=== PATIENT | male | born 1980 | race Caucasian/White ===

== ENCOUNTER 2017-08-30 22:02 | Inpatient (IN) | payer SELFPAY ==
[~2017-08-30] VITALS: Ht 182.9 cm; Wt 70.0 kg
[2017-08-30 18:00] VITALS: PULSE 81
[2017-08-30 22:17] VITALS: BP 118/74; PULSE 91; RESP 16; TEMP 100.1; O2SAT 98
[2017-08-30] MEDS ORDERED: SODIUM CHLORIDE 0.9% FLUSH 10 ML FLUSH IVF PRN (22:30)
[2017-08-30] MEDS ORDERED: IBUPROFEN 800 MG TAB PO ONE (22:30)
--- NOTE | 2017-08-30 22:42 | PD ---
HPI Chief Complaint: Respiratory Symptoms Time Seen by Provider: 22:22 Travel History International Travel<30 days: No Contact w/Intl Traveler<30days: No Traveled to known affect area: No History of Present Illness HPI Patient is a 37-year-old male presenting to emergency for evaluation of flulike symptoms. Patient states he has felt short of breath, weak for the last 4-5 days. He reports decreased oral intake secondary to fatigue and just sleeping all the time. Patient denies any fevers but states he has not checked his temperature but has had felt hot. He also reports a productive cough but is uncertain what the color of his sputum is. Past medical history significant for HIV, he is not on any medications in 1 year. He recently moved back to the area from [place] and is currently staying with family. [facility] Past Medical History Diminished Hearing: No Medical other: Yes (HIV) Social History Alcohol Use: Yes (OCC) Tobacco Use: No Substance Use: No Allergies-Medications (Allergen,Severity, Reaction): Coded Allergies: sulfamethoxazole (Verified Allergy, Severe, Anaphylaxis, 08/31/17) trimethoprim (Verified Allergy, Severe, Anaphylaxis, 08/31/17) Reported Meds & Prescriptions Reported Meds & Active Scripts Active No Active Prescriptions or Reported Medications Review of Systems Except as stated in HPI: all other systems reviewed are Neg General / Constitutional: Positive: Chills HENT: No: Headaches, Neck Pain Cardiovascular: No: Chest Pain or Discomfort Respiratory: Positive: Cough, Shortness of Breath Gastrointestinal: No: Nausea, Vomiting, Abdominal Pain Musculoskeletal: No: Myalgias Skin: Positive Rash Neurologic: Positive: Weakness Physical Exam Narrative GENERAL: Well developed, well-nourished, alert male. Resting comfortably in no acute distress. SKIN: Warm and dry. Well demarcated rash to scalp and face. Central clearing and scaling noted. HEAD: Atraumatic. Normocephalic. EYES: Pupils equal and round. No scleral icterus. No injection or drainage. ENT: No nasal bleeding or discharge. Mucous membranes pink and moist. NECK: Trachea midline. No JVD. CARDIOVASCULAR: Regular rate and rhythm. RESPIRATORY: No accessory muscle use. Clear to auscultation. Coarse breath sounds in bases. GASTROINTESTINAL: Abdomen soft, non-tender, nondistended. Hepatic and splenic margins not palpable. MUSCULOSKELETAL: Extremities without clubbing, cyanosis, or edema. No obvious deformities. NEUROLOGICAL: Awake and alert. No obvious cranial nerve deficits. Motor grossly within normal limits. Five out of 5 muscle strength in the arms and legs. Normal speech. PSYCHIATRIC: Appropriate mood and affect; insight and judgment normal. Data Data Last Documented VS Vital Signs Date Time Temp Pulse Resp B/P (MAP) Pulse Ox O2 Delivery O2 Flow Rate FiO2 08/31/17 00:27 99.9 08/30/17:17 91 16 118/74 (89) 98 Orders Orders Complete Blood Count With Diff (08/30/17 22:23) Comprehensive Metabolic Panel (08/30/17 22:23) Influenzae A/B Antigen (08/30/17 22:23) Chest, Pa & Lat (08/30/17:23) Iv Access Insert/Monitor (08/30/17 22:23) Oximetry (08/30/17:23) Ibuprofen (Motrin) (08/30/17 22:30) Sodium Chloride 0.9% Flush (Ns Flush) (08/30/17 22:30) Urinalysis - C+S If Indicated (08/30/17 22:23) Sodium Chlor 0.9% 1000 Ml Inj (Ns 1000 M (08/31/17 00:15) Methylprednisolone So Succ Inj (Solumedr (08/31/17 00:15) Ldh Serum (08/31/17 00:22) Arterial Blood Gas (Abg) (08/31/17 ) Acetaminophen (Tylenol) (08/31/17 02:00) Ceftriaxone Inj (Rocephin Inj) (08/31/17 02:00) Azithromycin Inj (Zithromax Inj) (08/31/17 02:00) Sulfamet-Trimeth Ds 800-160 Mg (Bactrim (08/31/17 02:00) Admit To Inpatient (08/31/17 ) Vital Signs (Adult) Q4H (08/31/17 02:07) Activity Oob With Assistance (08/31/17 02:07) Growth Media Mixer Mushroom / Telemetry .CONTINUOUS (08/31/17 02:07) Diet Heart Healthy (08/31/17 Breakfast) Sodium Chloride 0.9% Flush (Ns Flush) (08/31/17 02:15) Sodium Chloride 0.9% Flush (Ns Flush) (08/31/17 09:00) Basic Metabolic Panel (Bmp) (09/01/17 06:00) Complete Blood Count With Diff (09/01/17 06:00) Case Management Consult (08/31/17 02:07) Naloxone Inj (Narcan Inj) (08/31/17 02:15) Inpatient Certification (08/31/17 ) Blood Culture (08/31/17 02:07) Admit Order (Ed Use Only) (08/31/17 02:07) Lymphocyte Profile Cd4 Cd8 (08/31/17 02:08) Labs Laboratory Tests Test 08/30/17 22:50 08/31/17 00:35 08/31/17 01:55 White Blood Count 6.4 TH/MM3 Red Blood Count 3.69 MIL/MM3 Hemoglobin 11.5 GM/DL Hematocrit 32.8 % Mean Corpuscular Volume 88.8 FL Mean Corpuscular Hemoglobin 31.1 PG Mean Corpuscular Hemoglobin Concent 35.0 % Red Cell Distribution Width 14.9 % Platelet Count 142 TH/MM3 Mean Platelet Volume 7.8 FL Neutrophils (%) (Auto) 72.0 % Lymphocytes (%) (Auto) 12.5 % Monocytes (%) (Auto) 15.0 % Eosinophils (%) (Auto) 0.3 % Basophils (%) (Auto) 0.2 % Neutrophils # (Auto) 4.6 TH/MM3 Lymphocytes # (Auto) 0.8 TH/MM3 Monocytes # (Auto) 1.0 TH/MM3 Eosinophils # (Auto) 0.0 TH/MM3 Basophils # (Auto) 0.0 TH/MM3 CBC Comment DIFF FINAL Differential Comment Blood Urea Nitrogen 9 MG/DL Creatinine 0.78 MG/DL Random Glucose 93 MG/DL Total Protein 7.2 GM/DL Albumin 2.9 GM/DL Calcium Level 8.3 MG/DL Alkaline Phosphatase 63 U/L Aspartate Amino Transf (AST/SGOT) 13 U/L Alanine Aminotransferase (ALT/SGPT) 13 U/L Total Bilirubin 0.5 MG/DL Sodium Level 137 MEQ/L Potassium Level 4.0 MEQ/L Chloride Level 105 MEQ/L Carbon Dioxide Level 26.4 MEQ/L Anion Gap 6 MEQ/L Estimat Glomerular Filtration Rate 113 ML/MIN Lactate Dehydrogenase 193 U/L Blood Gas Puncture Site LT RADIAL Blood Gas Patient Temperature 98.6 Blood Gas HCO3 24 mmol/L Blood Gas Base Excess 0.1 mmol/L Blood Gas Oxygen Saturation 89 % Arterial Blood pH 7.46 Arterial Blood Partial Pressure CO2 34 mmHg Arterial Blood Partial Pressure O2 54 mmHG Arterial Blood Oxygen Content 13.9 Vol % Arterial Blood Carboxyhemoglobin 1.5 % Arterial Blood Methemoglobin 0.5 % Blood Gas Hemoglobin 11.1 G/DL Oxygen Delivery Device LR Blood Gas Inspired Oxygen 21 % Urine Color YELLOW Urine Turbidity CLEAR Urine pH 6.5 Urine Specific [place] 1.015 Urine Protein TRACE mg/dL Urine Glucose (UA) NEG mg/dL Urine Ketones NEG mg/dL Urine Occult Blood NEG Urine Nitrite NEG Urine Bilirubin NEG Urine Urobilinogen LESS THAN 2.0 MG/DL Urine Leukocyte Esterase NEG Urine RBC 1 /hpf Urine WBC 4 /hpf Urine Mucus FEW /lpf Microscopic Urinalysis Comment CULT NOT INDICATED MDM Medical Decision Making Medical Screen Exam Complete: Yes Emergency Medical Condition: Yes Interpretation(s) Last Impressions Chest X-Ray 08/30/172222 Signed Impressions: Service Date/Time: August 22:37 - CONCLUSION: Patchy bilateral airspace disease consistent with pneumonitis Edilson Avendaño MD Laboratory Tests Test 08/30/17 22:50 08/31/17 00:35 08/31/17 01:55 White Blood Count 6.4 TH/MM3 Red Blood Count 3.69 MIL/MM3 Hemoglobin 11.5 GM/DL Hematocrit 32.8 % Mean Corpuscular Volume 88.8 FL Mean Corpuscular Hemoglobin 31.1 PG Mean Corpuscular Hemoglobin Concent 35.0 % Red Cell Distribution Width 14.9 % Platelet Count 142 TH/MM3 Mean Platelet Volume 7.8 FL Neutrophils (%) (Auto) 72.0 % Lymphocytes (%) (Auto) 12.5 % Monocytes (%) (Auto) 15.0 % Eosinophils (%) (Auto) 0.3 % Basophils (%) (Auto) 0.2 % Neutrophils # (Auto) 4.6 TH/MM3 Lymphocytes # (Auto) 0.8 TH/MM3 Monocytes # (Auto) 1.0 TH/MM3 Eosinophils # (Auto) 0.0 TH/MM3 Basophils # (Auto) 0.0 TH/MM3 CBC Comment DIFF FINAL Differential Comment Blood Urea Nitrogen 9 MG/DL Creatinine 0.78 MG/DL Random Glucose 93 MG/DL Total Protein 7.2 GM/DL Albumin 2.9 GM/DL Calcium Level 8.3 MG/DL Alkaline Phosphatase 63 U/L Aspartate Amino Transf (AST/SGOT) 13 U/L Alanine Aminotransferase (ALT/SGPT) 13 U/L Total Bilirubin 0.5 MG/DL Sodium Level 137 MEQ/L Potassium Level 4.0 MEQ/L Chloride Level 105 MEQ/L Carbon Dioxide Level 26.4 MEQ/L Anion Gap 6 MEQ/L Estimat Glomerular Filtration Rate 113 ML/MIN Lactate Dehydrogenase 193 U/L Blood Gas Puncture Site LT RADIAL Blood Gas Patient Temperature 98.6 Blood Gas HCO3 24 mmol/L Blood Gas Base Excess 0.1 mmol/L Blood Gas Oxygen Saturation 89 % Arterial Blood pH 7.46 Arterial Blood Partial Pressure CO2 34 mmHg Arterial Blood Partial Pressure O2 54 mmHG Arterial Blood Oxygen Content 13.9 Vol % Arterial Blood Carboxyhemoglobin 1.5 % Arterial Blood Methemoglobin 0.5 % Blood Gas Hemoglobin 11.1 G/DL Oxygen Delivery Device LR Blood Gas Inspired Oxygen 21 % Urine Color YELLOW Urine Turbidity CLEAR Urine pH 6.5 Urine Specific [place] 1.015 Urine Protein TRACE mg/dL Urine Glucose (UA) NEG mg/dL Urine Ketones NEG mg/dL Urine Occult Blood NEG Urine Nitrite NEG Urine Bilirubin NEG Urine Urobilinogen LESS THAN 2.0 MG/DL Urine Leukocyte Esterase NEG Urine RBC 1 /hpf Urine WBC 4 /hpf Urine Mucus FEW /lpf Microscopic Urinalysis Comment CULT NOT INDICATED Vital Signs Date Time Temp Pulse Resp B/P (MAP) Pulse Ox O2 Delivery O2 Flow Rate FiO2 08/31/17 00:27 99.9 08/30/17 22:17 100.1 91 16 118/74 (89) 98 Vital Signs Date Time Temp Pulse Resp B/P (MAP) Pulse Ox O2 Delivery O2 Flow Rate FiO2 08/30/17 22:17 100.1 91 16 118/74 (89) 98 Differential Diagnosis Pneumonia versus orchitis versus influenza versus sepsis versus other Narrative Course Patient is a 37-year-old HIV positive patient currently not on any HAART. Patient presented today complaining of 4 days of increasing shortness of breath with exertion, fatigue and weakness. Patient was mildly febrile on arrival, he was vital signs are otherwise stable. Imaging ordered and pending, ibuprofen, IV fluids ordered. Chest x-ray which is read by the radiologist shows patchy bilateral airspace disease consistent with pneumonitis. In this clinical setting is likely pneumonia CBC no leukocytosis, monocytes 15. Chemistry is unremarkable, LDH is 193, urinalysis is unremarkable ABG consistent with respiratory alkalosis. Discussed findings with my attending physician. Blood cultures ordered, antibiotics ordered. [facility] paged for admit. Discussed with Dr. Harrison who accepted admit. Sepsis Criteria SIRS Criteria (2 or more): Temp > 100.9 or < 96.8 Diagnosis Primary Impression: Bilateral pneumonia Qualified Codes: J18.9 - Pneumonia, unspecified organism Scripts No Active Prescriptions or Reported Meds Condition: Stable Altagracia Cannon BLIND HOOKER Aug 30, 2017 22:42
--- NOTE | 2017-08-30 22:45 | RADRPT ---
EXAM DATE/TIME: 08/30/2017 22:37 [facility] COMPARISON: No previous studies available for comparison. INDICATIONS : Shortness of breath and fever. MEDICAL HISTORY : None. SURGICAL HISTORY : None. ENCOUNTER: Initial ACUITY: 1 week PAIN SCORE: 0/10 LOCATION: Bilateral chest FINDINGS: There is patchy bilateral airspace disease in the right lung base lower lobe and left midlung field m ost likely representing pneumonitis CONCLUSION: Patchy bilateral airspace disease consistent with pneumonitis Edilson Avendaño MD on August 30, 2017 at 22:43 Board Certified Radiologist. This report was verified electronically.
[2017-08-30 23:10] LABS: AUTOMATED NEUTROPHIL # 4.6 TH/MM3 (1.8-7.7); BASOPHIL % 0.2 % (0.0-2.0); EOSINOPHIL % 0.3 % (0.0-4.0); HEMATOCRIT 32.8 % (39.0-51.0); HEMO FLAGS DIFF FINAL; LYMPH % 12.5 % (9.0-44.0); LYMPHOCYTE # 0.8 TH/MM3 (1.0-4.8); MEAN CELL VOLUME 88.8 FL (80.0-100.0); MEAN CORPUSCULAR HEMOGLOBIN 31.1 PG (27.0-34.0); PLATELET COUNT 142 TH/MM3 (150-450); RED BLOOD COUNT 3.69 MIL/MM3 (4.50-5.90); RED CELL DISTRIBUTION WIDTH 14.9 % (11.6-17.2); WHITE BLOOD COUNT 6.4 TH/MM3 (4.0-11.0)
[2017-08-30 23:30] LABS: ANION GAP 6 MEQ/L (5-15); AST (GOT) 13 U/L (15-37); BICARBONATE 26.4 MEQ/L (21.0-32.0); BLOOD UREA NITROGEN 9 MG/DL (7-18); CHLORIDE 105 MEQ/L (98-107); GLOMERULAR FILTRATION RATE 113 ML/MIN (>89); SODIUM (NA) 137 MEQ/L (136-145)
[2017-08-30 23:31] LABS: ALT (GPT) 13 U/L (12-78)
[2017-08-30 23:33] LABS: ALKALINE PHOSPHATASE 63 U/L (45-117); TOTAL BILIRUBIN ADULT 0.5 MG/DL (0.2-1.0)
[2017-08-31] VITALS (9 sets, daily range): BP systolic 94–115; BP diastolic 61–80; PULSE 62–78; RESP 16–20; TEMP 97.5–99.9; O2SAT 94–100
[2017-08-31] MEDS ORDERED: methylPREDNISolone SOD SUCC 125 MG/2 ML VIAL IV PUSH ONE (00:15)
[2017-08-31] MEDS ORDERED: SODIUM CHLOR 0.9% 1000 ML INJ 1,000 ML IV ONE (00:15)
[2017-08-31 00:48] LABS: BLOOD GAS BASE EXCESS 0.1 mmol/L (-2-2); BLOOD GAS CARBOXYHEMOGLOBIN 1.5 % (0-4); BLOOD GAS HCO3 24 mmol/L (22-26); BLOOD GAS METHEMOGLOBIN 0.5 % (0-2); BLOOD GAS O2 HGB SATURATION 89 % (90-100); BLOOD GAS OXYGEN CONTENT 13.9 Vol % (12.0-20.0); BLOOD GAS PCO2 34 mmHg (38-42); BLOOD GAS PO2 54 mmHG (61-120); BLOOD GAS TOTAL HGB 11.1 G/DL (12.0-16.0); TEMP CORR TO 98.6
[2017-08-31 00:49] LABS: CRITICAL VALUE YES; DRAW SITE LT RADIAL; FIO2 21 %; NUMBER OF ARTERIAL PUNCTURES 1; OXYGEN DEVICE LR; STAT YES; ULNAR PULSE PRESENT
[2017-08-31] MEDS ORDERED: SULFAMETHOXAZOLE-TRIMETHOPRIM DS 800-160 MG TAB PO ONE (02:00)
[2017-08-31] MEDS ORDERED: cefTRIAXone INJ 2,000 MG in SODIUM CHLORIDE 0.9% INJ 100 ML IV ONE (02:00)
[2017-08-31] MEDS ORDERED: AZITHROMYCIN INJ 500 MG in SODIUM CHLOR 0.9% 250 ML INJ 250 ML IV ONE (02:00)
[2017-08-31] MEDS ORDERED: ACETAMINOPHEN 325 MG TAB PO ONE (02:00)
[2017-08-31 02:11] LABS: BLOOD, URINE NEG (NEG); COMMENT (UR) CULT NOT INDICATED; CULTURE IF INDICATED CULT NOT INDICATED; GLUCOSE,URINE NEG (NEG); KETONE, URINE NEG (NEG); MUCUS URINE FEW /lpf (OCC); NITRITE,URINE NEG (NEG); PH, URINE 6.5 (5.0-8.5); URINE COLOR YELLOW (YELLW/STRAW)
[2017-08-31] MEDS ORDERED: SULFAMETHOX/TRIMETHOPRIM 160 MG/10 ML VIAL IV SCH (02:15)
[2017-08-31] MEDS ORDERED: SODIUM CHLORIDE 0.9% FLUSH 10 ML FLUSH IV FLUSH PRN (02:15)
[2017-08-31] MEDS ORDERED: NALOXONE HCL 0.4 MG/ML AMP IV PUSH PRN (02:15)
--- NOTE | 2017-08-31 02:33 | HHI.HP ---
HPI Service [facility] Primary Care Physician No Primary Care Physician Admission Diagnosis pneumonia Diagnoses: (1) Bilateral pneumonia Chief Complaint: shortness of breath Travel History International Travel<30 Days: No Contact w/Intl Traveler <30 Da: No Traveled to Known Affected Are: No History of Present Illness Written by Batsheva Villatoro, acting as scribe for Dr. Harrison on 08/31/17 at 02:33. Symptoms for 1 week The patient states that he came in because he couldn't breath. He reports productive cough - states he doesn't look at sputum. Severity: severe - felt like "I was gonna " Off HIV medications since last September (2015) Reports throat closed up from IV Bactrim and he was in ICU on BiPAP - said he had difficulty swallowing at [facility] in [place], [place] 6 years ago. Denies fevers (at home), chest pain, nausea, vomiting, diarrhea, or dizziness. Reports gum pain, teeth decayed - was supposed to have fully removed with dentures. Review of Systems Except as stated in HPI: all other systems reviewed are Neg Past Family Social History Past Medical History Anxiety HIV + - hasn't been taking medications since September (off medications since September 2016) - thinks he might have full blown AIDs - diagnosed 6 years ago Anemia requiring blood transfusion x 1 - doesn't know why PCP pneumonia 6 years ago - no other opportunistic infections Denies hypertension, diabetes mellitus, heart problems, COPD, liver problems, kidney problems, DVT, PE, CVA, seizures, thyroid problems, or cancers . Past Surgical History Lung biopsy via bronchoscopy . Reported Medications Reported Meds & Active Scripts Active No Active Prescriptions or Reported Medications . Allergies: Coded Allergies: sulfamethoxazole (Verified Allergy, Severe, Anaphylaxis, 08/31/17) trimethoprim (Verified Allergy, Severe, Anaphylaxis, 08/31/17) Active Ordered Medications Current Medications Ibuprofen (Motrin) 800 mg ONCE ONCE PO Last administered on 08/30/17t 23:08; Start 08/30/17 at 22:30; Stop 08/30/17 at 22:36; Status DC Sodium Chloride (NS Flush) 2 ml UNSCH PRN IVF FLUSH AFTER USING IV ACCESS; Start 08/30/17 at 22:30 Sodium Chloride 1,000 ml @ 999 mls/hr BOLUS ONCE IV Last administered on 00:34; Start 08/31/17 at 00:15; Stop 08/31/17 at 01:15; Status DC Methylprednisolone Sodium Succinate (SoluMEDROL INJ) 125 mg ONCE ONCE IV PUSH Last administered on 08/31/17 00:35; Start 08/31/17 at 00:15; Stop 08/31/17 at 00:16; Status DC Acetaminophen (Tylenol) 650 mg ONCE ONCE PO Last administered on 08/31/17 02 :19; Start 08/31/17 at 02:00; Stop 08/31/17 at 02:01; Status DC Ceftriaxone Sodium 2000 mg/ Sodium Chloride 100 ml @ 200 mls/hr ONCE ONCE IV Last administered on 08/31/17 02:18; Start 08/31/17 at 02:00; Stop 08/31/17 at 02:29 Azithromycin 500 mg/Sodium Chloride 250 ml @ 250 mls/hr ONCE ONCE IV ; Start 08/31/17 at 02:00; Stop 08/31/17 at 02:59 Trimethoprim/ Sulfamethoxazole (Bactrim Ds 800-160 Mg) 1 tab ONCE ONCE PO Last administered on 08/31/17 02:18; Start 08/31/17 at 02:00; Stop 08/31/17 at 02:15; Status DC Sodium Chloride (NS Flush) 2 ml UNSCH PRN IV FLUSH FLUSH AFTER USING IV ACCESS ; Start 08/31/17 at 02:15 Sodium Chloride (NS Flush) 2 ml BID IV FLUSH ; Start 08/31/17 at 09:00 Naloxone HCl (Narcan Inj) 0.4 mg UNSCH PRN IV PUSH SEE LABEL COMMENTS; Start 08/31/17 at 02:15 Trimethoprim/ Sulfamethoxazole (Bactrim Inj) 270 mg Q6H IV ; Start 08/31/17 at 02:15; Status UNV . Family History Father with heart disease - in his 33 from "a deteriorating heart" Grandfather and Aunt with colon CA . Social History Tobacco: denies Alcohol: denies Illicit Drugs: denies . Physical Exam Vital Signs Vital Signs Date Time Temp Pulse Resp B/P (MAP) Pulse Ox O2 Delivery O2 Flow Rate FiO2 08/31/17 02:15 78 16 115/80 (92) Nasal Cannula 2.00 95 08/31/17 00:27 99.9 08/30/17 22:17 100.1 91 16 118/74 (89) 98 Physical Exam GENERAL: This is a male patient, in no apparent distress. SKIN: Fungal appearing rashes on head. Cool and dry. HEAD: Atraumatic. Normocephalic. EYES: No scleral icterus. No injection or drainage. ENT: Nose without bleeding, purulent drainage or septal hematoma. Airway patent. NECK: Trachea midline. No JVD. CARDIOVASCULAR: Regular rate and rhythm without murmurs, gallops, or rubs. RESPIRATORY: Clear to auscultation. Breath sounds equal bilaterally. No wheezes , rales, or rhonchi. GASTROINTESTINAL: Abdomen soft, non-tender, nondistended. No guarding. MUSCULOSKELETAL: Extremities without clubbing, cyanosis, or edema. No calf tenderness. NEUROLOGICAL: Awake and alert. Motor and sensory grossly within normal limits. Normal speech. . Laboratory Laboratory Tests Test 08/30/17 22:50 08/31/17 00:35 08/31/17 01:55 White Blood Count 6.4 Red Blood Count 3.69 Hemoglobin 11.5 Hematocrit 32.8 Mean Corpuscular Volume 88.8 Mean Corpuscular Hemoglobin 31.1 Mean Corpuscular Hemoglobin Concent 35.0 Red Cell Distribution Width 14.9 Platelet Count 142 Mean Platelet Volume 7.8 Neutrophils (%) (Auto) 72.0 Lymphocytes (%) (Auto) 12.5 Monocytes (%) (Auto) 15.0 Eosinophils (%) (Auto) 0.3 Basophils (%) (Auto) 0.2 Neutrophils # (Auto) 4.6 Lymphocytes # (Auto) 0.8 Monocytes # (Auto) 1.0 Eosinophils # (Auto) 0.0 Basophils # (Auto) 0.0 CBC Comment DIFF FINAL Differential Comment Blood Urea Nitrogen 9 Creatinine 0.78 Random Glucose 93 Total Protein 7.2 Albumin 2.9 Calcium Level 8.3 Alkaline Phosphatase 63 Aspartate Amino Transf (AST/SGOT) 13 Alanine Aminotransferase (ALT/SGPT) 13 Total Bilirubin 0.5 Sodium Level 137 Potassium Level 4.0 Chloride Level 105 Carbon Dioxide Level 26.4 Anion Gap 6 Estimat Glomerular Filtration Rate 113 Lactate Dehydrogenase 193 Blood Gas Puncture Site LT RADIAL Blood Gas Patient Temperature 98.6 Blood Gas HCO3 24 Blood Gas Base Excess 0.1 Blood Gas Oxygen Saturation 89 Arterial Blood pH 7.46 Arterial Blood Partial Pressure CO2 34 Arterial Blood Partial Pressure O2 54 Arterial Blood Oxygen Content 13.9 Arterial Blood Carboxyhemoglobin 1.5 Arterial Blood Methemoglobin 0.5 Blood Gas Hemoglobin 11.1 Oxygen Delivery Device LR Blood Gas Inspired Oxygen 21 Urine Color YELLOW Urine Turbidity CLEAR Urine pH 6.5 Urine Specific [place] 1.015 Urine Protein TRACE Urine Glucose (UA) NEG Urine Ketones NEG Urine Occult Blood NEG Urine Nitrite NEG Urine Bilirubin NEG Urine Urobilinogen LESS THAN 2.0 Urine Leukocyte Esterase NEG Urine RBC 1 Urine WBC 4 Urine Mucus FEW Microscopic Urinalysis Comment CULT NOT INDICATED Date/Time Source Procedure Growth Status 08/30/17 22:50 Nasal Washing Influenza Types A,B Antigen (PUJA) - Final NEGATIVE FOR FLU A AND B ANTIGEN.... Complete Result Diagram: 08/30/17224908/30/[id number] Imaging Last Impressions Chest X-Ray 08/30/172222 Signed Impressions: Service Date/Time: August 22:37 - CONCLUSION: Patchy bilateral airspace disease consistent with pneumonitis Edilson Avendaño MD . Caprini VTE Risk Assessment Caprini VTE Risk Assessment: Mod/High Risk (score >= 2) Caprini Risk Assessment Model Point Value = 1 Point Value = 2 Point Value = 3 Point Value = 5 Age 41-60 Minor surgery BMI > 25 kg/m2 Swollen legs Varicose veins or History of unexplained or recurrent spontaneous Oral contraceptives or hormone replacement Sepsis (< 1 month) Serious lung disease, including pneumonia (< 1 month) Abnormal pulmonary function Acute myocardial infarction Congestive heart failure (< 1 month) History of inflammatory bowel disease Medical patient at bed rest Age 61-74 Arthroscopic surgery Major open surgery (> 45 min) Laparoscopic surgery (> 45 min) Malignancy Confined to bed (> 72 hours) Immobilizing plaster cast Central venous access Age >= 75 History of VTE Family history of VTE Factor V Leiden Prothrombin [id number] Lupus anticoagulant Anticardiolipin antibodies Elevated serum homocysteine Heparin-induced thrombocytopenia Other congenital or acquired thrombophilia Stroke (< 1 month) Elective arthroplasty Hip, pelvis, or leg fracture Acute spinal cord injury (< 1 month) Prophylaxis Regimen Total Risk Factor Score Risk Level Prophylaxis Regimen 0-1 Low Early ambulation 2 Moderate Order ONE of the following: *Sequential Compression Device (SCD) *Heparin 5000 units SQ BID 3-4 Higher Order ONE of the following medications: *Heparin 5000 units SQ TID *Enoxaparin/Lovenox 40 mg SQ daily (WT < 150 kg, CrCl > 30 mL/min) *Enoxaparin/Lovenox 30 mg SQ daily (WT < 150 kg, CrCl > 10-29 mL/min) *Enoxaparin/Lovenox 30 mg SQ BID (WT < 150 kg, CrCl > 30 mL/min) AND/OR *Sequential Compression Device (SCD) 5 or more Highest Order ONE of the following medications: *Heparin 5000 units SQ TID (Preferred with Epidurals) *Enoxaparin/Lovenox 40 mg SQ daily (WT < 150 kg, CrCl > 30 mL/min) *Enoxaparin/Lovenox 30 mg SQ daily (WT < 150 kg, CrCl > 10-29 mL/min) *Enoxaparin/Lovenox 30 mg SQ BID (WT < 150 kg, CrCl > 30 mL/min) AND *Sequential Compression Device (SCD) Assessment and Plan Problem List: (1) Bilateral pneumonia ICD Code: J18.9 - Pneumonia, unspecified organism (2) Rash ICD Code: R21 - Rash and other nonspecific skin eruption Assessment and Plan 37 y/o HIV + patient off HIV medications for almost one year presented with severe shortness of breath: Bilateral Pneumonia Suspect Pneumocystis Carinii Pneumonia HIV + - CXR shows Patchy bilateral airspace disease with pneumonitis - ABGs show ph 7.46, oxygen saturation 89%, pCO2 - 34, and pO2 - 54 on room air in ED. - patient has received one dose of p.o. Bactrim about 10 mins prior to visit - reports severe allergy to IV Bactrim 6 years ago - patient is somewhat of a poor historian - reported cipro allergy to ER staff and had difficulty recalling specifics of allergic reaction - IV Bactrim discontinued for now- verbally ordered - consult infectious disease to assist with management of HIV and suspected PCP - consider sulfa sensitization - verbally ordered Tinea infection vs dermatitis - multiple rashes on head/face - will await recommendation from ID regarding treatment DVT prophylaxis - Heparin 5000 units subq q12h - verbally ordered Call placed to [facility] in [place] to find out about patient's possible allergic reaction to IV Bactrim - they could not find the patient in their computer system. . Discussed Condition With ER physician, RN, and patient . Physician Certification 2 Midnight Certification Type: Admission for Inpatient Services Order for Inpatient Services The services are ordered in accordance with Medicare regulations or non- Medicare payer requirements, as applicable. In the case of services not specified as inpatient-only, they are appropriately provided as inpatient services in accordance with the 2-midnight benchmark. Estimated LOS (days): 3 days is the estimated time the patient will need to remain in the hospital, assuming treatment plan goals are met and no additional complications. Post-Hospital Plan: Home Problem Qualifiers (1) Bilateral pneumonia: Qualified Codes: J18.9 - Pneumonia, unspecified organism Batsheva Villatoro Aug 31, 2017 02:33
[2017-08-31] MEDS ORDERED: TRIMETHOPRIM IV SCH ×2 (03:00)
[2017-08-31] MEDS ORDERED: DEXTROSE 5% IV SCH ×2 (03:00)
[2017-08-31] MEDS ORDERED: WATE IV SCH ×2 (03:00)
[2017-08-31] MEDS ORDERED: SULFAMETHOX IV SCH ×2 (03:00)
[2017-08-31] MEDS ORDERED: SULFAMETHOXAZOLE-TRIMETHOPRIM DS 800-160 MG TAB PO SCH (08:20)
[2017-08-31] MEDS: HEPARIN SODIUM - SQ 10,000 UNITS/ML VIAL SQ SCH ×2 (09:00→20:29)
[2017-08-31] MEDS: SODIUM CHLORIDE 0.9% FLUSH 10 ML FLUSH IV FLUSH SCH ×2 (09:00→20:29)
--- NOTE | 2017-08-31 12:57 | MB ---
cc: BLAKE XIE MD DATE OF CONSULTATION 08/31/2017 REQUESTING PHYSICIAN Julianne Villatoro REASON FOR CONSULTATION HIV management and suspected PCP. ALLERGIES The patient reports BACTRIM allergy. HISTORY OF PRESENT ILLNESS This is a 37-year-old white male who has AIDS. The patient is a very poor historian. Information is obtained from the medical record. The patient presented to the emergency department with respiratory symptoms and reports flu-like symptoms with generalized fatigue and shortness of breath. He reports dyspnea on exertion with very little activity. He notes that he has a cough but not to productive of sputum. A chest x-ray was performed and it shows patchy bilateral airspace disease consistent with pneumonitis. Influenza antigen is negative. The patient had a temperature of 100 degrees on presentation. The patient has HIV disease which was diagnosed approximately six years ago when he presented with pneumonia. He reports he had followed up with the health department in [place] about a month ago and that laboratory work was done. He moved here to [place] and the patient tells me that he is staying with his grandmother and aunt and he plans to stay in this area. He reports that he has not been on any medicine for HIV you for over a year. He does not recall his last CD-4 count. The patient is reported to be allergic to Bactrim. He states that this was determined when he was being treated for pneumonia in [facility]. He states that he was told he broke out in the rash. PAST MEDICAL HISTORY HIV disease ALLERGIES BACTRIM MEDICATIONS Subcutaneous Heparin. The patient was taking no medications prior to admission. FAMILY HISTORY Significant for heart disease in his father. SOCIAL HISTORY The patient smokes about a third of a pack of cigarettes a day. Denies alcohol. Denies substance abuse. REVIEW OF SYSTEMS Pertinent as mentioned above in the history of present illness. Otherwise negative. PHYSICAL EXAMINATION This is a frail-appearing slender male who is in no acute distress. He is awake and alert, but he looks chronically ill. VITAL SIGNS: Include a temperature of 97.5, BP 112/67, respirations 20, heart rate 65. HEENT: Head is atraumatic. The patient has red streaks of erythema at the forehead and on the sides of the face. He also has a rim of erythema at the vertex of the head around the hair line anteriorly and a mild patch of macular erythema at the vertex of the head. Extraocular movements grossly intact, pupils reactive to light. No icterus. No conjunctival erythema. Oropharynx moist mucosa without lesions or thrush. The patient has very few remaining teeth. NECK: Supple without adenopathy. No JVD. LUNGS: Diminished breath sounds throughout. HEART: Regular S1-S2 without audible murmurs, rubs or gallops. ABDOMEN: Bowel sounds present, soft, no tenderness appreciated. RECTAL: Not performed. EXTREMITIES: No clubbing, cyanosis or edema. SKIN: No diffuse rash. NEUROLOGIC: No gross focal findings. PSYCHIATRIC: The patient is calm and cooperative. LABORATORY DATA WBC 6.4, platelets 142, 72% neutrophils, hemoglobin 11.5, creatinine 0.78, estimated GFR 113, AST 13, ALT 13, sodium 137, blood cultures pending. IMPRESSION 1. Pneumonia which very likely is due to PCP with (Jiroveci). The patient has shortness of breath, abnormal chest x-ray and Hypoxemia with pO2 of 54. 2. AIDS in a patient with a history of PCP pneumonia approximately six years ago. RECOMMENDATIONS 1. Begin pentamidine in a patient who is allergic to Bactrim. 2. I would give prednisone 40 mg p.o. b.i.d. for 5 days and 40 mg q.24 h for 5 days and then 20 mg q.24 h for 11 days. 3. Follow CD-4 count. 4. Monitor clinical response to treatment. 5. The patient will need to have followup following hospitalization with the [facility] for HIV management since he has no local doctor. Thank you this consultation. The patient's progress will be monitored and further recommendations will be made upon followup if necessary. Blake Xie MD FD/RAMIRO /11:59 AM /12:37 PM EMILY
[2017-08-31] MEDS: PENTAMIDINE INJ 300 MG in DEXTROSE 5% IN WATER INJ 250 ML IV SCH ×2 (14:38)
--- NOTE | 2017-08-31 14:46 | HHI.PR ---
Addendum to Inpatient Note Addendum Reason: Additional Documentation Additional Information I saw and examined the patient. Patient denies chest pain, complains of occasional shortness of breath, denies fevers or chills. He states that he was not coughing before, however he is not coughing. Patient is awake alert and oriented 3, does not look in distress, lungs have some diffuse bilateral crackles in the lower lobes especially. Abdomen is soft, nontender nondistended. Patient with bilateral infiltrates on chest x-ray. Likely with Jose Jaimes. Patient recently moved from [place] to the [facility]. Previously following at [facility] department, however the last time he was seen was 1 year ago. ID consulted. Recommended pentamidine for treatment of PCP pneumonia with Jirovechi. We'll continue to provide oxygen to keep oxygen saturations more than 92% and monitor vital signs. Ration with acute respiratory failure due to PCP pneumonia being treated with supplemental oxygen , IV pentamidine and oral prednisone 40 minute grams by mouth twice a day as per infectious disease accommodations. Minor Don MD Aug 31, 2017 14:46
[2017-08-31] MEDS: predniSONE 20 MG TAB PO SCH (20:28)
[2017-09-01] VITALS (8 sets, daily range): BP systolic 96–116; BP diastolic 50–56; PULSE 53–75; RESP 16–20; TEMP 97.6–98.2; O2SAT 92–96
[2017-09-01 07:07] LABS: AUTOMATED NEUTROPHIL # 7.4 TH/MM3 (1.8-7.7); BASOPHIL % 0.1 % (0.0-2.0); HEMATOCRIT 35.3 % (39.0-51.0); HEMO FLAGS DIFF FINAL; LYMPH % 8.6 % (9.0-44.0); LYMPHOCYTE # 0.8 TH/MM3 (1.0-4.8); MEAN CELL VOLUME 89.1 FL (80.0-100.0); MEAN CORPUSCULAR HEMOGLOBIN 30.4 PG (27.0-34.0); MEAN CORPUSCULAR HGB CONC 34.1 % (32.0-36.0); MONO % 7.2 % (0.0-8.0); NEUT % 84.1 % (16.0-70.0); PLATELET COUNT 158 TH/MM3 (150-450); RED BLOOD COUNT 3.96 MIL/MM3 (4.50-5.90); RED CELL DISTRIBUTION WIDTH 15.9 % (11.6-17.2); WHITE BLOOD COUNT 8.8 TH/MM3 (4.0-11.0)
[2017-09-01 07:38] LABS: BICARBONATE 25.3 MEQ/L (21.0-32.0); POTASSIUM 4.3 MEQ/L (3.5-5.1)
[2017-09-01] MEDS: SODIUM CHLORIDE 0.9% FLUSH 10 ML FLUSH IV FLUSH SCH ×2 (09:00→21:00)
[2017-09-01] MEDS: HEPARIN SODIUM - SQ 10,000 UNITS/ML VIAL SQ SCH ×2 (09:00→21:00)
[2017-09-01] MEDS: predniSONE 20 MG TAB PO SCH ×2 (09:22→21:03)
--- NOTE | 2017-09-01 09:38 | HHI.PR ---
Subjective Remarks patient admits to being anxious- states in the past was on Xanax coughing up clear sputum denies any fever or chills, no nausea or vomiting or diarrhea Objective Vitals Vital Signs Date Time Temp Pulse Resp B/P (MAP) Pulse Ox O2 Delivery O2 Flow Rate FiO2 09/01/17 08:00 97.6 63 18 99/52 (68) 95 09/01/17 04:09 96 09/01/17 04:01 97.9 54 18 96/54 (68) 93 09/01/17 00:39 97.8 53 16 108/54 (72) 92 08/31/17 20:50 98.1 66 18 99/65 (76) 96 08/31/17 20:43 62 08/31/17 16:21 97.7 66 20 115/65 (82) 94 08/31/17 12:18 97.5 74 20 107/62 (77) 95 I/O 08/31/17 08/31/17 08/31/17 09/01/17 09/01/17 09/01/17 07:00 15:00 23:00 07:00 15:00 23:00 Intake Total 1350 ml 660 ml Output Total 1750 ml Balance 1350 ml 660 ml -1750 ml Intake Oral 660 ml IV Total 1350 ml Output Urine Total 1750 ml # Voids 3 # Bowel Movements 0 Result Diagram: 09/01/17 0609/01/1726 Imaging Last Impressions Chest X-Ray 08/30/173 Signed Impressions: Service Date/Time: August 22:37 - CONCLUSION: Patchy bilateral airspace disease consistent with pneumonitis Edilson Avendaño MD Objective Remarks appears very anxious anicteric no oral thrush anicteric lungs- no rales. 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 - reports severe allergy to IV Bactrim 6 years ago - patient is somewhat of a poor historian - reported cipro allergy to ER staff and had difficulty recalling specifics of allergic reaction -started on IV Pentamidine and Prednisone - Appreciate Dr. Will recommendation Tinea infection vs dermatitis - multiple rashes on head/face - will await recommendation from ID regarding treatment - trail of steroids/antifungal combination- skin med DVT prophylaxis - Heparin 5000 units subq q12h - - patient refused - up and ambulate as tolerated - TEDs/SCDs when in bed Anxiety disorder - appears very anxious - trial of Buspar Problem Qualifiers (1) Bilateral pneumonia: Qualified Codes: J18.9 - Pneumonia, unspecified organism Jerome Del Toro MD Sep 01, 2017 09:38
[2017-09-01] MEDS: busPIRone HCL 5 MG TAB PO SCH ×2 (10:03→21:03)
[2017-09-01] MEDS: PENTAMIDINE INJ 300 MG in DEXTROSE 5% IN WATER INJ 250 ML IV SCH ×2 (13:13)
[2017-09-02] VITALS (8 sets, daily range): BP systolic 112–120; BP diastolic 57–63; PULSE 50–71; RESP 20; TEMP 97.4–98.4; O2SAT 94–98
[2017-09-02] MEDS: busPIRone HCL 5 MG TAB PO SCH ×2 (09:18→20:27)
[2017-09-02] MEDS: predniSONE 20 MG TAB PO SCH ×2 (09:18→20:27)
--- NOTE | 2017-09-02 10:12 | HHI.IDPN ---
Subjective Subjective Remarks ID COVERAGE This is a 37-year-old white male who has AIDS. The patient is a very poor historian. Information is obtained from the medical record. The patient presented to the emergency department with respiratory symptoms and reports flu-like symptoms with generalized fatigue and shortness of breath. He reports dyspnea on exertion with very little activity. He notes that he has a cough but not to productive of sputum. A chest x-ray was performed and it shows patchy bilateral airspace disease consistent with pneumonitis. Influenza antigen is negative. The patient had a temperature of 100 degrees on presentation. The patient has HIV disease which was diagnosed approximately six years ago when he presented with pneumonia. He reports he had followed up with the health department in [place] about a month ago and that laboratory work was done. He moved here to [place] and the patient tells me that he is staying with his grandmother and aunt and he plans to stay in this area. He reports that he has not been on any medicine for HIV you for over a year. He does not recall his last CD-4 count. The patient is reported to be allergic to Bactrim. He states that this was determined when he was being treated for pneumonia in [facility]. He states that he was told he broke out in the rash. Notes reviewed Temps ok On nasal O2 Not SOB Coughing up some phlegm No CP No N/V No diarrhea NO rash or itching No complaints Antibiotics I attest that I obtained, updated or reviewed the home and current medications. Pentamidine IV Current Medications Medications (Trade) Dose Ordered Sig/Frank Route Start Time Stop Time Status Last Admin (NS Flush) 2 ml UNSCH PRN IV FLUSH 08/31/17 02:15 08/31/17 03:37 (NS Flush) 2 ml BID IV FLUSH 08/31/17 09:00 09/01/17 21:00 (Narcan Inj) 0.4 mg UNSCH PRN IV PUSH 08/31/17 02:15 (Heparin Inj) 5,000 units Q12HR SQ 08/31/17 09:00 Pentamidine Isethionate 300 mg/Dextrose 250 ml @ 250 mls/hr Q24H IV 08/31/17 14:00 09/01/17 13:13 (Deltasone) 40 mg BID PO 08/31/17 21:00 09/02/17 09:18 (Buspar) 5 mg Q12HR PO 09/01/17 10:00 09/02/17 09:18 (Levaquin) 750 mg DAILY@1100 PO 09/02/17 11:00 09/02/17 11:43 (Mycostatin Liq) 5 ml QID SWISH-SWAL 09/02/17 18:00 (Pepcid) 20 mg BID PO 09/02/17 21:00 Lines PIV Past Medical History Anxiety HIV, PCP Bronch, lung biopsy Allergies: Coded Allergies: sulfamethoxazole (Verified Allergy, Severe, throat closing, 08/31/17) pt is poor historian. States his throat closed with use of IV bactrim for pcp treatment prior. However, po bactrim was given in ER and has had no reaction or allergic rxns to it at all. trimethoprim (Verified Allergy, Severe, throat closing, 08/31/17) pt is poor historian. States his throat closed with use of IV bactrim for pcp treatment prior. However, po bactrim was given in ER and has had no reaction or allergic rxns to it at all. Objective . Vital Signs Date Time Temp Pulse Resp B/P (MAP) Pulse Ox O2 Delivery O2 Flow Rate FiO2 09/02/17 08:12 97.4 63 20 120/63 (82) 95 09/02/17 04:00 97.7 62 20 116/60 (78) 98 09/02/17 00:00 98.4 53 20 112/63 (79) 98 09/01/17 20:00 97.8 65 20 108/55 (72) 96 09/01/17 19:00 61 09/01/17 16:00 98.2 75 18 116/56 (76) 96 09/01/17 12:00 97.7 59 18 100/50 (67) 95 . Laboratory Tests Test 09/01/17 06:26 White Blood Count 8.8 TH/MM3 Red Blood Count 3.96 MIL/MM3 Hemoglobin 12.0 GM/DL Hematocrit 35.3 % Mean Corpuscular Volume 89.1 FL Mean Corpuscular Hemoglobin 30.4 PG Mean Corpuscular Hemoglobin Concent 34.1 % Red Cell Distribution Width 15.9 % Platelet Count 158 TH/MM3 Mean Platelet Volume 7.9 FL Neutrophils (%) (Auto) 84.1 % Lymphocytes (%) (Auto) 8.6 % Monocytes (%) (Auto) 7.2 % Eosinophils (%) (Auto) 0.0 % Basophils (%) (Auto) 0.1 % Neutrophils # (Auto) 7.4 TH/MM3 Lymphocytes # (Auto) 0.8 TH/MM3 Monocytes # (Auto) 0.6 TH/MM3 Eosinophils # (Auto) 0.0 TH/MM3 Basophils # (Auto) 0.0 TH/MM3 CBC Comment DIFF FINAL Differential Comment Laboratory Tests Test 09/01/17 06:26 Blood Urea Nitrogen 18 MG/DL Creatinine 0.75 MG/DL Random Glucose 130 MG/DL Calcium Level 8.7 MG/DL Sodium Level 141 MEQ/L Potassium Level 4.3 MEQ/L Chloride Level 110 MEQ/L Carbon Dioxide Level 25.3 MEQ/L Anion Gap 6 MEQ/L Estimat Glomerular Filtration Rate 118 ML/MIN Microbiology Date/Time Source Procedure Growth Status 08/31/17 02:30 Blood Peripheral Aerobic Blood Culture - Preliminary NO GROWTH IN 1 DAY Resulted 08/31/17 02:30 Blood Peripheral Anaerobic Blood Culture - Preliminary NO GROWTH IN 1 DAY Resulted 08/31/17 02:25 Blood Peripheral Aerobic Blood Culture - Preliminary NO GROWTH IN 1 DAY Resulted 08/31/17 02:25 Blood Peripheral Anaerobic Blood Culture - Preliminary NO GROWTH IN 1 DAY Resulted 08/30/17 22:50 Nasal Washing Influenza Types A,B Antigen (PUJA) - Final NEGATIVE FOR FLU A AND B ANTIGEN.... Complete Imaging Chest X-Ray 08/30/173 Signed Impressions: Service Date/Time: August 22:37 - CONCLUSION: Patchy bilateral airspace disease consistent with pneumonitis Edilson Avendaño MD Physical Exam GENERAL: Awake and alert, NAD SKIN: Cool, dry, no rash HEENT: No icterus. No conjunctival erythema. Oropharynx moist mucosa without lesions or thrush. The patient has very few remaining teeth. NECK: Supple not tender, no meningeal signs LUNGS: Diminished breath sounds throughout. HEART: Regular S1-S2 without audible murmurs, rubs or gallops. ABDOMEN: Bowel sounds present, soft, no tenderness appreciated. EXTREMITIES: No clubbing, cyanosis or edema. NEUROLOGIC: No gross focal findings. PSYCHIATRIC: The patient is calm and cooperative. LINE: PIV no evidence of infection Assessment & Plan Remarks IMPRESSION Bilateral infiltrates, etiology? - Known HIV, prior Hx PCP, LDH though normal - ?CAP, atypical? HIV, CD4 count not known to patient RECOMMENDATION Add Levaquin Repeat LDH Check legio and Pneumo Ag On Pentamidine IV Monitor progress D/W Sarah Medrano MD Sep 02, 2017 10:12
[2017-09-02] MEDS: LEVOFLOXACIN 750 MG TAB PO SCH (11:43)
[2017-09-02] MEDS: PENTAMIDINE INJ 300 MG in DEXTROSE 5% IN WATER INJ 250 ML IV SCH ×2 (14:00)
--- NOTE | 2017-09-02 15:30 | HHI.PR ---
Subjective Remarks no fever, complains of night sweats, dry cough Objective Vitals Vital Signs Date Time Temp Pulse Resp B/P (MAP) Pulse Ox O2 Delivery O2 Flow Rate FiO2 09/02/17 11:20 97.6 71 20 113/59 (77) 94 09/02/17 08:12 97.4 63 20 120/63 (82) 95 09/02/17 07:00 50 09/02/17 04:00 97.7 62 20 116/60 (78) 98 09/02/17 00:00 98.4 53 20 112/63 (79) 98 09/01/17 20:00 97.8 65 20 108/55 (72) 96 09/01/17 19:00 61 09/01/17 16:00 98.2 75 18 116/56 (76) 96 I/O 09/01/17 09/01/17 09/01/17 09/02/17 09/02/17 09/02/17 07:00 15:00 23:00 07:00 15:00 23:00 Intake Total 240 ml Output Total 1750 ml 225 ml 300 ml Balance -1750 ml 15 ml -300 ml Intake Oral 240 ml Output Urine Total 1750 ml 225 ml 300 ml # Bowel Movements 0 Result Diagram: 09/01/1762509/01/17625 Imaging Last Impressions Chest X-Ray 08/30/172222 Signed Impressions: Service Date/Time: August 22:37 - CONCLUSION: Patchy bilateral airspace disease consistent with pneumonitis Edilson Avendaño MD Objective Remarks appears very anxious anicteric + oral thrush- back of the throat anicteric lungs- no rales. 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 - reports severe allergy to IV Bactrim 6 years ago - patient is somewhat of a poor historian - reported cipro allergy to ER staff and had difficulty recalling specifics of allergic reaction -started on IV Pentamidine and Prednisone - Appreciate Dr. Will recommendation Oral thrush - Nystatin swish swallow qid Tinea infection vs dermatitis - multiple rashes on head/face- improving - steroids/antifungal combination- skin med DVT prophylaxis - Heparin 5000 units subq q12h - - patient refused - up and ambulate as tolerated - TEDs/SCDs when in bed Anxiety disorder - trial of Buspar H2 mukul for GI prophylaxis Problem Qualifiers (1) Bilateral pneumonia: Qualified Codes: J18.9 - Pneumonia, unspecified organism Jerome Del Toro MD Sep 02, 2017 15:30
[2017-09-02] MEDS: NYSTATIN SUSP 500,000 U/5 ML CUP SWISH-SWAL SCH ×2 (17:26→20:27)
[2017-09-02] MEDS: FAMOTIDINE 20 MG TAB PO SCH (20:27)
[2017-09-02] MEDS: HEPARIN SODIUM - SQ 10,000 UNITS/ML VIAL SQ SCH (20:30)
[2017-09-02] MEDS: SODIUM CHLORIDE 0.9% FLUSH 10 ML FLUSH IV FLUSH SCH (20:31)
[2017-09-03] VITALS (7 sets, daily range): BP systolic 111–134; BP diastolic 57–85; PULSE 43–70; RESP 18–20; TEMP 97–98.3; O2SAT 94–98
[2017-09-03 03:50] LABS: CD 19 PERCENT 2 % (6-29); CD3 ABSOLUTE 686 (840-3060); CD4/CD8 RATIO 0.1 (0.86-5.00); CD8 ABSOLUTE 621 (180-1170); LYMPHOCYTES, ABSOLUTE 750 (850-3900)
[2017-09-03] MEDS: NYSTATIN SUSP 500,000 U/5 ML CUP SWISH-SWAL SCH ×4 (09:00→21:36)
[2017-09-03] MEDS: SODIUM CHLORIDE 0.9% FLUSH 10 ML FLUSH IV FLUSH SCH ×2 (09:00→22:11)
[2017-09-03] MEDS: HEPARIN SODIUM - SQ 10,000 UNITS/ML VIAL SQ SCH ×2 (09:00→21:36)
[2017-09-03] MEDS: FAMOTIDINE 20 MG TAB PO SCH ×2 (09:14→21:36)
[2017-09-03] MEDS: busPIRone HCL 5 MG TAB PO SCH ×2 (09:14→21:35)
[2017-09-03] MEDS: predniSONE 20 MG TAB PO SCH ×2 (09:14→21:35)
--- NOTE | 2017-09-03 10:01 | HHI.PR ---
Subjective Remarks no complains of chest pains or shortness of breath states he has been up and ambulating doing some work on his computer no diarrhea, fever or chils Objective Vitals Vital Signs Date Time Temp Pulse Resp B/P (MAP) Pulse Ox O2 Delivery O2 Flow Rate FiO2 09/03/17 08:14 97.0 49 18 118/85 (96) 94 09/03/17 04:00 97.8 43 20 126/64 (84) 96 09/03/17 00:24 98.3 49 20 134/79 (97) 98 09/02/17 20:00 97.5 57 20 114/62 (79) 97 09/02/17 19:00 55 09/02/17 16:11 97.6 66 20 112/57 (75) 96 09/02/17 11:20 97.6 71 20 113/59 (77) 94 I/O 09/02/17 09/02/17 09/02/17 09/03/17 09/03/17 09/03/17 07:00 15:00 23:00 07:00 15:00 23:00 Intake Total 720 ml Output Total 300 ml 275 ml 200 ml Balance -300 ml 720 ml -275 ml -200 ml Intake Oral 720 ml Output Urine Total 300 ml 275 ml 200 ml # Voids 5 # Bowel Movements 0 0 0 Result Diagram: 09/01/1762509/01/17625 Imaging Last Impressions Chest X-Ray 08/30/172222 Signed Impressions: Service Date/Time: August 22:37 - CONCLUSION: Patchy bilateral airspace disease consistent with pneumonitis Edilson Avendaño MD Objective Remarks appears- calm anicteric thrush- improved anicteric lungs- no rales. 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 - reports severe allergy to IV Bactrim 6 years ago - patient is somewhat of a poor historian - reported cipro allergy to ER staff and had difficulty recalling specifics of allergic reaction -started on IV Pentamidine and Prednisone - Levaquin po Oral thrush - Nystatin swish swallow qid Tinea infection vs dermatitis - multiple rashes on head/face- improved - steroids/antifungal combination- skin med DVT prophylaxis - Heparin 5000 units subq q12h - - patient refused - up and ambulate as tolerated - TEDs/SCDs when in bed Anxiety disorder- improved - on Buspar H2 mukul for GI prophylaxis patient encouraged to be more ambulatory as tolerated advise him to stop using the urinal and get up to go to bathroom instead discuss with staff- patient refusing some meds- d/w him and staff Problem Qualifiers (1) Bilateral pneumonia: Qualified Codes: J18.9 - Pneumonia, unspecified organism Jerome Del Toro MD Sep 03, 2017 10:01
[2017-09-03] MEDS: LEVOFLOXACIN 750 MG TAB PO SCH (11:31)
--- NOTE | 2017-09-03 12:55 | HHI.IDPN ---
Note Infectious Disease Note Patient feels better. Has cough without sputum production. Afebrile. CD4 count noted. PAST MEDICAL HISTORY HIV disease ALLERGIES BACTRIM SOCIAL HISTORY The patient smokes about a third of a pack of cigarettes a day. Denies alcohol. Denies substance abuse. REVIEW OF SYSTEMS Pertinent as mentioned above in the history of present illness. Otherwise negative. OBJECTIVE: Vital Signs Date Time Temp Pulse Resp B/P (MAP) Pulse Ox O2 Delivery O2 Flow Rate FiO2 09/03/17 11:52 97.5 51 18 111/72 (85) 96 09/03/17 08:14 97.0 49 18 118/85 (96) 94 09/03/17 04:00 97.8 43 20 126/64 (84) 96 09/03/17 00:24 98.3 49 20 134/79 (97) 98 09/02/17 20:00 97.5 57 20 114/62 (79) 97 09/02/17 19:00 55 09/02/17 16:11 97.6 66 20 112/57 (75) 96 Laboratory Tests Test 09/03/17 07:55 Lactate Dehydrogenase 222 U/L Chest X-Ray 08/30/17 2223 Signed Impressions: Service Date/Time: August 22:37 - CONCLUSION: Patchy bilateral airspace disease consistent with pneumonitis Edilson Avendaño MD PHYSICAL EXAMINATION GENERAL: No acute distress. HEENT: Extraocular movements grossly intact, pupils reactive to light. No icterus. No conjunctival erythema. NECK: Supple without adenopathy. LUNGS: Diminished breath sounds. HEART: Regular S1-S2 without audible murmurs, rubs or gallops. ABDOMEN: Bowel sounds present, soft, no tenderness. EXTREMITIES: No clubbing, cyanosis or edema. SKIN: No diffuse rash. NEUROLOGIC: No gross focal findings. PSYCHIATRIC: The patient is calm and cooperative. IMPRESSION 1. Pneumonia which very likely is due to PCP with (Jiroveci). The patient has shortness of breath, abnormal chest x-ray and Hypoxemia with pO2 of 54. 2. AIDS. Low CD4. RECOMMENDATIONS 1. Continue pentamidine. Patient is allergic to Bactrim. 2. Continue prednisone 40 mg p.o. b.i.d. for 5 days and 40 mg q.24 h for 5 days and then 20 mg q.24 h for 11 days. 3. Repeat CXR. 4. Monitor clinical response to treatment. 5. Follow up with the [facility] for HIV management after discharge. Syed Will MD Sep 03, 2017 12:55
[2017-09-03] MEDS: PENTAMIDINE INJ 300 MG in DEXTROSE 5% IN WATER INJ 250 ML IV SCH ×2 (14:00)
--- NOTE | 2017-09-03 14:47 | RADRPT ---
EXAM DATE/TIME: 09/03/2017 15:13 [place] COMPARISON: CHEST PA & LAT, August 30, 2017, 22:37. INDICATIONS : Pneumonia. MEDICAL HISTORY : None. SURGICAL HISTORY : None. ENCOUNTER: Subsequent ACUITY: 4 - 6 days PAIN SCORE: 0/10 LOCATION: Bilateral chest FINDINGS: A single view of the chest demonstrates persistent bilateral airspace disease, predominantly perihila r distribution on the left and in the lower lobe on the right. Accounting for technique, no significa nt interval change. No associated effusions. Heart size is normal. Levoscoliosis of the thoracolumbar spine. Osseous structures are otherwise intact. CONCLUSION: Bilateral airspace disease characteristic of pneumonia. No significant interval change. Alon Nava MD on September 03, 2017 at 14:44 Board Certified Radiologist. This report was verified electronically.
[2017-09-04] VITALS (7 sets, daily range): BP systolic 112–128; BP diastolic 65–81; PULSE 46–61; RESP 18–20; TEMP 94.6–98; O2SAT 94–99
--- NOTE | 2017-09-04 08:55 | HHI.PR ---
Subjective Remarks patient appears comfortable, playing games in his computer no cough complains no pain or difficulty swallowing no diarrhea Objective Vitals Vital Signs Date Time Temp Pulse Resp B/P (MAP) Pulse Ox O2 Delivery O2 Flow Rate FiO2 09/04/17 08:20 97.7 46 20 115/71 (86) 99 09/04/17 06:00 97.8 58 20 128/77 (94) 97 09/04/17 01:34 98.0 47 18 127/81 (96) 97 09/03/17 22:21 98.2 70 20 119/57 (77) 97 09/03/17 18:00 61 09/03/17 16:30 97.5 55 18 115/72 (86) 95 09/03/17 11:52 97.5 51 18 111/72 (85) 96 I/O 09/03/17 09/03/17 09/03/17 09/04/17 09/04/17 09/04/17 07:00 15:00 23:00 07:00 15:00 23:00 Intake Total 240 ml Output Total 200 ml Balance -200 ml 240 ml Intake Oral 240 ml Output Urine Total 200 ml # Voids 1 4 # Bowel Movements 0 1 Result Diagram: 09/01/17 0626 09/01/17 0626 Imaging Last Impressions Chest X-Ray 09/03/17 0000 Signed Impressions: Service Date/Time: Sunday, September 03, 2017 15:13 - CONCLUSION: Bilateral airspace disease characteristic of pneumonia. No significant interval change. Alon Nava MD Objective Remarks awake and alert, NAD anicteric thrush- minimal noted on the left side of the throat anicteric lungs- no rales. 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 Check 02 sats at room air and ambulatory daily - CD4 count noted - CXR shows Patchy bilateral airspace disease with pneumonitis - ABGs show ph 7.46, oxygen saturation 89%, pCO2 - 34, and pO2 - 54 on room air in ED. - reports severe allergy to IV Bactrim 6 years ago - - on IV Pentamidine and Prednisone- 40 mg po bid x 5 days then 40 mg po daily x 5 days then 20 mg po x 11 days - Levaquin po Dr Will ff along with us Oral thrush- improving - Nystatin swish swallow qid Tinea infection vs dermatitis - multiple rashes on head/face- improved - steroids/antifungal combination- skin preparation DVT prophylaxis - Heparin 5000 units subq q12h - - patient refused - up and ambulate as tolerated - TEDs/SCDs when in bed Anxiety disorder- improved - on Buspar H2 mukul for GI prophylaxis patient encouraged to be more ambulatory as tolerated advise him to stop using the urinal and get up to go to bathroom instead discuss with staff- patient refusing some meds- d/w him and staff Problem Qualifiers (1) Bilateral pneumonia: Qualified Codes: J18.9 - Pneumonia, unspecified organism Jerome Del Toro MD Sep 04, 2017 08:55
[2017-09-04] MEDS: HEPARIN SODIUM - SQ 10,000 UNITS/ML VIAL SQ SCH ×2 (09:00→20:46)
[2017-09-04] MEDS: NYSTATIN SUSP 500,000 U/5 ML CUP SWISH-SWAL SCH ×4 (09:11→20:45)
[2017-09-04] MEDS: predniSONE 20 MG TAB PO SCH ×2 (09:11→20:45)
[2017-09-04] MEDS: busPIRone HCL 5 MG TAB PO SCH ×2 (09:12→20:52)
[2017-09-04] MEDS: FAMOTIDINE 20 MG TAB PO SCH ×2 (09:12→20:45)
[2017-09-04] MEDS: SODIUM CHLORIDE 0.9% FLUSH 10 ML FLUSH IV FLUSH SCH ×2 (09:13→20:45)
[2017-09-04] MEDS: LEVOFLOXACIN 750 MG TAB PO SCH (11:56)
[2017-09-04] MEDS: PENTAMIDINE INJ 300 MG in DEXTROSE 5% IN WATER INJ 250 ML IV SCH ×2 (14:00)
[2017-09-05] VITALS: BP 105/71; PULSE 65; RESP 20; TEMP 97.2; O2SAT 97
[2017-09-05 04:00] VITALS: BP 109/69; PULSE 54; RESP 20; TEMP 97.3; O2SAT 98
[2017-09-05 08:00] VITALS: BP 126/76; PULSE 56; RESP 20; TEMP 97.5; O2SAT 97
[2017-09-05 08:02] VITALS: PULSE 44
[2017-09-05] MEDS: HEPARIN SODIUM - SQ 10,000 UNITS/ML VIAL SQ SCH (08:49)
[2017-09-05] MEDS: busPIRone HCL 5 MG TAB PO SCH (08:50)
[2017-09-05] MEDS: predniSONE 20 MG TAB PO SCH (08:50)
[2017-09-05] MEDS: FAMOTIDINE 20 MG TAB PO SCH (08:50)
[2017-09-05] MEDS: NYSTATIN SUSP 500,000 U/5 ML CUP SWISH-SWAL SCH ×3 (08:50→16:57)
[2017-09-05] MEDS: SODIUM CHLORIDE 0.9% FLUSH 10 ML FLUSH IV FLUSH SCH (08:51)
--- NOTE | 2017-09-05 09:16 | HHI.PR ---
Subjective Remarks no complains no diarrhea states he has been up and ambulating especially at night good po'no cough , no difficulty swallowing Objective Vitals Vital Signs Date Time Temp Pulse Resp B/P (MAP) Pulse Ox O2 Delivery O2 Flow Rate FiO2 09/05/17 08:02 44 09/05/17 08:00 97.5 56 20 126/76 (93) 97 09/05/17 04:00 97.3 54 20 109/69 (82) 98 09/05/17 00:00 97.2 65 20 105/71 (82) 97 09/04/17 20:00 97.3 53 20 112/72 (85) 94 09/04/17 16:11 94.6 56 20 123/77 (92) 97 09/04/17 12:37 97.3 61 20 114/65 (81) 96 I/O 09/04/17 09/04/17 09/04/17 09/05/17 09/05/17 09/05/17 07:00 15:00 23:00 07:00 15:00 23:00 Intake Total 1200 ml 490 ml Balance 1200 ml 490 ml Intake Oral 1200 ml 240 ml IV Total 250 ml # Voids 4 7 2 Result Diagram: 09/01/17 0626 09/01/17 0626 Imaging Last Impressions Chest X-Ray 09/03/17 0000 Signed Impressions: Service Date/Time: Sunday, September 03, 2017 15:13 - CONCLUSION: Bilateral airspace disease characteristic of pneumonia. No significant interval change. Alon Nava MD Objective Remarks awake and alert, NAD anicteric oral mucosa- oral thrush resolved anicteric lungs- no rales. 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 Check 02 sats at room air and ambulatory daily - CD4 count noted - CXR shows Patchy bilateral airspace disease with pneumonitis - ABGs show ph 7.46, oxygen saturation 89%, pCO2 - 34, and pO2 - 54 on room air in ED. - reports severe allergy to IV Bactrim 6 years ago - - on IV Pentamidine and Prednisone- 40 mg po bid x 5 days then 40 mg po daily x 5 days then 20 mg po x 11 days - Levaquin po Dr Will ff along with us Oral thrush- improving- resolved - Nystatin swish swallow qid Tinea infection vs dermatitis - multiple rashes on head/face- improved - steroids/antifungal combination- skin preparation DVT prophylaxis - Heparin 5000 units subq q12h - - patient refused - up and ambulating a Anxiety disorder- improved - on Buspar H2 mukul for GI prophylaxis patient encouraged to be more ambulatory as tolerated advise him to stop using the urinal and get up to go to bathroom instead- reinforced today Problem Qualifiers (1) Bilateral pneumonia: Qualified Codes: J18.9 - Pneumonia, unspecified organism Jerome Del Toro MD Sep 05, 2017 09:16
[2017-09-05 10:00] VITALS: O2SAT 95
[2017-09-05] MEDS: LEVOFLOXACIN 750 MG TAB PO SCH (11:36)
[2017-09-05 12:00] VITALS: BP 116/63; PULSE 62; RESP 18; TEMP 97.2; O2SAT 94
--- NOTE | 2017-09-05 13:25 | HHI.IDPN ---
Note Infectious Disease Note Patient feels okay. Less cough. On RA. No SOB or chest discomfort. Afebrile. PAST MEDICAL HISTORY HIV disease ALLERGIES BACTRIM SOCIAL HISTORY The patient smokes about a third of a pack of cigarettes a day. Denies alcohol. Denies substance abuse. REVIEW OF SYSTEMS Pertinent as mentioned above in the history of present illness. Otherwise negative. OBJECTIVE: Vital Signs Date Time Temp Pulse Resp B/P (MAP) Pulse Ox O2 Delivery O2 Flow Rate FiO2 09/05/17 12:00 97.2 62 18 116/63 (80) 94 09/05/17 10:00 95 09/05/17 08:02 44 09/05/17 08:00 97.5 56 20 126/76 (93) 97 09/05/17 04:00 97.3 54 20 109/69 (82) 98 09/05/17 00:00 97.2 65 20 105/71 (82) 97 09/04/17 20:00 97.3 53 20 112/72 (85) 94 09/04/17 16:11 94.6 56 20 123/77 (92) 97 Last Impressions Chest X-Ray 09/03/17 0000 Signed Impressions: Service Date/Time: Sunday, September 03, 2017 15:13 - CONCLUSION: Bilateral airspace disease characteristic of pneumonia. No significant interval change. Alon Nava MD Chest X-Ray 08/30/17 2223 Signed Impressions: Service Date/Time: August 22:37 - CONCLUSION: Patchy bilateral airspace disease consistent with pneumonitis Edilson Avendaño MD PHYSICAL EXAMINATION GENERAL: No acute distress. HEENT: Extraocular movements grossly intact, pupils reactive to light. No icterus. No conjunctival erythema. NECK: Supple without adenopathy. LUNGS: Clear breath sounds. HEART: Regular S1-S2 without audible murmurs, rubs or gallops. ABDOMEN: Bowel sounds present, soft, no tenderness. EXTREMITIES: No clubbing, cyanosis or edema. SKIN: No diffuse rash. NEUROLOGIC: No gross focal findings. PSYCHIATRIC: The patient is calm and cooperative. IMPRESSION 1. Pneumonia which very likely is due to PCP. Improving. The patient has shortness of breath, abnormal chest x-ray and Hypoxemia with pO2 of 54. 2. AIDS. Low CD4. RECOMMENDATIONS 1. Stop pentamidine. Change to PO Atovaquone 750mg PO bid with food x 15 days. Patient is allergic to Bactrim. 2. Continue prednisone to complete the taper. 40 mg p.o. b.i.d. for 5 days and 40 mg q.24 h for 5 days and then 20 mg q.24 h for 11 days. 3 Follow up with the [facility] for HIV management after discharge. Okay to discharge from my standpoint. I will sign off now. Syed Will MD Sep 05, 2017 13:25
[2017-09-05] MEDS: PENTAMIDINE INJ 300 MG in DEXTROSE 5% IN WATER INJ 250 ML IV SCH ×2 (13:27)
[2017-09-05] MEDS ORDERED: ATOV750UDC PO (14:07)
[2017-09-05] MEDS ORDERED: PRED20 PO ×2 (14:07→14:10)
[2017-09-05] MEDS ORDERED: NYST1000 SWISH-SWAL ×2 (14:07→14:09)
[2017-09-05] MEDS ORDERED: BUSP5TAB PO (14:14)
--- NOTE | 2017-09-05 14:48 | HHI.DS ---
Discharge Summary Admission Date Aug 31, 2017 at 02:09 Discharge Date: Sep 05, 2017 Admitting Diagnosis pneumonia (1) Bilateral pneumonia ICD Code: J18.9 - Pneumonia, unspecified organism Diagnosis: Principal (2) Rash ICD Code: R21 - Rash and other nonspecific skin eruption Diagnosis: Secondary Status: Resolved Procedures none Brief History - From Admission Written by Batsheva Villatoro, acting as scribe for Dr. Harrison on 08/31/17 at 02:33. Symptoms for 1 week The patient states that he came in because he couldn't breath. He reports productive cough - states he doesn't look at sputum. Severity: severe - felt like "I was gonna " Off HIV medications since last September (2015) Reports throat closed up from IV Bactrim and he was in ICU on BiPAP - said he had difficulty swallowing at [facility] in [place], [place] 6 years ago. Denies fevers (at home), chest pain, nausea, vomiting, diarrhea, or dizziness. Reports gum pain, teeth decayed - was supposed to have fully removed with dentures. CBC/BMP: 09/01/17 0626 09/01/17 0626 Significant Findings Laboratory Tests Test 09/03/17 07:55 PE at Discharge awake and alert, NAD anicteric oral mucosa- oral thrush resolved anicteric lungs- no rales. 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 good 02 sats at room air and ambulating - CD4 count noted - CXR shows Patchy bilateral airspace disease with pneumonitis - ABGs show ph 7.46, oxygen saturation 89%, pCO2 - 34, and pO2 - 54 on room air in ED. - reports severe allergy to IV Bactrim 6 years ago - - Prednisone- 40 mg po bid x 5 days then 40 mg po daily x 5 days then 20 mg po x 11 days - Atovaquone 750 mg po bid with food x [address] Will ff along with us- cleared for discharge on Atovaquone Oral thrush- improving- resolved - Nystatin swish swallow qid Tinea infection vs dermatitis - multiple rashes on head/face- improved - steroids/antifungal combination- skin preparation DVT prophylaxis - Heparin 5000 units subq q12h - - patient refused - up and ambulating a Anxiety disorder- improved - on Buspar DC today Diet as tolerated Activity as tolerated OP ff up with Health department Pt Condition on Discharge: Stable Discharge Disposition: Discharge Home Discharge Time: <= 30 minutes Discharge Instructions DIET: Follow Instructions for: As Tolerated, No Restrictions Activities you can perform: Regular-No Restrictions Follow up Referrals: Appointment for Follow Up - 1 Week with [facility] Department - HIV management PCP Follow-up - 1 Week New Medications: Atovaquone Liq (Mepron Liq) 750 Mg/5 Ml Susp 750 MG PO Q12HR for Infection for 15 Days, #1 BOTTLE Buspirone (Buspirone) 5 Mg Tab 5 MG PO Q12HR for Depression Control for 30 Days, #60 TAB Nystatin Liq (Nystatin Liq) 100,000 unit/ml Susp 5 ML SWISH-SWAL QID for Infection for 7 Days, #1 BOTTLE Prednisone (Prednisone) 20 Mg Tab 20 MG PO DAILY for Inflammation for 16 Days, #21 TAB Jerome Del Toro MD Sep 05, 2017 14:48
[2017-09-05] MEDS ORDERED: ATOVAQUONE SUSP 750 MG/5 ML UDC PO SCH (16:00)
== END 2017-09-05 18:45 | disposition home or self-care (01) | DRG 974 ==
LOC: NEPD 22:02 → NEDA 08-31 02:09 → N05A 08-31 03:05
PROVIDERS: ADMIT Internal Medicine; ATTEND Internal Medicine
DX: B20 Human immunodeficiency virus [HIV] disease (principal); B59 Pneumocystosis; J96.01 Acute respiratory failure with hypoxia; B37.0 Candidal stomatitis; E87.3 Alkalosis; K02.9 Dental caries, unspecified; R21 Rash and other nonspecific skin eruption; F41.9 Anxiety disorder, unspecified; F17.210 Nicotine dependence, cigarettes, uncomplicated; Z88.1 Allergy status to other antibiotic agents; Z88.2 Allergy status to sulfonamides
CPT/HCPCS: 36600; 71010; 71020; 80048; 80053; 81001; 82805; 83615; 84443; 85025; 86355; 86357; 86359; 86360; 87040; 87804; 96361; 96374; J0456; J0696; J1644; J2930; J7030; J7050; J7060; J7512

== ENCOUNTER 2018-02-18 01:07 | Inpatient (IN) | payer OTHER ==
[2018-02-18] VITALS (9 sets, daily range): BP systolic 98–119; BP diastolic 63–70; PULSE 57–104; RESP 14–19; TEMP 98.6–100.5; O2SAT 95–100
[~2018-02-18] VITALS: Ht 182.9 cm; Wt 65.0 kg
[~2018-02-18 01:07] MED LIST: ATOV750UDC PO; BUSP5TAB PO; NYST1000 SWISH-SWAL; PRED20 PO
[2018-02-18] MEDS ORDERED: SODIUM CHLOR 0.9% 1000 ML INJ 1,000 ML IV ONE (01:10)
[2018-02-18] MEDS ORDERED: SODIUM CHLOR 0.9% 1000 ML INJ 800 ML IV ONE (01:10)
[2018-02-18] MEDS ORDERED: AZITHROMYCIN INJ 500 MG in SODIUM CHLOR 0.9% 250 ML INJ 250 ML IV ONE (01:15)
[2018-02-18] MEDS ORDERED: MORPHINE SULFATE 4 MG/ML INJ IV PUSH ONE (01:15)
[2018-02-18] MEDS ORDERED: ONDANSETRON HCL 4 MG/2 ML VIAL IV PUSH ONE (01:15)
[2018-02-18] MEDS ORDERED: ACETAMINOPHEN 325 MG TAB PO ONE (01:15)
[2018-02-18] MEDS ORDERED: cefTRIAXone INJ 1,000 MG in SODIUM CHLORIDE 0.9% INJ 100 ML IV ONE (01:15)
[2018-02-18 01:39] LABS: BASOPHIL % 0.4 % (0.0-2.0); EOSINOPHIL # 0.1 TH/MM3 (0-0.4); EOSINOPHIL % 1.4 % (0.0-4.0); HEMATOCRIT 29.8 % (39.0-51.0); HEMOGLOBIN 10.2 GM/DL (13.0-17.0); LYMPH % 17.2 % (9.0-44.0); MEAN CELL VOLUME 84.4 FL (80.0-100.0); MEAN CORPUSCULAR HGB CONC 34.4 % (32.0-36.0); MONO % 12.9 % (0.0-8.0); MONOCYTE # 0.8 TH/MM3 (0-0.9); NEUT % 68.1 % (16.0-70.0); PLATELET COUNT 182 TH/MM3 (150-450); RED BLOOD COUNT 3.53 MIL/MM3 (4.50-5.90); RED CELL DISTRIBUTION WIDTH 14.9 % (11.6-17.2); WHITE BLOOD COUNT 5.9 TH/MM3 (4.0-11.0)
[2018-02-18 01:48] LABS: ALBUMIN 2.8 GM/DL (3.4-5.0); ALKALINE PHOSPHATASE 59 U/L (45-117); ALT (GPT) 14 U/L (12-78); AST (GOT) 25 U/L (15-37); BICARBONATE 26.4 MEQ/L (21.0-32.0); BLOOD UREA NITROGEN 23 MG/DL (7-18); CALCIUM 8.3 MG/DL (8.5-10.1); CHLORIDE 104 MEQ/L (98-107); CREATININE 1.05 MG/DL (0.60-1.30); GLOMERULAR FILTRATION RATE 79 ML/MIN (>89); GLUCOSE,RANDOM 112 MG/DL (74-106); SODIUM (NA) 138 MEQ/L (136-145); TOTAL BILIRUBIN ADULT 0.3 MG/DL (0.2-1.0); TOTAL PROTEIN 7.2 GM/DL (6.4-8.2)
[2018-02-18 01:50] LABS: PROTHROMBIN TIME - PATIENT 10.1 SEC (9.8-11.6)
--- NOTE | 2018-02-18 02:11 | RADRPT ---
EXAM DATE/TIME: 02/18/2018 01:20 [facility] COMPARISON: CHEST SINGLE AP, September 03, 2017, 15:13. INDICATIONS : Shortness of breath. MEDICAL HISTORY : HIV SURGICAL HISTORY : None. ENCOUNTER: Initial ACUITY: 1 day PAIN SCORE: 0/10 LOCATION: Bilateral chest FINDINGS: A single view of the chest demonstrates the lungs to be symmetrically aerated without evidence of mas s, infiltrate or effusion. The cardiomediastinal contours are unremarkable. Osseous structures are intact. CONCLUSION: No acute disease. Christoph Fuller MD on February 18, 2018 at 2:09 Board Certified Radiologist. This report was verified electronically.
--- NOTE | 2018-02-18 04:13 | RADRPT ---
EXAM DATE/TIME: 02/18/2018 03:18 [facility] COMPARISON: CHEST SINGLE AP, February 18, 2018, 1:20. INDICATIONS : Shortness of breath. RADIATION DOSE: 8.75 CTDIvol (mGy) MEDICAL HISTORY : HIV. Kaposis sarcoma SURGICAL HISTORY : None. ENCOUNTER: Initial ACUITY: 1 day PAIN SCALE: 0/10 LOCATION: chest TECHNIQUE: Volumetric scanning of the chest was performed. Using automated exposure control and adjustment of t he mA and/or kV according to patient size, radiation dose was kept as low as reasonably achievable to obtain optimal diagnostic quality images. DICOM format image data is available electronically for r eview and comparison. Follow-up recommendations for detected pulmonary nodules are based at a minimum on nodule size and pa tient risk factors according to Fleischner Society Guidelines. FINDINGS: LUNGS: There are bilateral interstitial and alveolar opacities greater in the upper lobes. PLEURAE: There is no pleural thickening or pleural effusion. MEDIASTINUM: The heart and great vessels demonstrate no acute abnormality. There is no mediastinal or hilar lymph adenopathy. AXILLAE: Within normal limits. No lymphadenopathy. MUSCULOSKELETAL: Within normal limits for patient age. MISCELLANEOUS: The visualized upper abdominal organs demonstrate no acute abnormality. CONCLUSION: 1. Scattered interstitial and alveolar opacities predominantly within the upper lobes. 2. No pleural effusions. Christoph Fuller MD on February 18, 2018 at 4:09 Board Certified Radiologist. This report was verified electronically.
[2018-02-18] MEDS ORDERED: SENNOSIDES 8.6 MG TAB PO PRN (04:45)
[2018-02-18] MEDS ORDERED: RESP: ALBUTEROL 2.5 MG/IPRATROPIUM 0.5 MG NEB (PRN) NEB (04:45)
[2018-02-18] MEDS ORDERED: BISACODYL 10 MG SUPP RECTAL PRN (04:45)
[2018-02-18] MEDS ORDERED: ACETAMINOPHEN/HYDROcodone 325 MG/5 MG TAB PO PRN (04:45)
[2018-02-18] MEDS ORDERED: ATOVAQUONE SUSP 750 MG/5 ML UDC PO ONE (04:45)
[2018-02-18] MEDS ORDERED: MAGNESIUM HYDROXIDE SUSP 30 ML CUP PO PRN (04:45)
[2018-02-18] MEDS ORDERED: Vancomycin Consult Pharmacy 1 EA OTHER SCH (04:45)
[2018-02-18] MEDS ORDERED: LACTULOSE SYRUP 20 GM/30 ML CUP PO PRN (04:45)
--- NOTE | 2018-02-18 04:47 | PD ---
HPI Chief Complaint: Respiratory Symptoms Time Seen by Provider: 01:10 Travel History International Travel<30 days: No Contact w/Intl Traveler<30days: No Traveled to known affect area: No History of Present Illness HPI Patient is a 38-year-old male with history of AIDS and Kaposi's sarcoma, who comes in complaining of shortness of breath and pain from his skin lesions. Patient does not take antiretrovirals and he says his CD4 count is less than 200. He says this is been going on for the past few weeks and getting progressively worse. He says he went to an outside hospital a week ago and was discharged home. He says he took an ibuprofen, and it caused him to have night sweats. Severity is moderate. PFSH Past Medical History Asthma: No Autoimmune Disease: Yes (AIDS) Anxiety: Yes Cancer: Yes (KAPOSIS SARCOMA) Cardiovascular Problems: No COPD: No Diminished Hearing: No Endocrine: No Genitourinary: No Immune Disorder: Yes (AIDS) Musculoskeletal: No Neurologic: No Psychiatric: No Reproductive: No Respiratory: Yes (PNEUMONIA MULTIPLE TIMES) Sleep Apnea: No Tetanus Vaccination: Unknown Influenza Vaccination: No Past Surgical History Other Surgery: Yes (INGUINAL L HERNIA) Social History Alcohol Use: Yes (OCC) Tobacco Use: Yes Substance Use: No Allergies-Medications (Allergen,Severity, Reaction): Coded Allergies: sulfamethoxazole (Verified Allergy, Severe, throat closing, 08/31/17) pt is poor historian. States his throat closed with use of IV bactrim for pcp treatment prior. However, po bactrim was given in ER and has had no reaction or allergic rxns to it at all. trimethoprim (Verified Allergy, Severe, throat closing, 08/31/17) pt is poor historian. States his throat closed with use of IV bactrim for pcp treatment prior. However, po bactrim was given in ER and has had no reaction or allergic rxns to it at all. Reported Meds & Prescriptions Reported Meds & Active Scripts Active Buspirone (Buspirone HCl) 5 Mg Tab 5 Mg PO Q12HR 30 Days Prednisone 20 Mg Tab 20 Mg PO DAILY 16 Days Nystatin Liq 100,000 unit/ml Susp 5 Ml SWISH-SWAL QID 7 Days Mepron Liq (Atovaquone) 750 Mg/5 Ml Susp 750 Mg PO Q12HR 15 Days Review of Systems Except as stated in HPI: all other systems reviewed are Neg General / Constitutional: Positive: Fever HENT: No: Headaches, Lightheadedness Respiratory: Positive: Cough, Shortness of Breath Gastrointestinal: No: Nausea, Vomiting Musculoskeletal: Positive: Pain Skin: Positive Lesions Physical Exam Narrative GENERAL: Awake and alert, in no acute distress. SKIN: Several red, scaly lesions covering most of his body. HEAD: Atraumatic. Normocephalic. EYES: Pupils equal and round. No scleral icterus. ENT: Mucous membranes pink and moist. NECK: Trachea midline. No JVD. CARDIOVASCULAR: Regular rate and rhythm. No murmur appreciated. RESPIRATORY: No accessory muscle use. Clear to auscultation. Breath sounds equal bilaterally. GASTROINTESTINAL: Abdomen soft, non-tender, nondistended. MUSCULOSKELETAL: No obvious deformities. No clubbing. No cyanosis. No edema. NEUROLOGICAL: Awake and alert. No obvious cranial nerve deficits. Motor grossly within normal limits. Normal speech. PSYCHIATRIC: Appropriate mood and affect; insight and judgment normal. Data Data Last Documented VS Vital Signs Date Time Temp Pulse Resp B/P (MAP) Pulse Ox O2 Delivery O2 Flow Rate FiO2 02/18/18 01:22 96 Nasal Cannula 2.00 02/18/18 01:10 100.4 104 17 113/70 (84) Orders Orders Sepsis Workup Initiated (02/18/18 ) Complete Blood Count With Diff (02/18/18 01:10) Comprehensive Metabolic Panel (02/18/18 01:10) Prothrombin Time / Inr (Pt) (02/18/18 01:10) Act Partial Throm Time (Ptt) (02/18/18 01:10) Lactic Acid Sepsis Protocol (02/18/18 01:10) Lipase (02/18/18 01:10) Urinalysis - C+S If Indicated (02/18/18 01:10) Blood Culture (02/18/18 01:10) Chest, Single Ap (02/18/18 01:10) Blood Glucose (02/18/18 01:10) Ecg Monitoring (02/18/18 01:10) Iv Access Insert/Monitor (02/18/18 01:10) Oximetry (02/18/18 01:10) Oxygen Administration (02/18/18 01:10) Acetaminophen (Tylenol) (02/18/18 01:15) Ondansetron Inj (Zofran Inj) (02/18/18 01:15) Sodium Chlor 0.9% 1000 Ml Inj (Ns 1000 M (02/18/18 01:10) Sodium Chlor 0.9% 1000 Ml Inj (Ns 1000 M (02/18/18 01:10) Morphine Inj (Morphine Inj) (02/18/18 01:15) Ldh Serum (02/18/18 01:10) Ceftriaxone Inj (Rocephin Inj) (02/18/18 01:15) Azithromycin Inj (Zithromax Inj) (02/18/18 01:15) Ct Thorax/ Chest Wo Iv Contras (02/18/18 ) Influenzae A/B Antigen (02/18/18 02:42) Atovaquone Liq (Mepron Liq) (02/18/18 04:45) Admit Order (Ed Use Only) (02/18/18 ) Labs Laboratory Tests Test 02/18/18 01:10 02/18/18 01:15 Lactic Acid Level 1.8 mmol/L White Blood Count 5.9 TH/MM3 Red Blood Count 3.53 MIL/MM3 Hemoglobin 10.2 GM/DL Hematocrit 29.8 % Mean Corpuscular Volume 84.4 FL Mean Corpuscular Hemoglobin 29.0 PG Mean Corpuscular Hemoglobin Concent 34.4 % Red Cell Distribution Width 14.9 % Platelet Count 182 TH/MM3 Mean Platelet Volume 8.0 FL Neutrophils (%) (Auto) 68.1 % Lymphocytes (%) (Auto) 17.2 % Monocytes (%) (Auto) 12.9 % Eosinophils (%) (Auto) 1.4 % Basophils (%) (Auto) 0.4 % Neutrophils # (Auto) 4.0 TH/MM3 Lymphocytes # (Auto) 1.0 TH/MM3 Monocytes # (Auto) 0.8 TH/MM3 Eosinophils # (Auto) 0.1 TH/MM3 Basophils # (Auto) 0.0 TH/MM3 CBC Comment DIFF FINAL Differential Comment Prothrombin Time 10.1 SEC Prothromb Time International Ratio 1.0 RATIO Activated Partial Thromboplast Time 26.9 SEC Blood Urea Nitrogen 23 MG/DL Creatinine 1.05 MG/DL Random Glucose 112 MG/DL Total Protein 7.2 GM/DL Albumin 2.8 GM/DL Calcium Level 8.3 MG/DL Alkaline Phosphatase 59 U/L Aspartate Amino Transf (AST/SGOT) 25 U/L Alanine Aminotransferase (ALT/SGPT) 14 U/L Lactate Dehydrogenase 287 U/L Total Bilirubin 0.3 MG/DL Sodium Level 138 MEQ/L Potassium Level 3.8 MEQ/L Chloride Level 104 MEQ/L Carbon Dioxide Level 26.4 MEQ/L Anion Gap 8 MEQ/L Estimat Glomerular Filtration Rate 79 ML/MIN Lipase 220 U/L MDM Medical Decision Making Medical Screen Exam Complete: Yes Emergency Medical Condition: Yes Medical Record Reviewed: Yes Differential Diagnosis PCP versus pneumonia versus sepsis versus viral illness Narrative Course Patient is a 38-year-old male with history of AIDS, who comes in complaining of shortness of breath. He has evidence of Kaposi's sarcoma all over his body. IV established, labs sent. He refused the blood gas. LDH is elevated. Chest x-ray shows no acute abnormalities. CT of the chest shows several small opacities. Last 24 hours Impressions Chest X-Ray 02/18/18 0110 Signed Impressions: Service Date/Time: Sunday, February 18, 2018 01:20 - CONCLUSION: No acute disease. Christoph Fuller MD Chest CT 02/18/18 0000 Signed Impressions: Service Date/Time: Sunday, February 18, 2018 03:18 - CONCLUSION: 1. Scattered interstitial and alveolar opacities predominantly within the upper lobes. 2. No pleural effusions. Christoph Fuller MD Patient was febrile on arrival. Given IV fluids, Tylenol, antibiotics. He will be admitted for further management. Diagnosis Primary Impression: AIDS (acquired immunodeficiency syndrome), CD4 <=200 Additional Impression: PNA (pneumonia) Qualified Codes: J18.1 - Lobar pneumonia, unspecified organism Admitting Information Admitting Physician Requests: Admit Tamara Matta MD Feb 18, 2018 04:47
--- NOTE | 2018-02-18 05:15 | HHI.HP ---
[facility] No Primary Care Physician Admission Diagnosis pneumonia, AIDS Diagnoses: (1) Sepsis Diagnosis: Principal (2) PNA (pneumonia) Diagnosis: Principal (3) AIDS (acquired immunodeficiency syndrome), CD4 <=200 Diagnosis: Principal Travel History International Travel<30 Days: No Contact w/Intl Traveler <30 Da: No Traveled to Known Affected Are: No History of Present Illness This is a 38-year-old male with a PMH of Anxiety, HIV/AIDS (Last CD4 08/30/17 49 ), Non-compliant w/ HAART, Kaposi's Sarcoma and h/o PNA who presented to the ER w/ complaints of generalized weakness and SOB x1 day. Denies fever, chills, cough, chest pain or sick contacts. Admits to non-compliance w/ medications. On arrival, BP 113/70, HR 104, O2 sat 100% on 2L NC, Temp 100.4. WBC 5.9. Chemistry essentially unremarkable except for BUN 23, GFR 79. INR 1.0. CXR with no acute findings. CT Chest with scattered interstitial and alveolar opacities predominantly in the upper lobes. S/p Cefepime/Zithro in ER. Review of Systems Except as stated in HPI: all other systems reviewed are Neg ROS: 14 point review of systems otherwise negative. Past Family Social History Past Medical History PMH: Past Surgical History PAST SURGICAL HISTORY: Inguinal Hernia Allergies: Coded Allergies: sulfamethoxazole (Verified Allergy, Severe, throat closing, 08/31/17) pt is poor historian. States his throat closed with use of IV bactrim for pcp treatment prior. However, po bactrim was given in ER and has had no reaction or allergic rxns to it at all. trimethoprim (Verified Allergy, Severe, throat closing, 08/31/17) pt is poor historian. States his throat closed with use of IV bactrim for pcp treatment prior. However, po bactrim was given in ER and has had no reaction or allergic rxns to it at all. Family History PAST FAMILY HISTORY: Reviewed. No h/o DM or CAD Social History PAST SOCIAL HISTORY: Occasional alcohol. Positive for tobacco. Negative for drugs. Physical Exam Vital Signs Vital Signs Date Time Temp Pulse Resp B/P (MAP) Pulse Ox O2 Delivery O2 Flow Rate FiO2 02/18/18 05:00 97 Nasal Cannula 2.00 02/18/18 01:22 96 Nasal Cannula 2.00 02/18/18 01:17 100 Nasal Cannula 2.00 02/18/18 01:10 100.4 104 17 113/70 (84) 100 Physical Exam PE: GENERAL: Middle-age male in no acute distress. HEENT: PERRLA, EOMI. No scleral icterus or conjunctival pallor. No lid lag or facial droop. CARDIOVASCULAR: Regular rate and rhythm. No obvious murmurs to auscultation. No chest tenderness to palpation. RESPIRATORY: No obvious rhonchi or wheezing. Clear to auscultation. Breath sounds equal bilaterally. GASTROINTESTINAL: Abdomen soft, non-tender, nondistended. BS normal. MUSCULOSKELETAL: Extremities without clubbing, cyanosis, or edema. No obvious deformities. +kaposi's lesions. NEUROLOGICAL: Awake, alert and oriented x4. No focal neurologic deficits. Moving both upper and lower extremities spontaneously. Laboratory Laboratory Tests Test 02/18/18 01:10 02/18/18 01:15 Lactic Acid Level 1.8 White Blood Count 5.9 Red Blood Count 3.53 Hemoglobin 10.2 Hematocrit 29.8 Mean Corpuscular Volume 84.4 Mean Corpuscular Hemoglobin 29.0 Mean Corpuscular Hemoglobin Concent 34.4 Red Cell Distribution Width 14.9 Platelet Count 182 Mean Platelet Volume 8.0 Neutrophils (%) (Auto) 68.1 Lymphocytes (%) (Auto) 17.2 Monocytes (%) (Auto) 12.9 Eosinophils (%) (Auto) 1.4 Basophils (%) (Auto) 0.4 Neutrophils # (Auto) 4.0 Lymphocytes # (Auto) 1.0 Monocytes # (Auto) 0.8 Eosinophils # (Auto) 0.1 Basophils # (Auto) 0.0 CBC Comment DIFF FINAL Differential Comment Prothrombin Time 10.1 Prothromb Time International Ratio 1.0 Activated Partial Thromboplast Time 26.9 Blood Urea Nitrogen 23 Creatinine 1.05 Random Glucose 112 Total Protein 7.2 Albumin 2.8 Calcium Level 8.3 Alkaline Phosphatase 59 Aspartate Amino Transf (AST/SGOT) 25 Alanine Aminotransferase (ALT/SGPT) 14 Lactate Dehydrogenase 287 Total Bilirubin 0.3 Sodium Level 138 Potassium Level 3.8 Chloride Level 104 Carbon Dioxide Level 26.4 Anion Gap 8 Estimat Glomerular Filtration Rate 79 Lipase 220 Date/Time Source Procedure Growth Status 02/18/18 01:15 Blood Peripheral Aerobic Blood Culture Pending Received 02/18/18 01:15 Blood Peripheral Anaerobic Blood Culture Pending Received Result Diagram: 02/18/1811402/18/18114 Caprini VTE Risk Assessment Caprini VTE Risk Assessment: No/Low Risk (score <= 1) Caprini Risk Assessment Model Point Value = 1 Point Value = 2 Point Value = 3 Point Value = 5 Age 41-60 Minor surgery BMI > 25 kg/m2 Swollen legs Varicose veins or History of unexplained or recurrent spontaneous Oral contraceptives or hormone replacement Sepsis (< 1 month) Serious lung disease, including pneumonia (< 1 month) Abnormal pulmonary function Acute myocardial infarction Congestive heart failure (< 1 month) History of inflammatory bowel disease Medical patient at bed rest Age 61-74 Arthroscopic surgery Major open surgery (> 45 min) Laparoscopic surgery (> 45 min) Malignancy Confined to bed (> 72 hours) Immobilizing plaster cast Central venous access Age >= 75 History of VTE Family history of VTE Factor V Leiden Prothrombin [id number] Lupus anticoagulant Anticardiolipin antibodies Elevated serum homocysteine Heparin-induced thrombocytopenia Other congenital or acquired thrombophilia Stroke (< 1 month) Elective arthroplasty Hip, pelvis, or leg fracture Acute spinal cord injury (< 1 month) Prophylaxis Regimen Total Risk Factor Score Risk Level Prophylaxis Regimen 0-1 Low Early ambulation 2 Moderate Order ONE of the following: *Sequential Compression Device (SCD) *Heparin 5000 units SQ BID 3-4 Higher Order ONE of the following medications: *Heparin 5000 units SQ TID *Enoxaparin/Lovenox 40 mg SQ daily (WT < 150 kg, CrCl > 30 mL/min) *Enoxaparin/Lovenox 30 mg SQ daily (WT < 150 kg, CrCl > 10-29 mL/min) *Enoxaparin/Lovenox 30 mg SQ BID (WT < 150 kg, CrCl > 30 mL/min) AND/OR *Sequential Compression Device (SCD) 5 or more Highest Order ONE of the following medications: *Heparin 5000 units SQ TID (Preferred with Epidurals) *Enoxaparin/Lovenox 40 mg SQ daily (WT < 150 kg, CrCl > 30 mL/min) *Enoxaparin/Lovenox 30 mg SQ daily (WT < 150 kg, CrCl > 10-29 mL/min) *Enoxaparin/Lovenox 30 mg SQ BID (WT < 150 kg, CrCl > 30 mL/min) AND *Sequential Compression Device (SCD) Assessment and Plan Problem List: (1) Sepsis ICD Code: A41.9 - Sepsis, unspecified organism (2) PNA (pneumonia) ICD Code: J18.9 - Pneumonia, unspecified organism (3) AIDS (acquired immunodeficiency syndrome), CD4 <=200 ICD Code: B20 - Human immunodeficiency virus [HIV] disease Assessment and Plan A/P: 1. Sepsis: Temp 100.4, HR 104, +Immunocompromised, Source-PNA. S/p Blood Cultures, Cefepime/Zithro in ER, will continue w/ IV Abx, follow up cultures. 2. PNA: CXR w/ no significant findings, CT Chest w/ scattered interstitial and alveolar opacities predominantly upper lobes, images reviewed by me. Will continue w/ IV Abx as above. DuoNeb prn, Symbicort 3. AIDS: Last CD4 08/30/17 50, non-compliant w/ medications. Will start Atovaquone due to Bactrim ALLERGY and Zithro 1200mg qwk. Consult ID for further evaluation/recommendations. 4. DVT Prophylaxis: SCD/Teds 5. Social work for d/c planning as needed. 6. Case discussed w/ ER physician at length, labs/records/imaging reviewed by me Physician Certification 2 Midnight Certification Type: Admission for Inpatient Services Order for Inpatient Services The services are ordered in accordance with Medicare regulations or non- Medicare payer requirements, as applicable. In the case of services not specified as inpatient-only, they are appropriately provided as inpatient services in accordance with the 2-midnight benchmark. Estimated LOS (days): 2 days is the estimated time the patient will need to remain in the hospital, assuming treatment plan goals are met and no additional complications. Post-Hospital Plan: Not yet determined Ariella Saez MD Feb 18, 2018 05:15
[2018-02-18] MEDS: SODIUM CHLOR 0.9% 1000 ML INJ 1,000 ML IV SCH ×2 (05:50→14:38)
[2018-02-18] MEDS ORDERED: VANCOMYCIN 1,500 MG/NS 500 ML IV ONE ×2 (06:00)
[2018-02-18] MEDS: AZITHROMYCIN 600 MG TAB PO SCH (08:33)
[2018-02-18] MEDS: NYSTATIN SUSP 500,000 U/5 ML CUP SWISH-SWAL SCH ×4 (08:34→21:00)
[2018-02-18] MEDS: busPIRone HCL 5 MG TAB PO SCH (08:34)
[2018-02-18] MEDS: CEFEPIME INJ 1,000 MG in SODIUM CHLORIDE 0.9% INJ 100 ML IV SCH ×2 (08:35→22:30)
[2018-02-18] MEDS: DOCUSATE SODIUM 50 MG/SENNA 8.6 MG TAB PO SCH ×2 (08:35→21:00)
[2018-02-18] MEDS: SODIUM CHLORIDE 0.9% FLUSH 10 ML FLUSH IV FLUSH SCH ×2 (08:36→22:28)
[2018-02-18 09:41] LABS: BILIRUBIN, URINE NEG (NEG); BLOOD, URINE NEG (NEG); GLUCOSE,URINE NEG (NEG); KETONE, URINE NEG (NEG); MUCUS URINE FEW /lpf (OCC); NITRITE,URINE NEG (NEG); PH, URINE 6.5 (5.0-8.5); URINE COLOR YELLOW (YELLW/STRAW); URINE LEUKOCYTE ESTERASE NEG (NEG)
[2018-02-18] MEDS: ATOVAQUONE SUSP 750 MG/5 ML UDC PO SCH ×2 (09:50→22:27)
--- NOTE | 2018-02-18 13:07 | MB ---
cc: Syed Will MD DATE: 02/18/2018 REQUESTING PHYSICIAN: Dr. Saez REASON: HIV and pneumonia. HISTORY OF PRESENT ILLNESS: This is a 38-year-old white male who has HIV disease. The patient was brought to the emergency department because of shortness of breath. He also noted having pain from skin lesions. He states that approximately 1-2 months ago, he broke out in a skin rash and multiple skin lesions all over his body. He has not seen a physician for that problem. The patient is a very poor historian. He also has memory problems. He was evaluated and treated for pneumonia in September 2017 and was discharged on oral antibiotics and requested to make an appointment to followup with the Health Department for HIV management. He never did so. He states that he was having difficulty getting through on the telephone. He also states that he lives with his grandmother and does not have transportation because his grandmother does not drive. His CD4 count in September was 249. During this visit, his temperature was 100 degrees, heart rate was 104. The patient has an occasional cough, but no sputum production. He has a diffuse rash at the face and the skin is very dry and flaking and there are superficial fissures of the skin. He states that the skin itches sometimes. He denies fever, chills or difficulty swallowing. CT scan of the chest reveals scattered interstitial and alveolar opacities predominantly within the upper lobes. PAST MEDICAL HISTORY: Inguinal hernia, pneumonia, HIV disease. ALLERGIES: SULFAMETHOXAZOLE, TRIMETHOPRIM. MEDICATIONS: 1. Vancomycin. 2. Cefepime. 3. Atovaquone. 4. Azithromycin. 5. Nystatin swish and swallow. 6. BuSpar. 7. Edilia-Colace. SOCIAL HISTORY: The patient lives with his grandmother. Occasional alcohol, no tobacco. No illicit drugs. FAMILY HISTORY: Noncontributory. REVIEW OF SYSTEMS: Significant for shortness of breath and occasional itching, skin lesions, diffuse. Otherwise, negative. PHYSICAL EXAMINATION: GENERAL: This is a well-developed male who appears older than stated age. VITAL SIGNS: Includes Temperature 100 degrees, BP 98/69, respirations 14, heart rate 57. HEENT: The head reveals diffuse rash of the face covering the entire face and flaking of the skin along with some fissures with mild ooze along the fissure lines. Extraocular movements grossly intact. Pupils reactive to light. Pale sclerae. Oropharynx: Moist mucosa. No visible thrush. NECK: Supple without adenopathy. LUNGS: Decreased breath sounds throughout. HEART: Regular S1 and S2. No murmurs. ABDOMEN: Bowel sounds present. Soft, no tenderness appreciated. RECTAL: Not performed. EXTREMITIES: Diffuse, flat superficial ulcerations and erythema of varying sizes scattered all over the extremities. Some of these have a grainy surface appearance. No clubbing, cyanosis or edema. SKIN: Diffuse round superficial ulcerative erythematous lesions scattered throughout including the trunk, abdomen, extremities and back and the face has diffuse erythematous rash with pale stanley discoloration and very dry skin with flaking and also this involves the scalp where the skin is also exfoliating. NEUROLOGIC: No gross focal findings. PSYCHIATRIC: The patient is calm and cooperative. LABORATORY DATA: WBC 5.9, platelets 182, 68% neutrophils, 17% lymphocytes, 12% monocytes. Creatinine 1.05, BUN 23, sodium 138. LFTs normal. IMPRESSION: 1. Pneumonia. The patient has bilateral lung infiltrates, likely opportunistic infection in this patient with low CD4 count and severe immunosuppression from acquired immune deficiency syndrome. 2. Acquired immune deficiency syndrome. 3. 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 4. 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 5. Patient with poor insight regarding his condition and appears unable to care for himself. RECOMMENDATIONS: 1. Continue cefepime. 2. Continue atovaquone. 3. Continue Zithromax. 4. Discontinue vancomycin. 5. Monitor blood cultures. 6. Consider oncology consult for suggestions for Kaposi. 7. Case management to help the patient to have appointment made for health department to address HIV medications and also to try to get him on the [facility] program so he can be followed for the HIV disease. This is important because without adequate addressing of the HIV, viral treatment is likely to continue to decline. 8. Monitor the patient's clinical response to treatment for the pneumonia. Thank you for this consultation. The patient's progress will be monitored and further recommendations will be given and followup as necessary. MD MALCOLM Lara/SB , 12:31 PM , 01:07 PM
--- NOTE | 2018-02-18 13:36 | HHI.PR ---
Subjective Remarks Follow up pneumonia. Patient states that his dyspnea is improving. No other complaints at this time. Objective Vitals Vital Signs Date Time Temp Pulse Resp B/P (MAP) Pulse Ox O2 Delivery O2 Flow Rate FiO2 02/18/18 12:23 (79) Nasal Cannula 3.00 02/18/18 11:59 57 14 98/69 (79) 100 Nasal Cannula 3.00 02/18/18 08:09 72 18 103/63 (76) 95 Room Air 02/18/18 06:52 100.0 71 15 108/65 (79) 100 02/18/18 05:00 97 Nasal Cannula 2.00 02/18/18 01:22 96 Nasal Cannula 2.00 02/18/18 01:17 100 Nasal Cannula 2.00 02/18/18 01:10 100.4 104 17 113/70 (84) 100 I/O 02/17/18 02/17/18 02/17/18 02/18/18 02/18/18 02/18/18 07:00 15:00 23:00 07:00 15:00 23:00 Intake Total 2350 ml 615 ml Output Total 850 ml Balance 2350 ml -235 ml Intake IV Total 2350 ml 615 ml Output Urine Total 850 ml # Voids 1 Result Diagram: 02/18/18 0115 02/18/18 0115 Imaging Last Impressions Chest X-Ray 02/18/18 0110 Signed Impressions: Service Date/Time: Sunday, February 18, 2018 01:20 - CONCLUSION: No acute disease. Christoph Fuller MD Chest CT 02/18/18 0000 Signed Impressions: Service Date/Time: Sunday, February 18, 2018 03:18 - CONCLUSION: 1. Scattered interstitial and alveolar opacities predominantly within the upper lobes. 2. No pleural effusions. Christoph Fuller MD Objective Remarks General: No acute distress. Heart: Regular rate and rhythm. No murmur. Lungs: Clear to auscultation bilaterally. No wheezes, rales, or rhonchi. Breathing is nonlabored. Abdomen: Soft, nontender, nondistended. Extremities: No lower extremity edema. Psych: Alert and oriented. Skin: Diffuse ulcerative lesions. Very dry skin with flaking. Patient has multiple lesions on his scalp with flaking skin there as well. Procedures None Urinary Catheter: No Vascular Central Line Catheter: No A/P Problem List: (1) Sepsis ICD Code: A41.9 - Sepsis, unspecified organism (2) PNA (pneumonia) ICD Code: J18.9 - Pneumonia, unspecified organism (3) AIDS (acquired immunodeficiency syndrome), CD4 <=200 ICD Code: B20 - Human immunodeficiency virus [HIV] disease Assessment and Plan 1. Sepsis: Presented with fever, tachycardia. Source is pneumonia. Patient is immunocompromised. Continue antibiotics. Cultures are pending. Appreciate infectious disease recommendations. 2. Pneumonia: Chest CT shows scattered interstitial and alveolar opacities. Continue IV antibiotics. DuoNeb as needed. Symbicort. Supplemental oxygen. 3. AIDS: Last CD4 was 49 on 08/30/17. Patient has been noncompliant with medications. Continue atovaquone due to Bactrim allergy and azithromycin weekly. Appreciate infectious disease recommendations. 4. DVT prophylaxis: SCDs, MARK perales. Problem Qualifiers (1) PNA (pneumonia): Qualified Codes: J18.1 - Lobar pneumonia, unspecified organism Pablito Caro MD Feb 18, 2018 13:36
[2018-02-18] MEDS: ACETAMINOPHEN/HYDROcodone 325 MG/10 MG TAB PO PRN (15:37)
[2018-02-18] MEDS: ACETAMINOPHEN 325 MG TAB PO PRN (15:37)
[2018-02-19] VITALS (7 sets, daily range): BP systolic 100–115; BP diastolic 55–61; PULSE 68–83; RESP 18; TEMP 98.3–99.8; O2SAT 96–100
[2018-02-19] MEDS ORDERED: VANCOMYCIN 1,000 MG/NS 250 ML IV SCH ×2
[2018-02-19] MEDS: busPIRone HCL 5 MG TAB PO SCH ×3 (00:52→21:00)
[2018-02-19] MEDS: ACETAMINOPHEN/HYDROcodone 325 MG/10 MG TAB PO PRN ×3 (04:08→16:53)
[2018-02-19 04:36] LABS: BASOPHIL % 0.4 % (0.0-2.0); EOSINOPHIL # 0.2 TH/MM3 (0-0.4); EOSINOPHIL % 3.9 % (0.0-4.0); HEMATOCRIT 27.4 % (39.0-51.0); HEMOGLOBIN 9.3 GM/DL (13.0-17.0); LYMPH % 14.5 % (9.0-44.0); LYMPHOCYTE # 0.6 TH/MM3 (1.0-4.8); MEAN CELL VOLUME 85.2 FL (80.0-100.0); MEAN CORPUSCULAR HGB CONC 34.1 % (32.0-36.0); MEAN PLATELET VOLUME 7.7 FL (7.0-11.0); MONO % 13.2 % (0.0-8.0); MONOCYTE # 0.6 TH/MM3 (0-0.9); PLATELET COUNT 140 TH/MM3 (150-450); RED BLOOD COUNT 3.21 MIL/MM3 (4.50-5.90); RED CELL DISTRIBUTION WIDTH 15.4 % (11.6-17.2); WHITE BLOOD COUNT 4.4 TH/MM3 (4.0-11.0)
[2018-02-19 04:59] LABS: ALBUMIN 2.5 GM/DL (3.4-5.0); AST (GOT) 13 U/L (15-37); BICARBONATE 25.4 MEQ/L (21.0-32.0); BLOOD UREA NITROGEN 18 MG/DL (7-18); CALCIUM 8.2 MG/DL (8.5-10.1); CHLORIDE 111 MEQ/L (98-107); CREATININE 0.94 MG/DL (0.60-1.30); GLOMERULAR FILTRATION RATE 90 ML/MIN (>89); GLUCOSE,RANDOM 88 MG/DL (74-106); SODIUM (NA) 141 MEQ/L (136-145)
[2018-02-19 05:00] LABS: ALT (GPT) 12 U/L (12-78)
[2018-02-19 05:02] LABS: ALKALINE PHOSPHATASE 56 U/L (45-117); TOTAL BILIRUBIN ADULT 0.3 MG/DL (0.2-1.0); TOTAL PROTEIN 6.4 GM/DL (6.4-8.2)
[2018-02-19] MEDS: ONDANSETRON HCL 4 MG/2 ML VIAL IVP PRN ×2 (06:22→19:00)
[2018-02-19] MEDS: NYSTATIN SUSP 500,000 U/5 ML CUP SWISH-SWAL SCH ×4 (08:44→21:00)
[2018-02-19] MEDS: DOCUSATE SODIUM 50 MG/SENNA 8.6 MG TAB PO SCH ×2 (08:44→21:00)
[2018-02-19] MEDS: SODIUM CHLORIDE 0.9% FLUSH 10 ML FLUSH IV FLUSH SCH ×2 (08:44→21:48)
[2018-02-19] MEDS: ATOVAQUONE SUSP 750 MG/5 ML UDC PO SCH (08:45)
[2018-02-19] MEDS: CEFEPIME INJ 1,000 MG in SODIUM CHLORIDE 0.9% INJ 100 ML IV SCH ×2 (08:47→21:44)
--- NOTE | 2018-02-19 10:00 | HHI.PR ---
Subjective Remarks The patient said he has anxiety. He says he has not been taking any medications. He says that he went to another hospital and they sent him home. He said that he would like his Kaposi's sarcoma looked at and treated. He said he will need assistance with follow-up care. Discussed with nursing. Objective Vitals Vital Signs Date Time Temp Pulse Resp B/P (MAP) Pulse Ox O2 Delivery O2 Flow Rate FiO2 02/19/18 08:00 98.9 74 18 101/59 (73) 96 02/19/18 04:00 68 02/19/18 00:00 80 02/18/18 20:00 98.9 83 18 108/64 (79) 97 02/18/18 16:37 18 02/18/18 16:37 18 02/18/18 16:00 89 02/18/18 16:00 100.5 95 19 117/64 (81) 95 02/18/18 13:40 98.6 85 19 119/70 (86) 98 02/18/18 13:00 74 02/18/18 12:23 (79) Nasal Cannula 3.00 02/18/18 11:59 57 14 98/69 (79) 100 Nasal Cannula 3.00 I/O 02/18/18 02/18/18 02/18/18 02/19/18 02/19/18 02/19/18 07:00 15:00 23:00 07:00 15:00 23:00 Intake Total 2350 ml 615 ml 800 ml 680 ml Output Total 850 ml 300 ml 800 ml Balance 2350 ml -235 ml 500 ml -120 ml Intake Oral 800 ml 680 ml IV Total 2350 ml 615 ml Output Urine Total 850 ml 300 ml 800 ml # Voids 1 Result Diagram: 02/19/18 0352 02/19/18 0352 Imaging Last Impressions Chest X-Ray 02/18/18 0110 Signed Impressions: Service Date/Time: Sunday, February 18, 2018 01:20 - CONCLUSION: No acute disease. Christoph Fuller MD Chest CT 02/18/18 0000 Signed Impressions: Service Date/Time: Sunday, February 18, 2018 03:18 - CONCLUSION: 1. Scattered interstitial and alveolar opacities predominantly within the upper lobes. 2. No pleural effusions. Christoph Fuller MD Objective Remarks General: No acute distress. Heart: Regular rate and rhythm. No murmur. Lungs: Clear to auscultation bilaterally. No wheezes, rales, or rhonchi. Breathing is nonlabored. Abdomen: Soft, nontender, nondistended. Extremities: No lower extremity edema. Neuro: No gross deficits. Psych: Anxious. Skin: Diffuse ulcerative lesions. Very dry skin with flaking. Patient has multiple lesions on his scalp with flaking skin there as well. Procedures None Medications and IVs Current Medications Medications (Trade) Dose Ordered Sig/Frank Route Start Time Stop Time Status Last Admin (Mepron Liq) 750 mg Q12HR PO 02/18/18 09:00 02/19/18 08:45 Cefepime HCl 1000 mg/Sodium Chloride 100 ml @ 200 mls/hr Q12H IV 02/18/18 09:00 02/19/18 08:47 (Duoneb Neb) 1 ampule Q4HR NEB PRN NEB 02/18/18 04:45 (NS Flush) 2 ml UNSCH PRN IV FLUSH 02/18/18 04:45 (NS Flush) 2 ml BID IV FLUSH 02/18/18 09:00 02/19/18 08:44 (Zofran Inj) 4 mg Q6H PRN IVP 02/18/18 04:45 02/19/18 06:22 (Tylenol) 650 mg Q6H PRN PO 02/18/18 04:45 02/18/18 15:37 ([place] 5-325 Mg) 1 tab Q4H PRN PO 02/18/18 04:45 ([place] 10-325 Mg) 1 tab Q4H PRN PO 02/18/18 04:45 02/19/18 04:08 (Edilia-Colace) 1 tab BID PO 02/18/18 09:00 (Milk Of Magnesia Liq) 30 ml Q12H PRN PO 02/18/18 04:45 (Senokot) 17.2 mg Q12H PRN PO 02/18/18 04:45 (Dulcolax Supp) 10 mg DAILY PRN RECTAL 02/18/18 04:45 (Lactulose Liq) 30 ml DAILY PRN PO 02/18/18 04:45 (Zithromax) 1,200 mg Q7D PO 02/18/18 06:00 02/18/18 08:33 (Buspar) 5 mg Q12HR PO 02/18/18 09:00 02/19/18 00:52 (Mycostatin Liq) 5 ml QID SWISH-SWAL 02/18/18 09:00 02/18/18 08:34 (Ativan) 0.5 mg Q6H PRN PO 02/19/18 10:00 A/P Problem List: (1) Sepsis ICD Code: A41.9 - Sepsis, unspecified organism (2) PNA (pneumonia) ICD Code: J18.9 - Pneumonia, unspecified organism (3) AIDS (acquired immunodeficiency syndrome), CD4 <=200 ICD Code: B20 - Human immunodeficiency virus [HIV] disease Assessment and Plan Sepsis Presented with fever, tachycardia. Source is pneumonia. Patient is immunocompromised. - Continue antibiotics. - Cultures are pending. - Appreciate infectious disease recommendations. Pneumonia Chest CT shows scattered interstitial and alveolar opacities. - Continue IV antibiotics per ID. - DuoNebs and oxygen as needed. - Symbicort. AIDS Last CD4 was 49 on 08/30/17. Patient has been noncompliant with medications. - Continue atovaquone due to Bactrim allergy and azithromycin weekly. Appreciate infectious disease recommendations. Kaposi Sarcoma Noted on exam. - oncology consult pending. Anemia Likely s/t chronic illness. - follow CBC. PPx: SCDs Problem Qualifiers (1) PNA (pneumonia): Qualified Codes: J18.1 - Lobar pneumonia, unspecified organism Jamie Dye DO Feb 19, 2018 10:00
[2018-02-19] MEDS: LORazepam 0.5 MG TAB PO PRN ×2 (11:13→18:57)
[2018-02-19] MEDS ORDERED: DIATRIZOATE MEGLUM/DIATRIZOATE SOD 9 ML CUP PO ONE (18:30)
--- NOTE | 2018-02-19 18:48 | MB ---
cc: Tee Ash MD DATE: 02/19/2018 ATTENDING PHYSICIAN: Jamie Dye DO REASON FOR CONSULTATION: Oncology consult to render opinion on patient with HIV/AIDS and Kaposi sarcoma. HISTORY OF PRESENT ILLNESS: The patient is a 38-year-old male with history of HIV and AIDS and noncompliant with antiretroviral therapy, admitted to the hospital with increased weakness and shortness of breath. He was admitted in 08/2017 for pneumonia. He, however, did not follow up with [facility] to continue the HAART treatment. He stated that he was diagnosed 7-8 years ago. He has stopped antiretroviral therapy many years. He is a very poor historian and not able to provide specific details. When he was admitted to the hospital in August, CD4 count was 49. He presented again with increased shortness of breath. He said he has cough, but unclear if it is productive or not. He has occasional chest pain. Denies any fever or chills. He broke out with skin lesions about 6-8 month ago. He states it was all over his body. The 2 big patches behind his knee are painful. He denies headache, denies any visual change. Denies any vomiting. He has occasional nausea and has abdominal pain. Denies any melena, hematochezia, dysuria, hematuria. PAST MEDICAL HISTORY: 1. HIV/AIDS. 2. Pneumonia. 3. Inguinal hernia. PAST SURGICAL HISTORY: Left inguinal hernia repair. FAMILY HISTORY: He has 2 half sisters. Has no children. Grandfather cancer. Aunt also had some sort of cancer. SOCIAL HISTORY: Lives with his grandmother. Drinks occasionally. He smoked about a pack every 3 days for the last 20 years. ALLERGIES: BACTRIM. CURRENT MEDICATIONS: Atovaquone, cefepime, Edilia-Colace, BuSpar, nystatin, Zithromax. REVIEW OF SYSTEMS: CONSTITUTIONAL: As above. EYES: Negative. ENT: Negative. CARDIOVASCULAR: No chest pressure, palpitation. RESPIRATORY: As above. GASTROINTESTINAL: As above. GENITOURINARY: No dysuria or hematuria. MUSCULOSKELETAL: As above. HEMATOLOGIC: Negative. ENDOCRINE: Negative. DERMATOLOGY: As above. NEUROLOGIC: Negative. PSYCHIATRIC: Negative. PHYSICAL EXAMINATION: VITAL SIGNS: Temperature 99.8, blood pressure 109/59, O2 saturation 100%. GENERAL: He is alert, oriented x 3, in no acute distress. HEENT: Atraumatic, normocephalic. Pupils equal, round, reactive to light. Extraocular muscles intact. No scleral icterus. Oropharynx, dry mucosa. No lesion. NECK: No thyromegaly. No palpable mass. LYMPHATIC: No palpable cervical, clavicular, axillary lymph nodes. CARDIOVASCULAR: Regular S1, S2. No murmur. LUNGS: Clear to auscultation bilaterally, no significant wheezing. ABDOMEN: Soft, nontender. Difficult to palpate liver or spleen. EXTREMITIES: No cyanosis, clubbing, or edema. BACK: No paravertebral tenderness. SKIN: He has diffuse red-brownish patches and plaque all over his body. The 2 big patches behind the knee are tender. LABORATORY DATA: WBC 4.4, hemoglobin 9.3, platelet count 140, neutrophil count 3.0. Creatinine 0.94. ASSESSMENT: 1. Kaposi sarcoma. He has poorly controlled human immunodeficiency virus/acquired immunodeficiency syndrome because he is noncompliant with antiretroviral therapy. He stopped antiretroviral therapy many years ago, but he could not provide specific details. When he was in the hospital in 08/2017, CD4 count was only 49. He did not followup with [facility] to restart the antiviral therapy. He started having skin lesions at least 6-8 month ago. It is all over his body and too numerous to count. The 2 biggest patches behind the knee are painful. The appearance of the skin lesions is consistent with Kaposi sarcoma. CT of the lung showed interstitial alveolar opacity, but no obvious metastatic disease. I am going to get a CT abdomen and pelvis to make sure he has no visceral metastasis. We will also check stool occult blood and if it is positive, he is going to need a GI workup to see if any Kaposi sarcoma in the GI tract. I am also going to repeat a CD4 and viral load. The primary treatment is going to be antiretroviral therapy. The patient, however, is very noncompliant with treatment and it will be difficult to treat him with systemic chemotherapy. If he has no systemic visceral metastasis, recommend that he start antiretroviral therapy first to see if there is any response. If he is compliant with treatment, then could consider treating with systemic chemotherapy. Could also consider consulting radiation oncology to radiate the 2 patches behind his knee, which are the most bothersome for him. 2. HIV/AIDS, poorly controlled with CD4 count of 49. 3. Sepsis with bacteremia. He is on antibiotic per infectious disease. 4. Pneumonia, likely opportunistic infection. He is on antibiotic per infectious disease. RECOMMENDATIONS: 1. Get CT of abdomen and pelvis. 2. Check stool occult blood test. 3. Get CD4 count and viral load. 3. Recommend antiretroviral therapy, and if he is compliant with treatment, can consider giving him systemic chemotherapy if he has no good response to antiretroviral therapy. Could also consider consulting radiation oncology to radiate the 2 patches behind his knee. Thank you, Dr. Dye, for asking me to see this patient. MD MIRIAM Yu/MARY , 05:41 PM , 06:48 PM EMILY
[2018-02-19 21:12] LABS: RETIC # 43.2 MIL/L (20.0-150.0); RETIC % 1.3 % (0.4-3.0)
[2018-02-19 22:08] LABS: % SATURATION IRON PROFILE 8.5 % (20-50); FERRITIN 799 NG/ML (26-388); IRON (FE) 19 MCG/DL (65-175); TOTAL IRON BINDING CAPACITY 223 MCG/DL (250-450)
[2018-02-19] MEDS ORDERED: PHARMACY ORDERED LAB ONE (23:45)
[2018-02-20] MEDS: ATOVAQUONE SUSP 750 MG/5 ML UDC PO SCH ×3 (00:28→20:30)
--- NOTE | 2018-02-20 00:33 | RADRPT ---
EXAM DATE/TIME: 02/20/2018 00:12 [facility] COMPARISON: No previous studies available for comparison. INDICATIONS : Abdomen pain, evaluate for possible metastatic disease. ORAL CONTRAST: Partial prescribed oral contrast ingested. RADIATION DOSE: 6.54 CTDIvol (mGy) MEDICAL HISTORY : Hernia, inguinal. HIV. Kaposis sarcoma. SURGICAL HISTORY : None. ENCOUNTER: Initial ACUITY: 2 days PAIN SCALE: 6/10 LOCATION: Abdomen. TECHNIQUE: Volumetric scanning of the abdomen and pelvis was performed. Using automated exposure control and ad justment of the mA and/or kV according to patient size, radiation dose was kept as low as reasonably achievable to obtain optimal diagnostic quality images. DICOM format image data is available electro nically for review and comparison. FINDINGS: LOWER LUNGS: Bibasilar densities likely atelectasis. LIVER: Homogeneous density without lesion. There is no dilation of the biliary tree. No calcified gallston es. SPLEEN: Normal size without lesion. PANCREAS: Within normal limits. KIDNEYS: Normal in size and shape. There is no mass, stone, or hydronephrosis. ADRENAL GLANDS: Within normal limits. VASCULAR: There is no aortic aneurysm. BOWEL/MESENTERY: The stomach, small bowel, and colon demonstrate no acute abnormality. There is no free intraperitone al air or fluid. Soft tissue density in the left mesentery measures 2 cm. ABDOMINAL WALL: Within normal limits. RETROPERITONEUM: Scattered small lymphadenopathy. BLADDER: No wall thickening or mass. REPRODUCTIVE: Trace free fluid. INGUINAL: There is no lymphadenopathy or hernia. MUSCULOSKELETAL: Within normal limits for patient age. CONCLUSION: 1. Prominent soft tissue density/lymphadenopathy in the left mesentery measuring 2 cm. 2. Multiple small scattered retroperitoneal lymph nodes. Christoph Fuller MD on February 20, 2018 at 0:25 Board Certified Radiologist. This report was verified electronically.
[2018-02-20 07:12] LABS: HEMATOCRIT 26.6 % (39.0-51.0); HEMOGLOBIN 9.3 GM/DL (13.0-17.0); MEAN CELL VOLUME 84.4 FL (80.0-100.0); MEAN CORPUSCULAR HEMOGLOBIN 29.4 PG (27.0-34.0); MEAN CORPUSCULAR HGB CONC 34.8 % (32.0-36.0); MEAN PLATELET VOLUME 7.7 FL (7.0-11.0); PLATELET COUNT 150 TH/MM3 (150-450); RED BLOOD COUNT 3.15 MIL/MM3 (4.50-5.90); RED CELL DISTRIBUTION WIDTH 15.6 % (11.6-17.2); WHITE BLOOD COUNT 4.2 TH/MM3 (4.0-11.0)
[2018-02-20 07:38] LABS: BICARBONATE 26.4 MEQ/L (21.0-32.0); CALCIUM 8.2 MG/DL (8.5-10.1); CREATININE 0.84 MG/DL (0.60-1.30)
[2018-02-20 07:46] VITALS: O2SAT 97
[2018-02-20] MEDS: CEFEPIME INJ 1,000 MG in SODIUM CHLORIDE 0.9% INJ 100 ML IV SCH (07:58)
[2018-02-20] MEDS: SODIUM CHLORIDE 0.9% FLUSH 10 ML FLUSH IV FLUSH SCH ×2 (07:59→20:31)
[2018-02-20] MEDS: busPIRone HCL 5 MG TAB PO SCH ×2 (07:59→21:00)
[2018-02-20 08:00] VITALS: BP 114/59; PULSE 84; RESP 17; TEMP 99.6; O2SAT 95
[2018-02-20] MEDS: NYSTATIN SUSP 500,000 U/5 ML CUP SWISH-SWAL SCH ×3 (08:00→20:32)
[2018-02-20] MEDS: DOCUSATE SODIUM 50 MG/SENNA 8.6 MG TAB PO SCH ×2 (08:00→20:32)
[2018-02-20] MEDS: LORazepam 0.5 MG TAB PO PRN ×2 (08:53→22:03)
--- NOTE | 2018-02-20 10:37 | PD.ONC.PN ---
Subjective Subjective Remarks Tmax 99.8 overnight. Patient complaining of pain and burning in lesions on legs. He states he would like his skin rash to just go away. Objective Data Date Time Temp Pulse Resp B/P (MAP) Pulse Ox O2 Delivery O2 Flow Rate FiO2 02/20/18 08:00 99.6 84 17 114/59 (77) 95 02/20/18 07:46 97 21 02/19/18 21:28 96 Nasal Cannula 3.00 02/19/18 20:00 99.8 83 18 115/61 (79) 98 02/19/18 20:00 76 02/19/18 16:00 99.8 79 18 109/59 (76) 100 02/19/18 12:00 98.3 72 18 100/55 (70) 100 02/20/18 02/20/18 02/20/18 07:00 15:00 23:00 Intake Total 760 ml Output Total 1000 ml Balance -240 ml Result Diagram: 02/20/18 0602/20/18 0606 Laboratory Results Laboratory Tests Test 02/19/18 20:49 02/20/18 06:06 Reticulocyte Count 1.3 % Absolute Reticulocyte Count 43.2 MIL/L Iron Level 19 MCG/DL Total Iron Binding Capacity 223 MCG/DL Percent Iron Saturation 8.5 % Ferritin 799 NG/ML Lactate Dehydrogenase 163 U/L Vitamin B12 Level 239 PG/ML Folate 19.0 NG/ML White Blood Count 4.2 TH/MM3 Red Blood Count 3.15 MIL/MM3 Hemoglobin 9.3 GM/DL Hematocrit 26.6 % Mean Corpuscular Volume 84.4 FL Mean Corpuscular Hemoglobin 29.4 PG Mean Corpuscular Hemoglobin Concent 34.8 % Red Cell Distribution Width 15.6 % Platelet Count 150 TH/MM3 Mean Platelet Volume 7.7 FL Blood Urea Nitrogen 17 MG/DL Creatinine 0.84 MG/DL Random Glucose 78 MG/DL Calcium Level 8.2 MG/DL Magnesium Level 2.0 MG/DL Sodium Level 137 MEQ/L Potassium Level 3.9 MEQ/L Chloride Level 105 MEQ/L Carbon Dioxide Level 26.4 MEQ/L Anion Gap 6 MEQ/L Estimat Glomerular Filtration Rate 103 ML/MIN Culture Results Microbiology Date/Time Source Procedure Growth Status 02/18/18 01:15 Blood Peripheral Aerobic Blood Culture - Preliminary Staphylococcus Epidermidis Resulted 02/18/18 01:15 Anaerobic Blood Culture - Preliminary Gram Positive Cocci Resulted 02/18/18 01:10 Blood Peripheral Aerobic Blood Culture - Preliminary Gram Positive Cocci Resulted 02/18/18 01:10 Anaerobic Blood Culture - Preliminary Gram Positive Cocci Resulted Administered Medications Medications (Trade) Dose Ordered Sig/Frank Route PRN Reason Start Time Stop Time Status Last Admin Dose Admin Atovaquone (Mepron Liq) 750 mg Q12HR PO 02/18/18 09:00 02/20/18 07:59 Cefepime HCl 1000 mg/Sodium Chloride 100 ml @ 200 mls/hr Q12H IV 02/18/18 09:00 02/20/18 07:58 Sodium Chloride (NS Flush) 2 ml BID IV FLUSH 02/18/18 09:00 02/20/18 07:59 Ondansetron HCl (Zofran Inj) 4 mg Q6H PRN IVP NAUSEA OR VOMITING 02/18/18 04:45 02/19/18 19:00 Acetaminophen (Tylenol) 650 mg Q6H PRN PO FEVER/PAIN SCALE 1 TO 2 02/18/18 04:45 02/18/18 15:37 Acetaminophen/ Hydrocodone Bitart ([place] 10-325 Mg) 1 tab Q4H PRN PO PAIN SCALE 6 TO 10 02/18/18 04:45 02/19/18 16:53 Azithromycin (Zithromax) 1,200 mg Q7D PO 02/18/18 06:00 02/18/18 08:33 Buspirone HCl (Buspar) 5 mg Q12HR PO 02/18/18 09:00 02/19/18 00:52 Nystatin (Mycostatin Liq) 5 ml QID SWISH-SWAL 02/18/18 09:00 02/18/18 08:34 Lorazepam (Ativan) 0.5 mg Q6H PRN PO anxiety 02/19/18 10:00 02/20/18 08:53 Objective Remarks GENERAL: Young man, sitting up in bed in [facility]. SKIN: Warm and dry. scaling erythematous rash on face, trunk and extremities in patches. HEAD: Normocephalic. EYES: No injection or drainage. NECK: Supple, trachea midline. CARDIOVASCULAR: +S1/S2 RESPIRATORY: Breath sounds equal bilaterally. No accessory muscle use. GASTROINTESTINAL: Abdomen soft, non-tender, nondistended. EXTREMITIES: No cyanosis NEUROLOGICAL: No obvious focal deficit. Assessment/Plan Problem List: (1) Kaposi sarcoma ICD Codes: C46.9 - Kaposi's sarcoma, unspecified Plan: --will also consult radiation therapy to see if they can radiate the two painful patches behind the knee. --primary treatment would be antiretroviral therapy, if compliant with antiretroviral therapy, could consider treatment with systemic chemotherapy --started having skin lesions at least 6-8 month ago. --The 2 biggest patches behind the knee are painful. --appearance of the skin lesions is consistent with Kaposi sarcoma. --CT lung showed interstitial alveolar opacity, but no obvious metastatic disease. --CT ab/pelvis shows prominent soft tissue density/lymphadenopathy 2cm (2) AIDS (acquired immunodeficiency syndrome), CD4 <=200 ICD Codes: B20 - Human immunodeficiency virus [HIV] disease Plan: --has poorly controlled human immunodeficiency virus/acquired immunodeficiency syndrome --noncompliant with antiretroviral therapy. --stopped antiretroviral therapy many years ago --08/2017, CD4 count was only 49. (3) Sepsis ICD Codes: A41.9 - Sepsis, unspecified organism Plan: --on antibiotics. Assessment 38y/o male with HIV/AIDS and Kaposi sarcoma. Plan 1. continue antibiotics. 2. consult radiation oncology for possible palliative radiation to the leg lesions. 3. supportive care. Attending Statement The exam, history, and the medical decision-making described in the above note were completed with the assistance of the mid-level provider. I reviewed and agree with the findings presented. I attest that I had a [id number] encounter with the patient on the same day, and personally performed and documented my assessment and findings in the medical record. SOB improved. Still has pain in his legs due to Kaposi sarcoma. Reviewed CT stih pt. Small abdominal LN likey due to HIV/AIDS but need to be monitored. Consult radiation oncology to consider radiating the painful LE KS. Exaplined to pt that treatment of KS is HAART and if he is compliant with treatment, can consider giving him systemic chemotx if the KS does not improve with HAART. Neelima Madison Feb 20, 2018 10:37 Tee Ash MD Feb 20, 2018 13:35
[2018-02-20] MEDS: ACETAMINOPHEN 325 MG TAB PO PRN ×2 (11:01→20:30)
[2018-02-20] MEDS ORDERED: Vancomycin Consult Pharmacy 1 EA OTHER SCH (11:30)
--- NOTE | 2018-02-20 11:49 | HHI.IDPN ---
Note Infectious Disease Note Patient says he feels okay. He had a temperature elevation of 102 this morning. He denies chills, sweats, aches or pains except for some mild pain at the back of his knees where he has lesions. He has diffuse flaking of the skin and erythema of the skin is unchanged. No sputum production. States his breathing is okay. He is on room air. Blood cultures have staph coagulase-negative. Both sets positive. 38-year-old white male who has HIV disease. The patient was brought to the emergency department because of shortness of breath. He also noted having pain from skin lesions. He states that approximately 1-2 months ago, he broke out in a skin rash and multiple skin lesions all over his body. He has not seen a physician for that problem. The patient is a very poor historian. He also has memory problems. He was evaluated and treated for pneumonia in September 2017 and was discharged on oral antibiotics and requested to make an appointment to followup with the [facility] for HIV management. He never did so. He states that he was having difficulty getting through on the telephone. He also states that he lives with his grandmother and does not have transportation because his grandmother does not drive. His CD4 count in September was 249. PAST MEDICAL HISTORY: Inguinal hernia, pneumonia, HIV disease. ALLERGIES: SULFAMETHOXAZOLE, TRIMETHOPRIM. MEDICATIONS: Current Medications Medications (Trade) Dose Ordered Sig/Frank Route PRN Reason Start Time Stop Time Status Last Admin Dose Admin Atovaquone (Mepron Liq) 750 mg Q12HR PO 02/18/18 09:00 02/20/18 07:59 Cefepime HCl 1000 mg/Sodium Chloride 100 ml @ 200 mls/hr Q12H IV 02/18/18 09:00 02/20/18 07:58 Albuterol/ Ipratropium (Duoneb Neb) 1 ampule Q4HR NEB PRN NEB SOB/WHEEZING 02/18/18 04:45 Sodium Chloride (NS Flush) 2 ml UNSCH PRN IV FLUSH FLUSH AFTER USING IV ACCESS 02/18/18 04:45 Sodium Chloride (NS Flush) 2 ml BID IV FLUSH 02/18/18 09:00 02/20/18 07:59 Ondansetron HCl (Zofran Inj) 4 mg Q6H PRN IVP NAUSEA OR VOMITING 02/18/18 04:45 02/19/18 19:00 Acetaminophen (Tylenol) 650 mg Q6H PRN PO FEVER/PAIN SCALE 1 TO 2 02/18/18 04:45 02/20/18 11:01 Acetaminophen/ Hydrocodone Bitart ([place] 5-325 Mg) 1 tab Q4H PRN PO PAIN SCALE 3 TO 5 02/18/18 04:45 Acetaminophen/ Hydrocodone Bitart ([place] 10-325 Mg) 1 tab Q4H PRN PO PAIN SCALE 6 TO 10 02/18/18 04:45 02/19/18 16:53 Senna/Docusate Sodium (Edilia-Colace) 1 tab BID PO 02/18/18 09:00 Magnesium Hydroxide (Milk Of Magnesia Liq) 30 ml Q12H PRN PO Mild constipation 02/18/18 04:45 Sennosides (Senokot) 17.2 mg Q12H PRN PO Moderate constipation 02/18/18 04:45 Bisacodyl (Dulcolax Supp) 10 mg DAILY PRN RECTAL SEVERE CONSITIPATION 02/18/18 04:45 Lactulose (Lactulose Liq) 30 ml DAILY PRN PO SEVERE CONSITIPATION 02/18/18 04:45 Azithromycin (Zithromax) 1,200 mg Q7D PO 02/18/18 06:00 02/18/18 08:33 Buspirone HCl (Buspar) 5 mg Q12HR PO 02/18/18 09:00 02/19/18 00:52 Nystatin (Mycostatin Liq) 5 ml QID SWISH-SWAL 02/18/18 09:00 02/18/18 08:34 Lorazepam (Ativan) 0.5 mg Q6H PRN PO anxiety 02/19/18 10:00 02/20/18 08:53 Pharmacy Profile Note 0 ml @ 0 mls/hr UNSCH OTHER 02/20/18 11:30 UNV SOCIAL HISTORY: The patient lives with his grandmother. Occasional alcohol, no tobacco. No illicit drugs. FAMILY HISTORY: Noncontributory. REVIEW OF SYSTEMS: Significant for shortness of breath and occasional itching, skin lesions, diffuse. Otherwise, negative. OBJECTIVE: Vital Signs Date Time Temp Pulse Resp B/P (MAP) Pulse Ox O2 Delivery O2 Flow Rate FiO2 02/20/18 08:00 99.6 84 17 114/59 (77) 95 02/20/18 07:46 97 21 02/19/18 21:28 96 Nasal Cannula 3.00 02/19/18 20:00 99.8 83 18 115/61 (79) 98 02/19/18 20:00 76 02/19/18 16:00 99.8 79 18 109/59 (76) 100 02/19/18 12:00 98.3 72 18 100/55 (70) 100 Laboratory Tests Test 02/19/18 03:52 02/19/18 20:49 02/20/18 06:06 White Blood Count 4.4 TH/MM3 4.2 TH/MM3 Red Blood Count 3.21 MIL/MM3 3.15 MIL/MM3 Hemoglobin 9.3 GM/DL 9.3 GM/DL Hematocrit 27.4 % 26.6 % Mean Corpuscular Volume 85.2 FL 84.4 FL Mean Corpuscular Hemoglobin 29.0 PG 29.4 PG Mean Corpuscular Hemoglobin Concent 34.1 % 34.8 % Red Cell Distribution Width 15.4 % 15.6 % Platelet Count 140 TH/MM3 150 TH/MM3 Mean Platelet Volume 7.7 FL 7.7 FL Neutrophils (%) (Auto) 68.0 % Lymphocytes (%) (Auto) 14.5 % Monocytes (%) (Auto) 13.2 % Eosinophils (%) (Auto) 3.9 % Basophils (%) (Auto) 0.4 % Neutrophils # (Auto) 3.0 TH/MM3 Lymphocytes # (Auto) 0.6 TH/MM3 Monocytes # (Auto) 0.6 TH/MM3 Eosinophils # (Auto) 0.2 TH/MM3 Basophils # (Auto) 0.0 TH/MM3 CBC Comment DIFF FINAL Differential Comment Reticulocyte Count 1.3 % Absolute Reticulocyte Count 43.2 MIL/L Laboratory Tests Test 02/19/18 03:52 02/19/18 20:49 02/20/18 06:06 Blood Urea Nitrogen 18 MG/DL 17 MG/DL Creatinine 0.94 MG/DL 0.84 MG/DL Random Glucose 88 MG/DL 78 MG/DL Total Protein 6.4 GM/DL Albumin 2.5 GM/DL Calcium Level 8.2 MG/DL 8.2 MG/DL Alkaline Phosphatase 56 U/L Aspartate Amino Transf (AST/SGOT) 13 U/L Alanine Aminotransferase (ALT/SGPT) 12 U/L Total Bilirubin 0.3 MG/DL Sodium Level 141 MEQ/L 137 MEQ/L Potassium Level 4.2 MEQ/L 3.9 MEQ/L Chloride Level 111 MEQ/L 105 MEQ/L Carbon Dioxide Level 25.4 MEQ/L 26.4 MEQ/L Anion Gap 5 MEQ/L 6 MEQ/L Estimat Glomerular Filtration Rate 90 ML/MIN 103 ML/MIN Iron Level 19 MCG/DL Total Iron Binding Capacity 223 MCG/DL Percent Iron Saturation 8.5 % Ferritin 799 NG/ML Lactate Dehydrogenase 163 U/L Vitamin B12 Level 239 PG/ML Folate 19.0 NG/ML Magnesium Level 2.0 MG/DL Microbiology Date/Time Source Procedure Growth Status 02/18/18 01:15 Blood Peripheral Aerobic Blood Culture - Final Staphylococcus Epidermidis Staph Sp Coagulase Negative Complete 02/18/18 01:15 Anaerobic Blood Culture - Final Staph Sp Coagulase Negative Complete 02/18/18 01:10 Blood Peripheral Aerobic Blood Culture - Final Staph Sp Coagulase Negative Complete 02/18/18 01:10 Anaerobic Blood Culture - Final Staph Sp Coagulase Negative Complete Last Impressions Abdomen/Pelvis CT 02/19/18 0000 Signed Impressions: Service Date/Time: Tuesday, February 20, 2018 00:12 - CONCLUSION: 1. Prominent soft tissue density/lymphadenopathy in the left mesentery measuring 2 cm. 2. Multiple small scattered retroperitoneal lymph nodes. Christoph Fuller MD Chest X-Ray 02/18/18 0110 Signed Impressions: Service Date/Time: Sunday, February 18, 2018 01:20 - CONCLUSION: No acute disease. Christoph Fuller MD Chest CT 02/18/18 0000 Signed Impressions: Service Date/Time: Sunday, February 18, 2018 03:18 - CONCLUSION: 1. Scattered interstitial and alveolar opacities predominantly within the upper lobes. 2. No pleural effusions. Christoph Fuller MD PHYSICAL EXAMINATION: GENERAL: No acute distress. HEENT: The head reveals diffuse rash of the face covering the entire face and flaking of the skin along with some fissures with mild ooze along the fissure lines. Extraocular movements grossly intact. Pupils reactive to light. Pale sclerae. Oropharynx: Moist mucosa. No visible thrush. No visible lesions. NECK: Supple without adenopathy. LUNGS: Decreased breath sounds. HEART: Regular S1 and S2. No murmurs. ABDOMEN: Bowel sounds present. Soft, no tenderness appreciated. EXTREMITIES: Diffuse, flat superficial ulcerations and erythema of varying sizes scattered all over the extremities. Some of these have a grainy surface appearance. No clubbing, cyanosis or edema. SKIN: Diffuse round superficial ulcerative erythematous lesions scattered throughout including the trunk, abdomen, extremities and back and the face has diffuse erythematous rash with pale stanley discoloration and very dry skin with flaking and also this involves the scalp where the skin is also exfoliating. NEUROLOGIC: No gross focal findings. PSYCHIATRIC: The patient is calm and cooperative. IV lines without evidence of infection. IMPRESSION: 1. Bacteremia with staph coagulase-negative. Questionable source. 2. Fever. Pneumonia. The patient has bilateral lung infiltrates, likely opportunistic infection in this patient with low CD4 count and severe immunosuppression from acquired immune deficiency syndrome. 3. Acquired immune deficiency syndrome. 4. 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 5. 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 6. Patient with poor insight regarding his condition and appears unable to care for himself. RECOMMENDATIONS: 1. Stop cefepime. 2. Continue atovaquone. 3. Continue Zithromax. 4. Resume vancomycin for coag negative staph in the blood. 5. Repeat blood cultures. 6. Case management to help the patient to have appointment made for health department to address HIV medications and also to try to get him on the [facility] program so he can be followed for the HIV disease. This is important because without adequate addressing of the HIV, viral treatment is likely to continue to decline. 8. Monitor the patient's clinical response. Syed Will MD Feb 20, 2018 11:49
[2018-02-20 12:00] VITALS: BP 103/57; PULSE 92; RESP 17; TEMP 102.2; O2SAT 95
[2018-02-20 12:38] VITALS: TEMP 101.4
[2018-02-20] MEDS ORDERED: CYANOCOBALAMIN 1000 MCG/ML VIAL IM ONE (14:00)
--- NOTE | 2018-02-20 14:06 | HHI.PR ---
Subjective Remarks The patient said he was too weak to do much. He says nobody has been coming to take his food order. He has been having regular bowel movements. Discussed with nursing. Objective Vitals Vital Signs Date Time Temp Pulse Resp B/P (MAP) Pulse Ox O2 Delivery O2 Flow Rate FiO2 02/20/18 12:38 101.4 02/20/18 12:00 102.2 92 17 103/57 (72) 95 02/20/18 08:00 99.6 84 17 114/59 (77) 95 02/20/18 07:46 97 21 02/19/18 21:28 96 Nasal Cannula 3.00 02/19/18 20:00 99.8 83 18 115/61 (79) 98 02/19/18 20:00 76 02/19/18 16:00 99.8 79 18 109/59 (76) 100 I/O 02/19/18 02/19/18 02/19/18 02/20/18 02/20/18 02/20/18 07:00 15:00 23:00 07:00 15:00 23:00 Intake Total 680 ml 100 ml 1250 ml 760 ml 100 ml Output Total 800 ml 1000 ml 1000 ml Balance -120 ml 100 ml 250 ml -240 ml 100 ml Intake Oral 680 ml 1250 ml 760 ml IV Total 100 ml 100 ml Output Urine Total 800 ml 1000 ml 1000 ml Result Diagram: 02/20/18 0606 02/20/18 0606 Imaging Last Impressions Abdomen/Pelvis CT 02/19/18 0000 Signed Impressions: Service Date/Time: Tuesday, February 20, 2018 00:12 - CONCLUSION: 1. Prominent soft tissue density/lymphadenopathy in the left mesentery measuring 2 cm. 2. Multiple small scattered retroperitoneal lymph nodes. Christoph Fuller MD Chest X-Ray 02/18/18 0110 Signed Impressions: Service Date/Time: Sunday, February 18, 2018 01:20 - CONCLUSION: No acute disease. Christoph Fuller MD Chest CT 02/18/18 0000 Signed Impressions: Service Date/Time: Sunday, February 18, 2018 03:18 - CONCLUSION: 1. Scattered interstitial and alveolar opacities predominantly within the upper lobes. 2. No pleural effusions. Christoph Fuller MD Objective Remarks General: No acute distress. Heart: Regular rate and rhythm. No murmur. Lungs: Clear to auscultation bilaterally. No wheezes, rales, or rhonchi. Breathing is nonlabored. Abdomen: Soft, nontender, nondistended. Extremities: No lower extremity edema. Neuro: No gross deficits. Psych: Anxious. Skin: Diffuse ulcerative lesions. Very dry skin with flaking. Patient has multiple lesions on his scalp with flaking skin there as well. Procedures None Medications and IVs Current Medications Medications (Trade) Dose Ordered Sig/Frank Route Start Time Stop Time Status Last Admin (Mepron Liq) 750 mg Q12HR PO 02/18/18 09:00 02/20/18 07:59 Cefepime HCl 1000 mg/Sodium Chloride 100 ml @ 200 mls/hr Q12H IV 02/18/18 09:00 02/20/18 07:58 (Duoneb Neb) 1 ampule Q4HR NEB PRN NEB 02/18/18 04:45 (NS Flush) 2 ml UNSCH PRN IV FLUSH 02/18/18 04:45 (NS Flush) 2 ml BID IV FLUSH 02/18/18 09:00 02/20/18 07:59 (Zofran Inj) 4 mg Q6H PRN IVP 02/18/18 04:45 02/19/18 19:00 (Tylenol) 650 mg Q6H PRN PO 02/18/18 04:45 02/20/18 11:01 ([place] 5-325 Mg) 1 tab Q4H PRN PO 02/18/18 04:45 ([place] 10-325 Mg) 1 tab Q4H PRN PO 02/18/18 04:45 02/19/18 16:53 (Edilia-Colace) 1 tab BID PO 02/18/18 09:00 (Milk Of Magnesia Liq) 30 ml Q12H PRN PO 02/18/18 04:45 (Senokot) 17.2 mg Q12H PRN PO 02/18/18 04:45 (Dulcolax Supp) 10 mg DAILY PRN RECTAL 02/18/18 04:45 (Lactulose Liq) 30 ml DAILY PRN PO 02/18/18 04:45 (Zithromax) 1,200 mg Q7D PO 02/18/18 06:00 02/18/18 08:33 (Buspar) 5 mg Q12HR PO 02/18/18 09:00 02/19/18 00:52 (Mycostatin Liq) 5 ml QID SWISH-SWAL 02/18/18 09:00 02/18/18 08:34 (Ativan) 0.5 mg Q6H PRN PO 02/19/18 10:00 02/20/18 08:53 Pharmacy Profile Note 0 ml @ 0 mls/hr UNSCH OTHER 02/20/18 11:30 Vancomycin HCl 1250 mg/Sodium Chloride 262.5 ml @ 250 mls/hr Q12H IV 02/20/18 15:00 Miscellaneous Information SPECIFIC LAB TO BE DRAWN:VANCOMY... ONCE ONCE .XX 02/21/18 02:45 02/21/18 02:46 A/P Problem List: (1) Sepsis ICD Code: A41.9 - Sepsis, unspecified organism (2) PNA (pneumonia) ICD Code: J18.9 - Pneumonia, unspecified organism (3) AIDS (acquired immunodeficiency syndrome), CD4 <=200 ICD Code: B20 - Human immunodeficiency virus [HIV] disease Assessment and Plan Sepsis Presented with fever, tachycardia. Source is pneumonia/ bacteremia. Patient is immunocompromised. Appreciate infectious disease recommendations. - Continue antibiotics. - Cultures are pending. - continue IV antibiotics. Pneumonia/ Bacteremia Chest CT shows scattered interstitial and alveolar opacities. Has coag neg bacteremia. - Continue IV vancomycin per ID. - DuoNebs and oxygen as needed. - Symbicort. - follow culture data. AIDS Last CD4 was 49 on 08/30/17. Patient has been noncompliant with medications. - Continue atovaquone due to Bactrim allergy and azithromycin weekly. Appreciate infectious disease recommendations. Kaposi Sarcoma Noted on exam. Oncology consult appreciated. - radiation oncology consult pending. - follow up with oncology. Anemia Likely s/t chronic illness. - follow CBC. - B12 IM x 1. - follow up with hematology. PPx: SCDs Problem Qualifiers (1) PNA (pneumonia): Qualified Codes: J18.1 - Lobar pneumonia, unspecified organism Jamie Dye DO Feb 20, 2018 14:05
[2018-02-20] MEDS: VANCOMYCIN INJ 1,250 MG in SODIUM CHLOR 0.9% 250 ML INJ 250 ML IV SCH (15:14)
[2018-02-20 16:00] VITALS: BP 112/63; PULSE 87; RESP 17; TEMP 99.1; O2SAT 97
[2018-02-20 20:00] VITALS: BP 116/59; PULSE 88; PULSE 93; RESP 18; TEMP 101.8; O2SAT 100
[2018-02-21] VITALS: PULSE 81
[2018-02-21] MEDS: VANCOMYCIN INJ 1,250 MG in SODIUM CHLOR 0.9% 250 ML INJ 250 ML IV SCH ×2 (03:35→15:24)
[2018-02-21 04:00] VITALS: BP 112/62; PULSE 69; RESP 18; TEMP 98.4; O2SAT 100
[2018-02-21 06:02] LABS: HEMATOCRIT 25.5 % (39.0-51.0); HEMOGLOBIN 8.8 GM/DL (13.0-17.0); MEAN CELL VOLUME 83.8 FL (80.0-100.0); MEAN CORPUSCULAR HEMOGLOBIN 28.8 PG (27.0-34.0); MEAN CORPUSCULAR HGB CONC 34.4 % (32.0-36.0); MEAN PLATELET VOLUME 7.8 FL (7.0-11.0); PLATELET COUNT 139 TH/MM3 (150-450); RED BLOOD COUNT 3.04 MIL/MM3 (4.50-5.90); RED CELL DISTRIBUTION WIDTH 15.1 % (11.6-17.2)
[2018-02-21 06:33] LABS: BICARBONATE 25.5 MEQ/L (21.0-32.0); CREATININE 0.83 MG/DL (0.60-1.30)
--- NOTE | 2018-02-21 07:23 | PD.ONC.PN ---
Subjective Subjective Remarks SOB improving. Skin tenderness stable. Feeling tired. Objective Data Date Time Temp Pulse Resp B/P (MAP) Pulse Ox O2 Delivery O2 Flow Rate FiO2 02/21/18 04:00 98.4 69 18 112/62 (79) 100 02/21/18 00:00 81 02/20/18 20:00 93 02/20/18 20:00 101.8 88 18 116/59 (78) 100 02/20/18 16:00 99.1 87 17 112/63 (79) 97 02/20/18 12:38 101.4 02/20/18 12:00 102.2 92 17 103/57 (72) 95 02/20/18 08:00 99.6 84 17 114/59 (77) 95 02/20/18 07:46 97 21 02/21/18 02/21/18 02/21/18 07:00 15:00 23:00 Intake Total 0 ml Balance 0 ml Result Diagram: 02/21/18 0536 02/21/18 0536 Laboratory Results Laboratory Tests Test 02/21/18 05:36 White Blood Count 4.0 TH/MM3 Red Blood Count 3.04 MIL/MM3 Hemoglobin 8.8 GM/DL Hematocrit 25.5 % Mean Corpuscular Volume 83.8 FL Mean Corpuscular Hemoglobin 28.8 PG Mean Corpuscular Hemoglobin Concent 34.4 % Red Cell Distribution Width 15.1 % Platelet Count 139 TH/MM3 Mean Platelet Volume 7.8 FL Blood Urea Nitrogen 16 MG/DL Creatinine 0.83 MG/DL Random Glucose 87 MG/DL Calcium Level 8.0 MG/DL Magnesium Level 2.0 MG/DL Sodium Level 138 MEQ/L Potassium Level 4.1 MEQ/L Chloride Level 105 MEQ/L Carbon Dioxide Level 25.5 MEQ/L Anion Gap 8 MEQ/L Estimat Glomerular Filtration Rate 104 ML/MIN Culture Results Microbiology Date/Time Source Procedure Growth Status 02/20/18 12:21 Blood Peripheral Aerobic Blood Culture Pending Received 02/20/18 12:21 Blood Peripheral Anaerobic Blood Culture Pending Received 02/20/18 11:16 Blood Peripheral Aerobic Blood Culture Pending Received 02/20/18 11:16 Blood Peripheral Anaerobic Blood Culture Pending Received Administered Medications Medications (Trade) Dose Ordered Sig/Frank Route PRN Reason Start Time Stop Time Status Last Admin Dose Admin Atovaquone (Mepron Liq) 750 mg Q12HR PO 02/18/18 09:00 02/20/18 20:30 Sodium Chloride (NS Flush) 2 ml BID IV FLUSH 02/18/18 09:00 02/20/18 20:31 Ondansetron HCl (Zofran Inj) 4 mg Q6H PRN IVP NAUSEA OR VOMITING 02/18/18 04:45 02/19/18 19:00 Acetaminophen (Tylenol) 650 mg Q6H PRN PO FEVER/PAIN SCALE 1 TO 2 02/18/18 04:45 02/20/18 20:30 Acetaminophen/ Hydrocodone Bitart ([place] 10-325 Mg) 1 tab Q4H PRN PO PAIN SCALE 6 TO 10 02/18/18 04:45 02/19/18 16:53 Azithromycin (Zithromax) 1,200 mg Q7D PO 02/18/18 06:00 02/18/18 08:33 Buspirone HCl (Buspar) 5 mg Q12HR PO 02/18/18 09:00 02/19/18 00:52 Nystatin (Mycostatin Liq) 5 ml QID SWISH-SWAL 02/18/18 09:00 02/18/18 08:34 Lorazepam (Ativan) 0.5 mg Q6H PRN PO anxiety 02/19/18 10:00 02/20/18 22:03 Vancomycin HCl 1250 mg/Sodium Chloride 262.5 ml @ 250 mls/hr Q12H IV 02/20/18 15:00 02/21/18 03:35 Objective Remarks GENERAL: Well-nourished, well-developed patient. SKIN: Warm and dry. Multiple KS throughout the body. Skin are very dry and flaky. HEAD: Normocephalic. EYES: No scleral icterus. No injection or drainage. NECK: Supple, trachea midline. No JVD or lymphadenopathy. LYMPHATIC: No adenopathy. CARDIOVASCULAR: Regular rate and rhythm without murmurs. RESPIRATORY: Breath sounds equal bilaterally. No accessory muscle use. GASTROINTESTINAL: Abdomen soft, non-tender, nondistended. EXTREMITIES: No cyanosis, or edema. MUSCULOSKELETAL: Adequate muscle tone. NEUROLOGICAL: No obvious focal deficit. Awake, alert, and oriented x3. PSYCHIATRIC: Appropriate mood and affect; insight and judgment normal. Assessment/Plan Problem List: (1) Kaposi sarcoma ICD Codes: C46.9 - Kaposi's sarcoma, unspecified Plan: --will also consult radiation therapy to see if they can radiate the two painful patches behind the knee. --primary treatment would be antiretroviral therapy, if compliant with antiretroviral therapy, could consider treatment with systemic chemotherapy --started having skin lesions at least 6-8 month ago. --The 2 biggest patches behind the knee are painful. --appearance of the skin lesions is consistent with Kaposi sarcoma. --CT lung showed interstitial alveolar opacity, but no obvious metastatic disease. --CT ab/pelvis shows prominent soft tissue density/lymphadenopathy 2cm (2) AIDS (acquired immunodeficiency syndrome), CD4 <=200 ICD Codes: B20 - Human immunodeficiency virus [HIV] disease Plan: --has poorly controlled human immunodeficiency virus/acquired immunodeficiency syndrome --noncompliant with antiretroviral therapy. --stopped antiretroviral therapy many years ago --08/2017, CD4 count was only 49. Repeat test pending. (3) Sepsis ICD Codes: A41.9 - Sepsis, unspecified organism Plan: --on antibiotics per ID. Cx + coag neg staph. Assessment 38y/o male with HIV/AIDS and Kaposi sarcoma. Plan 1. continue antibiotics per ID. 2. consult radiation oncology for possible palliative radiation to the leg lesions. 3. supportive care. 4. Consider systemic chemotherapy if pt is compliant with HAART. Tee Ash MD Feb 21, 2018 07:22
[2018-02-21] MEDS: ATOVAQUONE SUSP 750 MG/5 ML UDC PO SCH ×2 (07:59→20:21)
[2018-02-21 08:00] VITALS: BP 103/56; PULSE 86; RESP 17; TEMP 101.3; O2SAT 96
[2018-02-21] MEDS: NYSTATIN SUSP 500,000 U/5 ML CUP SWISH-SWAL SCH ×4 (08:00→20:22)
[2018-02-21] MEDS: busPIRone HCL 5 MG TAB PO SCH ×2 (08:00→20:21)
[2018-02-21] MEDS: DOCUSATE SODIUM 50 MG/SENNA 8.6 MG TAB PO SCH ×2 (08:00→20:22)
[2018-02-21] MEDS: SODIUM CHLORIDE 0.9% FLUSH 10 ML FLUSH IV FLUSH SCH ×2 (08:00→20:22)
[2018-02-21] MEDS: ACETAMINOPHEN 325 MG TAB PO PRN ×2 (08:22→21:28)
[2018-02-21] MEDS ORDERED: LIDOCAINE 1%/EPINEPHrine 1:100,000 SOLN 20 ML VIAL INFIL ONE (10:00)
--- NOTE | 2018-02-21 10:15 | PD.CONS ---
cc: Prabhjot Shipman MD [facility] Service CONSULTATION NOTE FOR SURGICAL ATTENDING, DR. PRABHJOT SHIPMAN General Surgery Consult Requested By Neelima MORROW Reason for Consult Punch biopsy Primary Care Physician No Primary Care Physician History of Present Illness This is a 38 year old male with a past medical history of anxiety and HIV/AIDS. The patient reports to the ED with complaints of weakness and shortness of breath. The patient has several lesions and Hematology has requested punch biopsy for suspected Kaposi Sarcoma. Review of Systems Constitutional: COMPLAINS OF: Fatigue, DENIES: Change in appetite Endocrine: DENIES: Polydipsia, Polyuria, Polyphagia Eyes: DENIES: Diplopia, Eye inflammation Ears, nose, mouth, throat: DENIES: Hearing loss Respiratory: DENIES: Cough Cardiovascular: DENIES: Chest pain Gastrointestinal: DENIES: Abdominal pain, Nausea, Vomiting Genitourinary: DENIES: Urgency Musculoskeletal: DENIES: Joint pain Integumentary: COMPLAINS OF: Abnormal pigmentation Hematologic/lymphatic: DENIES: Bruising Immunologic/allergic: DENIES: Eczema Neurologic: DENIES: Headache, Localized weakness Psychiatric: DENIES: Mood changes, Depression, Hallucinations Past Family Social History Past Medical History Anxiety HIV/AIDS Past Surgical History Inguinal hernia Reported Medications Nystatin Mepron Buspirone Prednisone Allergies: Coded Allergies: sulfamethoxazole (Verified Allergy, Severe, throat closing, 08/31/17) pt is poor historian. States his throat closed with use of IV bactrim for pcp treatment prior. However, po bactrim was given in ER and has had no reaction or allergic rxns to it at all. trimethoprim (Verified Allergy, Severe, throat closing, 08/31/17) pt is poor historian. States his throat closed with use of IV bactrim for pcp treatment prior. However, po bactrim was given in ER and has had no reaction or allergic rxns to it at all. sucralose (Verified Allergy, Unknown, 02/19/18) Active Ordered Medications Current Medications Medications (Trade) Dose Ordered Sig/Frank Route Start Time Stop Time Status Last Admin (Mepron Liq) 750 mg Q12HR PO 02/18/18 09:00 02/21/18 07:59 (Duoneb Neb) 1 ampule Q4HR NEB PRN NEB 02/18/18 04:45 (NS Flush) 2 ml UNSCH PRN IV FLUSH 02/18/18 04:45 (NS Flush) 2 ml BID IV FLUSH 02/18/18 09:00 02/21/18 08:00 (Zofran Inj) 4 mg Q6H PRN IVP 02/18/18 04:45 02/19/18 19:00 (Tylenol) 650 mg Q6H PRN PO 02/18/18 04:45 02/21/18 08:22 ([place] 5-325 Mg) 1 tab Q4H PRN PO 02/18/18 04:45 ([place] 10-325 Mg) 1 tab Q4H PRN PO 02/18/18 04:45 02/19/18 16:53 (Edilia-Colace) 1 tab BID PO 02/18/18 09:00 (Milk Of Magnesia Liq) 30 ml Q12H PRN PO 02/18/18 04:45 (Senokot) 17.2 mg Q12H PRN PO 02/18/18 04:45 (Dulcolax Supp) 10 mg DAILY PRN RECTAL 02/18/18 04:45 (Lactulose Liq) 30 ml DAILY PRN PO 02/18/18 04:45 (Zithromax) 1,200 mg Q7D PO 02/18/18 06:00 02/18/18 08:33 (Buspar) 5 mg Q12HR PO 02/18/18 09:00 02/19/18 00:52 (Mycostatin Liq) 5 ml QID SWISH-SWAL 02/18/18 09:00 02/18/18 08:34 (Ativan) 0.5 mg Q6H PRN PO 02/19/18 10:00 02/20/18 22:03 Pharmacy Profile Note 0 ml @ 0 mls/hr UNSCH OTHER 02/20/18 11:30 Vancomycin HCl 1250 mg/Sodium Chloride 262.5 ml @ 250 mls/hr Q12H IV 02/20/18 15:00 02/21/18 03:35 Miscellaneous Information SPECIFIC LAB TO BE DRAWN:VANCOMY... ONCE ONCE .XX 02/22/18 02:45 02/22/18 02:46 (Xylocaine-Epi 1%-1:100,000 Inj) 30 ml ONCE ONCE INFIL 02/21/18 10:00 02/21/18 10:01 UNV Family History Noncontributory Social History + tobacco use Occasional ETOH use Denies illicit drug use Physical Exam Vital Signs Vital Signs Date Time Temp Pulse Resp B/P (MAP) Pulse Ox O2 Delivery O2 Flow Rate FiO2 02/21/18 08:00 101.3 86 17 103/56 (72) 96 02/21/18 04:00 98.4 69 18 112/62 (79) 100 02/21/18 00:00 81 02/20/18 20:00 93 02/20/18 20:00 101.8 88 18 116/59 (78) 100 02/20/18 16:00 99.1 87 17 112/63 (79) 97 02/20/18 12:38 101.4 02/20/18 12:00 102.2 92 17 103/57 (72) 95 Physical Exam GENERAL: 38 year old male very anxious resting in bed in no acute distress SKIN: Multiple areas of dry, flaky skin with areas of lesions on all areas. HEAD: Atraumatic. Normocephalic. EYES: Pupils equal and round. No scleral icterus. No injection or drainage. ENT: No nasal bleeding or discharge. Mucous membranes pink and moist. NECK: Trachea midline. CARDIOVASCULAR: Regular rate and rhythm. RESPIRATORY: No accessory muscle use. Clear to auscultation. Breath sounds equal bilaterally. GASTROINTESTINAL: Abdomen soft, non-tender, nondistended. MUSCULOSKELETAL: Extremities without clubbing, cyanosis, or edema. No obvious deformities. NEUROLOGICAL: Awake and alert. No obvious cranial nerve deficits. Motor grossly within normal limits. Five out of 5 muscle strength in the arms and legs. Normal speech. PSYCHIATRIC: Anxious. Laboratory Laboratory Tests Test 02/21/18 05:36 White Blood Count 4.0 Red Blood Count 3.04 Hemoglobin 8.8 Hematocrit 25.5 Mean Corpuscular Volume 83.8 Mean Corpuscular Hemoglobin 28.8 Mean Corpuscular Hemoglobin Concent 34.4 Red Cell Distribution Width 15.1 Platelet Count 139 Mean Platelet Volume 7.8 Blood Urea Nitrogen 16 Creatinine 0.83 Random Glucose 87 Calcium Level 8.0 Magnesium Level 2.0 Sodium Level 138 Potassium Level 4.1 Chloride Level 105 Carbon Dioxide Level 25.5 Anion Gap 8 Estimat Glomerular Filtration Rate 104 Date/Time Source Procedure Growth Status 02/20/18 12:21 Blood Peripheral Aerobic Blood Culture Pending Received 02/20/18 12:21 Blood Peripheral Anaerobic Blood Culture Pending Received Result Diagram: 02/21/18 0536 02/21/18 0536 Assessment and Plan Assessment and Plan 38 year old male in need of punch biopsy of lesions -Plan for bedside punch biopsy today -Obtain supplies -Obtain consents -Discussed procedure and all questions asked -Discussed with ODALYS Ortez and MARILYN Saab -Thank you for this consult; We will continue to follow Discussed Condition With Dr. Umberto Saab Attending Statement CONSULTATION NOTE FOR SURGICAL ATTENDING, DR. PRABHJOT SHIPMAN I agree with above assessment and plan. The exam, history, and the medical decision-making described in the above note were completed with the assistance of the mid-level provider. I reviewed and agree with the findings presented. I attest that I had a [id number] encounter with the patient on the same day, and personally performed and documented my assessment and findings in the medical record. The following services were provided during this hospital visit: Chart data review, vital sign assessments/reviewing monitor data Review of consultations notes if present. Medication orders/review and/or management Ordering and/or reviewing lab tests Ordering and/or interpreting/reviewing x-rays and/or diagnostic studies Care of the patient and discussion of the patient with the care team Documentation time To help prompt me to consider important information that might be impacting today's encounter and assessment, information from prior notes written by myself or my colleagues may have been "brought forward/copy and pasted" into today's note. Pallavi Huddleston/[employer]ical [employer]ator [employer] PE[employer] OPERATOR Feb 21, 2018 10:15 Prabhjot Shipman MD Feb 21, 2018 14:03
[2018-02-21] MEDS ORDERED: LIDOCAINE 1%/EPINEPHrine 1:100,000 SOLN 50 ML VIAL INFIL ONE (10:30)
[2018-02-21 12:00] VITALS: BP 114/61; PULSE 80; RESP 17; TEMP 99.2; O2SAT 96
--- NOTE | 2018-02-21 12:12 | PD.OP ---
cc: Prabhjot Shipman MD Operative Report Date of Surgery: Feb 21, 2018 Preoperative Diagnosis: (1) AIDS (acquired immunodeficiency syndrome), CD4 <=200 (2) Kaposi sarcoma Postoperative Diagnosis: (1) AIDS (acquired immunodeficiency syndrome), CD4 <=200 AIDS Procedure: Punch biopsy of LEFT thigh Anesthesia: Local Surgeon: Pallavi BROWN supervised by Dr. Shipman Concrete Worker(s): Katiana SANDERS Operation and Findings: This is a 38 year old male with multiple lesions in need of skin punch biopsy. After the procedure was explained in detail and all questions were answered, informed consent was obtained. A proper timeout was completed. The area was cleaned with Betadine prep sticks and lidocaine was injected as wheals into the area. Once the area was properly anesthetized a 4mm punch biopsy was used to obtain two separate specimens that were placed sterilely in formalin. The two sites were closed with a 3-0 nylon suture. A bandage was applied. There as an EBL of <5cc. The patient tolerated the procedure well. All supplies and sharp instruments were collected and disposed of properly. The patient's bed was placed in the lowest position and his bedside table was then placed on his LEFT side. Pallavi Huddleston/[employer] BROWN Feb 21, 2018 12:12 Prabhjot Shipman MD Feb 21, 2018 15:00
--- NOTE | 2018-02-21 12:51 | HHI.PR ---
Subjective Remarks The patient was trying to get some sleep. He just had a biopsy done. He was about to try to eat some lunch. No acute complaints. Objective Vitals Vital Signs Date Time Temp Pulse Resp B/P (MAP) Pulse Ox O2 Delivery O2 Flow Rate FiO2 02/21/18 08:00 101.3 86 17 103/56 (72) 96 02/21/18 04:00 98.4 69 18 112/62 (79) 100 02/21/18 00:00 81 02/20/18 20:00 93 02/20/18 20:00 101.8 88 18 116/59 (78) 100 02/20/18 16:00 99.1 87 17 112/63 (79) 97 I/O 02/20/18 02/20/18 02/20/18 02/21/18 02/21/18 02/21/18 07:00 15:00 23:00 07:00 15:00 23:00 Intake Total 760 ml 100 ml 970 ml 0 ml Output Total 1000 ml 800 ml Balance -240 ml 100 ml 170 ml 0 ml Intake Oral 760 ml 720 ml 0 ml IV Total 100 ml 250 ml Output Urine Total 1000 ml 800 ml # Voids 0 # Bowel Movements 0 Result Diagram: 02/21/18 0536 02/21/18 0536 Imaging Last Impressions Abdomen/Pelvis CT 02/19/18 0000 Signed Impressions: Service Date/Time: Tuesday, February 20, 2018 00:12 - CONCLUSION: 1. Prominent soft tissue density/lymphadenopathy in the left mesentery measuring 2 cm. 2. Multiple small scattered retroperitoneal lymph nodes. Christoph Fuller MD Chest X-Ray 02/18/18 0110 Signed Impressions: Service Date/Time: Sunday, February 18, 2018 01:20 - CONCLUSION: No acute disease. Christoph Fuller MD Chest CT 02/18/18 0000 Signed Impressions: Service Date/Time: Sunday, February 18, 2018 03:18 - CONCLUSION: 1. Scattered interstitial and alveolar opacities predominantly within the upper lobes. 2. No pleural effusions. Christoph Fuller MD Objective Remarks General: No acute distress. Heart: Regular rate and rhythm. No murmur. Lungs: Clear to auscultation bilaterally. No wheezes, rales, or rhonchi. Breathing is nonlabored. Abdomen: Soft, nontender, nondistended. Extremities: No lower extremity edema. Neuro: No gross deficits. Psych: Calm. Skin: Diffuse ulcerative lesions. Very dry skin with flaking. Patient has multiple lesions on his scalp with flaking skin there as well. Procedures Punch biopsy 02/21. Medications and IVs Current Medications Medications (Trade) Dose Ordered Sig/Frank Route Start Time Stop Time Status Last Admin (Mepron Liq) 750 mg Q12HR PO 02/18/18 09:00 02/21/18 07:59 (Duoneb Neb) 1 ampule Q4HR NEB PRN NEB 02/18/18 04:45 (NS Flush) 2 ml UNSCH PRN IV FLUSH 02/18/18 04:45 (NS Flush) 2 ml BID IV FLUSH 02/18/18 09:00 02/21/18 08:00 (Zofran Inj) 4 mg Q6H PRN IVP 02/18/18 04:45 02/19/18 19:00 (Tylenol) 650 mg Q6H PRN PO 02/18/18 04:45 02/21/18 08:22 ([place] 5-325 Mg) 1 tab Q4H PRN PO 02/18/18 04:45 ([place] 10-325 Mg) 1 tab Q4H PRN PO 02/18/18 04:45 02/19/18 16:53 (Edilia-Colace) 1 tab BID PO 02/18/18 09:00 (Milk Of Magnesia Liq) 30 ml Q12H PRN PO 02/18/18 04:45 (Senokot) 17.2 mg Q12H PRN PO 02/18/18 04:45 (Dulcolax Supp) 10 mg DAILY PRN RECTAL 02/18/18 04:45 (Lactulose Liq) 30 ml DAILY PRN PO 02/18/18 04:45 (Zithromax) 1,200 mg Q7D PO 02/18/18 06:00 02/18/18 08:33 (Buspar) 5 mg Q12HR PO 02/18/18 09:00 02/19/18 00:52 (Mycostatin Liq) 5 ml QID SWISH-SWAL 02/18/18 09:00 02/18/18 08:34 (Ativan) 0.5 mg Q6H PRN PO 02/19/18 10:00 02/20/18 22:03 Pharmacy Profile Note 0 ml @ 0 mls/hr UNSCH OTHER 02/20/18 11:30 Vancomycin HCl 1250 mg/Sodium Chloride 262.5 ml @ 250 mls/hr Q12H IV 02/20/18 15:00 02/21/18 03:35 Miscellaneous Information SPECIFIC LAB TO BE DRAWN:VANCOMY... ONCE ONCE .XX 02/22/18 02:45 02/22/18 02:46 A/P Problem List: (1) Sepsis ICD Code: A41.9 - Sepsis, unspecified organism (2) PNA (pneumonia) ICD Code: J18.9 - Pneumonia, unspecified organism (3) AIDS (acquired immunodeficiency syndrome), CD4 <=200 ICD Code: B20 - Human immunodeficiency virus [HIV] disease Assessment and Plan Sepsis/ Pneumonia/ Bacteremia Presented with fever, tachycardia. Patient is immunocompromised. Appreciate infectious disease recommendations. Chest CT shows scattered interstitial and alveolar opacities. Has coag neg bacteremia. - Continue IV vancomycin per ID. - DuoNebs and oxygen as needed. - Symbicort. - follow culture data. AIDS Last CD4 was 49 on 08/30/17. Patient has been noncompliant with medications. - Continue atovaquone due to Bactrim allergy and azithromycin weekly. Appreciate infectious disease recommendations. Kaposi Sarcoma Noted on exam. Oncology and surgical consults appreciated. - radiation oncology consult pending. - follow up with oncology. - pathology from punch biopsy pending. Anemia Likely s/t chronic illness. - follow CBC. - B12 IM x 1. - follow up with hematology. PPx: SCDs Problem Qualifiers (1) PNA (pneumonia): Qualified Codes: J18.1 - Lobar pneumonia, unspecified organism Jamie Dye DO Feb 21, 2018 12:51
[2018-02-21 16:00] VITALS: BP 113/58; PULSE 83; RESP 17; TEMP 100.1; O2SAT 98
[2018-02-21 20:00] VITALS: BP 117/68; PULSE 78; PULSE 89; RESP 18; TEMP 101.3; O2SAT 96
[2018-02-21] MEDS: LORazepam 0.5 MG TAB PO PRN (20:20)
[2018-02-22] VITALS: BP 113/55; PULSE 70; RESP 18; TEMP 99; O2SAT 94
[2018-02-22] MEDS ORDERED: PHARMACY ORDERED LAB ONE (02:45)
[2018-02-22 03:50] LABS: CD3-/CD16+CD56+ PERCENT 7 % (4-25); CD3-CD16+CD56+ (ABSOLUTE) 33 (70-760); LYMPHOCYTES, ABSOLUTE 499 (850-3900)
[2018-02-22 04:00] VITALS: PULSE 63
[2018-02-22] MEDS: VANCOMYCIN INJ 1,250 MG in SODIUM CHLOR 0.9% 250 ML INJ 250 ML IV SCH ×3 (04:38→19:18)
[2018-02-22 04:51] VITALS: BP 118/59; PULSE 65; RESP 16; TEMP 98.3; O2SAT 94
[2018-02-22 08:00] VITALS: BP_SYST 110; BP_SYST 163; BP_DIAS 69; BP_DIAS 71; PULSE 82; RESP 17; RESP 20; TEMP 98.4; TEMP 98.5; O2SAT 100; O2SAT 99
--- NOTE | 2018-02-22 08:17 | PD.ONC.PN ---
Subjective Subjective Remarks Still has SOB. Leg pain is the same. Had biopsy of skin lesion yesterday. Objective Data Date Time Temp Pulse Resp B/P (MAP) Pulse Ox O2 Delivery O2 Flow Rate FiO2 02/22/18 04:51 98.3 65 16 118/59 (78) 94 02/22/18 04:00 63 02/22/18 00:00 70 02/22/18 00:00 99.0 70 18 113/55 (74) 94 02/21/18 20:00 78 02/21/18 20:00 101.3 89 18 117/68 (84) 96 02/21/18 16:00 100.1 83 17 113/58 (76) 98 02/21/18 12:00 99.2 80 17 114/61 (78) 96 02/22/18 02/22/18 02/22/18 07:00 15:00 23:00 Intake Total 262.5 ml Output Total 1100 ml Balance -837.5 ml Result Diagram: 02/21/18 0536 02/21/1836 Laboratory Results Laboratory Tests Test 02/22/18 03:29 Vancomycin Level Trough 10.2 MCG/ML Culture Results Microbiology Date/Time Source Procedure Growth Status 02/20/18 12:21 Blood Peripheral Aerobic Blood Culture - Preliminary NO GROWTH IN 1 DAY Resulted 02/20/18 12:21 Blood Peripheral Anaerobic Blood Culture - Preliminary NO GROWTH IN 1 DAY Resulted 02/20/18 11:16 Blood Peripheral Aerobic Blood Culture - Preliminary NO GROWTH IN 1 DAY Resulted 02/20/18 11:16 Blood Peripheral Anaerobic Blood Culture - Preliminary NO GROWTH IN 1 DAY Resulted Administered Medications Medications (Trade) Dose Ordered Sig/Frank Route PRN Reason Start Time Stop Time Status Last Admin Dose Admin Atovaquone (Mepron Liq) 750 mg Q12HR PO 02/18/18 09:00 02/21/18 20:21 Sodium Chloride (NS Flush) 2 ml BID IV FLUSH 02/18/18 09:00 02/21/18 20:22 Ondansetron HCl (Zofran Inj) 4 mg Q6H PRN IVP NAUSEA OR VOMITING 02/18/18 04:45 02/19/18 19:00 Acetaminophen (Tylenol) 650 mg Q6H PRN PO FEVER/PAIN SCALE 1 TO 2 02/18/18 04:45 02/21/18 21:28 Acetaminophen/ Hydrocodone Bitart ([place] 10-325 Mg) 1 tab Q4H PRN PO PAIN SCALE 6 TO 10 02/18/18 04:45 02/19/18 16:53 Azithromycin (Zithromax) 1,200 mg Q7D PO 02/18/18 06:00 02/18/18 08:33 Buspirone HCl (Buspar) 5 mg Q12HR PO 02/18/18 09:00 02/21/18 20:21 Nystatin (Mycostatin Liq) 5 ml QID SWISH-SWAL 02/18/18 09:00 02/18/18 08:34 Lorazepam (Ativan) 0.5 mg Q6H PRN PO anxiety 02/19/18 10:00 02/21/18 20:20 Vancomycin HCl 1250 mg/Sodium Chloride 262.5 ml @ 250 mls/hr Q12H IV 02/20/18 15:00 02/22/18 04:38 Objective Remarks GENERAL: Well-nourished, well-developed patient. SKIN: Diffused skin lesion/plagues all over the body HEAD: Normocephalic. EYES: No scleral icterus. No injection or drainage. NECK: Supple, trachea midline. No JVD or lymphadenopathy. LYMPHATIC: No adenopathy. CARDIOVASCULAR: Regular rate and rhythm without murmurs. RESPIRATORY: Breath sounds equal bilaterally. No accessory muscle use. GASTROINTESTINAL: Abdomen soft, non-tender, nondistended. EXTREMITIES: No cyanosis, or edema. MUSCULOSKELETAL: Adequate muscle tone. NEUROLOGICAL: No obvious focal deficit. Awake, alert, and oriented x3. PSYCHIATRIC: Appropriate mood and affect; insight and judgment normal. 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 --primary treatment would be antiretroviral therapy, if compliant with antiretroviral therapy, could consider treatment with systemic chemotherapy. He is not a candidate for chemo right now with CD4 <20. --started having skin lesions at least 6-8 month ago. --The 2 biggest patches behind the knee are painful. --appearance of the skin lesions is consistent with Kaposi sarcoma. --CT lung showed interstitial alveolar opacity, but no obvious metastatic disease. --CT ab/pelvis shows prominent soft tissue density/lymphadenopathy 2cm (2) AIDS (acquired immunodeficiency syndrome), CD4 <=200 ICD Codes: B20 - Human immunodeficiency virus [HIV] disease Plan: --has poorly controlled human immunodeficiency virus/acquired immunodeficiency syndrome --noncompliant with antiretroviral therapy. --stopped antiretroviral therapy many years ago --08/2017, CD4 count was only 49. Repeat test CD4 <20. (3) Sepsis ICD Codes: A41.9 - Sepsis, unspecified organism Plan: --on antibiotics per ID. Cx + coag neg staph. Assessment 38y/o male with HIV/AIDS and Kaposi sarcoma. Plan 1. continue antibiotics per ID. 2. Await path. 3. supportive care. 4. Only consider systemic chemotherapy if pt is compliant with HAART. 5. Discussed with Tee Helm MD Feb 22, 2018 08:17
[2018-02-22] MEDS: ATOVAQUONE SUSP 750 MG/5 ML UDC PO SCH ×2 (08:38→19:18)
[2018-02-22] MEDS: ACETAMINOPHEN/HYDROcodone 325 MG/10 MG TAB PO PRN ×2 (08:40→11:26)
[2018-02-22] MEDS: busPIRone HCL 5 MG TAB PO SCH ×2 (08:56→19:18)
[2018-02-22] MEDS: SODIUM CHLORIDE 0.9% FLUSH 10 ML FLUSH IV FLUSH SCH ×2 (08:56→19:20)
[2018-02-22] MEDS: NYSTATIN SUSP 500,000 U/5 ML CUP SWISH-SWAL SCH ×4 (08:56→19:20)
[2018-02-22] MEDS: DOCUSATE SODIUM 50 MG/SENNA 8.6 MG TAB PO SCH ×2 (08:56→19:20)
--- NOTE | 2018-02-22 12:28 | HHI.PR ---
cc: Karime Grider MD Subjective Subjective Notes DAILY PROGRESS NOTE FOR SURGICAL ATTENDING, DR. KARIME GRIDER Resting in bed "I couldn't help it.. my lunch fell on the floor!" "Please no more sticks!" Objective Vitals/I&O Vital Signs Date Time Temp Pulse Resp B/P (MAP) Pulse Ox O2 Delivery O2 Flow Rate FiO2 02/22/18 08:00 98.4 82 17 163/69 (100) 99 02/20/18 07:46 21 02/19/18 21:28 Nasal Cannula 3.00 Labs Laboratory Tests Test 02/22/18 03:29 Vancomycin Level Trough 10.2 Date/Time Source Procedure Growth Status 02/20/18 12:21 Blood Peripheral Aerobic Blood Culture - Preliminary NO GROWTH IN 2 DAYS Resulted 02/20/18 12:21 Blood Peripheral Anaerobic Blood Culture - Preliminary NO GROWTH IN 2 DAYS Resulted Cardiovascular: Regular Lungs: Clear Abdomen: Non-distended, Non-tender Narrative Exam Copious skin lesions LEFT thigh: s/p skin biopsy; sutures in place A/P Assessment and Plan 38 year old male in need of punch biopsy of lesions -POD1 punch biopsy of LEFT thigh -Await pathology---Hematology to follow up -Sutures x2 need to be removed in 7-10 days -Okay to shower -General Surgery will sign off Attending Statement NOTE FOR SURGICAL ATTENDING, DR. KARIME GRIDER I agree with above assessment and plan. The exam, history, and the medical decision-making described in the above note were completed with the assistance of the mid-level provider. I reviewed and agree with the findings presented. I attest that I had a [id number] encounter with the patient on the same day, and personally performed and documented my assessment and findings in the medical record. The following services were provided during this hospital visit: Chart data review, vital sign assessments/reviewing monitor data Review of consultations notes if present. Medication orders/review and/or management Ordering and/or reviewing lab tests Ordering and/or interpreting/reviewing x-rays and/or diagnostic studies Care of the patient and discussion of the patient with the care team Documentation time To help prompt me to consider important information that might be impacting today's encounter and assessment, Information from prior notes written by myself or my colleagues may have been "brought forward/copy and pasted" into today's note. Pallavi HuddlestonP/First Guill[employer] BENEFITS ASSISTANT Feb 22, 2018 12:28 Karime Grider MD Feb 22, 2018 15:29
--- NOTE | 2018-02-22 15:48 | HHI.PR ---
Subjective Remarks The patient stated that he had a lot of knee pain. He requested a wheelchair to help him get around. He said his pain medications were not helping. Discussed with nursing. Objective Vitals Vital Signs Date Time Temp Pulse Resp B/P (MAP) Pulse Ox O2 Delivery O2 Flow Rate FiO2 02/22/18 08:00 98.4 82 17 163/69 (100) 99 02/22/18 08:00 98.5 82 20 110/71 (84) 100 02/22/18 04:51 98.3 65 16 118/59 (78) 94 02/22/18 04:00 63 02/22/18 00:00 70 02/22/18 00:00 99.0 70 18 113/55 (74) 94 02/21/18 20:00 78 02/21/18 20:00 101.3 89 18 117/68 (84) 96 02/21/18 16:00 100.1 83 17 113/58 (76) 98 I/O 02/21/18 02/21/18 02/21/18 02/22/18 02/22/18 02/22/18 07:00 15:00 23:00 07:00 15:00 23:00 Intake Total 0 ml 860 ml 262.5 ml Output Total 1050 ml 1100 ml Balance 0 ml -190 ml -837.5 ml Intake Oral 0 ml 600 ml IV Total 260 ml 262.5 ml Output Urine Total 1050 ml 1100 ml # Voids 0 # Bowel Movements 0 0 Result Diagram: 02/21/18 0536 02/21/18 0536 Imaging Last Impressions Abdomen/Pelvis CT 02/19/18 0000 Signed Impressions: Service Date/Time: Tuesday, February 20, 2018 00:12 - CONCLUSION: 1. Prominent soft tissue density/lymphadenopathy in the left mesentery measuring 2 cm. 2. Multiple small scattered retroperitoneal lymph nodes. Christoph Fuller MD Chest X-Ray 02/18/18 0110 Signed Impressions: Service Date/Time: Sunday, February 18, 2018 01:20 - CONCLUSION: No acute disease. Christoph Fuller MD Chest CT 02/18/18 0000 Signed Impressions: Service Date/Time: Sunday, February 18, 2018 03:18 - CONCLUSION: 1. Scattered interstitial and alveolar opacities predominantly within the upper lobes. 2. No pleural effusions. Christoph Fuller MD Objective Remarks General: No acute distress. Heart: Regular rate and rhythm. No murmur. Lungs: Clear to auscultation bilaterally. No wheezes, rales, or rhonchi. Breathing is nonlabored. Abdomen: Soft, nontender, nondistended. Extremities: No lower extremity edema. Tenderness to palpation of knees. Neuro: No gross deficits. Psych: Calm. Skin: Diffuse ulcerative lesions. Very dry skin with flaking. Patient has multiple lesions on his scalp with flaking skin there as well. Procedures Punch biopsy 02/21. Medications and IVs Current Medications Medications (Trade) Dose Ordered Sig/Frank Route Start Time Stop Time Status Last Admin (Mepron Liq) 750 mg Q12HR PO 02/18/18 09:00 02/22/18 08:38 (Duoneb Neb) 1 ampule Q4HR NEB PRN NEB 02/18/18 04:45 (NS Flush) 2 ml UNSCH PRN IV FLUSH 02/18/18 04:45 (NS Flush) 2 ml BID IV FLUSH 02/18/18 09:00 02/22/18 08:56 (Zofran Inj) 4 mg Q6H PRN IVP 02/18/18 04:45 02/19/18 19:00 (Tylenol) 650 mg Q6H PRN PO 02/18/18 04:45 02/21/18 21:28 ([place] 5-325 Mg) 1 tab Q4H PRN PO 02/18/18 04:45 (Edilia-Colace) 1 tab BID PO 02/18/18 09:00 (Milk Of Magnesia Liq) 30 ml Q12H PRN PO 02/18/18 04:45 (Senokot) 17.2 mg Q12H PRN PO 02/18/18 04:45 (Dulcolax Supp) 10 mg DAILY PRN RECTAL 02/18/18 04:45 (Lactulose Liq) 30 ml DAILY PRN PO 02/18/18 04:45 (Zithromax) 1,200 mg Q7D PO 02/18/18 06:00 02/18/18 08:33 (Buspar) 5 mg Q12HR PO 02/18/18 09:00 02/21/18 20:21 (Mycostatin Liq) 5 ml QID SWISH-SWAL 02/18/18 09:00 02/18/18 08:34 (Ativan) 0.5 mg Q6H PRN PO 02/19/18 10:00 02/21/18 20:20 Pharmacy Profile Note 0 ml @ 0 mls/hr UNSCH OTHER 02/20/18 11:30 Vancomycin HCl 1250 mg/Sodium Chloride 262.5 ml @ 250 mls/hr Q8H IV 02/22/18 13:00 Miscellaneous Information SPECIFIC LAB TO BE DRAWN:VANCOMYCIN TROUGH DATE TO... ONCE ONCE .XX 02/23/18 12:45 02/23/18 12:46 (Roxicodone) 15 mg Q4H PRN PO 02/22/18 15:45 UNV A/P Problem List: (1) Sepsis ICD Code: A41.9 - Sepsis, unspecified organism (2) PNA (pneumonia) ICD Code: J18.9 - Pneumonia, unspecified organism (3) AIDS (acquired immunodeficiency syndrome), CD4 <=200 ICD Code: B20 - Human immunodeficiency virus [HIV] disease Assessment and Plan Sepsis/ Pneumonia/ Bacteremia Presented with fever, tachycardia. Patient is immunocompromised. Appreciate infectious disease recommendations. Chest CT shows scattered interstitial and alveolar opacities. Has coag neg bacteremia. - Continue IV vancomycin per ID. - DuoNebs and oxygen as needed. - Symbicort. - follow culture data. AIDS Last CD4 was 49 on 08/30/17. Patient has been noncompliant with medications. - Continue atovaquone due to Bactrim allergy and azithromycin weekly. Appreciate infectious disease recommendations. Kaposi Sarcoma Noted on exam. Has a lot of pain in his lower extremities. Oncology and surgical consults appreciated. - follow up with oncology. - pathology from punch biopsy pending. - will need treatment with HAART. - pain control with a bowel regimen. - PT. Anemia Likely s/t chronic illness. - follow CBC. - B12 IM x 1. - follow up with hematology. PPx: SCDs Discharge Planning Needs infectious disease clearance Problem Qualifiers (1) PNA (pneumonia): Qualified Codes: J18.1 - Lobar pneumonia, unspecified organism Jamie Dye DO Feb 22, 2018 15:48
[2018-02-22 16:00] VITALS: BP 107/60; PULSE 80; RESP 16; TEMP 99.7; O2SAT 98
--- NOTE | 2018-02-22 16:41 | HHI.IDPN ---
Note Infectious Disease Note Patient says he feels okay. A temp of 101 yesterday evening. Temperature is lower today. Patient is rubbing the face and head. Copious dry skin flaking off. Denies chills. Denies shortness of breath. Repeat blood cultures have no growth in 2 days. Blood cultures have staph staph coag negative on 02/18. The CD4 count is less than 20. 38-year-old white male who has HIV disease. The patient was brought to the emergency department because of shortness of breath. He also noted having pain from skin lesions. He states that approximately 1-2 months ago, he broke out in a skin rash and multiple skin lesions all over his body. He has not seen a physician for that problem. The patient is a very poor historian. He also has memory problems. He was evaluated and treated for pneumonia in September 2017 and was discharged on oral antibiotics and requested to make an appointment to followup with the [facility] Department for HIV management. He never did so. He states that he was having difficulty getting through on the telephone. He also states that he lives with his grandmother and does not have transportation because his grandmother does not drive. His CD4 count in September was 249. PAST MEDICAL HISTORY: Inguinal hernia, pneumonia, HIV disease. ALLERGIES: SULFAMETHOXAZOLE, TRIMETHOPRIM. MEDICATIONS: Current Medications Medications (Trade) Dose Ordered Sig/Frank Route PRN Reason Start Time Stop Time Status Last Admin Dose Admin Atovaquone (Mepron Liq) 750 mg Q12HR PO 02/18/18 09:00 02/22/18 08:38 Albuterol/ Ipratropium (Duoneb Neb) 1 ampule Q4HR NEB PRN NEB SOB/WHEEZING 02/18/18 04:45 Sodium Chloride (NS Flush) 2 ml UNSCH PRN IV FLUSH FLUSH AFTER USING IV ACCESS 02/18/18 04:45 Sodium Chloride (NS Flush) 2 ml BID IV FLUSH 02/18/18 09:00 02/22/18 08:56 Ondansetron HCl (Zofran Inj) 4 mg Q6H PRN IVP NAUSEA OR VOMITING 02/18/18 04:45 02/19/18 19:00 Acetaminophen (Tylenol) 650 mg Q6H PRN PO FEVER/PAIN SCALE 1 TO 2 02/18/18 04:45 02/21/18 21:28 Acetaminophen/ Hydrocodone Bitart ([place] 5-325 Mg) 1 tab Q4H PRN PO PAIN SCALE 3 TO 5 02/18/18 04:45 Senna/Docusate Sodium (Edilia-Colace) 1 tab BID PO 02/18/18 09:00 Magnesium Hydroxide (Milk Of Magnesia Liq) 30 ml Q12H PRN PO Mild constipation 02/18/18 04:45 Sennosides (Senokot) 17.2 mg Q12H PRN PO Moderate constipation 02/18/18 04:45 Bisacodyl (Dulcolax Supp) 10 mg DAILY PRN RECTAL SEVERE CONSITIPATION 02/18/18 04:45 Lactulose (Lactulose Liq) 30 ml DAILY PRN PO SEVERE CONSITIPATION 02/18/18 04:45 Azithromycin (Zithromax) 1,200 mg Q7D PO 02/18/18 06:00 02/18/18 08:33 Buspirone HCl (Buspar) 5 mg Q12HR PO 02/18/18 09:00 02/21/18 20:21 Nystatin (Mycostatin Liq) 5 ml QID SWISH-SWAL 02/18/18 09:00 02/18/18 08:34 Lorazepam (Ativan) 0.5 mg Q6H PRN PO anxiety 02/19/18 10:00 02/21/18 20:20 Pharmacy Profile Note 0 ml @ 0 mls/hr UNSCH OTHER 02/20/18 11:30 Vancomycin HCl 1250 mg/Sodium Chloride 262.5 ml @ 250 mls/hr Q8H IV 02/22/18 13:00 Miscellaneous Information SPECIFIC LAB TO BE DRAWN:VANCOMYCIN TROUGH DATE TO... ONCE ONCE .XX 02/23/18 12:45 02/23/18 12:46 Oxycodone HCl (Roxicodone) 15 mg Q4H PRN PO pain 6-10 02/22/18 15:45 OBJECTIVE: Vital Signs Date Time Temp Pulse Resp B/P (MAP) Pulse Ox O2 Delivery O2 Flow Rate FiO2 02/22/18 08:00 98.4 82 17 163/69 (100) 99 02/22/18 08:00 98.5 82 20 110/71 (84) 100 02/22/18 04:51 98.3 65 16 118/59 (78) 94 02/22/18 04:00 63 02/22/18 00:00 70 02/22/18 00:00 99.0 70 18 113/55 (74) 94 02/21/18 20:00 78 02/21/18 20:00 101.3 89 18 117/68 (84) 96 Laboratory Tests Test 02/21/18 05:36 White Blood Count 4.0 TH/MM3 Red Blood Count 3.04 MIL/MM3 Hemoglobin 8.8 GM/DL Hematocrit 25.5 % Mean Corpuscular Volume 83.8 FL Mean Corpuscular Hemoglobin 28.8 PG Mean Corpuscular Hemoglobin Concent 34.4 % Red Cell Distribution Width 15.1 % Platelet Count 139 TH/MM3 Mean Platelet Volume 7.8 FL Laboratory Tests Test 02/21/18 05:36 Blood Urea Nitrogen 16 MG/DL Creatinine 0.83 MG/DL Random Glucose 87 MG/DL Calcium Level 8.0 MG/DL Magnesium Level 2.0 MG/DL Sodium Level 138 MEQ/L Potassium Level 4.1 MEQ/L Chloride Level 105 MEQ/L Carbon Dioxide Level 25.5 MEQ/L Anion Gap 8 MEQ/L Estimat Glomerular Filtration Rate 104 ML/MIN Microbiology Date/Time Source Procedure Growth Status 02/20/18 12:21 Blood Peripheral Aerobic Blood Culture - Preliminary NO GROWTH IN 2 DAYS Resulted 02/20/18 12:21 Blood Peripheral Anaerobic Blood Culture - Preliminary NO GROWTH IN 2 DAYS Resulted 02/20/18 11:16 Blood Peripheral Aerobic Blood Culture - Preliminary NO GROWTH IN 2 DAYS Resulted 02/20/18 11:16 Blood Peripheral Anaerobic Blood Culture - Preliminary NO GROWTH IN 2 DAYS Resulted Microbiology Date/Time Source Procedure Growth Status 02/18/18 01:15 Blood Peripheral Aerobic Blood Culture - Final Staphylococcus Epidermidis Staph Sp Coagulase Negative Complete 02/18/18 01:15 Anaerobic Blood Culture - Final Staph Sp Coagulase Negative Complete 02/18/18 01:10 Blood Peripheral Aerobic Blood Culture - Final Staph Sp Coagulase Negative Complete 02/18/18 01:10 Anaerobic Blood Culture - Final Staph Sp Coagulase Negative Complete Imaging: Abdomen/Pelvis CT 02/19/18 0000 Signed Impressions: Service Date/Time: Tuesday, February 20, 2018 00:12 - CONCLUSION: 1. Prominent soft tissue density/lymphadenopathy in the left mesentery measuring 2 cm. 2. Multiple small scattered retroperitoneal lymph nodes. Christoph Fuller MD Chest X-Ray 02/18/18 0110 Signed Impressions: Service Date/Time: Sunday, February 18, 2018 01:20 - CONCLUSION: No acute disease. Christoph Fuller MD Chest CT 02/18/18 0000 Signed Impressions: Service Date/Time: Sunday, February 18, 2018 03:18 - CONCLUSION: 1. Scattered interstitial and alveolar opacities predominantly within the upper lobes. 2. No pleural effusions. Christoph Fuller MD PHYSICAL EXAMINATION: GENERAL: No acute distress. HEENT: The head reveals diffuse rash of the face covering the entire face and flaking of the skin along with some fissures which are no dry. No longer losing. Extraocular movements grossly intact. Pupils reactive to light. Pale sclerae. Oropharynx: Moist mucosa. No visible thrush. No visible lesions. NECK: Supple without adenopathy. LUNGS: Decreased breath sounds. HEART: Regular S1 and S2. No murmurs. ABDOMEN: Bowel sounds present. Soft, no tenderness appreciated. EXTREMITIES: Diffuse, flat superficial ulcerations and erythema of varying sizes scattered all over the extremities. Some of these have a grainy surface appearance. No clubbing, cyanosis or edema. SKIN: Diffuse round superficial ulcerative erythematous lesions scattered throughout including the trunk, abdomen, extremities and back and the face has diffuse erythematous rash with pale stanley discoloration and very dry skin with flaking and also this involves the scalp where the skin is also exfoliating. NEUROLOGIC: No gross focal findings. PSYCHIATRIC: The patient is calm and cooperative. IV lines without evidence of infection. IMPRESSION: 1. Bacteremia with staph coagulase-negative. Questionable source. Given the severity of his skin condition it could be that he scratched the skin so much that it led to a portal for infection since he had open skin lesions that may be the source of the gram-negative bacteremia. 2. Fever. Pneumonia. The patient has bilateral lung infiltrates, likely opportunistic infection in this patient with low CD4 count and severe immunosuppression from acquired immune deficiency syndrome. 3. Acquired immune deficiency syndrome. CD4 count less than 20. 4. 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 Oncology following. Biopsy performed and pathology results pending. 5. 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 6. Patient with poor insight regarding his condition and appears unable to care for himself. RECOMMENDATIONS: 1. Continue atovaquone. 2. Continue Zithromax. 3. Continue vancomycin for coag negative staph in the blood. 4. Monitor the repeat blood cultures. 5. Case management to help the patient to have appointment made for health department to address HIV medications and also to try to get him on the [facility] program so he can be followed for the HIV disease. This is important because without adequate addressing of the HIV, viral treatment is likely to continue to decline. 6. Monitor the patient's clinical response. 7. Obtain G6PD test since he may require treatment with dapsone for PJP prophylaxis. Dr. Ingram [employer] division manager if ID input is needed on the weekend. Syed Will MD Feb 22, 2018 16:41
[2018-02-22] MEDS: LORazepam 0.5 MG TAB PO PRN (19:18)
[2018-02-22] MEDS: ACETAMINOPHEN 325 MG TAB PO PRN (19:18)
[2018-02-22 20:00] VITALS: BP 105/60; PULSE 93; PULSE 99; RESP 18; TEMP 101.4; O2SAT 97
[2018-02-23] VITALS (8 sets, daily range): BP systolic 99–111; BP diastolic 55–60; PULSE 71–111; RESP 17–18; TEMP 98.5–102.8; O2SAT 97–99
[2018-02-23] MEDS: VANCOMYCIN INJ 1,250 MG in SODIUM CHLOR 0.9% 250 ML INJ 250 ML IV SCH ×4 (04:40→19:22)
[2018-02-23 05:54] LABS: CREATININE 0.83 MG/DL (0.60-1.30)
[2018-02-23] MEDS: NYSTATIN SUSP 500,000 U/5 ML CUP SWISH-SWAL SCH ×4 (09:00→19:22)
[2018-02-23] MEDS: DOCUSATE SODIUM 50 MG/SENNA 8.6 MG TAB PO SCH ×2 (09:00→19:22)
[2018-02-23] MEDS: ATOVAQUONE SUSP 750 MG/5 ML UDC PO SCH ×2 (09:01→19:21)
[2018-02-23] MEDS: busPIRone HCL 5 MG TAB PO SCH ×2 (09:01→19:21)
[2018-02-23] MEDS: SODIUM CHLORIDE 0.9% FLUSH 10 ML FLUSH IV FLUSH SCH ×2 (09:02→19:21)
[2018-02-23] MEDS: LORazepam 0.5 MG TAB PO PRN ×2 (12:07→19:21)
[2018-02-23] MEDS: NYSTATIN 100,000 UNIT/GM CREAM 15 GM TOPICAL SCH ×2 (12:30→19:22)
[2018-02-23] MEDS ORDERED: PHARMACY ORDERED LAB ONE (12:45)
--- NOTE | 2018-02-23 13:45 | HHI.PR ---
Subjective Remarks The patient was resting in bed. He states he could not work with physical therapy because he does not follow orders when he wakes up in the morning. He said he would be willing to try again when he was ready. He said he has a lot of pain in his legs. He complained of his dry skin. Discussed with nursing. Objective Vitals Vital Signs Date Time Temp Pulse Resp B/P (MAP) Pulse Ox O2 Delivery O2 Flow Rate FiO2 02/23/18 12:00 99.2 76 17 111/57 (75) 99 02/23/18 08:00 98.5 81 17 107/58 (74) 98 02/23/18 04:00 71 02/23/18 04:00 99.2 73 18 99/59 (72) 98 02/23/18 00:00 81 02/23/18 00:00 99.1 86 18 101/55 (70) 97 02/22/18 20:00 101.4 93 18 105/60 (75) 97 02/22/18 20:00 99 02/22/18 16:00 99.7 80 16 107/60 (76) 98 I/O 02/22/18 02/22/18 02/22/18 02/23/18 02/23/18 02/23/18 07:00 15:00 23:00 07:00 15:00 23:00 Intake Total 262.5 ml 262.5 ml 262.5 ml Output Total 1100 ml 600 ml Balance -837.5 ml 262.5 ml -337.5 ml IV Total 262.5 ml 262.5 ml 262.5 ml Output Urine Total 1100 ml 600 ml Result Diagram: 02/21/18 0536 02/23/18 0314 Imaging Last Impressions Abdomen/Pelvis CT 02/19/18 0000 Signed Impressions: Service Date/Time: Tuesday, February 20, 2018 00:12 - CONCLUSION: 1. Prominent soft tissue density/lymphadenopathy in the left mesentery measuring 2 cm. 2. Multiple small scattered retroperitoneal lymph nodes. Christoph Fuller MD Chest X-Ray 02/18/18 0110 Signed Impressions: Service Date/Time: Sunday, February 18, 2018 01:20 - CONCLUSION: No acute disease. Christoph Fuller MD Chest CT 02/18/18 0000 Signed Impressions: Service Date/Time: Sunday, February 18, 2018 03:18 - CONCLUSION: 1. Scattered interstitial and alveolar opacities predominantly within the upper lobes. 2. No pleural effusions. Christoph Fuller MD Objective Remarks General: No acute distress. Heart: Regular rate and rhythm. No murmur. Lungs: Clear to auscultation bilaterally. No wheezes, rales, or rhonchi. Breathing is nonlabored. Abdomen: Soft, nontender, nondistended. Extremities: No lower extremity edema. Tenderness to palpation of knees. Neuro: No gross deficits. Psych: Calm. Skin: Diffuse ulcerative lesions. Very dry skin with flaking. Patient has multiple lesions on his scalp with flaking skin there as well. Procedures Punch biopsy 02/21. Medications and IVs Current Medications Medications (Trade) Dose Ordered Sig/Frank Route Start Time Stop Time Status Last Admin (Mepron Liq) 750 mg Q12HR PO 02/18/18 09:00 02/23/18 09:01 (Duoneb Neb) 1 ampule Q4HR NEB PRN NEB 02/18/18 04:45 (NS Flush) 2 ml UNSCH PRN IV FLUSH 02/18/18 04:45 (NS Flush) 2 ml BID IV FLUSH 02/18/18 09:00 02/23/18 09:02 (Zofran Inj) 4 mg Q6H PRN IVP 02/18/18 04:45 02/19/18 19:00 (Tylenol) 650 mg Q6H PRN PO 02/18/18 04:45 02/22/18 19:18 ([place] 5-325 Mg) 1 tab Q4H PRN PO 02/18/18 04:45 (Edilia-Colace) 1 tab BID PO 02/18/18 09:00 (Milk Of Magnesia Liq) 30 ml Q12H PRN PO 02/18/18 04:45 (Senokot) 17.2 mg Q12H PRN PO 02/18/18 04:45 (Dulcolax Supp) 10 mg DAILY PRN RECTAL 02/18/18 04:45 (Lactulose Liq) 30 ml DAILY PRN PO 02/18/18 04:45 (Zithromax) 1,200 mg Q7D PO 02/18/18 06:00 02/18/18 08:33 (Buspar) 5 mg Q12HR PO 02/18/18 09:00 02/23/18 09:01 (Mycostatin Liq) 5 ml QID SWISH-SWAL 02/18/18 09:00 02/18/18 08:34 (Ativan) 0.5 mg Q6H PRN PO 02/19/18 10:00 02/23/18 12:07 Pharmacy Profile Note 0 ml @ 0 mls/hr UNSCH OTHER 02/20/18 11:30 Vancomycin HCl 1250 mg/Sodium Chloride 262.5 ml @ 250 mls/hr Q8H IV 02/22/18 13:00 02/23/18 12:17 (Roxicodone) 15 mg Q4H PRN PO 02/22/18 15:45 02/23/18 09:28 (Mycostatin Cream) 1 applic Q12HR TOPICAL 02/23/18 12:30 A/P Problem List: (1) Sepsis ICD Code: A41.9 - Sepsis, unspecified organism (2) PNA (pneumonia) ICD Code: J18.9 - Pneumonia, unspecified organism (3) AIDS (acquired immunodeficiency syndrome), CD4 <=200 ICD Code: B20 - Human immunodeficiency virus [HIV] disease Assessment and Plan Sepsis/ Pneumonia/ Bacteremia Presented with fever, tachycardia. Patient is immunocompromised. Appreciate infectious disease recommendations. Chest CT shows scattered interstitial and alveolar opacities. Has coag neg bacteremia. - Continue IV vancomycin per ID. - DuoNebs and oxygen as needed. - Symbicort. - follow culture data. AIDS Last CD4 was 49 on 08/30/17. Patient has been noncompliant with medications. - Continue atovaquone due to Bactrim allergy and azithromycin weekly. Appreciate infectious disease recommendations. Kaposi Sarcoma Noted on exam. Has a lot of pain in his lower extremities. Oncology and surgical consults appreciated. - follow up with oncology. - pathology from punch biopsy pending. - will need treatment with HAART. - pain control with a bowel regimen. - PT. Anemia Likely s/t chronic illness. - follow CBC. - B12 IM x 1. - follow up with hematology. Dry skin Possibly a fungal component. - trial of nystatin cream. PPx: SCDs Discharge Planning Needs infectious disease clearance Problem Qualifiers (1) PNA (pneumonia): Qualified Codes: J18.1 - Lobar pneumonia, unspecified organism Sayess,Misha. DO Feb 23, 2018 13:45
[2018-02-23] MEDS: ACETAMINOPHEN 325 MG TAB PO PRN (19:46)
[2018-02-24] VITALS (8 sets, daily range): BP systolic 97–116; BP diastolic 52–69; PULSE 75–110; RESP 17–20; TEMP 99–100.8; O2SAT 96–98
[2018-02-24] MEDS: VANCOMYCIN INJ 1,250 MG in SODIUM CHLOR 0.9% 250 ML INJ 250 ML IV SCH ×3 (04:48→19:35)
[2018-02-24] MEDS: ATOVAQUONE SUSP 750 MG/5 ML UDC PO SCH ×2 (07:43→19:31)
[2018-02-24] MEDS: DOCUSATE SODIUM 50 MG/SENNA 8.6 MG TAB PO SCH ×2 (07:44→19:34)
[2018-02-24] MEDS: busPIRone HCL 5 MG TAB PO SCH ×2 (07:44→19:31)
[2018-02-24] MEDS: NYSTATIN SUSP 500,000 U/5 ML CUP SWISH-SWAL SCH ×4 (07:44→19:35)
[2018-02-24] MEDS: NYSTATIN 100,000 UNIT/GM CREAM 15 GM TOPICAL SCH ×2 (07:44→19:35)
[2018-02-24] MEDS: SODIUM CHLORIDE 0.9% FLUSH 10 ML FLUSH IV FLUSH SCH ×2 (07:45→19:31)
--- NOTE | 2018-02-24 13:41 | HHI.PR ---
Subjective Remarks The patient said that he did not want further blood sticks but was willing to do them to continue antibiotics. He did not want a bowel regimen but states that he had a bowel movement yesterday. He says that his home is an unsafe environment. Discussed with nursing. Objective Vitals Vital Signs Date Time Temp Pulse Resp B/P (MAP) Pulse Ox O2 Delivery O2 Flow Rate FiO2 02/24/18 12:00 99.0 87 17 109/62 (78) 97 02/24/18 08:00 100.0 110 17 112/61 (78) 96 02/24/18 00:01 100 02/24/18 00:00 100.6 91 20 97/52 (67) 96 02/23/18 20:56 18 02/23/18 20:08 110 02/23/18 20:00 102.8 93 18 105/60 (75) 98 02/23/18 16:00 99.9 101 17 99/57 (71) 98 I/O 02/23/18 02/23/18 02/23/18 02/24/18 02/24/18 02/24/18 07:00 15:00 23:00 07:00 15:00 23:00 Intake Total 262.5 ml 750 ml 680 ml Output Total 600 ml 300 ml 700 ml Balance -337.5 ml 450 ml -20 ml Intake Oral 750 ml 680 ml IV Total 262.5 ml Output Urine Total 600 ml 300 ml 700 ml # Bowel Movements 0 Result Diagram: 02/21/18 0536 02/23/18 0314 Imaging Last Impressions Abdomen/Pelvis CT 02/19/18 0000 Signed Impressions: Service Date/Time: Tuesday, February 20, 2018 00:12 - CONCLUSION: 1. Prominent soft tissue density/lymphadenopathy in the left mesentery measuring 2 cm. 2. Multiple small scattered retroperitoneal lymph nodes. Christoph Fuller MD Chest X-Ray 02/18/18 0110 Signed Impressions: Service Date/Time: Sunday, February 18, 2018 01:20 - CONCLUSION: No acute disease. Christoph Fuller MD Chest CT 02/18/18 0000 Signed Impressions: Service Date/Time: Sunday, February 18, 2018 03:18 - CONCLUSION: 1. Scattered interstitial and alveolar opacities predominantly within the upper lobes. 2. No pleural effusions. Christoph Fuller MD Objective Remarks General: No acute distress. HEENT: NC, AT. Heart: Regular rate and rhythm. No murmur. Lungs: Clear to auscultation bilaterally. No wheezes, rales, or rhonchi. Breathing is nonlabored. Abdomen: Soft, nontender, nondistended. Extremities: No lower extremity edema. Tenderness to palpation of knees. Neuro: No gross deficits. Psych: Calm. Skin: Diffuse ulcerative lesions. Very dry skin with flaking. Patient has multiple lesions on his scalp with flaking skin there as well. Procedures Punch biopsy 02/21. Medications and IVs Current Medications Medications (Trade) Dose Ordered Sig/Frank Route Start Time Stop Time Status Last Admin (Mepron Liq) 750 mg Q12HR PO 02/18/18 09:00 02/24/18 07:43 (Duoneb Neb) 1 ampule Q4HR NEB PRN NEB 02/18/18 04:45 (NS Flush) 2 ml UNSCH PRN IV FLUSH 02/18/18 04:45 (NS Flush) 2 ml BID IV FLUSH 02/18/18 09:00 02/24/18 07:45 (Zofran Inj) 4 mg Q6H PRN IVP 02/18/18 04:45 02/19/18 19:00 (Tylenol) 650 mg Q6H PRN PO 02/18/18 04:45 02/23/18 19:46 ([place] 5-325 Mg) 1 tab Q4H PRN PO 02/18/18 04:45 (Edilia-Colace) 1 tab BID PO 02/18/18 09:00 (Milk Of Magnesia Liq) 30 ml Q12H PRN PO 02/18/18 04:45 (Senokot) 17.2 mg Q12H PRN PO 02/18/18 04:45 (Dulcolax Supp) 10 mg DAILY PRN RECTAL 02/18/18 04:45 (Lactulose Liq) 30 ml DAILY PRN PO 02/18/18 04:45 (Zithromax) 1,200 mg Q7D PO 02/18/18 06:00 02/18/18 08:33 (Buspar) 5 mg Q12HR PO 02/18/18 09:00 02/23/18 19:21 (Mycostatin Liq) 5 ml QID SWISH-SWAL 02/18/18 09:00 02/18/18 08:34 (Ativan) 0.5 mg Q6H PRN PO 02/19/18 10:00 02/23/18 19:21 Pharmacy Profile Note 0 ml @ 0 mls/hr UNSCH OTHER 02/20/18 11:30 Vancomycin HCl 1250 mg/Sodium Chloride 262.5 ml @ 250 mls/hr Q8H IV 02/22/18 13:00 02/24/18 13:06 (Roxicodone) 15 mg Q4H PRN PO 02/22/18 15:45 02/23/18 09:28 (Mycostatin Cream) 1 applic Q12HR TOPICAL 02/23/18 12:30 A/P Problem List: (1) Sepsis ICD Code: A41.9 - Sepsis, unspecified organism (2) PNA (pneumonia) ICD Code: J18.9 - Pneumonia, unspecified organism (3) AIDS (acquired immunodeficiency syndrome), CD4 <=200 ICD Code: B20 - Human immunodeficiency virus [HIV] disease Assessment and Plan Sepsis/ Pneumonia/ Bacteremia Presented with fever, tachycardia. Patient is immunocompromised. Appreciate infectious disease recommendations. Chest CT shows scattered interstitial and alveolar opacities. Has coag neg staph bacteremia. - Continue IV vancomycin per ID. Pt refusing vanc levels at times. - DuoNebs and oxygen as needed. - Symbicort. - follow culture data. - encourage ambulation. AIDS Last CD4 was 49 on 08/30/17. Patient has been noncompliant with medications. - Continue atovaquone due to Bactrim allergy and azithromycin weekly. Appreciate infectious disease recommendations. Kaposi Sarcoma Noted on exam. Has a lot of pain in his lower extremities. Oncology and surgical consults appreciated. - follow up with oncology. - pathology from punch biopsy pending. - will need treatment with HAART. - pain control with a bowel regimen. - PT/ OT. Anemia Likely s/t chronic illness. - follow CBC. - B12 IM x 1. - follow up with hematology. Dry skin Possibly a fungal component. - trial of nystatin cream. PPx: SCDs Discharge Planning Needs infectious disease clearance Problem Qualifiers (1) PNA (pneumonia): Qualified Codes: J18.1 - Lobar pneumonia, unspecified organism Jamie Dye DO Feb 24, 2018 13:41
[2018-02-24] MEDS: LORazepam 0.5 MG TAB PO PRN (19:30)
[2018-02-25] VITALS (7 sets, daily range): BP systolic 101–122; BP diastolic 56–71; PULSE 76–97; RESP 16–20; TEMP 97.7–101.5; O2SAT 97–99
[2018-02-25] MEDS: LORazepam 0.5 MG TAB PO PRN ×4 (01:24→22:10)
[2018-02-25] MEDS: VANCOMYCIN INJ 1,250 MG in SODIUM CHLOR 0.9% 250 ML INJ 250 ML IV SCH ×3 (04:30→22:31)
[2018-02-25] MEDS: AZITHROMYCIN 600 MG TAB PO SCH (05:35)
[2018-02-25 06:34] LABS: CREATININE 0.87 MG/DL (0.60-1.30)
[2018-02-25 06:35] LABS: RANDOM VANCOMYCIN 41.4 COMMENT
--- NOTE | 2018-02-25 07:55 | PD.ONC.PN ---
Subjective Subjective Remarks SOB/cough has improved. Leg pain is stable. Objective Data Date Time Temp Pulse Resp B/P (MAP) Pulse Ox O2 Delivery O2 Flow Rate FiO2 02/25/18 04:33 99.5 84 17 101/56 (71) 98 02/25/18 04:00 76 02/25/18 00:00 100.4 84 20 118/65 (82) 98 02/24/18 23:46 75 02/24/18 20:00 100.8 90 18 108/55 (72) 98 02/24/18 19:50 86 02/24/18 16:00 99.7 94 17 116/69 (85) 98 02/24/18 12:00 99.0 87 17 109/62 (78) 97 02/24/18 08:00 100.0 110 17 112/61 (78) 96 02/25/18 02/25/18 02/25/18 07:00 15:00 23:00 Intake Total 712.5 ml Output Total 450 ml Balance 262.5 ml Result Diagram: 02/21/18 0536 02/25/18 0505 Laboratory Results Laboratory Tests Test 02/25/18 05:05 Creatinine 0.87 MG/DL Estimat Glomerular Filtration Rate 99 ML/MIN Random Vancomycin Level 41.4 COMMENT Administered Medications Medications (Trade) Dose Ordered Sig/Frank Route PRN Reason Start Time Stop Time Status Last Admin Dose Admin Atovaquone (Mepron Liq) 750 mg Q12HR PO 02/18/18 09:00 02/24/18 19:31 Sodium Chloride (NS Flush) 2 ml BID IV FLUSH 02/18/18 09:00 02/24/18 19:31 Ondansetron HCl (Zofran Inj) 4 mg Q6H PRN IVP NAUSEA OR VOMITING 02/18/18 04:45 02/19/18 19:00 Acetaminophen (Tylenol) 650 mg Q6H PRN PO FEVER/PAIN SCALE 1 TO 2 02/18/18 04:45 02/23/18 19:46 Azithromycin (Zithromax) 1,200 mg Q7D PO 02/18/18 06:00 02/25/18 05:35 Buspirone HCl (Buspar) 5 mg Q12HR PO 02/18/18 09:00 02/24/18 19:31 Nystatin (Mycostatin Liq) 5 ml QID SWISH-SWAL 02/18/18 09:00 02/18/18 08:34 Lorazepam (Ativan) 0.5 mg Q6H PRN PO anxiety 02/19/18 10:00 02/25/18 01:24 Vancomycin HCl 1250 mg/Sodium Chloride 262.5 ml @ 250 mls/hr Q8H IV 02/22/18 13:00 02/25/18 04:30 Oxycodone HCl (Roxicodone) 15 mg Q4H PRN PO pain 6-10 02/22/18 15:45 02/23/18 09:28 Objective Remarks GENERAL: Well-nourished, well-developed patient. SKIN: Warm and dry. Diffuse skin lesion/plague throughout the body. HEAD: Normocephalic. EYES: No scleral icterus. No injection or drainage. NECK: Supple, trachea midline. No JVD or lymphadenopathy. LYMPHATIC: No adenopathy. CARDIOVASCULAR: Regular rate and rhythm without murmurs. RESPIRATORY: Breath sounds equal bilaterally. No accessory muscle use. GASTROINTESTINAL: Abdomen soft, non-tender, nondistended. EXTREMITIES: No cyanosis, or edema. MUSCULOSKELETAL: Adequate muscle tone. NEUROLOGICAL: No obvious focal deficit. Awake, alert, and oriented x3. PSYCHIATRIC: Appropriate mood and affect; insight and judgment normal. Assessment/Plan Problem List: (1) Kaposi sarcoma ICD Codes: C46.9 - Kaposi's sarcoma, unspecified Plan: --s/p biopsy of skin lesion 02/21, path pending --discussed with , once path confirms KS, he can start XRT as outpt. --primary treatment would be antiretroviral therapy, if compliant with antiretroviral therapy, could consider treatment with systemic chemotherapy. He is not a candidate for chemo right now with CD4 <20. --started having skin lesions at least 6-8 month ago. --The 2 biggest patches behind the knee are painful. --appearance of the skin lesions is consistent with Kaposi sarcoma. --CT lung showed interstitial alveolar opacity, but no obvious metastatic disease. --CT ab/pelvis shows prominent soft tissue density/lymphadenopathy 2cm (2) AIDS (acquired immunodeficiency syndrome), CD4 <=200 ICD Codes: B20 - Human immunodeficiency virus [HIV] disease Plan: --has poorly controlled human immunodeficiency virus/acquired immunodeficiency syndrome --noncompliant with antiretroviral therapy. --stopped antiretroviral therapy many years ago --08/2017, CD4 count was only 49. Repeat test CD4 <20. (3) Sepsis ICD Codes: A41.9 - Sepsis, unspecified organism Plan: --on antibiotics per ID. Cx + coag neg staph. Still has low grade fever. Assessment 38y/o male with HIV/AIDS and Kaposi sarcoma. Plan 1. continue antibiotics per ID. 2. Await path. 3. supportive care. 4. Only consider systemic chemotherapy if pt is compliant with HAART. 5. F/u with for XRT. Tee Ash MD Feb 25, 2018 07:55
[2018-02-25] MEDS: NYSTATIN SUSP 500,000 U/5 ML CUP SWISH-SWAL SCH ×4 (08:33→21:00)
[2018-02-25] MEDS: DOCUSATE SODIUM 50 MG/SENNA 8.6 MG TAB PO SCH ×2 (08:34→22:10)
[2018-02-25] MEDS: SODIUM CHLORIDE 0.9% FLUSH 10 ML FLUSH IV FLUSH SCH ×2 (08:34→22:11)
[2018-02-25] MEDS: ATOVAQUONE SUSP 750 MG/5 ML UDC PO SCH ×2 (08:34→22:10)
[2018-02-25] MEDS: busPIRone HCL 5 MG TAB PO SCH ×2 (08:34→22:10)
[2018-02-25] MEDS: NYSTATIN 100,000 UNIT/GM CREAM 15 GM TOPICAL SCH ×2 (08:35→21:00)
--- NOTE | 2018-02-25 13:15 | HHI.IDPN ---
Note Infectious Disease Note Patient has no new complaints. Awake and alert. Still has low-grade fever. Denies chills. Says he feels okay. Repeat blood cultures as no growth. Blood cultures have staph staph coag negative on 02/18. The CD4 count is less than 20. 38-year-old white male who has HIV disease. The patient was brought to the emergency department because of shortness of breath. He also noted having pain from skin lesions. He states that approximately 1-2 months ago, he broke out in a skin rash and multiple skin lesions all over his body. He has not seen a physician for that problem. The patient is a very poor historian. He also has memory problems. He was evaluated and treated for pneumonia in September 2017 and was discharged on oral antibiotics and requested to make an appointment to followup with the [facility] Department for HIV management. He never did so. He states that he was having difficulty getting through on the telephone. He also states that he lives with his grandmother and does not have transportation because his grandmother does not drive. His CD4 count in September was 249. PAST MEDICAL HISTORY: Inguinal hernia, pneumonia, HIV disease. ALLERGIES: SULFAMETHOXAZOLE, TRIMETHOPRIM. MEDICATIONS: Current Medications Medications (Trade) Dose Ordered Sig/Frank Route PRN Reason Start Time Stop Time Status Last Admin Dose Admin Atovaquone (Mepron Liq) 750 mg Q12HR PO 02/18/18 09:00 02/25/18 08:34 Albuterol/ Ipratropium (Duoneb Neb) 1 ampule Q4HR NEB PRN NEB SOB/WHEEZING 02/18/18 04:45 Sodium Chloride (NS Flush) 2 ml UNSCH PRN IV FLUSH FLUSH AFTER USING IV ACCESS 02/18/18 04:45 Sodium Chloride (NS Flush) 2 ml BID IV FLUSH 02/18/18 09:00 02/25/18 08:34 Ondansetron HCl (Zofran Inj) 4 mg Q6H PRN IVP NAUSEA OR VOMITING 02/18/18 04:45 02/19/18 19:00 Acetaminophen (Tylenol) 650 mg Q6H PRN PO FEVER/PAIN SCALE 1 TO 2 02/18/18 04:45 02/23/18 19:46 Acetaminophen/ Hydrocodone Bitart ([place] 5-325 Mg) 1 tab Q4H PRN PO PAIN SCALE 3 TO 5 02/18/18 04:45 Senna/Docusate Sodium (Edilia-Colace) 1 tab BID PO 02/18/18 09:00 Magnesium Hydroxide (Milk Of Magnesia Liq) 30 ml Q12H PRN PO Mild constipation 02/18/18 04:45 Sennosides (Senokot) 17.2 mg Q12H PRN PO Moderate constipation 02/18/18 04:45 Bisacodyl (Dulcolax Supp) 10 mg DAILY PRN RECTAL SEVERE CONSITIPATION 02/18/18 04:45 Lactulose (Lactulose Liq) 30 ml DAILY PRN PO SEVERE CONSITIPATION 02/18/18 04:45 Azithromycin (Zithromax) 1,200 mg Q7D PO 02/18/18 06:00 02/25/18 05:35 Buspirone HCl (Buspar) 5 mg Q12HR PO 02/18/18 09:00 02/25/18 08:34 Nystatin (Mycostatin Liq) 5 ml QID SWISH-SWAL 02/18/18 09:00 02/18/18 08:34 Lorazepam (Ativan) 0.5 mg Q6H PRN PO anxiety 02/19/18 10:00 02/25/18 08:34 Pharmacy Profile Note 0 ml @ 0 mls/hr UNSCH OTHER 02/20/18 11:30 Vancomycin HCl 1250 mg/Sodium Chloride 262.5 ml @ 250 mls/hr Q8H IV 02/22/18 13:00 02/25/18 12:15 Oxycodone HCl (Roxicodone) 15 mg Q4H PRN PO pain 6-10 02/22/18 15:45 02/23/18 09:28 Nystatin (Mycostatin Cream) 1 applic Q12HR TOPICAL 02/23/18 12:30 02/25/18 08:35 OBJECTIVE: Vital Signs Date Time Temp Pulse Resp B/P (MAP) Pulse Ox O2 Delivery O2 Flow Rate FiO2 02/25/18 12:00 99.6 83 18 110/58 (75) 99 02/25/18 08:00 98.4 97 16 113/68 (83) 98 02/25/18 04:33 99.5 84 17 101/56 (71) 98 02/25/18 04:00 76 02/25/18 00:00 100.4 84 20 118/65 (82) 98 02/24/18 23:46 75 02/24/18 20:00 100.8 90 18 108/55 (72) 98 02/24/18 19:50 86 02/24/18 16:00 99.7 94 17 116/69 (85) 98 Laboratory Tests Test 02/25/18 05:05 Creatinine 0.87 MG/DL Estimat Glomerular Filtration Rate 99 ML/MIN Microbiology Date/Time Source Procedure Growth Status 02/18/18 01:15 Blood Peripheral Aerobic Blood Culture - Final Staphylococcus Epidermidis Staph Sp Coagulase Negative Complete 02/18/18 01:15 Anaerobic Blood Culture - Final Staph Sp Coagulase Negative Complete 02/18/18 01:10 Blood Peripheral Aerobic Blood Culture - Final Staph Sp Coagulase Negative Complete 02/18/18 01:10 Anaerobic Blood Culture - Final Staph Sp Coagulase Negative Complete Imaging: Abdomen/Pelvis CT 02/19/18 0000 Signed Impressions: Service Date/Time: Tuesday, February 20, 2018 00:12 - CONCLUSION: 1. Prominent soft tissue density/lymphadenopathy in the left mesentery measuring 2 cm. 2. Multiple small scattered retroperitoneal lymph nodes. Christoph Fuller MD Chest X-Ray 02/18/18 0110 Signed Impressions: Service Date/Time: Sunday, February 18, 2018 01:20 - CONCLUSION: No acute disease. Christpoh Fuller MD Chest CT 02/18/18 0000 Signed Impressions: Service Date/Time: Sunday, February 18, 2018 03:18 - CONCLUSION: 1. Scattered interstitial and alveolar opacities predominantly within the upper lobes. 2. No pleural effusions. Christoph Fuller MD PHYSICAL EXAMINATION: GENERAL: No acute distress. HEENT: The head reveals diffuse rash of the face covering the entire face and flaking of the skin along with some fissures which are no dry. Extraocular movements grossly intact. Pupils reactive to light. Pale sclerae. Oropharynx: Moist mucosa. No visible thrush. No visible lesions. NECK: Supple without adenopathy. LUNGS: Decreased breath sounds. HEART: Regular S1 and S2. No murmurs. ABDOMEN: Bowel sounds present. Soft, no tenderness appreciated. EXTREMITIES: Diffuse, maculopapular erythematous lesions with some Being flat and ulcerated. scattered all over the extremities. Some of these have a grainy surface appearance. No clubbing, cyanosis or edema. SKIN: Diffuse round superficial ulcerative erythematous lesions scattered throughout including the trunk, abdomen, extremities and back and the face has diffuse erythematous rash and very dry skin with flaking and also this involves the scalp where the skin is also exfoliating. NEUROLOGIC: No gross focal findings. PSYCHIATRIC: The patient is calm and cooperative. IV lines without evidence of infection. IMPRESSION: 1. Bacteremia with staph coagulase-negative. Questionable source. Given the severity of his skin condition it could be that he scratched the skin so much that it led to a portal for infection since he had open skin lesions that may be the source of the gram-positive bacteremia. 2. Fever. Pneumonia. The patient has bilateral lung infiltrates, likely opportunistic infection in this patient with low CD4 count and severe immunosuppression from acquired immune deficiency syndrome. 3. Acquired immune deficiency syndrome. CD4 count less than 20. 4. 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 Oncology following. Biopsy performed and pathology results pending. 5. 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 6. Patient with poor insight regarding his condition and appears unable to care for himself. RECOMMENDATIONS: 1. Continue atovaquone. 2. Continue Zithromax. 3. Continue vancomycin for coag negative staph in the blood until February 28. 4. Case management to help the patient to have appointment made for health department to address HIV medications and also to try to get him on the [facility] program so he can be followed for the HIV disease. This is important because without adequate addressing of the HIV, viral treatment he is likely to continue to decline. 5. Monitor the patient's clinical response. 6. Follow G6PD test since he may require treatment with dapsone for PJP prophylaxis. Syed Will MD Feb 25, 2018 13:15
--- NOTE | 2018-02-25 15:38 | HHI.PR ---
Subjective Remarks The patient was complaining of shortness of breath. He said he was very anxious and requested something for anxiety. He said that he needed to have a bowel movement. His mother was at the bedside and her questions were answered. Discussed with nursing. Objective Vitals Vital Signs Date Time Temp Pulse Resp B/P (MAP) Pulse Ox O2 Delivery O2 Flow Rate FiO2 02/25/18 12:00 99.6 83 18 110/58 (75) 99 02/25/18 08:00 98.4 97 16 113/68 (83) 98 02/25/18 04:33 99.5 84 17 101/56 (71) 98 02/25/18 04:00 76 02/25/18 00:00 100.4 84 20 118/65 (82) 98 02/24/18 23:46 75 02/24/18 20:00 100.8 90 18 108/55 (72) 98 02/24/18 19:50 86 02/24/18 16:00 99.7 94 17 116/69 (85) 98 I/O 02/24/18 02/24/18 02/24/18 02/25/18 02/25/18 02/25/18 07:00 15:00 23:00 07:00 15:00 23:00 Intake Total 680 ml 1262.5 ml 712.5 ml 262 ml Output Total 700 ml 550 ml 450 ml Balance -20 ml 712.5 ml 262.5 ml 262 ml Intake Oral 680 ml 1000 ml 450 ml IV Total 262.5 ml 262.5 ml 262 ml Output Urine Total 700 ml 550 ml 450 ml # Bowel Movements 0 Result Diagram: 02/21/18 0536 02/25/18 0505 Imaging Last Impressions Abdomen/Pelvis CT 02/19/18 0000 Signed Impressions: Service Date/Time: Tuesday, February 20, 2018 00:12 - CONCLUSION: 1. Prominent soft tissue density/lymphadenopathy in the left mesentery measuring 2 cm. 2. Multiple small scattered retroperitoneal lymph nodes. Christoph Fuller MD Chest X-Ray 02/18/18 0110 Signed Impressions: Service Date/Time: Sunday, February 18, 2018 01:20 - CONCLUSION: No acute disease. Christoph Fuller MD Chest CT 02/18/18 0000 Signed Impressions: Service Date/Time: Sunday, February 18, 2018 03:18 - CONCLUSION: 1. Scattered interstitial and alveolar opacities predominantly within the upper lobes. 2. No pleural effusions. Christoph Fuller MD Objective Remarks General: No acute distress. HEENT: NC, AT. Heart: Regular rate and rhythm. No murmur. Lungs: Clear to auscultation bilaterally. No wheezes, rales, or rhonchi. Breathing is nonlabored. Abdomen: Soft, nontender, nondistended. Extremities: No lower extremity edema. Tenderness to palpation of knees. Neuro: No gross deficits. Psych: Calm. Skin: Diffuse ulcerative lesions. Very dry skin with flaking. Patient has multiple lesions on his scalp with flaking skin there as well. Procedures Punch biopsy 02/21. Medications and IVs Current Medications Medications (Trade) Dose Ordered Sig/Frank Route Start Time Stop Time Status Last Admin (Mepron Liq) 750 mg Q12HR PO 02/18/18 09:00 02/25/18 08:34 (Duoneb Neb) 1 ampule Q4HR NEB PRN NEB 02/18/18 04:45 (NS Flush) 2 ml UNSCH PRN IV FLUSH 02/18/18 04:45 (NS Flush) 2 ml BID IV FLUSH 02/18/18 09:00 02/25/18 08:34 (Zofran Inj) 4 mg Q6H PRN IVP 02/18/18 04:45 02/19/18 19:00 (Tylenol) 650 mg Q6H PRN PO 02/18/18 04:45 02/23/18 19:46 ([place] 5-325 Mg) 1 tab Q4H PRN PO 02/18/18 04:45 (Edilia-Colace) 1 tab BID PO 02/18/18 09:00 (Milk Of Magnesia Liq) 30 ml Q12H PRN PO 02/18/18 04:45 (Senokot) 17.2 mg Q12H PRN PO 02/18/18 04:45 (Dulcolax Supp) 10 mg DAILY PRN RECTAL 02/18/18 04:45 (Lactulose Liq) 30 ml DAILY PRN PO 02/18/18 04:45 (Zithromax) 1,200 mg Q7D PO 02/18/18 06:00 02/25/18 05:35 (Buspar) 5 mg Q12HR PO 02/18/18 09:00 02/25/18 08:34 (Mycostatin Liq) 5 ml QID SWISH-SWAL 02/18/18 09:00 02/18/18 08:34 (Ativan) 0.5 mg Q6H PRN PO 02/19/18 10:00 02/25/18 14:17 Pharmacy Profile Note 0 ml @ 0 mls/hr UNSCH OTHER 02/20/18 11:30 Vancomycin HCl 1250 mg/Sodium Chloride 262.5 ml @ 250 mls/hr Q8H IV 02/22/18 13:00 02/25/18 12:15 (Roxicodone) 15 mg Q4H PRN PO 02/22/18 15:45 02/23/18 09:28 (Mycostatin Cream) 1 applic Q12HR TOPICAL 02/23/18 12:30 02/25/18 08:35 Miscellaneous Information SPECIFIC LAB TO BE ... ONCE ONCE .XX 02/26/18 04:45 02/26/18 04:46 A/P Problem List: (1) Sepsis ICD Code: A41.9 - Sepsis, unspecified organism (2) PNA (pneumonia) ICD Code: J18.9 - Pneumonia, unspecified organism (3) AIDS (acquired immunodeficiency syndrome), CD4 <=200 ICD Code: B20 - Human immunodeficiency virus [HIV] disease Assessment and Plan Sepsis/ Pneumonia/ Bacteremia Presented with fever, tachycardia. Patient is immunocompromised. Appreciate infectious disease recommendations. Chest CT shows scattered interstitial and alveolar opacities. Has coag neg staph bacteremia. - Continue IV vancomycin per ID. Pt refusing vanc levels at times. D/c vanc per ID. - DuoNebs and oxygen as needed. - Symbicort. - follow culture data. - encourage ambulation. AIDS Last CD4 was 49 on 08/30/17. Patient has been noncompliant with medications. - Continue atovaquone due to Bactrim allergy and azithromycin weekly. Appreciate infectious disease recommendations. Kaposi Sarcoma Noted on exam. Has a lot of pain in his lower extremities. Oncology and surgical consults appreciated. - follow up with oncology. - pathology from punch biopsy pending. - will need treatment with HAART. - pain control with a bowel regimen. - PT/ OT. Anemia Likely s/t chronic illness. - follow CBC. - B12 IM x 1. - follow up with hematology. Dry skin Possibly a fungal component. - trial of nystatin cream. Anxiety The pt complained of anxiety and said his shortness of breath was s/t anxiety. - CXR pending. - Ativan IV x 1. Continue PO Ativan as needed. - consider psych consult. PPx: SCDs Discharge Planning Needs infectious disease clearance. Pt unable to go home per mother. ? SNF. Problem Qualifiers (1) PNA (pneumonia): Qualified Codes: J18.1 - Lobar pneumonia, unspecified organism Jamie Dye DO Feb 25, 2018 15:38
[2018-02-25] MEDS ORDERED: LORazepam 2 MG/ML VIAL IV PUSH ONE (15:45)
--- NOTE | 2018-02-25 16:18 | RADRPT ---
EXAM DATE/TIME: 02/25/2018 15:55 [facility] COMPARISON: CHEST SINGLE AP, February 18, 2018, 1:20. INDICATIONS : Short of breath. MEDICAL HISTORY : inguinal hernia, HIV, Kaposis Sarcoma SURGICAL HISTORY : None. ENCOUNTER: Initial ACUITY: 1 week PAIN SCORE: 0/10 LOCATION: Bilateral chest FINDINGS: A single view of the chest demonstrates the lungs to be symmetrically aerated without evidence of mas s, infiltrate or effusion. The cardiomediastinal contours are unremarkable. Osseous structures are intact. CONCLUSION: No acute disease. Christoph Fuller MD on February 25, 2018 at 16:16 Board Certified Radiologist. This report was verified electronically.
[2018-02-25] MEDS: ACETAMINOPHEN 325 MG TAB PO PRN (22:29)
[2018-02-26] VITALS: BP 96/53; PULSE 88; RESP 18; TEMP 99.2; O2SAT 96
[2018-02-26 04:00] VITALS: TEMP 98.7
[2018-02-26] MEDS ORDERED: PHARMACY ORDERED LAB ONE (04:45)
[2018-02-26] MEDS: VANCOMYCIN INJ 1,250 MG in SODIUM CHLOR 0.9% 250 ML INJ 250 ML IV SCH (05:54)
[2018-02-26 08:00] VITALS: BP 102/55; PULSE 78; RESP 16; TEMP 98.1; O2SAT 96
[2018-02-26] MEDS: busPIRone HCL 5 MG TAB PO SCH ×2 (08:04→23:02)
[2018-02-26] MEDS: NYSTATIN SUSP 500,000 U/5 ML CUP SWISH-SWAL SCH ×4 (08:05→21:00)
[2018-02-26] MEDS: DOCUSATE SODIUM 50 MG/SENNA 8.6 MG TAB PO SCH ×2 (08:05→21:00)
[2018-02-26] MEDS: ATOVAQUONE SUSP 750 MG/5 ML UDC PO SCH (08:05)
[2018-02-26] MEDS: SODIUM CHLORIDE 0.9% FLUSH 10 ML FLUSH IV FLUSH SCH ×2 (08:05→23:03)
[2018-02-26] MEDS: NYSTATIN 100,000 UNIT/GM CREAM 15 GM TOPICAL SCH ×2 (08:07→21:00)
--- NOTE | 2018-02-26 09:32 | HHI.PR ---
Subjective Remarks Follow up sepsis, pneumonia, Kaposi sarcoma, AIDS. Patient has no new complaints today. States that he feels good except for pain in his legs "which isn't going to get better". No chest pain, dyspnea, nausea, vomiting. Objective Vitals Vital Signs Date Time Temp Pulse Resp B/P (MAP) Pulse Ox O2 Delivery O2 Flow Rate FiO2 02/26/18 04:00 98.7 02/26/18 00:00 99.2 88 18 96/53 (67) 96 02/25/18 20:00 101.5 93 17 117/66 (83) 98 02/25/18 16:00 97.7 79 16 122/71 (88) 97 02/25/18 12:00 99.6 83 18 110/58 (75) 99 I/O 02/25/18 02/25/18 02/25/18 02/26/18 02/26/18 02/26/18 07:00 15:00 23:00 07:00 15:00 23:00 Intake Total 712.5 ml 262 ml 620 ml 502.5 ml Output Total 450 ml 450 ml 1100 ml Balance 262.5 ml 262 ml 170 ml -597.5 ml Intake Oral 450 ml 620 ml 240 ml IV Total 262.5 ml 262 ml 262.5 ml Output Urine Total 450 ml 450 ml 1100 ml # Bowel Movements 1 Result Diagram: 02/25/18 0505 Imaging Last Impressions Chest X-Ray 02/25/18 0000 Signed Impressions: Service Date/Time: Sunday, February 25, 2018 15:55 - CONCLUSION: No acute disease. Christoph Fuller MD Abdomen/Pelvis CT 02/19/18 0000 Signed Impressions: Service Date/Time: Tuesday, February 20, 2018 00:12 - CONCLUSION: 1. Prominent soft tissue density/lymphadenopathy in the left mesentery measuring 2 cm. 2. Multiple small scattered retroperitoneal lymph nodes. Christoph Fuller MD Chest CT 02/18/18 0000 Signed Impressions: Service Date/Time: Sunday, February 18, 2018 03:18 - CONCLUSION: 1. Scattered interstitial and alveolar opacities predominantly within the upper lobes. 2. No pleural effusions. Christoph Fuller MD Objective Remarks General: No acute distress. Heart: Regular rate and rhythm. No murmur. Lungs: Clear to auscultation bilaterally. No wheezes, rales, or rhonchi. Breathing is nonlabored. Abdomen: Soft, nontender, nondistended. Extremities: No lower extremity edema. Psych: Alert and oriented. Skin: Diffuse ulcerative lesions. Very dry skin with flaking. Patient has multiple lesions on his scalp with flaking skin. Procedures Punch biopsy 02/21. Urinary Catheter: No Vascular Central Line Catheter: No A/P Problem List: (1) Sepsis ICD Code: A41.9 - Sepsis, unspecified organism (2) PNA (pneumonia) ICD Code: J18.9 - Pneumonia, unspecified organism (3) AIDS (acquired immunodeficiency syndrome), CD4 <=200 ICD Code: B20 - Human immunodeficiency virus [HIV] disease Assessment and Plan 1. Sepsis: Presented with fever, tachycardia. Source is pneumonia, bacteremia. Patient is immunocompromised. Initial blood cultures growing coag negative staph. Repeat blood cultures are negative. Appreciate infectious disease recommendations. Continue IV vancomycin until 02/28/18. 2. Pneumonia: Chest CT shows scattered interstitial and alveolar opacities. Continue IV antibiotics. DuoNeb as needed. Symbicort. Supplemental oxygen. 3. AIDS: CD4 count less than 20. Patient has been noncompliant with medications. Continue atovaquone due to Bactrim allergy and azithromycin weekly. Appreciate infectious disease recommendations. 4. Kaposi's sarcoma: Pathology pending. Appreciate oncology recommendations. 5. DVT prophylaxis: MARK Sigala. Discharge Planning Pending pathology, clearance by infectious disease and oncology. Problem Qualifiers (1) PNA (pneumonia): Qualified Codes: J18.1 - Lobar pneumonia, unspecified organism Pablito Caro MD Feb 26, 2018 09:32
[2018-02-26] MEDS: LORazepam 0.5 MG TAB PO PRN (09:52)
[2018-02-26 12:00] VITALS: BP 112/68; PULSE 81; RESP 16; TEMP 100.4; O2SAT 100
[2018-02-26] MEDS ORDERED: VANCOMYCIN 1,000 MG/NS 250 ML IV SCH ×2 (14:00)
--- NOTE | 2018-02-26 14:33 | HHI.IDPN ---
Note Infectious Disease Note Patient has no new complaints. Awake and alert. fever spikes. Repeat blood cultures is showing no growth. Denies nausea, vomiting, abdominal pain or diarrhea. Says he feels okay. Patient says he feels fine "I always have fevers anyway" Blood cultures had samina haas coag negative on 02/18. The CD4 count is less than 20. 38-year-old white male who has HIV disease. The patient was brought to the emergency department because of shortness of breath. He also noted having pain from skin lesions. He states that approximately 1-2 months ago, he broke out in a skin rash and multiple skin lesions all over his body. He has not seen a physician for that problem. The patient is a very poor historian. He also has memory problems. He was evaluated and treated for pneumonia in September 2017 and was discharged on oral antibiotics and requested to make an appointment to followup with the Health Department for HIV management. He never did so. He states that he was having difficulty getting through on the telephone. He also states that he lives with his grandmother and does not have transportation because his grandmother does not drive. His CD4 count in September was 249. PAST MEDICAL HISTORY: Inguinal hernia, pneumonia, HIV disease. ALLERGIES: SULFAMETHOXAZOLE, TRIMETHOPRIM. MEDICATIONS: Current Medications Medications (Trade) Dose Ordered Sig/Frank Route PRN Reason Start Time Stop Time Status Last Admin Dose Admin Atovaquone (Mepron Liq) 750 mg Q12HR PO 02/18/18 09:00 02/26/18 08:05 Albuterol/ Ipratropium (Duoneb Neb) 1 ampule Q4HR NEB PRN NEB SOB/WHEEZING 02/18/18 04:45 Sodium Chloride (NS Flush) 2 ml UNSCH PRN IV FLUSH FLUSH AFTER USING IV ACCESS 02/18/18 04:45 Sodium Chloride (NS Flush) 2 ml BID IV FLUSH 02/18/18 09:00 02/26/18 08:05 Ondansetron HCl (Zofran Inj) 4 mg Q6H PRN IVP NAUSEA OR VOMITING 02/18/18 04:45 02/19/18 19:00 Acetaminophen (Tylenol) 650 mg Q6H PRN PO FEVER/PAIN SCALE 1 TO 2 02/18/18 04:45 02/25/18 22:29 Acetaminophen/ Hydrocodone Bitart ([place] 5-325 Mg) 1 tab Q4H PRN PO PAIN SCALE 3 TO 5 02/18/18 04:45 Senna/Docusate Sodium (Edilia-Colace) 1 tab BID PO 02/18/18 09:00 02/26/18 08:05 Magnesium Hydroxide (Milk Of Magnesia Liq) 30 ml Q12H PRN PO Mild constipation 02/18/18 04:45 Sennosides (Senokot) 17.2 mg Q12H PRN PO Moderate constipation 02/18/18 04:45 Bisacodyl (Dulcolax Supp) 10 mg DAILY PRN RECTAL SEVERE CONSITIPATION 02/18/18 04:45 Lactulose (Lactulose Liq) 30 ml DAILY PRN PO SEVERE CONSITIPATION 02/18/18 04:45 Azithromycin (Zithromax) 1,200 mg Q7D PO 02/18/18 06:00 02/25/18 05:35 Buspirone HCl (Buspar) 5 mg Q12HR PO 02/18/18 09:00 02/26/18 08:04 Nystatin (Mycostatin Liq) 5 ml QID SWISH-SWAL 02/18/18 09:00 02/18/18 08:34 Lorazepam (Ativan) 0.5 mg Q6H PRN PO anxiety 02/19/18 10:00 02/26/18 09:52 Pharmacy Profile Note 0 ml @ 0 mls/hr UNSCH OTHER 02/20/18 11:30 Oxycodone HCl (Roxicodone) 15 mg Q4H PRN PO pain 6-10 02/22/18 15:45 02/26/18 09:52 Nystatin (Mycostatin Cream) 1 applic Q12HR TOPICAL 02/23/18 12:30 02/26/18 08:07 Vancomycin HCl 1000 mg/Sodium Chloride 250 ml @ 250 mls/hr Q8H IV 02/26/18 14:00 02/26/18 13:31 Miscellaneous Information SPECIFIC LAB TO BE ALISA... ONCE ONCE .XX 02/27/18 13:45 02/27/18 13:46 OBJECTIVE: Vital Signs Date Time Temp Pulse Resp B/P (MAP) Pulse Ox O2 Delivery O2 Flow Rate FiO2 02/26/18 12:00 100.4 81 16 112/68 (83) 100 02/26/18 08:00 98.1 78 16 102/55 (71) 96 02/26/18 04:00 98.7 02/26/18 00:00 99.2 88 18 96/53 (67) 96 02/25/18 20:00 101.5 93 17 117/66 (83) 98 02/25/18 16:00 97.7 79 16 122/71 (88) 97 Laboratory Tests Test 02/25/18 05:05 Creatinine 0.87 MG/DL Estimat Glomerular Filtration Rate 99 ML/MIN Imaging: Chest X-Ray 02/25/18 0000 Signed Impressions: Service Date/Time: Sunday, February 25, 2018 15:55 - CONCLUSION: No acute disease. Christoph Fuller MD Abdomen/Pelvis CT 02/19/18 0000 Signed Impressions: Service Date/Time: Tuesday, February 20, 2018 00:12 - CONCLUSION: 1. Prominent soft tissue density/lymphadenopathy in the left mesentery measuring 2 cm. 2. Multiple small scattered retroperitoneal lymph nodes. Christoph Fuller MD Chest X-Ray 02/18/18 0110 Signed Impressions: Service Date/Time: Sunday, February 18, 2018 01:20 - CONCLUSION: No acute disease. Christoph Fuller MD Chest CT 02/18/18 0000 Signed Impressions: Service Date/Time: Sunday, February 18, 2018 03:18 - CONCLUSION: 1. Scattered interstitial and alveolar opacities predominantly within the upper lobes. 2. No pleural effusions. Christoph Fuller MD PHYSICAL EXAMINATION: GENERAL: No acute distress. HEENT: The diffuse rash of the face covering the entire face is unchanged and flaking of the skin along with some fissures which are now dry. Extraocular movements grossly intact. Pupils reactive to light. Pale sclerae. Oropharynx: Moist mucosa. No visible thrush. No visible lesions. NECK: Supple without adenopathy. LUNGS: Breath sounds are decreased clear. HEART: Regular S1 and S2. No murmurs. ABDOMEN: Bowel sounds present. Soft, no tenderness appreciated. EXTREMITIES: Diffuse, maculopapular erythematous lesions with some Being flat and ulcerated. scattered all over the extremities. Some of these have a grainy surface appearance. No clubbing, cyanosis or edema. SKIN: Diffuse round superficial ulcerative erythematous lesions scattered throughout including the trunk, abdomen, extremities and back and the face has diffuse erythematous rash and very dry skin with flaking and also this involves the scalp where the skin is also exfoliating. NEUROLOGIC: No gross focal findings. PSYCHIATRIC: The patient is calm and cooperative. IV lines without evidence of infection. IMPRESSION: 1. Bacteremia with staph coagulase-negative. Questionable source. Given the severity of his skin condition it could be that he scratched the skin so much that it led to a portal for infection since he had open skin lesions that may be the source of the gram-positive bacteremia. 2. Fever. Pneumonia. The patient had bilateral lung infiltrates, likely opportunistic infection in this patient with low CD4 count and severe immunosuppression from acquired immune deficiency syndrome. Chest x-ray is now clear and continues to have fever. Questionable drug fever. 3. Acquired immune deficiency syndrome. CD4 count less than 20. 4. 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 Oncology following. Biopsy performed and pathology results pending. ? eczema component of the rash on the face. 5. 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 6. Patient with poor insight regarding his condition and appears unable to care for himself. RECOMMENDATIONS: 1. Stop atovaquone since it could be related to the elevated temperature. 2. Continue Zithromax. 3. Stop vancomycin because the repeat blood cultures negative. 4. Monitor temperature. 5. Monitor the patient's clinical response. 6. Follow G6PD test since he may require treatment with dapsone for PJP prophylaxis. 7. Obtain HIV genotype study. He may need to be started on HIV regimen soon. Case management to help the patient to have appointment made for health department to address HIV medications and also to try to get him on the [facility] program so he can be followed for the HIV disease. This is important because without adequate addressing of the HIV, viral treatment he is likely to continue to decline. Syed Will MD Feb 26, 2018 14:33
[2018-02-26 16:00] VITALS: BP 109/59; PULSE 90; RESP 18; TEMP 99.5; O2SAT 98
[2018-02-26 20:00] VITALS: BP 107/60; PULSE 96; RESP 17; TEMP 101.4; O2SAT 98
[2018-02-26 22:00] LABS: AUTOMATED NEUTROPHIL # 1.8 TH/MM3 (1.8-7.7); BASOPHIL % 0.7 % (0.0-2.0); EOSINOPHIL % 0.9 % (0.0-4.0); HEMATOCRIT 24.5 % (39.0-51.0); HEMOGLOBIN 8.4 GM/DL (13.0-17.0); LYMPH % 16.4 % (9.0-44.0); LYMPHOCYTE # 0.4 TH/MM3 (1.0-4.8); MEAN CELL VOLUME 84.8 FL (80.0-100.0); MEAN CORPUSCULAR HEMOGLOBIN 29.2 PG (27.0-34.0); MEAN CORPUSCULAR HGB CONC 34.4 % (32.0-36.0); MEAN PLATELET VOLUME 7.8 FL (7.0-11.0); MONOCYTE # 0.3 TH/MM3 (0-0.9); PLATELET COUNT 129 TH/MM3 (150-450); RED BLOOD COUNT 2.89 MIL/MM3 (4.50-5.90); RED CELL DISTRIBUTION WIDTH 15.4 % (11.6-17.2); WHITE BLOOD COUNT 2.6 TH/MM3 (4.0-11.0)
[2018-02-26 23:21] LABS: BANDS 9 % (0-6); LYMPHOCYTES 16 % (9-44); METAMYELOCYTES 1 % (0-1); MONOCYTES 13 % (0-8); NEUTROPHIL # MANUAL DIFF 1.8 TH/MM3 (1.8-7.7); POLYS (SEG NEUTROPHILS) 60 % (16-70)
[2018-02-26 23:22] LABS: OVALOCYTES 1+ (NORMAL)
[2018-02-26 23:23] LABS: TOXIC GRANULATION 1+ (NORMAL)
[2018-02-27] VITALS (7 sets, daily range): BP systolic 97–117; BP diastolic 54–65; PULSE 70–102; RESP 15–18; TEMP 98.5–101.3; O2SAT 95–99
[2018-02-27] MEDS: ACETAMINOPHEN 325 MG TAB PO PRN ×2 (01:08→19:37)
[2018-02-27] MEDS: LORazepam 0.5 MG TAB PO PRN (05:55)
[2018-02-27 07:14] LABS: BASOPHIL % 0.7 % (0.0-2.0); EOSINOPHIL % 0.5 % (0.0-4.0); HEMATOCRIT 27.8 % (39.0-51.0); HEMOGLOBIN 9.3 GM/DL (13.0-17.0); LYMPH % 15.7 % (9.0-44.0); LYMPHOCYTE # 0.4 TH/MM3 (1.0-4.8); MEAN CELL VOLUME 85.6 FL (80.0-100.0); MEAN CORPUSCULAR HEMOGLOBIN 28.6 PG (27.0-34.0); MEAN CORPUSCULAR HGB CONC 33.5 % (32.0-36.0); MEAN PLATELET VOLUME 7.7 FL (7.0-11.0); MONO % 9.8 % (0.0-8.0); MONOCYTE # 0.3 TH/MM3 (0-0.9); NEUT % 73.3 % (16.0-70.0); PLATELET COUNT 130 TH/MM3 (150-450); RED BLOOD COUNT 3.25 MIL/MM3 (4.50-5.90); RED CELL DISTRIBUTION WIDTH 15.3 % (11.6-17.2); WHITE BLOOD COUNT 2.8 TH/MM3 (4.0-11.0)
--- NOTE | 2018-02-27 07:29 | PD.ONC.PN ---
Subjective Subjective Remarks +fever and sweating. No CP/ SOB improved. No significant cough. Objective Data Date Time Temp Pulse Resp B/P (MAP) Pulse Ox O2 Delivery O2 Flow Rate FiO2 02/27/18 04:00 100.3 02/27/18 00:00 101.2 102 17 111/54 (73) 95 02/26/18 20:00 101.4 96 17 107/60 (76) 98 02/26/18 16:00 99.5 90 18 109/59 (76) 98 02/26/18 12:00 100.4 81 16 112/68 (83) 100 02/26/18 08:00 98.1 78 16 102/55 (71) 96 02/27/18 02/27/18 02/27/18 07:00 15:00 23:00 Intake Total 240 ml Output Total 600 ml Balance -360 ml Result Diagram: 02/27/18 0555 02/25/18 0505 Laboratory Results Laboratory Tests Test 02/26/18 19:52 02/27/18 05:51 02/27/18 05:55 White Blood Count 2.6 TH/MM3 2.8 TH/MM3 Red Blood Count 2.89 MIL/MM3 3.25 MIL/MM3 Hemoglobin 8.4 GM/DL 9.3 GM/DL Hematocrit 24.5 % 27.8 % Mean Corpuscular Volume 84.8 FL 85.6 FL Mean Corpuscular Hemoglobin 29.2 PG 28.6 PG Mean Corpuscular Hemoglobin Concent 34.4 % 33.5 % Red Cell Distribution Width 15.4 % 15.3 % Platelet Count 129 TH/MM3 130 TH/MM3 Mean Platelet Volume 7.8 FL 7.7 FL Neutrophils (%) (Auto) 72.0 % 73.3 % Lymphocytes (%) (Auto) 16.4 % 15.7 % Monocytes (%) (Auto) 10.0 % 9.8 % Eosinophils (%) (Auto) 0.9 % 0.5 % Basophils (%) (Auto) 0.7 % 0.7 % Neutrophils # (Auto) 1.8 TH/MM3 2.0 TH/MM3 Lymphocytes # (Auto) 0.4 TH/MM3 0.4 TH/MM3 Monocytes # (Auto) 0.3 TH/MM3 0.3 TH/MM3 Eosinophils # (Auto) 0.0 TH/MM3 0.0 TH/MM3 Basophils # (Auto) 0.0 TH/MM3 0.0 TH/MM3 CBC Comment AUTO DIFF AUTO DIFF Differential Total Cells Counted 100 Neutrophils % (Manual) 60 % Band Neutrophils % 9 % Lymphocytes % 16 % Monocytes % 13 % Eosinophils % 1 % Neutrophils # (Manual) 1.8 TH/MM3 Metamyelocytes 1 % Differential Comment FINAL DIFF MANUAL Toxic Granulation 1+ Platelet Estimate LOW Platelet Morphology Comment NORMAL Ovalocytes 1+ Administered Medications Medications (Trade) Dose Ordered Sig/Frank Route PRN Reason Start Time Stop Time Status Last Admin Dose Admin Sodium Chloride (NS Flush) 2 ml BID IV FLUSH 02/18/18 09:00 02/26/18 23:03 Ondansetron HCl (Zofran Inj) 4 mg Q6H PRN IVP NAUSEA OR VOMITING 02/18/18 04:45 02/19/18 19:00 Acetaminophen (Tylenol) 650 mg Q6H PRN PO FEVER/PAIN SCALE 1 TO 2 02/18/18 04:45 02/27/18 01:08 Senna/Docusate Sodium (Edilia-Colace) 1 tab BID PO 02/18/18 09:00 02/26/18 08:05 Azithromycin (Zithromax) 1,200 mg Q7D PO 02/18/18 06:00 02/25/18 05:35 Buspirone HCl (Buspar) 5 mg Q12HR PO 02/18/18 09:00 02/26/18 23:02 Nystatin (Mycostatin Liq) 5 ml QID SWISH-SWAL 02/18/18 09:00 02/18/18 08:34 Lorazepam (Ativan) 0.5 mg Q6H PRN PO anxiety 02/19/18 10:00 02/27/18 05:55 Oxycodone HCl (Roxicodone) 15 mg Q4H PRN PO pain 6-10 02/22/18 15:45 02/26/18 09:52 Nystatin (Mycostatin Cream) 1 applic Q12HR TOPICAL 02/23/18 12:30 02/26/18 08:07 Objective Remarks GENERAL: Well-nourished, well-developed patient. SKIN: Warm and dry. Diffused brownish lesion/plagues throughout the body HEAD: Normocephalic. EYES: No scleral icterus. No injection or drainage. NECK: Supple, trachea midline. No JVD or lymphadenopathy. LYMPHATIC: No adenopathy. CARDIOVASCULAR: Regular rate and rhythm without murmurs. RESPIRATORY: Breath sounds equal bilaterally. No accessory muscle use. GASTROINTESTINAL: Abdomen soft, non-tender, nondistended. EXTREMITIES: No cyanosis, or edema. MUSCULOSKELETAL: Adequate muscle tone. NEUROLOGICAL: No obvious focal deficit. Awake, alert, and oriented x3. PSYCHIATRIC: Appropriate mood and affect; insight and judgment normal. 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 Discussed with pathology, preliminary path atypical for KS. Further staining is pending. --discussed with , once path confirms KS, he can start XRT as outpt. --primary treatment would be antiretroviral therapy, if compliant with antiretroviral therapy, could consider treatment with systemic chemotherapy. He is not a candidate for chemo right now with CD4 <20. --started having skin lesions at least 6-8 month ago. --The 2 biggest patches behind the knee are painful. --appearance of the skin lesions is consistent with Kaposi sarcoma. --CT lung showed interstitial alveolar opacity, but no obvious metastatic disease. --CT ab/pelvis shows prominent soft tissue density/lymphadenopathy 2cm (2) AIDS (acquired immunodeficiency syndrome), CD4 <=200 ICD Codes: B20 - Human immunodeficiency virus [HIV] disease Plan: --has poorly controlled human immunodeficiency virus/acquired immunodeficiency syndrome --noncompliant with antiretroviral therapy. --stopped antiretroviral therapy many years ago --08/2017, CD4 count was only 49. Repeat test CD4 <20. (3) Sepsis ICD Codes: A41.9 - Sepsis, unspecified organism Plan: --on antibiotics per ID. Cx + coag neg staph. Still has fever. Assessment 38y/o male with HIV/AIDS and Kaposi sarcoma. Plan 1. continue antibiotics per ID. 2. Await path. IF path is inconclusive for KS, will reconsult surgery for repeat biopsy. 3. supportive care. 4. Only consider systemic chemotherapy if pt is compliant with HAART. 5. F/u with for XRT. Tee Ash MD Feb 27, 2018 07:29
[2018-02-27 07:53] LABS: BICARBONATE 21.7 MEQ/L (21.0-32.0); CALCIUM 8.3 MG/DL (8.5-10.1); CREATININE 0.99 MG/DL (0.60-1.30)
[2018-02-27 08:01] LABS: OVALOCYTES 1+ (NORMAL)
[2018-02-27] MEDS: NYSTATIN SUSP 500,000 U/5 ML CUP SWISH-SWAL SCH ×4 (08:27→19:38)
[2018-02-27] MEDS: NYSTATIN 100,000 UNIT/GM CREAM 15 GM TOPICAL SCH ×2 (08:27→19:38)
[2018-02-27] MEDS: DOCUSATE SODIUM 50 MG/SENNA 8.6 MG TAB PO SCH ×2 (08:27→19:37)
[2018-02-27] MEDS: SODIUM CHLORIDE 0.9% FLUSH 10 ML FLUSH IV FLUSH SCH ×2 (08:27→19:37)
[2018-02-27] MEDS: busPIRone HCL 5 MG TAB PO SCH ×2 (08:27→21:44)
[2018-02-27] MEDS ORDERED: POTASSIUM CHLORIDE 10 MEQ CAP PO ONE (12:45)
--- NOTE | 2018-02-27 13:18 | HHI.IDPN ---
Note Infectious Disease Note Patient is without complaints. Notes pains at the skin behind the knees. Awake and alert. Continues to have fever. Denies headache. Blood cultures repeated today. Denies nausea, vomiting, abdominal pain or diarrhea. Denies sweats. Says he feels okay. Blood cultures had staph staph coag negative on 02/18. The CD4 count is less than 20. 38-year-old white male who has HIV disease. The patient was brought to the emergency department because of shortness of breath. He also noted having pain from skin lesions. He states that approximately 1-2 months ago, he broke out in a skin rash and multiple skin lesions all over his body. He has not seen a physician for that problem. The patient is a very poor historian. He also has memory problems. He was evaluated and treated for pneumonia in September 2017 and was discharged on oral antibiotics and requested to make an appointment to followup with the [facility] Department for HIV management. He never did so. He states that he was having difficulty getting through on the telephone. He also states that he lives with his grandmother and does not have transportation because his grandmother does not drive. His CD4 count in September was 249. PAST MEDICAL HISTORY: Inguinal hernia, pneumonia, HIV disease. ALLERGIES: SULFAMETHOXAZOLE, TRIMETHOPRIM. MEDICATIONS: Current Medications Medications (Trade) Dose Ordered Sig/Frank Route PRN Reason Start Time Stop Time Status Last Admin Dose Admin Albuterol/ Ipratropium (Duoneb Neb) 1 ampule Q4HR NEB PRN NEB SOB/WHEEZING 02/18/18 04:45 Sodium Chloride (NS Flush) 2 ml UNSCH PRN IV FLUSH FLUSH AFTER USING IV ACCESS 02/18/18 04:45 Sodium Chloride (NS Flush) 2 ml BID IV FLUSH 02/18/18 09:00 02/26/18 23:03 Ondansetron HCl (Zofran Inj) 4 mg Q6H PRN IVP NAUSEA OR VOMITING 02/18/18 04:45 02/19/18 19:00 Acetaminophen (Tylenol) 650 mg Q6H PRN PO FEVER/PAIN SCALE 1 TO 2 02/18/18 04:45 02/27/18 01:08 Acetaminophen/ Hydrocodone Bitart ([place] 5-325 Mg) 1 tab Q4H PRN PO PAIN SCALE 3 TO 5 02/18/18 04:45 Senna/Docusate Sodium (Edilia-Colace) 1 tab BID PO 02/18/18 09:00 02/26/18 08:05 Magnesium Hydroxide (Milk Of Magnesia Liq) 30 ml Q12H PRN PO Mild constipation 02/18/18 04:45 Sennosides (Senokot) 17.2 mg Q12H PRN PO Moderate constipation 02/18/18 04:45 Bisacodyl (Dulcolax Supp) 10 mg DAILY PRN RECTAL SEVERE CONSITIPATION 02/18/18 04:45 Lactulose (Lactulose Liq) 30 ml DAILY PRN PO SEVERE CONSITIPATION 02/18/18 04:45 Azithromycin (Zithromax) 1,200 mg Q7D PO 02/18/18 06:00 02/25/18 05:35 Buspirone HCl (Buspar) 5 mg Q12HR PO 02/18/18 09:00 02/26/18 23:02 Nystatin (Mycostatin Liq) 5 ml QID SWISH-SWAL 02/18/18 09:00 02/18/18 08:34 Lorazepam (Ativan) 0.5 mg Q6H PRN PO anxiety 02/19/18 10:00 02/27/18 05:55 Oxycodone HCl (Roxicodone) 15 mg Q4H PRN PO pain 6-10 02/22/18 15:45 02/26/18 09:52 Nystatin (Mycostatin Cream) 1 applic Q12HR TOPICAL 02/23/18 12:30 02/26/18 08:07 Potassium Chloride (KCl) 40 meq ONCE ONCE PO 02/27/18 12:45 02/27/18 12:46 UNV OBJECTIVE: Vital Signs Date Time Temp Pulse Resp B/P (MAP) Pulse Ox O2 Delivery O2 Flow Rate FiO2 02/27/18 08:00 98.5 70 16 97/59 (72) 97 02/27/18 04:00 100.3 02/27/18 00:00 101.2 102 17 111/54 (73) 95 02/26/18 20:00 101.4 96 17 107/60 (76) 98 02/26/18 16:00 99.5 90 18 109/59 (76) 98 Laboratory Tests Test 02/26/18 19:52 02/27/18 05:55 White Blood Count 2.6 TH/MM3 2.8 TH/MM3 Red Blood Count 2.89 MIL/MM3 3.25 MIL/MM3 Hemoglobin 8.4 GM/DL 9.3 GM/DL Hematocrit 24.5 % 27.8 % Mean Corpuscular Volume 84.8 FL 85.6 FL Mean Corpuscular Hemoglobin 29.2 PG 28.6 PG Mean Corpuscular Hemoglobin Concent 34.4 % 33.5 % Red Cell Distribution Width 15.4 % 15.3 % Platelet Count 129 TH/MM3 130 TH/MM3 Mean Platelet Volume 7.8 FL 7.7 FL Neutrophils (%) (Auto) 72.0 % 73.3 % Lymphocytes (%) (Auto) 16.4 % 15.7 % Monocytes (%) (Auto) 10.0 % 9.8 % Eosinophils (%) (Auto) 0.9 % 0.5 % Basophils (%) (Auto) 0.7 % 0.7 % Neutrophils # (Auto) 1.8 TH/MM3 2.0 TH/MM3 Lymphocytes # (Auto) 0.4 TH/MM3 0.4 TH/MM3 Monocytes # (Auto) 0.3 TH/MM3 0.3 TH/MM3 Eosinophils # (Auto) 0.0 TH/MM3 0.0 TH/MM3 Basophils # (Auto) 0.0 TH/MM3 0.0 TH/MM3 CBC Comment AUTO DIFF AUTO DIFF Differential Total Cells Counted 100 Neutrophils % (Manual) 60 % Band Neutrophils % 9 % Lymphocytes % 16 % Monocytes % 13 % Eosinophils % 1 % Neutrophils # (Manual) 1.8 TH/MM3 Metamyelocytes 1 % Differential Comment FINAL DIFF MANUAL AUTO DIFF CONFIRMED Toxic Granulation 1+ Platelet Estimate LOW LOW Platelet Morphology Comment NORMAL NORMAL Ovalocytes 1+ 1+ Laboratory Tests Test 02/27/18 05:55 Blood Urea Nitrogen 17 MG/DL Creatinine 0.99 MG/DL Random Glucose 83 MG/DL Calcium Level 8.3 MG/DL Sodium Level 137 MEQ/L Potassium Level 3.1 MEQ/L Chloride Level 107 MEQ/L Carbon Dioxide Level 21.7 MEQ/L Anion Gap 8 MEQ/L Estimat Glomerular Filtration Rate 85 ML/MIN Microbiology Date/Time Source Procedure Growth Status 02/27/18 12:00 Blood Peripheral Aerobic Blood Culture Pending Received 02/27/18 12:00 Blood Peripheral Anaerobic Blood Culture Pending Received 02/27/18 11:54 Blood Peripheral Aerobic Blood Culture Pending Received 02/27/18 11:54 Blood Peripheral Anaerobic Blood Culture Pending Received Imaging: Chest X-Ray 02/25/18 0000 Signed Impressions: Service Date/Time: Sunday, February 25, 2018 15:55 - CONCLUSION: No acute disease. Christoph Fuller MD Abdomen/Pelvis CT 02/19/18 0000 Signed Impressions: Service Date/Time: Tuesday, February 20, 2018 00:12 - CONCLUSION: 1. Prominent soft tissue density/lymphadenopathy in the left mesentery measuring 2 cm. 2. Multiple small scattered retroperitoneal lymph nodes. Christoph Fuller MD Chest X-Ray 02/18/18 0110 Signed Impressions: Service Date/Time: Sunday, February 18, 2018 01:20 - CONCLUSION: No acute disease. Christoph Fuller MD Chest CT 02/18/18 0000 Signed Impressions: Service Date/Time: Sunday, February 18, 2018 03:18 - CONCLUSION: 1. Scattered interstitial and alveolar opacities predominantly within the upper lobes. 2. No pleural effusions. Christoph Fuller MD PHYSICAL EXAMINATION: GENERAL: No acute distress. HEENT: The diffuse rash of the face covering the entire face is unchanged and flaking of the skin along with some fissures which are now dry. Extraocular movements grossly intact. Pupils reactive to light. Pale sclerae. Oropharynx: Moist mucosa. No visible thrush. No visible lesions. NECK: Supple without adenopathy. LUNGS: Breath sounds are clear. HEART: Regular S1 and S2. No murmurs. ABDOMEN: Bowel sounds present. Soft, no tenderness appreciated. EXTREMITIES: Diffuse, maculopapular erythematous lesions with some Being flat and ulcerated. scattered all over the extremities. Some of these have a grainy surface appearance. No clubbing, cyanosis or edema. SKIN: Diffuse round superficial ulcerative erythematous lesions scattered throughout including the trunk, abdomen, extremities and back and the face has diffuse erythematous rash and very dry skin with flaking and also this involves the scalp where the skin is also exfoliating. NEUROLOGIC: No gross focal findings. PSYCHIATRIC: The patient is calm and cooperative. IV lines without evidence of infection. IMPRESSION: 1. Bacteremia with staph coagulase-negative. Questionable source. Given the severity of his skin condition it could be that he scratched the skin so much that it led to a portal for infection since he had open skin lesions that may be the source of the gram-positive bacteremia. 2. Fever. Pneumonia. The patient had bilateral lung infiltrates, likely opportunistic infection in this patient with low CD4 count and severe immunosuppression from acquired immune deficiency syndrome. Chest x-ray is now clear and continues to have fever. Questionable drug fever. He does not appear toxic. Fever could also be related to the underlying HIV disease. Since he remained stable and the chest x-ray does not of acute infiltrate, vancomycin and atovaquone has been stopped. 3. Acquired immune deficiency syndrome. CD4 count less than 20. 4. 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 Oncology following. Biopsy performed and pathology results pending. ? eczema component of the rash on the face. 5. 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 6. Patient with poor insight regarding his condition and appears unable to care for himself. RECOMMENDATIONS: 1. Continue Zithromax. 2. Continue to monitor temperature. 3. Monitor the repeated blood cultures. 4. Follow the biopsy. 5. Monitor HIV genotype study. He may need to be started on HIV regimen soon. 6. Check Hepatitis B and C status. 7. Blood culture for AFB. Case management to help the patient to have appointment made for health department to address HIV medications and also to try to get him on the [facility] program so he can be followed for the HIV disease. This is important because without adequate addressing of the HIV, viral treatment he is likely to continue to decline. Syed Will MD Feb 27, 2018 13:18
--- NOTE | 2018-02-27 13:19 | HHI.PR ---
Subjective Remarks Follow up sepsis, pneumonia, Kaposi sarcoma, AIDS. Patient has no complaints at this time. He denies chest pain or dyspnea. Denies nausea or vomiting. He does continue to report pain in his legs. Objective Vitals Vital Signs Date Time Temp Pulse Resp B/P (MAP) Pulse Ox O2 Delivery O2 Flow Rate FiO2 02/27/18 08:00 98.5 70 16 97/59 (72) 97 02/27/18 04:00 100.3 02/27/18 00:00 101.2 102 17 111/54 (73) 95 02/26/18 20:00 101.4 96 17 107/60 (76) 98 02/26/18 16:00 99.5 90 18 109/59 (76) 98 I/O 02/26/18 02/26/18 02/26/18 02/27/18 02/27/18 02/27/18 07:00 15:00 23:00 07:00 15:00 23:00 Intake Total 502.5 ml 0 ml 840 ml 240 ml Output Total 1100 ml 600 ml 600 ml Balance -597.5 ml 0 ml 240 ml -360 ml Intake Oral 240 ml 840 ml 240 ml IV Total 262.5 ml 0 ml Output Urine Total 1100 ml 600 ml 600 ml # Bowel Movements 0 Result Diagram: 02/27/18 0555 02/27/18 0555 Imaging Last Impressions Chest X-Ray 02/25/18 0000 Signed Impressions: Service Date/Time: Sunday, February 25, 2018 15:55 - CONCLUSION: No acute disease. Christoph Fuller MD Abdomen/Pelvis CT 02/19/18 0000 Signed Impressions: Service Date/Time: Tuesday, February 20, 2018 00:12 - CONCLUSION: 1. Prominent soft tissue density/lymphadenopathy in the left mesentery measuring 2 cm. 2. Multiple small scattered retroperitoneal lymph nodes. Christoph Fuller MD Chest CT 02/18/18 0000 Signed Impressions: Service Date/Time: Sunday, February 18, 2018 03:18 - CONCLUSION: 1. Scattered interstitial and alveolar opacities predominantly within the upper lobes. 2. No pleural effusions. Christoph Fuller MD Objective Remarks General: No acute distress. Heart: Regular rate and rhythm. No murmur. Lungs: Clear to auscultation bilaterally. No wheezes, rales, or rhonchi. Breathing is nonlabored. Abdomen: Soft, nontender, nondistended. Extremities: No lower extremity edema. Psych: Alert and oriented. Skin: Diffuse ulcerative lesions. Very dry skin with flaking. Procedures Punch biopsy 02/21. Urinary Catheter: No Vascular Central Line Catheter: No A/P Problem List: (1) Sepsis ICD Code: A41.9 - Sepsis, unspecified organism (2) PNA (pneumonia) ICD Code: J18.9 - Pneumonia, unspecified organism (3) AIDS (acquired immunodeficiency syndrome), CD4 <=200 ICD Code: B20 - Human immunodeficiency virus [HIV] disease Assessment and Plan 1. Sepsis: Presented with fever, tachycardia. Source is pneumonia, bacteremia. Patient is immunocompromised. Initial blood cultures growing coag negative staph. Repeat blood cultures are negative. Appreciate infectious disease recommendations. Continue IV vancomycin until 02/28/18. Continues to have fever. Repeat blood cultures. 2. Pneumonia: Chest CT shows scattered interstitial and alveolar opacities. Continue IV antibiotics. DuoNeb as needed. Symbicort. Supplemental oxygen as needed. 3. AIDS: CD4 count less than 20. Patient has been noncompliant with medications. Continue azithromycin weekly. Appreciate infectious disease recommendations. 4. Kaposi's sarcoma: Pathology pending. Appreciate oncology recommendations. 5. DVT prophylaxis: MARK Sigala. Discussed with Dr. Will. Discharge Planning Pending pathology, clearance by infectious disease and oncology. Problem Qualifiers (1) PNA (pneumonia): Qualified Codes: J18.1 - Lobar pneumonia, unspecified organism Pablito Caro MD Feb 27, 2018 13:19
[2018-02-27] MEDS ORDERED: PHARMACY ORDERED LAB ONE (13:45)
[2018-02-28] VITALS: BP 113/68; PULSE 64; RESP 18; TEMP 97.7; O2SAT 100
[2018-02-28] MEDS: busPIRone HCL 5 MG TAB PO SCH ×3 (07:27→21:00)
[2018-02-28] MEDS: DOCUSATE SODIUM 50 MG/SENNA 8.6 MG TAB PO SCH ×2 (07:28→20:59)
[2018-02-28] MEDS: NYSTATIN 100,000 UNIT/GM CREAM 15 GM TOPICAL SCH ×2 (07:28→20:59)
[2018-02-28] MEDS: NYSTATIN SUSP 500,000 U/5 ML CUP SWISH-SWAL SCH ×4 (07:28→20:59)
[2018-02-28] MEDS: SODIUM CHLORIDE 0.9% FLUSH 10 ML FLUSH IV FLUSH SCH ×2 (07:28→20:59)
[2018-02-28 07:48] LABS: HEMATOCRIT 25.8 % (39.0-51.0); HEMOGLOBIN 8.8 GM/DL (13.0-17.0); MEAN CELL VOLUME 83.8 FL (80.0-100.0); MEAN CORPUSCULAR HEMOGLOBIN 28.6 PG (27.0-34.0); MEAN CORPUSCULAR HGB CONC 34.2 % (32.0-36.0); PLATELET COUNT 124 TH/MM3 (150-450); RED BLOOD COUNT 3.08 MIL/MM3 (4.50-5.90); RED CELL DISTRIBUTION WIDTH 15.3 % (11.6-17.2); WHITE BLOOD COUNT 3.1 TH/MM3 (4.0-11.0)
[2018-02-28 08:00] VITALS: BP 112/60; PULSE 68; RESP 18; TEMP 98.3; O2SAT 100
[2018-02-28 08:25] LABS: BICARBONATE 24.5 MEQ/L (21.0-32.0); CALCIUM 8.3 MG/DL (8.5-10.1); CREATININE 0.78 MG/DL (0.60-1.30); MAGNESIUM 2.4 MG/DL (1.5-2.5)
[2018-02-28 08:34] LABS: BANDS 12 % (0-6); LYMPHOCYTES 11 % (9-44); METAMYELOCYTES 1 % (0-1); MONOCYTES 14 % (0-8); MYELOCYTES 3 % (0-0); NEUTROPHIL # MANUAL DIFF 2.2 TH/MM3 (1.8-7.7); OVALOCYTES 1+ (NORMAL); POLYS (SEG NEUTROPHILS) 54 % (16-70)
--- NOTE | 2018-02-28 10:59 | HHI.PR ---
Subjective Remarks Follow up sepsis, pneumonia, Kaposi sarcoma, AIDS. Patient still having pain in both legs. States that it is not changing at all. No other complaints at this time. Objective Vitals Vital Signs Date Time Temp Pulse Resp B/P (MAP) Pulse Ox O2 Delivery O2 Flow Rate FiO2 02/28/18 08:00 98.3 68 18 112/60 (77) 100 02/28/18 00:00 97.7 64 18 113/68 (83) 100 02/27/18 21:25 99.2 02/27/18 20:00 101.3 84 18 114/61 (78) 97 02/27/18 16:00 99.6 81 16 117/65 (82) 99 02/27/18 12:00 98.7 81 15 111/63 (79) 99 I/O 02/27/18 02/27/18 02/27/18 02/28/18 02/28/18 02/28/18 07:00 15:00 23:00 07:00 15:00 23:00 Intake Total 240 ml 500 ml 240 ml Output Total 600 ml 600 ml 950 ml Balance -360 ml -100 ml -710 ml Intake Oral 240 ml 500 ml 240 ml Output Urine Total 600 ml 600 ml 950 ml # Bowel Movements 0 0 Result Diagram: 02/28/18 0637 02/28/18 0637 Imaging Last Impressions Chest X-Ray 02/25/18 0000 Signed Impressions: Service Date/Time: Sunday, February 25, 2018 15:55 - CONCLUSION: No acute disease. Christoph Fuller MD Abdomen/Pelvis CT 02/19/18 0000 Signed Impressions: Service Date/Time: Tuesday, February 20, 2018 00:12 - CONCLUSION: 1. Prominent soft tissue density/lymphadenopathy in the left mesentery measuring 2 cm. 2. Multiple small scattered retroperitoneal lymph nodes. Christoph Fuller MD Chest CT 02/18/18 0000 Signed Impressions: Service Date/Time: Sunday, February 18, 2018 03:18 - CONCLUSION: 1. Scattered interstitial and alveolar opacities predominantly within the upper lobes. 2. No pleural effusions. Christoph Fuller MD Objective Remarks General: No acute distress. Heart: Regular rate and rhythm. No murmur. Lungs: Clear to auscultation bilaterally. No wheezes, rales, or rhonchi. Breathing is nonlabored. Abdomen: Soft, nontender, nondistended. Extremities: No lower extremity edema. Psych: Alert and oriented. Skin: Diffuse ulcerative lesions. Very dry skin with flaking. Procedures Punch biopsy 02/21. Urinary Catheter: No Vascular Central Line Catheter: No A/P Problem List: (1) Sepsis ICD Code: A41.9 - Sepsis, unspecified organism (2) PNA (pneumonia) ICD Code: J18.9 - Pneumonia, unspecified organism (3) AIDS (acquired immunodeficiency syndrome), CD4 <=200 ICD Code: B20 - Human immunodeficiency virus [HIV] disease Assessment and Plan 1. Sepsis: Presented with fever, tachycardia. Source is pneumonia, bacteremia. Patient is immunocompromised. Initial blood cultures growing coag negative staph. Repeat blood cultures are negative. Appreciate infectious disease recommendations. Vancomycin discontinued. Continues to have fever. Repeat blood cultures are pending. 2. Pneumonia: Chest CT shows scattered interstitial and alveolar opacities. Continue IV antibiotics. DuoNeb as needed. Symbicort. Supplemental oxygen as needed. 3. AIDS: CD4 count less than 20. Patient has been noncompliant with medications. Continue azithromycin weekly. Appreciate infectious disease recommendations. 4. Kaposi's sarcoma: Pathology pending. Appreciate oncology recommendations. 5. DVT prophylaxis: MARK Sigala. Discharge Planning Pending pathology, clearance by infectious disease and oncology. Problem Qualifiers (1) PNA (pneumonia): Qualified Codes: J18.1 - Lobar pneumonia, unspecified organism Pablito Caro MD Feb 28, 2018 10:59
[2018-02-28] MEDS: LORazepam 0.5 MG TAB PO PRN (11:17)
--- NOTE | 2018-02-28 11:30 | PD.ONC.PN ---
Subjective Subjective Remarks Tmax 101.3 overnight. Patient resting in room. complaining of continued pain and itching with rash. Objective Data Date Time Temp Pulse Resp B/P (MAP) Pulse Ox O2 Delivery O2 Flow Rate FiO2 02/28/18 08:00 98.3 68 18 112/60 (77) 100 02/28/18 00:00 97.7 64 18 113/68 (83) 100 02/27/18 21:25 99.2 02/27/18 20:00 101.3 84 18 114/61 (78) 97 02/27/18 16:00 99.6 81 16 117/65 (82) 99 02/27/18 12:00 98.7 81 15 111/63 (79) 99 02/28/18 02/28/18 02/28/18 07:00 15:00 23:00 Intake Total 240 ml Output Total 950 ml Balance -710 ml Result Diagram: 02/28/18 0637 02/28/18 0637 Laboratory Results Laboratory Tests Test 02/27/18 13:50 02/28/18 06:37 Hepatitis A IgM Antibody NONREACTIVE Hepatitis B Surface Antigen NONREACTIVE Hepatitis B Core IgM Antibody NONREACTIVE Hepatitis C IgG Antibody NONREACTIVE White Blood Count 3.1 TH/MM3 Red Blood Count 3.08 MIL/MM3 Hemoglobin 8.8 GM/DL Hematocrit 25.8 % Mean Corpuscular Volume 83.8 FL Mean Corpuscular Hemoglobin 28.6 PG Mean Corpuscular Hemoglobin Concent 34.2 % Red Cell Distribution Width 15.3 % Platelet Count 124 TH/MM3 Mean Platelet Volume 8.0 FL CBC Comment AUTO DIFF Differential Total Cells Counted 100 Neutrophils % (Manual) 54 % Band Neutrophils % 12 % Lymphocytes % 11 % Monocytes % 14 % Eosinophils % 5 % Neutrophils # (Manual) 2.2 TH/MM3 Metamyelocytes 1 % Myelocytes 3 % Differential Comment FINAL DIFF MANUAL Platelet Estimate LOW Platelet Morphology Comment NORMAL Ovalocytes 1+ Blood Urea Nitrogen 15 MG/DL Creatinine 0.78 MG/DL Random Glucose 86 MG/DL Calcium Level 8.3 MG/DL Magnesium Level 2.4 MG/DL Sodium Level 141 MEQ/L Potassium Level 4.0 MEQ/L Chloride Level 109 MEQ/L Carbon Dioxide Level 24.5 MEQ/L Anion Gap 8 MEQ/L Estimat Glomerular Filtration Rate 112 ML/MIN Culture Results Microbiology Date/Time Source Procedure Growth Status 02/27/18 14:00 Blood Peripheral Mycobacterial Culture Pending Received 02/27/18 12:00 Blood Peripheral Aerobic Blood Culture - Preliminary NO GROWTH IN 1 DAY Resulted 02/27/18 12:00 Blood Peripheral Anaerobic Blood Culture - Preliminary NO GROWTH IN 1 DAY Resulted 02/27/18 11:54 Blood Peripheral Aerobic Blood Culture - Preliminary NO GROWTH IN 1 DAY Resulted 02/27/18 11:54 Blood Peripheral Anaerobic Blood Culture - Preliminary NO GROWTH IN 1 DAY Resulted Administered Medications Medications (Trade) Dose Ordered Sig/Frank Route PRN Reason Start Time Stop Time Status Last Admin Dose Admin Sodium Chloride (NS Flush) 2 ml BID IV FLUSH 02/18/18 09:00 02/28/18 07:28 Ondansetron HCl (Zofran Inj) 4 mg Q6H PRN IVP NAUSEA OR VOMITING 02/18/18 04:45 02/19/18 19:00 Acetaminophen (Tylenol) 650 mg Q6H PRN PO FEVER/PAIN SCALE 1 TO 2 02/18/18 04:45 02/27/18 19:37 Senna/Docusate Sodium (Edilia-Colace) 1 tab BID PO 02/18/18 09:00 02/26/18 08:05 Azithromycin (Zithromax) 1,200 mg Q7D PO 02/18/18 06:00 02/25/18 05:35 Buspirone HCl (Buspar) 5 mg Q12HR PO 02/18/18 09:00 02/28/18 07:27 Nystatin (Mycostatin Liq) 5 ml QID SWISH-SWAL 02/18/18 09:00 02/18/18 08:34 Lorazepam (Ativan) 0.5 mg Q6H PRN PO anxiety 02/19/18 10:00 02/28/18 11:17 Oxycodone HCl (Roxicodone) 15 mg Q4H PRN PO pain 6-10 02/22/18 15:45 02/26/18 09:52 Nystatin (Mycostatin Cream) 1 applic Q12HR TOPICAL 02/23/18 12:30 02/26/18 08:07 Objective Remarks GENERAL: thin, malnourished, somewhat disheveled male, sitting up in bed, working on computer. SKIN: Warm and dry. dry, flaking skin, plaque like rash on trunk, face and extremities. HEAD: Normocephalic. EYES: No injection or drainage. NECK: Supple, trachea midline. EXTREMITIES: No cyanosis NEUROLOGICAL: awake and alert. normal speech. 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 Discussed with pathology, preliminary path atypical for KS. Further staining is pending. --discussed with , once path confirms KS, he can start XRT as outpt. --primary treatment would be antiretroviral therapy, if compliant with antiretroviral therapy, could consider treatment with systemic chemotherapy. He is not a candidate for chemo right now with CD4 <20. --started having skin lesions at least 6-8 month ago. --The 2 biggest patches behind the knee are painful. --appearance of the skin lesions is consistent with Kaposi sarcoma. --CT lung showed interstitial alveolar opacity, but no obvious metastatic disease. --CT ab/pelvis shows prominent soft tissue density/lymphadenopathy 2cm (2) AIDS (acquired immunodeficiency syndrome), CD4 <=200 ICD Codes: B20 - Human immunodeficiency virus [HIV] disease Plan: --has poorly controlled human immunodeficiency virus/acquired immunodeficiency syndrome --noncompliant with antiretroviral therapy. --stopped antiretroviral therapy many years ago --08/2017, CD4 count was only 49. Repeat test CD4 <20. (3) Sepsis ICD Codes: A41.9 - Sepsis, unspecified organism Plan: --on antibiotics per ID. Cx + coag neg staph. Still has fever. Assessment 38y/o male with HIV/AIDS and Kaposi sarcoma. Plan 1. continue antibiotics per ID. 2. will ask surgery for repeat biopsy, initial biopsy returned showing ? psoriasis. 3. continue supportive care. Attending Statement The exam, history, and the medical decision-making described in the above note were completed with the assistance of the mid-level provider. I reviewed and agree with the findings presented. I attest that I had a [id number] encounter with the patient on the same day, and personally performed and documented my assessment and findings in the medical record. Still febrile. SOB/cough improved. Skin lesion stable. Discussed with dermatopathologist. The skin biopsy appear to be psoriasis and atypical for KS. Pt is a poor historian and think he may have psoriasis in the past but not very sure. Will consult surgery to repeat another biopsy. Neelima Madison Feb 28, 2018 11:30 Tee Ash MD Feb 28, 2018 17:21
[2018-02-28] MEDS ORDERED: LIDOCAINE 1%/EPINEPHrine 1:100,000 SOLN 20 ML VIAL INFIL ONE (11:45)
[2018-02-28 12:00] VITALS: BP 106/67; PULSE 67; RESP 18; TEMP 98.1; O2SAT 94
[2018-02-28] MEDS ORDERED: LIDOCAINE 1%/EPINEPHrine 1:100,000 SOLN 30 ML VIAL ONE (12:16)
--- NOTE | 2018-02-28 15:48 | PD.OP ---
cc: Prabhjot Shipman MD Operative Report Date of Surgery: Feb 28, 2018 Preoperative Diagnosis: (1) Rash (2) AIDS (acquired immunodeficiency syndrome), CD4 <=200 Skin lesions of unknown origin Postoperative Diagnosis: (1) Rash (2) AIDS (acquired immunodeficiency syndrome), CD4 <=200 Procedure: Skin punch biopsy of LEFT midback. Anesthesia: Local Surgeon: Pallavi BROWN supervised by Dr. Shipman Pad Making Machine Operator(s): Cherie SANDERS Operation and Findings: This is a 38 year old male with multiple lesions in need of a repeat skin punch biopsy. After the procedure was explained in detail and all questions were answered, informed consent was obtained. A proper timeout was completed. The area was cleaned with Betadine prep sticks and lidocaine was injected as wheals into the area. Once the area was properly anesthetized a 4mm punch biopsy was used to obtain two separate specimens that were placed sterilely in formalin. The two sites were closed with a 3-0 nylon suture. A bandage was applied. There as an EBL of <5cc. The patient tolerated the procedure well. All supplies and sharp instruments were collected and disposed of properly. The patient's bed was placed in the lowest position and his bedside table was then placed on his LEFT side. Pallavi Huddleston/Core Driller Helper STEPHANIE Feb 28, 2018 15:48 Prabhjot Shipman MD Feb 28, 2018 18:31
[2018-02-28 16:00] VITALS: BP 120/70; PULSE 90; RESP 18; TEMP 99; O2SAT 98
[2018-02-28 20:00] VITALS: BP 106/63; PULSE 86; RESP 20; TEMP 98.4; O2SAT 99
[2018-03-01] VITALS: BP 104/59; PULSE 80; RESP 20; TEMP 99.9; O2SAT 99
--- NOTE | 2018-03-01 07:22 | PD.ONC.PN ---
Subjective Subjective Remarks SOB/cough resolving. c/o needle stick and blood draw. Objective Data Date Time Temp Pulse Resp B/P (MAP) Pulse Ox O2 Delivery O2 Flow Rate FiO2 03/01/18 00:00 99.9 80 20 104/59 (74) 99 02/28/18 20:00 98.4 86 20 106/63 (77) 99 02/28/18 16:00 99.0 90 18 120/70 (87) 98 02/28/18 12:00 98.1 67 18 106/67 (80) 94 02/28/18 08:00 98.3 68 18 112/60 (77) 100 03/01/18 03/01/18 03/01/18 07:00 15:00 23:00 Intake Total 320 ml Output Total 500 ml Balance -180 ml Result Diagram: 02/28/1837 02/28/18 06 Laboratory Results Laboratory Tests Test 02/28/18 11:25 Lactic Acid Level 1.7 mmol/L Culture Results Microbiology Date/Time Source Procedure Growth Status 02/27/18 14:00 Blood Peripheral Mycobacterial Culture Pending Received 02/27/18 12:00 Blood Peripheral Aerobic Blood Culture - Preliminary Gram Positive Cocci Resulted 02/27/18 12:00 Blood Peripheral Anaerobic Blood Culture - Preliminary NO GROWTH IN 1 DAY Resulted 02/27/18 11:54 Blood Peripheral Aerobic Blood Culture - Preliminary NO GROWTH IN 1 DAY Resulted 02/27/18 11:54 Blood Peripheral Anaerobic Blood Culture - Preliminary NO GROWTH IN 1 DAY Resulted Administered Medications Medications (Trade) Dose Ordered Sig/Frank Route PRN Reason Start Time Stop Time Status Last Admin Dose Admin Sodium Chloride (NS Flush) 2 ml BID IV FLUSH 02/18/18 09:00 02/28/18 20:59 Ondansetron HCl (Zofran Inj) 4 mg Q6H PRN IVP NAUSEA OR VOMITING 02/18/18 04:45 02/19/18 19:00 Acetaminophen (Tylenol) 650 mg Q6H PRN PO FEVER/PAIN SCALE 1 TO 2 02/18/18 04:45 02/27/18 19:37 Senna/Docusate Sodium (Edilia-Colace) 1 tab BID PO 02/18/18 09:00 02/26/18 08:05 Azithromycin (Zithromax) 1,200 mg Q7D PO 02/18/18 06:00 02/25/18 05:35 Buspirone HCl (Buspar) 5 mg Q12HR PO 02/18/18 09:00 02/28/18 07:27 Nystatin (Mycostatin Liq) 5 ml QID SWISH-SWAL 02/18/18 09:00 02/18/18 08:34 Lorazepam (Ativan) 0.5 mg Q6H PRN PO anxiety 02/19/18 10:00 02/28/18 11:17 Oxycodone HCl (Roxicodone) 15 mg Q4H PRN PO pain 6-10 02/22/18 15:45 02/26/18 09:52 Nystatin (Mycostatin Cream) 1 applic Q12HR TOPICAL 02/23/18 12:30 02/26/18 08:07 Objective Remarks GENERAL: Well-nourished, well-developed patient. SKIN: Warm and dry. Diffused skin lesion/plague throughout the body. Biopsy site left mid back no bleeding. HEAD: Normocephalic. EYES: No scleral icterus. No injection or drainage. NECK: Supple, trachea midline. No JVD or lymphadenopathy. LYMPHATIC: No adenopathy. CARDIOVASCULAR: Regular rate and rhythm without murmurs. RESPIRATORY: Breath sounds equal bilaterally. No accessory muscle use. GASTROINTESTINAL: Abdomen soft, non-tender, nondistended. EXTREMITIES: No cyanosis, or edema. MUSCULOSKELETAL: Adequate muscle tone. NEUROLOGICAL: No obvious focal deficit. Awake, alert, and oriented x3. PSYCHIATRIC: Appropriate mood and affect; insight and judgment normal. 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 Discussed with dermatopathology, preliminary path atypical for KS. It is more suggestive of psoriasis. Further staining is pending. Repeat biopsy left mid back 02/28, path pending. --discussed with , once path confirms KS, he can start XRT as outpt. --primary treatment would be antiretroviral therapy, if compliant with antiretroviral therapy, could consider treatment with systemic chemotherapy. He is not a candidate for chemo right now with CD4 <20. --started having skin lesions at least 6-8 month ago. --The 2 biggest patches behind the knee are painful. --appearance of the skin lesions is consistent with Kaposi sarcoma. --CT lung showed interstitial alveolar opacity, but no obvious metastatic disease. --CT ab/pelvis shows prominent soft tissue density/lymphadenopathy 2cm (2) AIDS (acquired immunodeficiency syndrome), CD4 <=200 ICD Codes: B20 - Human immunodeficiency virus [HIV] disease Plan: --has poorly controlled human immunodeficiency virus/acquired immunodeficiency syndrome --noncompliant with antiretroviral therapy. --stopped antiretroviral therapy many years ago --08/2017, CD4 count was only 49. Repeat test CD4 <20. (3) Sepsis ICD Codes: A41.9 - Sepsis, unspecified organism Plan: --on antibiotics per ID. Cx + coag neg staph. Still has fever. Assessment 38y/o male with HIV/AIDS and Kaposi sarcoma. Plan 1. continue antibiotics per ID. 2. Await path. Will discussed with dermatopathologist further. 3. continue supportive care. Tee Ash MD Mar 01, 2018 07:22
[2018-03-01 08:00] VITALS: BP 114/67; PULSE 84; RESP 18; TEMP 99.1; O2SAT 98
[2018-03-01] MEDS: SODIUM CHLORIDE 0.9% FLUSH 10 ML FLUSH IV FLUSH SCH ×2 (08:38→20:39)
[2018-03-01] MEDS: DOCUSATE SODIUM 50 MG/SENNA 8.6 MG TAB PO SCH ×2 (08:38→20:39)
[2018-03-01] MEDS: busPIRone HCL 5 MG TAB PO SCH ×2 (08:38→20:38)
[2018-03-01] MEDS: NYSTATIN SUSP 500,000 U/5 ML CUP SWISH-SWAL SCH ×4 (08:38→20:39)
[2018-03-01] MEDS: NYSTATIN 100,000 UNIT/GM CREAM 15 GM TOPICAL SCH (08:43)
[2018-03-01 11:45] LABS: AUTOMATED NEUTROPHIL # 2.8 TH/MM3 (1.8-7.7); BASOPHIL % 0.3 % (0.0-2.0); EOSINOPHIL % 0.7 % (0.0-4.0); HEMATOCRIT 25.4 % (39.0-51.0); HEMOGLOBIN 8.8 GM/DL (13.0-17.0); LYMPHOCYTE # 0.6 TH/MM3 (1.0-4.8); MEAN CELL VOLUME 83.5 FL (80.0-100.0); MEAN CORPUSCULAR HEMOGLOBIN 29.1 PG (27.0-34.0); MEAN CORPUSCULAR HGB CONC 34.8 % (32.0-36.0); MEAN PLATELET VOLUME 7.9 FL (7.0-11.0); MONO % 12.4 % (0.0-8.0); MONOCYTE # 0.5 TH/MM3 (0-0.9); NEUT % 70.6 % (16.0-70.0); PLATELET COUNT 136 TH/MM3 (150-450); RED BLOOD COUNT 3.04 MIL/MM3 (4.50-5.90); RED CELL DISTRIBUTION WIDTH 14.9 % (11.6-17.2)
[2018-03-01 12:00] VITALS: BP 130/70; PULSE 81; RESP 18; TEMP 99; O2SAT 99
[2018-03-01 12:00] LABS: CREATININE 0.89 MG/DL (0.60-1.30)
--- NOTE | 2018-03-01 13:05 | HHI.PR ---
Subjective Remarks Follow up bacteremia, fever, skin lesions. Patient still having the same pain in his legs. No other complaints at this time. Objective Vitals Vital Signs Date Time Temp Pulse Resp B/P (MAP) Pulse Ox O2 Delivery O2 Flow Rate FiO2 03/01/18 08:00 99.1 84 18 114/67 (83) 98 03/01/18 00:00 99.9 80 20 104/59 (74) 99 02/28/18 20:00 98.4 86 20 106/63 (77) 99 02/28/18 16:00 99.0 90 18 120/70 (87) 98 I/O 02/28/18 02/28/18 02/28/18 03/01/18 03/01/18 03/01/18 07:00 15:00 23:00 07:00 15:00 23:00 Intake Total 240 ml 840 ml 320 ml Output Total 950 ml 800 ml 500 ml Balance -710 ml 40 ml -180 ml Intake Oral 240 ml 840 ml 320 ml Output Urine Total 950 ml 800 ml 500 ml # Bowel Movements 0 0 0 Result Diagram: 03/01/18 1107 03/01/18 1107 Imaging Last Impressions Chest X-Ray 02/25/18 0000 Signed Impressions: Service Date/Time: Sunday, February 25, 2018 15:55 - CONCLUSION: No acute disease. Christoph Fuller MD Abdomen/Pelvis CT 02/19/18 0000 Signed Impressions: Service Date/Time: Tuesday, February 20, 2018 00:12 - CONCLUSION: 1. Prominent soft tissue density/lymphadenopathy in the left mesentery measuring 2 cm. 2. Multiple small scattered retroperitoneal lymph nodes. Christoph Fuller MD Chest CT 02/18/18 0000 Signed Impressions: Service Date/Time: Sunday, February 18, 2018 03:18 - CONCLUSION: 1. Scattered interstitial and alveolar opacities predominantly within the upper lobes. 2. No pleural effusions. Christoph Fuller MD Objective Remarks General: No acute distress. Heart: Regular rate and rhythm. No murmur. Lungs: Clear to auscultation bilaterally. No wheezes, rales, or rhonchi. Breathing is nonlabored. Abdomen: Soft, nontender, nondistended. Extremities: No lower extremity edema. Psych: Alert and oriented. Skin: Diffuse ulcerative lesions. Very dry skin with flaking. Procedures Punch biopsy 02/21. Punch biopsy 02/28 Urinary Catheter: No Vascular Central Line Catheter: No A/P Problem List: (1) Sepsis ICD Code: A41.9 - Sepsis, unspecified organism (2) PNA (pneumonia) ICD Code: J18.9 - Pneumonia, unspecified organism (3) AIDS (acquired immunodeficiency syndrome), CD4 <=200 ICD Code: B20 - Human immunodeficiency virus [HIV] disease Assessment and Plan 1. Sepsis: Presented with fever, tachycardia. Source is pneumonia, bacteremia. Patient is immunocompromised. Initial blood cultures growing coag negative staph. Repeat blood cultures from 02/20/18 are negative. Appreciate infectious disease recommendations. Vancomycin discontinued. Continues to have fever. Repeat blood cultures from 02/27/18 are growing Staph aureus. 2. Pneumonia: Chest CT shows scattered interstitial and alveolar opacities. DuoNeb as needed. Symbicort. Supplemental oxygen as needed. Vancomycin and atovaquone discontinued by infectious disease. 3. AIDS: CD4 count less than 20. Patient has been noncompliant with medications. Continue azithromycin weekly. Appreciate infectious disease recommendations. 4. Kaposi's sarcoma: Pathology inconclusive. Repeat biopsy obtained 02/28/18. Appreciate oncology recommendations. 5. DVT prophylaxis: MARK Sigala. Discharge Planning Pending pathology, clearance by infectious disease and oncology. Problem Qualifiers (1) PNA (pneumonia): Qualified Codes: J18.1 - Lobar pneumonia, unspecified organism Pablito Caro MD Mar 01, 2018 13:05
[2018-03-01 13:15] LABS: BANDS 8 % (0-6); LYMPHOCYTES 13 % (9-44); MONOCYTES 7 % (0-8); MYELOCYTES 2 % (0-0); NEUTROPHIL # MANUAL DIFF 3.2 TH/MM3 (1.8-7.7); OVALOCYTES 1+ (NORMAL); POLYS (SEG NEUTROPHILS) 70 % (16-70); TOXIC GRANULATION 1+ (NORMAL)
[2018-03-01] MEDS: LORazepam 0.5 MG TAB PO PRN (13:56)
[2018-03-01 16:00] VITALS: BP 130/67; PULSE 88; RESP 18; TEMP 98.7; O2SAT 99
[2018-03-01] MEDS ORDERED: CEFAZOLIN INJ 2,000 MG in SODIUM CHLORIDE 0.9% INJ 100 ML IV SCH (17:00)
--- NOTE | 2018-03-01 17:03 | HHI.IDPN ---
Note Infectious Disease Note Patient notes that he has pain in his joints. He also notes some pain in his fingernails. Low-grade fever. One blood culture bottle from 02/27 has staph aureus. Denies nausea, vomiting, abdominal pain or diarrhea. Continues to have flaking of the skin. Pathology specimen on the skin biopsy shows psoriasis. Repeat skin biopsy pending. Blood cultures had staph staph coag negative on 02/18. The CD4 count is less than 20. 38-year-old white male who has HIV disease. The patient was brought to the emergency department because of shortness of breath. He also noted having pain from skin lesions. He states that approximately 1-2 months ago, he broke out in a skin rash and multiple skin lesions all over his body. He has not seen a physician for that problem. The patient is a very poor historian. He also has memory problems. He was evaluated and treated for pneumonia in September 2017 and was discharged on oral antibiotics and requested to make an appointment to followup with the [facility] for HIV management. He never did so. He states that he was having difficulty getting through on the telephone. He also states that he lives with his grandmother and does not have transportation because his grandmother does not drive. His CD4 count in September was 249. PAST MEDICAL HISTORY: Inguinal hernia, pneumonia, HIV disease. ALLERGIES: SULFAMETHOXAZOLE, TRIMETHOPRIM. MEDICATIONS: Current Medications Medications (Trade) Dose Ordered Sig/Frank Route PRN Reason Start Time Stop Time Status Last Admin Dose Admin Albuterol/ Ipratropium (Duoneb Neb) 1 ampule Q4HR NEB PRN NEB SOB/WHEEZING 02/18/18 04:45 Sodium Chloride (NS Flush) 2 ml UNSCH PRN IV FLUSH FLUSH AFTER USING IV ACCESS 02/18/18 04:45 Sodium Chloride (NS Flush) 2 ml BID IV FLUSH 02/18/18 09:00 03/01/18 08:38 Ondansetron HCl (Zofran Inj) 4 mg Q6H PRN IVP NAUSEA OR VOMITING 02/18/18 04:45 02/19/18 19:00 Acetaminophen (Tylenol) 650 mg Q6H PRN PO FEVER/PAIN SCALE 1 TO 2 02/18/18 04:45 02/27/18 19:37 Acetaminophen/ Hydrocodone Bitart (Morse 5-325 Mg) 1 tab Q4H PRN PO PAIN SCALE 3 TO 5 02/18/18 04:45 Senna/Docusate Sodium (Edilia-Colace) 1 tab BID PO 02/18/18 09:00 03/01/18 08:38 Magnesium Hydroxide (Milk Of Magnesia Liq) 30 ml Q12H PRN PO Mild constipation 02/18/18 04:45 Sennosides (Senokot) 17.2 mg Q12H PRN PO Moderate constipation 02/18/18 04:45 Bisacodyl (Dulcolax Supp) 10 mg DAILY PRN RECTAL SEVERE CONSITIPATION 02/18/18 04:45 Lactulose (Lactulose Liq) 30 ml DAILY PRN PO SEVERE CONSITIPATION 02/18/18 04:45 Azithromycin (Zithromax) 1,200 mg Q7D PO 02/18/18 06:00 02/25/18 05:35 Buspirone HCl (Buspar) 5 mg Q12HR PO 02/18/18 09:00 03/01/18 08:38 Nystatin (Mycostatin Liq) 5 ml QID SWISH-SWAL 02/18/18 09:00 03/01/18 08:38 Lorazepam (Ativan) 0.5 mg Q6H PRN PO anxiety 02/19/18 10:00 03/01/18 13:56 Oxycodone HCl (Roxicodone) 15 mg Q4H PRN PO pain 6-10 02/22/18 15:45 02/26/18 09:52 Nystatin (Mycostatin Cream) 1 applic Q12HR TOPICAL 02/23/18 12:30 02/26/18 08:07 Hydrocortisone (Hydrocortisone 1% Cream) 1 applic Q8H TOPICAL 03/01/18 17:00 UNV Cefazolin Sodium/ Dextrose 50 ml @ 100 mls/hr Q8H IV 03/01/18 17:00 UNV OBJECTIVE: Vital Signs Date Time Temp Pulse Resp B/P (MAP) Pulse Ox O2 Delivery O2 Flow Rate FiO2 03/01/18 12:00 99.0 81 18 130/70 (90) 99 03/01/18 08:00 99.1 84 18 114/67 (83) 98 03/01/18 00:00 99.9 80 20 104/59 (74) 99 02/28/18 20:00 98.4 86 20 106/63 (77) 99 Laboratory Tests Test 02/28/18 06:37 03/01/18 11:07 White Blood Count 3.1 TH/MM3 4.0 TH/MM3 Red Blood Count 3.08 MIL/MM3 3.04 MIL/MM3 Hemoglobin 8.8 GM/DL 8.8 GM/DL Hematocrit 25.8 % 25.4 % Mean Corpuscular Volume 83.8 FL 83.5 FL Mean Corpuscular Hemoglobin 28.6 PG 29.1 PG Mean Corpuscular Hemoglobin Concent 34.2 % 34.8 % Red Cell Distribution Width 15.3 % 14.9 % Platelet Count 124 TH/MM3 136 TH/MM3 Mean Platelet Volume 8.0 FL 7.9 FL CBC Comment AUTO DIFF AUTO DIFF Differential Total Cells Counted 100 100 Neutrophils % (Manual) 54 % 70 % Band Neutrophils % 12 % 8 % Lymphocytes % 11 % 13 % Monocytes % 14 % 7 % Eosinophils % 5 % Neutrophils # (Manual) 2.2 TH/MM3 3.2 TH/MM3 Metamyelocytes 1 % Myelocytes 3 % 2 % Differential Comment FINAL DIFF MANUAL FINAL DIFF MANUAL Platelet Estimate LOW LOW Platelet Morphology Comment NORMAL NORMAL Ovalocytes 1+ 1+ Neutrophils (%) (Auto) 70.6 % Lymphocytes (%) (Auto) 16.0 % Monocytes (%) (Auto) 12.4 % Eosinophils (%) (Auto) 0.7 % Basophils (%) (Auto) 0.3 % Neutrophils # (Auto) 2.8 TH/MM3 Lymphocytes # (Auto) 0.6 TH/MM3 Monocytes # (Auto) 0.5 TH/MM3 Eosinophils # (Auto) 0.0 TH/MM3 Basophils # (Auto) 0.0 TH/MM3 Toxic Granulation 1+ Laboratory Tests Test 02/28/18 06:37 02/28/18 11:25 03/01/18 11:07 Blood Urea Nitrogen 15 MG/DL Creatinine 0.78 MG/DL 0.89 MG/DL Random Glucose 86 MG/DL Calcium Level 8.3 MG/DL Magnesium Level 2.4 MG/DL Sodium Level 141 MEQ/L Potassium Level 4.0 MEQ/L Chloride Level 109 MEQ/L Carbon Dioxide Level 24.5 MEQ/L Anion Gap 8 MEQ/L Estimat Glomerular Filtration Rate 112 ML/MIN 96 ML/MIN Lactic Acid Level 1.7 mmol/L Microbiology Date/Time Source Procedure Growth Status 02/27/18 14:00 Blood Peripheral Mycobacterial Culture Pending Received 02/27/18 12:00 Blood Peripheral Aerobic Blood Culture - Preliminary Staphylococcus Aureus Resulted 02/27/18 12:00 Blood Peripheral Anaerobic Blood Culture - Preliminary NO GROWTH IN 2 DAYS Resulted 02/27/18 11:54 Blood Peripheral Aerobic Blood Culture - Preliminary NO GROWTH IN 2 DAYS Resulted 02/27/18 11:54 Blood Peripheral Anaerobic Blood Culture - Preliminary NO GROWTH IN 2 DAYS Resulted Imaging: Chest X-Ray 02/25/18 0000 Signed Impressions: Service Date/Time: Sunday, February 25, 2018 15:55 - CONCLUSION: No acute disease. Christoph Fuller MD Abdomen/Pelvis CT 02/19/18 0000 Signed Impressions: Service Date/Time: Tuesday, February 20, 2018 00:12 - CONCLUSION: 1. Prominent soft tissue density/lymphadenopathy in the left mesentery measuring 2 cm. 2. Multiple small scattered retroperitoneal lymph nodes. Christoph Fuller MD Chest X-Ray 02/18/18 0110 Signed Impressions: Service Date/Time: Sunday, February 18, 2018 01:20 - CONCLUSION: No acute disease. Christoph Fuller MD Chest CT 02/18/18 0000 Signed Impressions: Service Date/Time: Sunday, February 18, 2018 03:18 - CONCLUSION: 1. Scattered interstitial and alveolar opacities predominantly within the upper lobes. 2. No pleural effusions. Christoph Fuller MD PHYSICAL EXAMINATION: GENERAL: No acute distress. HEENT: The diffuse rash of the face covering the entire face is unchanged and flaking of the skin along with some fissures which are now dry. Extraocular movements grossly intact. Pupils reactive to light. Pale sclerae. Oropharynx: Moist mucosa. No visible thrush. No visible lesions. NECK: Supple without adenopathy. LUNGS: Clear breath sounds. HEART: Regular S1 and S2. No murmurs. ABDOMEN: Bowel sounds present. Soft, no tenderness appreciated. EXTREMITIES: Diffuse, maculopapular erythematous lesions with some Being flat and ulcerated. scattered all over the extremities. Some of these have a grainy surface appearance. No clubbing, cyanosis or edema. SKIN: Diffuse round superficial ulcerative erythematous lesions scattered throughout including the trunk, abdomen, extremities and back and the face has diffuse erythematous rash and very dry skin with flaking and also this involves the scalp where the skin is also exfoliating. A few of the fingernails has discoloration under the nail. NEUROLOGIC: No gross focal findings. PSYCHIATRIC: The patient is calm and cooperative. IV lines without evidence of infection. IMPRESSION: 1. Bacteremia with staph coagulase-negative. Questionable source. Patient now has staph aureus growing in 1 of 4 bottles. Unclear significance. Patient is not toxic appearing. 2. Fever. Pneumonia. The patient had bilateral lung infiltrates, likely opportunistic infection in this patient with low CD4 count and severe immunosuppression from acquired immune deficiency syndrome. Fever could also be related to the underlying HIV disease. Since he remained stable and the chest x-ray does not of acute infiltrate, vancomycin and atovaquone has been stopped. 3. Acquired immune deficiency syndrome. CD4 count less than 20. 4. 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 Oncology following. Biopsy performed and pathology results pending. ? eczema component of the rash on the face. 5. 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 6. Patient with poor insight regarding his condition and appears unable to care for himself. 7. Psoriasis on skin biopsy. Repeat skin biopsy pending. I have spoken to microbiology about the blood cultures. I was notified that it grew on the plate and therefore probably is not contaminant. However the patient is nontoxic appearing. RECOMMENDATIONS: 1. Continue Zithromax. 2. Given Ancef IV and repeat the blood cultures. Continue to monitor temperature. 3. Apply hydrocortisone cream to the face. 4. Follow the repeat skin biopsy. 5. Monitor HIV genotype study. He may need to be started on HIV regimen soon. This is probably best addressed at the health department. 6. Monitor blood culture for AFB. Case management to help the patient to have appointment made for health department to address HIV medications and also to try to get him on the [facility] program so he can be followed for the HIV disease. This is important because without adequate addressing of the HIV treatment he is likely to continue to decline. Syed Will MD Mar 01, 2018 17:03
[2018-03-01] MEDS: ceFAZolin 2 GM PREMIX 50 ML IV SCH (18:09)
[2018-03-01 20:00] VITALS: BP 113/55; PULSE 85; RESP 17; TEMP 99.7; O2SAT 98
[2018-03-01] MEDS: HYDROCORTISONE 1% CREAM 30 GM TOPICAL SCH (22:00)
[2018-03-02] VITALS: BP 119/59; PULSE 82; RESP 17; TEMP 98.9; O2SAT 95
[2018-03-02] MEDS: NYSTATIN 100,000 UNIT/GM CREAM 15 GM TOPICAL SCH ×3 (00:30→20:28)
[2018-03-02] MEDS: HYDROCORTISONE 1% CREAM 30 GM TOPICAL SCH ×4 (00:30→20:28)
[2018-03-02] MEDS: ceFAZolin 2 GM PREMIX 50 ML IV SCH ×3 (00:30→16:27)
[2018-03-02 08:00] VITALS: BP 102/65; PULSE 86; RESP 17; TEMP 100.1; O2SAT 98
[2018-03-02 08:08] LABS: HEMATOCRIT 23.5 % (39.0-51.0); MEAN CELL VOLUME 84.9 FL (80.0-100.0); MEAN CORPUSCULAR HEMOGLOBIN 29.1 PG (27.0-34.0); MEAN CORPUSCULAR HGB CONC 34.2 % (32.0-36.0); MEAN PLATELET VOLUME 8.3 FL (7.0-11.0); PLATELET COUNT 136 TH/MM3 (150-450); RED BLOOD COUNT 2.77 MIL/MM3 (4.50-5.90); RED CELL DISTRIBUTION WIDTH 15.1 % (11.6-17.2); WHITE BLOOD COUNT 4.4 TH/MM3 (4.0-11.0)
[2018-03-02 08:11] LABS: BICARBONATE 21.7 MEQ/L (21.0-32.0); CALCIUM 8.3 MG/DL (8.5-10.1); CREATININE 0.98 MG/DL (0.60-1.30)
[2018-03-02] MEDS: NYSTATIN SUSP 500,000 U/5 ML CUP SWISH-SWAL SCH ×4 (09:00→20:27)
[2018-03-02] MEDS: busPIRone HCL 5 MG TAB PO SCH ×2 (09:00→20:27)
[2018-03-02] MEDS: DOCUSATE SODIUM 50 MG/SENNA 8.6 MG TAB PO SCH ×2 (09:00→20:27)
[2018-03-02 10:12] LABS: BANDS 7 % (0-6); LYMPHOCYTES 12 % (9-44); MONOCYTES 12 % (0-8); MYELOCYTES 1 % (0-0); NEUTROPHIL # MANUAL DIFF 3.3 TH/MM3 (1.8-7.7); POLYS (SEG NEUTROPHILS) 68 % (16-70)
[2018-03-02 10:13] LABS: KERATOCYTES 1+ (NORMAL); OVALOCYTES 1+ (NORMAL)
[2018-03-02] MEDS: SODIUM CHLORIDE 0.9% FLUSH 10 ML FLUSH IV FLUSH SCH ×2 (11:33→20:28)
[2018-03-02 12:00] VITALS: BP 109/65; PULSE 75; RESP 18; TEMP 98.9; O2SAT 100
--- NOTE | 2018-03-02 13:06 | HHI.PR ---
Subjective Remarks Follow-up skin lesions, fever, leukocytosis. Patient still having pain in his legs. No other complaints at this time. Objective Vitals Vital Signs Date Time Temp Pulse Resp B/P (MAP) Pulse Ox O2 Delivery O2 Flow Rate FiO2 03/02/18 12:00 98.9 75 18 109/65 (80) 100 03/02/18 08:00 100.1 86 17 102/65 (77) 98 03/02/18 00:00 98.9 82 17 119/59 (79) 95 03/01/18 20:00 99.7 85 17 113/55 (74) 98 03/01/18 16:00 98.7 88 18 130/67 (88) 99 I/O 03/01/18 03/01/18 03/01/18 03/02/18 03/02/18 03/02/18 07:00 15:00 23:00 07:00 15:00 23:00 Intake Total 320 ml 720 ml 240 ml Output Total 500 ml 800 ml 375 ml Balance -180 ml -80 ml -135 ml Intake Oral 320 ml 720 ml 240 ml Output Urine Total 500 ml 800 ml 375 ml # Voids 2 # Bowel Movements 0 0 0 Result Diagram: 03/02/18 0605 03/02/18 0605 Imaging Last Impressions Chest X-Ray 02/25/18 0000 Signed Impressions: Service Date/Time: Sunday, February 25, 2018 15:55 - CONCLUSION: No acute disease. Christoph Fuller MD Abdomen/Pelvis CT 02/19/18 0000 Signed Impressions: Service Date/Time: Tuesday, February 20, 2018 00:12 - CONCLUSION: 1. Prominent soft tissue density/lymphadenopathy in the left mesentery measuring 2 cm. 2. Multiple small scattered retroperitoneal lymph nodes. Christoph Fuller MD Chest CT 02/18/18 0000 Signed Impressions: Service Date/Time: Sunday, February 18, 2018 03:18 - CONCLUSION: 1. Scattered interstitial and alveolar opacities predominantly within the upper lobes. 2. No pleural effusions. Christoph Fuller MD Objective Remarks General: No acute distress. Heart: Regular rate and rhythm. No murmur. Lungs: Clear to auscultation bilaterally. No wheezes, rales, or rhonchi. Breathing is nonlabored. Abdomen: Soft, nontender, nondistended. Extremities: No lower extremity edema. Psych: Alert and oriented. Skin: Diffuse ulcerative lesions. Very dry skin with flaking. Procedures Punch biopsy 02/21. Punch biopsy 02/28 Urinary Catheter: No Vascular Central Line Catheter: No A/P Problem List: (1) Sepsis ICD Code: A41.9 - Sepsis, unspecified organism (2) PNA (pneumonia) ICD Code: J18.9 - Pneumonia, unspecified organism (3) AIDS (acquired immunodeficiency syndrome), CD4 <=200 ICD Code: B20 - Human immunodeficiency virus [HIV] disease Assessment and Plan 1. Sepsis: Presented with fever, tachycardia. Source is pneumonia, bacteremia. Patient is immunocompromised. Initial blood cultures growing coag negative staph. Repeat blood cultures from 02/20/18 are negative. Appreciate infectious disease recommendations. Vancomycin discontinued. Continues to have low-grade fever. Repeat blood cultures from 02/27/18 are growing Staph aureus. Continue Ancef. 2. Pneumonia: Chest CT shows scattered interstitial and alveolar opacities. DuoNeb as needed. Symbicort. Supplemental oxygen as needed. Vancomycin and atovaquone discontinued by infectious disease. 3. AIDS: CD4 count less than 20. Patient has been noncompliant with medications. Continue azithromycin weekly. Appreciate infectious disease recommendations. Awaiting lab results. 4. Skin lesions: Biopsies are consistent with psoriatic lesions. No evidence of Kaposi's sarcoma on pathology. 5. DVT prophylaxis: MARK Sigala. Discharge Planning Pending clearance by infectious disease and oncology. Problem Qualifiers (1) PNA (pneumonia): Qualified Codes: J18.1 - Lobar pneumonia, unspecified organism Pablito Caro MD Mar 02, 2018 13:06
[2018-03-02 16:00] VITALS: BP 113/62; PULSE 84; RESP 18; TEMP 100.7; O2SAT 99
[2018-03-02 20:00] VITALS: BP 114/58; PULSE 91; RESP 20; TEMP 101.1; O2SAT 96
[2018-03-02] MEDS: ACETAMINOPHEN 325 MG TAB PO PRN (20:27)
[2018-03-03] VITALS: BP 107/58; PULSE 71; RESP 19; TEMP 98.5; O2SAT 99
[2018-03-03] MEDS: ceFAZolin 2 GM PREMIX 50 ML IV SCH ×3 (01:23→17:14)
[2018-03-03] MEDS: HYDROCORTISONE 1% CREAM 30 GM TOPICAL SCH ×3 (06:00→19:31)
[2018-03-03 07:38] LABS: CREATININE 0.87 MG/DL (0.60-1.30)
[2018-03-03 08:00] VITALS: BP 112/59; PULSE 76; RESP 18; TEMP 98.4; O2SAT 99
[2018-03-03] MEDS: DOCUSATE SODIUM 50 MG/SENNA 8.6 MG TAB PO SCH ×2 (08:30→19:30)
[2018-03-03] MEDS: busPIRone HCL 5 MG TAB PO SCH ×2 (08:30→19:30)
[2018-03-03] MEDS: NYSTATIN SUSP 500,000 U/5 ML CUP SWISH-SWAL SCH ×4 (08:30→19:30)
[2018-03-03] MEDS: SODIUM CHLORIDE 0.9% FLUSH 10 ML FLUSH IV FLUSH SCH ×2 (08:31→19:30)
[2018-03-03] MEDS: NYSTATIN 100,000 UNIT/GM CREAM 15 GM TOPICAL SCH ×2 (08:32→19:31)
--- NOTE | 2018-03-03 10:15 | HHI.PR ---
Subjective Remarks Follow up fever, bacteremia. Patient has no new complaints at this time. Having the same pain in his legs. Objective Vitals Vital Signs Date Time Temp Pulse Resp B/P (MAP) Pulse Ox O2 Delivery O2 Flow Rate FiO2 03/03/18 08:00 98.4 76 18 112/59 (76) 99 03/03/18 00:00 98.5 71 19 107/58 (74) 99 03/02/18 20:00 101.1 91 20 114/58 (76) 96 03/02/18 16:00 100.7 84 18 113/62 (79) 99 03/02/18 12:00 98.9 75 18 109/65 (80) 100 I/O 03/02/18 03/02/18 03/02/18 03/03/18 03/03/18 03/03/18 07:00 15:00 23:00 07:00 15:00 23:00 Intake Total 240 ml 900 ml 1000 ml 50 ml Output Total 375 ml 900 ml 800 ml Balance -135 ml 0 ml 200 ml 50 ml Intake Oral 240 ml 900 ml 1000 ml IV Total 50 ml Output Urine Total 375 ml 900 ml 800 ml # Voids 2 # Bowel Movements 0 0 Result Diagram: 03/02/18 0605 03/03/18 0614 Imaging Last Impressions Chest X-Ray 02/25/18 0000 Signed Impressions: Service Date/Time: Sunday, February 25, 2018 15:55 - CONCLUSION: No acute disease. Christoph Fuller MD Abdomen/Pelvis CT 02/19/18 0000 Signed Impressions: Service Date/Time: Tuesday, February 20, 2018 00:12 - CONCLUSION: 1. Prominent soft tissue density/lymphadenopathy in the left mesentery measuring 2 cm. 2. Multiple small scattered retroperitoneal lymph nodes. Christoph Fuller MD Chest CT 02/18/18 0000 Signed Impressions: Service Date/Time: Sunday, February 18, 2018 03:18 - CONCLUSION: 1. Scattered interstitial and alveolar opacities predominantly within the upper lobes. 2. No pleural effusions. Christoph Fuller MD Objective Remarks General: No acute distress. Heart: Regular rate and rhythm. No murmur. Lungs: Clear to auscultation bilaterally. No wheezes, rales, or rhonchi. Breathing is nonlabored. Abdomen: Soft, nontender, nondistended. Extremities: No lower extremity edema. Psych: Alert and oriented. Skin: Diffuse ulcerative lesions. Very dry skin with flaking. Procedures Punch biopsy 02/21. Punch biopsy 02/28 Urinary Catheter: No Vascular Central Line Catheter: No A/P Problem List: (1) Sepsis ICD Code: A41.9 - Sepsis, unspecified organism (2) PNA (pneumonia) ICD Code: J18.9 - Pneumonia, unspecified organism (3) AIDS (acquired immunodeficiency syndrome), CD4 <=200 ICD Code: B20 - Human immunodeficiency virus [HIV] disease Assessment and Plan 03/03/18: Still having fever. Continue IV antibiotics. HIV labs pending. 1. Sepsis: Presented with fever, tachycardia. Source is pneumonia, bacteremia. Patient is immunocompromised. Initial blood cultures growing coag negative staph. Repeat blood cultures from 02/20/18 are negative. Appreciate infectious disease recommendations. Vancomycin discontinued. Continues to have low-grade fever. Repeat blood cultures from 02/27/18 are growing Staph aureus. Continue Ancef. Blood cultures from 03/02/18 are pending. 2. Pneumonia: Chest CT shows scattered interstitial and alveolar opacities. DuoNeb as needed. Symbicort. Supplemental oxygen as needed. Vancomycin and atovaquone discontinued by infectious disease. 3. AIDS: CD4 count less than 20. Patient has been noncompliant with medications. Continue azithromycin weekly. Appreciate infectious disease recommendations. Awaiting lab results. 4. Skin lesions: Biopsies are consistent with psoriatic lesions. No evidence of Kaposi's sarcoma on pathology. 5. DVT prophylaxis: MARK Sigala. Discharge Planning Pending clearance by infectious disease and oncology. Problem Qualifiers (1) PNA (pneumonia): Qualified Codes: J18.1 - Lobar pneumonia, unspecified organism Pablito Caro MD Mar 03, 2018 10:15
[2018-03-03 12:00] VITALS: BP 113/69; PULSE 86; RESP 18; TEMP 98.3; O2SAT 97
[2018-03-03 16:00] VITALS: BP 116/61; PULSE 88; RESP 18; TEMP 100.7; O2SAT 97
[2018-03-03] MEDS: LORazepam 0.5 MG TAB PO PRN (18:06)
[2018-03-03 20:00] VITALS: BP 112/62; PULSE 82; RESP 21; TEMP 99.3; O2SAT 98
[2018-03-04] VITALS: BP 103/57; PULSE 73; RESP 18; TEMP 99; O2SAT 98
[2018-03-04] MEDS: ceFAZolin 2 GM PREMIX 50 ML IV SCH ×3 (01:51→16:58)
[2018-03-04] MEDS: AZITHROMYCIN 600 MG TAB PO SCH (05:52)
[2018-03-04] MEDS: HYDROCORTISONE 1% CREAM 30 GM TOPICAL SCH ×3 (05:53→20:21)
[2018-03-04 06:07] LABS: HEMATOCRIT 24.6 % (39.0-51.0); HEMOGLOBIN 8.3 GM/DL (13.0-17.0); MEAN CELL VOLUME 84.4 FL (80.0-100.0); MEAN CORPUSCULAR HEMOGLOBIN 28.6 PG (27.0-34.0); MEAN CORPUSCULAR HGB CONC 33.9 % (32.0-36.0); MEAN PLATELET VOLUME 7.9 FL (7.0-11.0); PLATELET COUNT 161 TH/MM3 (150-450); RED BLOOD COUNT 2.91 MIL/MM3 (4.50-5.90); RED CELL DISTRIBUTION WIDTH 15.5 % (11.6-17.2); WHITE BLOOD COUNT 4.4 TH/MM3 (4.0-11.0)
--- NOTE | 2018-03-04 07:26 | PD.ONC.PN ---
Subjective Subjective Remarks Still has fever. No CP. SOB improved. Objective Data Date Time Temp Pulse Resp B/P (MAP) Pulse Ox O2 Delivery O2 Flow Rate FiO2 03/04/18 00:00 99.0 73 18 103/57 (72) 98 03/03/18 20:00 99.3 82 21 112/62 (79) 98 03/03/18 16:00 100.7 88 18 116/61 (79) 97 03/03/18 12:00 98.3 86 18 113/69 (84) 97 03/03/18 08:00 98.4 76 18 112/59 (76) 99 03/04/18 03/04/18 03/04/18 07:00 15:00 23:00 Output Total 525 ml Balance -525 ml Result Diagram: 03/04/18 0430 03/03/18 0614 Laboratory Results Laboratory Tests Test 03/04/18 04:30 White Blood Count 4.4 TH/MM3 Red Blood Count 2.91 MIL/MM3 Hemoglobin 8.3 GM/DL Hematocrit 24.6 % Mean Corpuscular Volume 84.4 FL Mean Corpuscular Hemoglobin 28.6 PG Mean Corpuscular Hemoglobin Concent 33.9 % Red Cell Distribution Width 15.5 % Platelet Count 161 TH/MM3 Mean Platelet Volume 7.9 FL CBC Comment AUTO DIFF Culture Results Microbiology Date/Time Source Procedure Growth Status 03/02/18 06:10 Blood Peripheral Aerobic Blood Culture - Preliminary NO GROWTH IN 1 DAY Resulted 03/02/18 06:10 Blood Peripheral Anaerobic Blood Culture - Preliminary NO GROWTH IN 1 DAY Resulted 03/02/18 06:05 Blood Peripheral Aerobic Blood Culture - Preliminary NO GROWTH IN 1 DAY Resulted 03/02/18 06:05 Blood Peripheral Anaerobic Blood Culture - Preliminary NO GROWTH IN 1 DAY Resulted Administered Medications Medications (Trade) Dose Ordered Sig/Frank Route PRN Reason Start Time Stop Time Status Last Admin Dose Admin Sodium Chloride (NS Flush) 2 ml BID IV FLUSH 02/18/18 09:00 03/03/18 19:30 Ondansetron HCl (Zofran Inj) 4 mg Q6H PRN IVP NAUSEA OR VOMITING 02/18/18 04:45 02/19/18 19:00 Acetaminophen (Tylenol) 650 mg Q6H PRN PO FEVER/PAIN SCALE 1 TO 2 02/18/18 04:45 03/02/18 20:27 Senna/Docusate Sodium (Edilia-Colace) 1 tab BID PO 02/18/18 09:00 03/01/18 08:38 Azithromycin (Zithromax) 1,200 mg Q7D PO 02/18/18 06:00 03/04/18 05:52 Buspirone HCl (Buspar) 5 mg Q12HR PO 02/18/18 09:00 03/03/18 19:30 Nystatin (Mycostatin Liq) 5 ml QID SWISH-SWAL 02/18/18 09:00 03/01/18 08:38 Lorazepam (Ativan) 0.5 mg Q6H PRN PO anxiety 02/19/18 10:00 03/03/18 18:06 Oxycodone HCl (Roxicodone) 15 mg Q4H PRN PO pain 6-10 02/22/18 15:45 02/26/18 09:52 Nystatin (Mycostatin Cream) 1 applic Q12HR TOPICAL 02/23/18 12:30 03/03/18 19:31 Hydrocortisone (Hydrocortisone 1% Cream) 1 applic Q8HR TOPICAL 03/01/18 17:00 03/04/18 05:53 Cefazolin Sodium/ Dextrose 50 ml @ 100 mls/hr Q8H IV 03/01/18 17:15 03/04/18 01:51 Objective Remarks GENERAL: Well-nourished, well-developed patient. SKIN: Warm and dry. Diffused brownish lesion/plaque throughout the body. Dry skin. HEAD: Normocephalic. EYES: No scleral icterus. No injection or drainage. NECK: Supple, trachea midline. No JVD or lymphadenopathy. LYMPHATIC: No adenopathy. CARDIOVASCULAR: Regular rate and rhythm without murmurs. RESPIRATORY: Breath sounds equal bilaterally. No accessory muscle use. GASTROINTESTINAL: Abdomen soft, non-tender, nondistended. EXTREMITIES: No cyanosis, or edema. MUSCULOSKELETAL: Adequate muscle tone. NEUROLOGICAL: No obvious focal deficit. Awake, alert, and oriented x3. PSYCHIATRIC: Appropriate mood and affect; insight and judgment normal. 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 Discussed with dermatopathology, preliminary path atypical for KS. It is more suggestive of psoriasis. Further staining is pending. Repeat biopsy left mid back 02/28, path pending. Both biopsy from left thigh and back showed psoriasis and no evidence of KS. --discussed with , once path confirms KS, he can start XRT as outpt. --primary treatment would be antiretroviral therapy, if compliant with antiretroviral therapy, could consider treatment with systemic chemotherapy. He is not a candidate for chemo right now with CD4 <20. --started having skin lesions at least 6-8 month ago. --The 2 biggest patches behind the knee are painful. --appearance of the skin lesions is consistent with Kaposi sarcoma. --CT lung showed interstitial alveolar opacity, but no obvious metastatic disease. --CT ab/pelvis shows prominent soft tissue density/lymphadenopathy 2cm (2) AIDS (acquired immunodeficiency syndrome), CD4 <=200 ICD Codes: B20 - Human immunodeficiency virus [HIV] disease Plan: --has poorly controlled human immunodeficiency virus/acquired immunodeficiency syndrome --noncompliant with antiretroviral therapy. --stopped antiretroviral therapy many years ago --08/2017, CD4 count was only 49. Repeat test CD4 <20. (3) Sepsis ICD Codes: A41.9 - Sepsis, unspecified organism Plan: --on antibiotics per ID. Cx + coag neg staph. Still has fever. Assessment 38y/o male with HIV/AIDS and skin lesion suspicious for KS but biopsy x2 were showed psoraisis. Plan 1. Reviewed path with patients, but biopsy from left thigh and back showed psoriasis and no evidence of KS. I told patient there is still a possibility that other lesions that was not biopsied could be KS. I told him to see a ag service manager after d/c from hospital for evaluation. No other recommendation from oncology. I will sign off. Tee Ash MD Mar 04, 2018 07:26
[2018-03-04 07:52] LABS: BANDS 8 % (0-6); LYMPHOCYTES 12 % (9-44); MONOCYTES 27 % (0-8); NEUTROPHIL # MANUAL DIFF 2.6 TH/MM3 (1.8-7.7); POLYS (SEG NEUTROPHILS) 51 % (16-70)
[2018-03-04 07:53] LABS: KERATOCYTES 2+ (NORMAL)
[2018-03-04 07:54] LABS: OVALOCYTES 1+ (NORMAL)
[2018-03-04 08:00] VITALS: BP 116/91; PULSE 80; RESP 17; TEMP 98.6; O2SAT 97
[2018-03-04] MEDS: SODIUM CHLORIDE 0.9% FLUSH 10 ML FLUSH IV FLUSH SCH ×2 (08:16→20:20)
[2018-03-04] MEDS: DOCUSATE SODIUM 50 MG/SENNA 8.6 MG TAB PO SCH ×2 (08:16→20:20)
[2018-03-04] MEDS: NYSTATIN SUSP 500,000 U/5 ML CUP SWISH-SWAL SCH ×4 (08:16→20:20)
[2018-03-04] MEDS: busPIRone HCL 5 MG TAB PO SCH ×2 (08:16→20:19)
[2018-03-04] MEDS: NYSTATIN 100,000 UNIT/GM CREAM 15 GM TOPICAL SCH ×2 (08:16→20:20)
[2018-03-04 12:00] VITALS: BP 103/63; PULSE 76; RESP 18; TEMP 98.3; O2SAT 99
--- NOTE | 2018-03-04 12:44 | HHI.PR ---
Subjective Remarks Follow up fever, bacteremia, HIV. Patient has no new complaints. States that he feels the same. Objective Vitals Vital Signs Date Time Temp Pulse Resp B/P (MAP) Pulse Ox O2 Delivery O2 Flow Rate FiO2 03/04/18 12:00 98.3 76 18 103/63 (76) 99 03/04/18 08:00 98.6 80 17 116/91 (99) 97 03/04/18 00:00 99.0 73 18 103/57 (72) 98 03/03/18 20:00 99.3 82 21 112/62 (79) 98 03/03/18 16:00 100.7 88 18 116/61 (79) 97 I/O 03/03/18 03/03/18 03/03/18 03/04/18 03/04/18 03/04/18 06:59 14:59 22:59 06:59 14:59 22:59 Intake Total 1000 ml 50 ml 850 ml Output Total 800 ml 900 ml 525 ml Balance 200 ml 50 ml -50 ml -525 ml Intake Oral 1000 ml 800 ml IV Total 50 ml 50 ml Output Urine Total 800 ml 900 ml 525 ml # Bowel Movements 0 Result Diagram: 03/04/18 0430 03/03/18 0614 Imaging Last Impressions Chest X-Ray 02/25/18 0000 Signed Impressions: Service Date/Time: Sunday, February 25, 2018 15:55 - CONCLUSION: No acute disease. Christoph Fuller MD Abdomen/Pelvis CT 02/19/18 0000 Signed Impressions: Service Date/Time: Tuesday, February 20, 2018 00:12 - CONCLUSION: 1. Prominent soft tissue density/lymphadenopathy in the left mesentery measuring 2 cm. 2. Multiple small scattered retroperitoneal lymph nodes. Christoph Fuller MD Chest CT 02/18/18 0000 Signed Impressions: Service Date/Time: Sunday, February 18, 2018 03:18 - CONCLUSION: 1. Scattered interstitial and alveolar opacities predominantly within the upper lobes. 2. No pleural effusions. Christoph Fuller MD Objective Remarks General: No acute distress. Heart: Regular rate and rhythm. No murmur. Lungs: Clear to auscultation bilaterally. No wheezes, rales, or rhonchi. Breathing is nonlabored. Abdomen: Soft, nontender, nondistended. Extremities: No lower extremity edema. Psych: Alert and oriented. Skin: Diffuse ulcerative lesions. Very dry skin with flaking. Procedures Punch biopsy 02/21. Punch biopsy 02/28 Urinary Catheter: No Vascular Central Line Catheter: No A/P Problem List: (1) Sepsis ICD Code: A41.9 - Sepsis, unspecified organism (2) PNA (pneumonia) ICD Code: J18.9 - Pneumonia, unspecified organism (3) AIDS (acquired immunodeficiency syndrome), CD4 <=200 ICD Code: B20 - Human immunodeficiency virus [HIV] disease Assessment and Plan 03/04/18: Low-grade fever again overnight. Continue IV antibiotics. HIV labs pending. 1. Sepsis: Presented with fever, tachycardia. Source is pneumonia, bacteremia. Patient is immunocompromised. Initial blood cultures growing coag negative staph. Repeat blood cultures from 02/20/18 are negative. Appreciate infectious disease recommendations. Vancomycin discontinued. Continues to have low-grade fever. Repeat blood cultures from 02/27/18 are growing Staph aureus x 1 bottle. Continue Ancef. Blood cultures from 03/02/18 are negative so far. 2. Pneumonia: Chest CT shows scattered interstitial and alveolar opacities. DuoNeb as needed. Symbicort. Supplemental oxygen as needed. Vancomycin and atovaquone discontinued by infectious disease. 3. AIDS: CD4 count less than 20. Patient has been noncompliant with medications. Continue azithromycin weekly. Appreciate infectious disease recommendations. Awaiting lab results. 4. Skin lesions: Biopsies are consistent with psoriatic lesions. No evidence of Kaposi's sarcoma on pathology. Oncology signed off and has recommended outpatient evaluation by dermatology. 5. DVT prophylaxis: MARK Sigala. Discharge Planning Pending clearance by infectious disease. Problem Qualifiers (1) PNA (pneumonia): Qualified Codes: J18.1 - Lobar pneumonia, unspecified organism Pablito Caro MD Mar 04, 2018 12:44
[2018-03-04 13:37] LABS: ABACAVIR SUSC; ATAZANAVIR WITH RITONAVIR SUSC; DARUNAVIR WITH RITONAVIR SUSC; DIDANOSINE SUSC; EFAVIRENZ RESIST; ETRAVIRINE SUSC; FOSAMPRENAVIR WITH RITONAVIR SUSC; HIV-1 GENOTYPING INTERP; INDINAVIR WITH RITONAVIR SUSC; LOPINAVIR WITH RITONAVIR SUSC; NELFINAVIR SUSC; NEVIRAPINE RESIST; SAQUINAVIR WITH RITONAVIR SUSC; STAVUDINE SUSC; TENOFOVIR SUSC; TIPRANAVIR WITH RITONAVIR SUSC; ZIDOVUDINE SUSC
[2018-03-04 16:00] VITALS: BP 112/67; PULSE 83; RESP 17; TEMP 99.5; O2SAT 99
--- NOTE | 2018-03-04 17:18 | HHI.IDPN ---
Note Infectious Disease Note Patient is without complaints. Denies fever but the temperature is low-grade. Denies chills nausea vomiting abdominal pain shortness of breath or sweats. Blood cultures negative 2 days. Pathology on the biopsy of the skin has psoriasis. No evidence of Kaposi's seen. Hepatitis B and C negative. Blood cultures had staph staph coag negative on 02/18. The CD4 count is less than 20. 38-year-old white male who has HIV disease. The patient was brought to the emergency department because of shortness of breath. He also noted having pain from skin lesions. He states that approximately 1-2 months ago, he broke out in a skin rash and multiple skin lesions all over his body. He has not seen a physician for that problem. The patient is a very poor historian. He also has memory problems. He was evaluated and treated for pneumonia in September 2017 and was discharged on oral antibiotics and requested to make an appointment to followup with the [facility] Department for HIV management. He never did so. He states that he was having difficulty getting through on the telephone. He also states that he lives with his grandmother and does not have transportation because his grandmother does not drive. His CD4 count in September was 249. PAST MEDICAL HISTORY: Inguinal hernia, pneumonia, HIV disease. ALLERGIES: SULFAMETHOXAZOLE, TRIMETHOPRIM. MEDICATIONS: Current Medications Medications (Trade) Dose Ordered Sig/Frank Route PRN Reason Start Time Stop Time Status Last Admin Dose Admin Albuterol/ Ipratropium (Duoneb Neb) 1 ampule Q4HR NEB PRN NEB SOB/WHEEZING 02/18/18 04:45 Sodium Chloride (NS Flush) 2 ml UNSCH PRN IV FLUSH FLUSH AFTER USING IV ACCESS 02/18/18 04:45 Sodium Chloride (NS Flush) 2 ml BID IV FLUSH 02/18/18 09:00 03/04/18 08:16 Ondansetron HCl (Zofran Inj) 4 mg Q6H PRN IVP NAUSEA OR VOMITING 02/18/18 04:45 02/19/18 19:00 Acetaminophen (Tylenol) 650 mg Q6H PRN PO FEVER/PAIN SCALE 1 TO 2 02/18/18 04:45 03/02/18 20:27 Acetaminophen/ Hydrocodone Bitart ([place] 5-325 Mg) 1 tab Q4H PRN PO PAIN SCALE 3 TO 5 02/18/18 04:45 Senna/Docusate Sodium (Edilia-Colace) 1 tab BID PO 02/18/18 09:00 03/01/18 08:38 Magnesium Hydroxide (Milk Of Magnesia Liq) 30 ml Q12H PRN PO Mild constipation 02/18/18 04:45 Sennosides (Senokot) 17.2 mg Q12H PRN PO Moderate constipation 02/18/18 04:45 Bisacodyl (Dulcolax Supp) 10 mg DAILY PRN RECTAL SEVERE CONSITIPATION 02/18/18 04:45 Lactulose (Lactulose Liq) 30 ml DAILY PRN PO SEVERE CONSITIPATION 02/18/18 04:45 Azithromycin (Zithromax) 1,200 mg Q7D PO 02/18/18 06:00 03/04/18 05:52 Buspirone HCl (Buspar) 5 mg Q12HR PO 02/18/18 09:00 03/04/18 08:16 Nystatin (Mycostatin Liq) 5 ml QID SWISH-SWAL 02/18/18 09:00 03/01/18 08:38 Lorazepam (Ativan) 0.5 mg Q6H PRN PO anxiety 02/19/18 10:00 03/03/18 18:06 Oxycodone HCl (Roxicodone) 15 mg Q4H PRN PO pain 6-10 02/22/18 15:45 02/26/18 09:52 Nystatin (Mycostatin Cream) 1 applic Q12HR TOPICAL 02/23/18 12:30 03/04/18 08:16 Hydrocortisone (Hydrocortisone 1% Cream) 1 applic Q8HR TOPICAL 03/01/18 17:00 03/04/18 12:59 Cefazolin Sodium/ Dextrose 50 ml @ 100 mls/hr Q8H IV 03/01/18 17:15 03/04/18 16:58 OBJECTIVE: Vital Signs Date Time Temp Pulse Resp B/P (MAP) Pulse Ox O2 Delivery O2 Flow Rate FiO2 03/04/18 12:00 98.3 76 18 103/63 (76) 99 03/04/18 08:00 98.6 80 17 116/91 (99) 97 03/04/18 00:00 99.0 73 18 103/57 (72) 98 03/03/18 20:00 99.3 82 21 112/62 (79) 98 Laboratory Tests Test 03/04/18 04:30 White Blood Count 4.4 TH/MM3 Red Blood Count 2.91 MIL/MM3 Hemoglobin 8.3 GM/DL Hematocrit 24.6 % Mean Corpuscular Volume 84.4 FL Mean Corpuscular Hemoglobin 28.6 PG Mean Corpuscular Hemoglobin Concent 33.9 % Red Cell Distribution Width 15.5 % Platelet Count 161 TH/MM3 Mean Platelet Volume 7.9 FL CBC Comment AUTO DIFF Differential Total Cells Counted 100 Neutrophils % (Manual) 51 % Band Neutrophils % 8 % Lymphocytes % 12 % Monocytes % 27 % Eosinophils % 2 % Neutrophils # (Manual) 2.6 TH/MM3 Differential Comment FINAL DIFF MANUAL Platelet Estimate NORMAL Platelet Morphology Comment NORMAL Ovalocytes 1+ Keratocytes 2+ Laboratory Tests Test 03/03/18 06:14 Creatinine 0.87 MG/DL Estimat Glomerular Filtration Rate 99 ML/MIN Microbiology Date/Time Source Procedure Growth Status 03/02/18 06:10 Blood Peripheral Aerobic Blood Culture - Preliminary NO GROWTH IN 2 DAYS Resulted 03/02/18 06:10 Blood Peripheral Anaerobic Blood Culture - Preliminary NO GROWTH IN 2 DAYS Resulted 03/02/18 06:05 Blood Peripheral Aerobic Blood Culture - Preliminary NO GROWTH IN 2 DAYS Resulted 03/02/18 06:05 Blood Peripheral Anaerobic Blood Culture - Preliminary NO GROWTH IN 2 DAYS Resulted Imaging: Chest X-Ray 02/25/18 0000 Signed Impressions: Service Date/Time: Sunday, February 25, 2018 15:55 - CONCLUSION: No acute disease. Christoph Fuller MD Abdomen/Pelvis CT 02/19/18 0000 Signed Impressions: Service Date/Time: Tuesday, February 20, 2018 00:12 - CONCLUSION: 1. Prominent soft tissue density/lymphadenopathy in the left mesentery measuring 2 cm. 2. Multiple small scattered retroperitoneal lymph nodes. Christoph Fuller MD Chest X-Ray 02/18/18 0110 Signed Impressions: Service Date/Time: Sunday, February 18, 2018 01:20 - CONCLUSION: No acute disease. Christoph Fuller MD Chest CT 02/18/18 0000 Signed Impressions: Service Date/Time: Sunday, February 18, 2018 03:18 - CONCLUSION: 1. Scattered interstitial and alveolar opacities predominantly within the upper lobes. 2. No pleural effusions. Christoph Fuller MD PHYSICAL EXAMINATION: GENERAL: No acute distress. HEENT: Diffuse rash of the face covering the entire face. Still erythematous but less flakiness. Pupils reactive to light. Pale sclerae. Oropharynx: Moist mucosa. No visible thrush. No visible lesions. NECK: Supple without adenopathy. LUNGS: Breath sounds are clear. HEART: Regular S1 and S2. No murmurs. ABDOMEN: Bowel sounds present. Soft, nontender EXTREMITIES: Diffuse, maculopapular erythematous lesions with some Being flat and ulcerated. scattered all over the extremities. Some of these have a grainy surface appearance. No clubbing, cyanosis or edema. SKIN: Diffuse round superficial ulcerative erythematous lesions scattered throughout including the trunk, abdomen, extremities and back and the face has diffuse erythematous rash and very dry skin with flaking and also this involves the scalp where the skin is also exfoliating. NEUROLOGIC: No gross focal findings. PSYCHIATRIC: The patient is calm and cooperative. IMPRESSION: 1. Bacteremia initially with staph coagulase-negative. Blood cultures revealed staph aureus in 1 of 4 bottles. Given the severity of his skin condition it could be that he scratched the skin so much that it led to a portal for infection since he had open skin lesions that may be the source of the gram-positive bacteremia. 2. Fever. Pneumonia. The patient had bilateral lung infiltrates, likely opportunistic infection in this patient with low CD4 count and severe immunosuppression from acquired immune deficiency syndrome. Chest x-ray cleared. He does not appear toxic. Fever could also be related to the underlying HIV disease. Since he remained stable and the chest x-ray does not of acute infiltrate, vancomycin and atovaquone has been stopped. 3. Acquired immune deficiency syndrome. CD4 count less than 20. 4. Skin lesions with biopsy showing psoriasis. and pathology results pending. 5. 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 6. Patient with poor insight regarding his condition and appears unable to care for himself. RECOMMENDATIONS: 1. Continue Zithromax. 2. Continue to monitor temperature. 3. Monitor the repeated blood cultures. Give IV antibiotics until end of the day 04/09 if the blood culture remains negative. 4. Make arrangements for the patient to go to the health department directly after release from the hospital if his discharge is to home, so he can be evaluated for HIV medication and have arrangements for [facility] funding for his HIV meds also and referral to dermatology from there. Send copy of HIV genotype, viral load and CD4 count along with patient when he goes to the health department. 5. Follow the blood AFB culture still finalized. Case management to help the patient to have appointment made for health department to address HIV medications and also to try to get him on the [facility] program so he can be followed for the HIV disease. This is important because without adequate addressing of the HIV, viral treatment he is likely to continue to decline. Syed Will MD Mar 04, 2018 17:18
[2018-03-04 20:00] VITALS: BP 113/63; PULSE 92; RESP 17; TEMP 99.7; O2SAT 99
[2018-03-04] MEDS: LORazepam 0.5 MG TAB PO PRN (21:41)
[2018-03-05] VITALS: BP 120/65; PULSE 92; RESP 17; TEMP 99; O2SAT 92
[2018-03-05] MEDS: ceFAZolin 2 GM PREMIX 50 ML IV SCH ×3 (00:34→16:55)
[2018-03-05] MEDS: HYDROCORTISONE 1% CREAM 30 GM TOPICAL SCH ×3 (04:11→20:00)
[2018-03-05 05:12] LABS: CREATININE 0.79 MG/DL (0.60-1.30)
[2018-03-05 08:00] VITALS: BP 115/61; PULSE 78; RESP 17; TEMP 98.4; O2SAT 97
[2018-03-05] MEDS: NYSTATIN SUSP 500,000 U/5 ML CUP SWISH-SWAL SCH ×4 (08:56→20:00)
[2018-03-05] MEDS: DOCUSATE SODIUM 50 MG/SENNA 8.6 MG TAB PO SCH ×2 (08:56→20:00)
[2018-03-05] MEDS: busPIRone HCL 5 MG TAB PO SCH ×2 (08:57→20:00)
[2018-03-05] MEDS: SODIUM CHLORIDE 0.9% FLUSH 10 ML FLUSH IV FLUSH SCH ×2 (08:57→20:00)
[2018-03-05] MEDS: NYSTATIN 100,000 UNIT/GM CREAM 15 GM TOPICAL SCH ×2 (08:58→20:00)
--- NOTE | 2018-03-05 11:13 | HHI.PR ---
Subjective Remarks Follow up AIDS, bacteremia, skin lesions. Patient requesting physical therapy. Still having leg pain. No other complaints at this time. Objective Vitals Vital Signs Date Time Temp Pulse Resp B/P (MAP) Pulse Ox O2 Delivery O2 Flow Rate FiO2 03/05/18 08:00 98.4 78 17 115/61 (79) 97 03/05/18 00:00 99.0 92 17 120/65 (83) 92 03/04/18 23:18 20 03/04/18 20:00 99.7 92 17 113/63 (80) 99 03/04/18 16:00 99.5 83 17 112/67 (82) 99 03/04/18 12:00 98.3 76 18 103/63 (76) 99 I/O 03/04/18 03/04/18 03/04/18 03/05/18 03/05/18 03/05/18 07:00 15:00 23:00 07:00 15:00 23:00 Intake Total 50 ml 650 ml 240 ml Output Total 525 ml 800 ml Balance -525 ml 50 ml -150 ml 240 ml Intake Oral 600 ml 240 ml IV Total 50 ml 50 ml Output Urine Total 525 ml 800 ml # Voids 2 # Bowel Movements 1 0 Result Diagram: 03/04/18 0430 03/05/18 0333 Imaging Last Impressions Chest X-Ray 02/25/18 0000 Signed Impressions: Service Date/Time: Sunday, February 25, 2018 15:55 - CONCLUSION: No acute disease. Christoph Fuller MD Abdomen/Pelvis CT 02/19/18 0000 Signed Impressions: Service Date/Time: Tuesday, February 20, 2018 00:12 - CONCLUSION: 1. Prominent soft tissue density/lymphadenopathy in the left mesentery measuring 2 cm. 2. Multiple small scattered retroperitoneal lymph nodes. Christoph Fuller MD Chest CT 02/18/18 0000 Signed Impressions: Service Date/Time: Sunday, February 18, 2018 03:18 - CONCLUSION: 1. Scattered interstitial and alveolar opacities predominantly within the upper lobes. 2. No pleural effusions. Christoph Fuller MD Objective Remarks General: No acute distress. Heart: Regular rate and rhythm. No murmur. Lungs: Clear to auscultation bilaterally. No wheezes, rales, or rhonchi. Breathing is nonlabored. Abdomen: Soft, nontender, nondistended. Extremities: No lower extremity edema. Psych: Alert and oriented. Skin: Diffuse raised erythematous lesions. Very dry skin with flaking. Procedures Punch biopsy 02/21. Punch biopsy 02/28 Urinary Catheter: No Vascular Central Line Catheter: No A/P Problem List: (1) Sepsis ICD Code: A41.9 - Sepsis, unspecified organism (2) PNA (pneumonia) ICD Code: J18.9 - Pneumonia, unspecified organism (3) AIDS (acquired immunodeficiency syndrome), CD4 <=200 ICD Code: B20 - Human immunodeficiency virus [HIV] disease Assessment and Plan 03/05/18: T-max 99.7 overnight. Continue IV antibiotics. HIV lab results available. Awaiting further infectious disease recommendations. 1. Sepsis: Presented with fever, tachycardia. Source is pneumonia, bacteremia. Patient is immunocompromised. Initial blood cultures growing coag negative staph. Repeat blood cultures from 02/20/18 are negative. Appreciate infectious disease recommendations. Vancomycin discontinued. Continues to have low-grade fever. Repeat blood cultures from 02/27/18 are growing Staph aureus x 1 bottle. Continue Ancef. Blood cultures from 03/02/18 are negative so far. 2. Pneumonia: Chest CT shows scattered interstitial and alveolar opacities. DuoNeb as needed. Symbicort. Supplemental oxygen as needed. Vancomycin and atovaquone discontinued by infectious disease. 3. AIDS: CD4 count less than 20. Patient has been noncompliant with medications. Continue azithromycin weekly. Appreciate infectious disease recommendations. 4. Skin lesions: Biopsies are consistent with psoriatic lesions. No evidence of Kaposi's sarcoma on pathology. Oncology signed off and has recommended outpatient evaluation by dermatology. 5. DVT prophylaxis: MARK Sigala. Discharge Planning Pending clearance by infectious disease. May need outpatient IV antibiotics. Will need to follow-up immediately with the health department for management of HIV as well as arrangement of outpatient dermatology to further evaluate skin lesions. Problem Qualifiers (1) PNA (pneumonia): Qualified Codes: J18.1 - Lobar pneumonia, unspecified organism Pablito Caro MD Mar 05, 2018 11:13
[2018-03-05 12:00] VITALS: BP 108/61; PULSE 77; RESP 18; TEMP 98.4; O2SAT 97
[2018-03-05] MEDS: ONDANSETRON HCL 4 MG/2 ML VIAL IVP PRN (13:02)
[2018-03-05 16:00] VITALS: BP 107/60; PULSE 74; RESP 16; TEMP 98.6; O2SAT 99
[2018-03-05 20:00] VITALS: BP 111/63; PULSE 79; RESP 17; TEMP 98.8; O2SAT 98
[2018-03-06] VITALS: BP 120/65; PULSE 75; RESP 17; TEMP 98.1; O2SAT 95
[2018-03-06] MEDS: ceFAZolin 2 GM PREMIX 50 ML IV SCH ×3 (00:32→17:01)
[2018-03-06] MEDS: ONDANSETRON HCL 4 MG/2 ML VIAL IVP PRN ×3 (00:32→17:06)
[2018-03-06] MEDS: HYDROCORTISONE 1% CREAM 30 GM TOPICAL SCH ×3 (05:36→20:30)
[2018-03-06] MEDS: DOCUSATE SODIUM 50 MG/SENNA 8.6 MG TAB PO SCH ×2 (07:34→20:30)
[2018-03-06] MEDS: NYSTATIN SUSP 500,000 U/5 ML CUP SWISH-SWAL SCH ×4 (07:35→20:30)
[2018-03-06 08:00] VITALS: BP 99/62; PULSE 84; RESP 17; TEMP 98.7; O2SAT 96
[2018-03-06] MEDS: busPIRone HCL 5 MG TAB PO SCH ×2 (08:15→20:30)
[2018-03-06] MEDS: NYSTATIN 100,000 UNIT/GM CREAM 15 GM TOPICAL SCH ×2 (08:16→20:30)
[2018-03-06] MEDS: SODIUM CHLORIDE 0.9% FLUSH 10 ML FLUSH IV FLUSH SCH ×2 (08:16→20:34)
--- NOTE | 2018-03-06 11:38 | HHI.IDPN ---
Note Infectious Disease Note Patient has no complaints. He denies chills or nausea or vomiting. Repeat pathology biopsy reveals psoriasis. Remains afebrile. Last blood cultures no growth in 4 days. The CD4 count is less than 20. 38-year-old white male who has HIV disease. The patient was brought to the emergency department because of shortness of breath. He also noted having pain from skin lesions. He states that approximately 1-2 months ago, he broke out in a skin rash and multiple skin lesions all over his body. He has not seen a physician for that problem. The patient is a very poor historian. He also has memory problems. He was evaluated and treated for pneumonia in September 2017 and was discharged on oral antibiotics and requested to make an appointment to followup with the Health Department for HIV management. He never did so. He states that he was having difficulty getting through on the telephone. He also states that he lives with his grandmother and does not have transportation because his grandmother does not drive. His CD4 count in September was 249. PAST MEDICAL HISTORY: Inguinal hernia, pneumonia, HIV disease. ALLERGIES: SULFAMETHOXAZOLE, TRIMETHOPRIM. MEDICATIONS: Current Medications Medications (Trade) Dose Ordered Sig/Frank Route PRN Reason Start Time Stop Time Status Last Admin Dose Admin Albuterol/ Ipratropium (Duoneb Neb) 1 ampule Q4HR NEB PRN NEB SOB/WHEEZING 02/18/18 04:45 Sodium Chloride (NS Flush) 2 ml UNSCH PRN IV FLUSH FLUSH AFTER USING IV ACCESS 02/18/18 04:45 Sodium Chloride (NS Flush) 2 ml BID IV FLUSH 02/18/18 09:00 03/06/18 08:16 Ondansetron HCl (Zofran Inj) 4 mg Q6H PRN IVP NAUSEA OR VOMITING 02/18/18 04:45 03/06/18 08:19 Acetaminophen (Tylenol) 650 mg Q6H PRN PO FEVER/PAIN SCALE 1 TO 2 02/18/18 04:45 03/02/18 20:27 Acetaminophen/ Hydrocodone Bitart ([place] 5-325 Mg) 1 tab Q4H PRN PO PAIN SCALE 3 TO 5 02/18/18 04:45 Senna/Docusate Sodium (Edilia-Colace) 1 tab BID PO 02/18/18 09:00 03/01/18 08:38 Magnesium Hydroxide (Milk Of Magnesia Liq) 30 ml Q12H PRN PO Mild constipation 02/18/18 04:45 Sennosides (Senokot) 17.2 mg Q12H PRN PO Moderate constipation 02/18/18 04:45 Bisacodyl (Dulcolax Supp) 10 mg DAILY PRN RECTAL SEVERE CONSITIPATION 02/18/18 04:45 Lactulose (Lactulose Liq) 30 ml DAILY PRN PO SEVERE CONSITIPATION 02/18/18 04:45 Azithromycin (Zithromax) 1,200 mg Q7D PO 02/18/18 06:00 03/04/18 05:52 Buspirone HCl (Buspar) 5 mg Q12HR PO 02/18/18 09:00 03/06/18 08:15 Nystatin (Mycostatin Liq) 5 ml QID SWISH-SWAL 02/18/18 09:00 03/01/18 08:38 Lorazepam (Ativan) 0.5 mg Q6H PRN PO anxiety 02/19/18 10:00 03/04/18 21:41 Oxycodone HCl (Roxicodone) 15 mg Q4H PRN PO pain 6-10 02/22/18 15:45 03/05/18 11:28 Nystatin (Mycostatin Cream) 1 applic Q12HR TOPICAL 02/23/18 12:30 03/06/18 08:16 Hydrocortisone (Hydrocortisone 1% Cream) 1 applic Q8HR TOPICAL 03/01/18 17:00 03/06/18 05:36 Cefazolin Sodium/ Dextrose 50 ml @ 100 mls/hr Q8H IV 03/01/18 17:15 03/06/18 08:15 OBJECTIVE: Vital Signs Date Time Temp Pulse Resp B/P (MAP) Pulse Ox O2 Delivery O2 Flow Rate FiO2 03/06/18 08:00 98.7 84 17 99/62 (74) 96 03/06/18 00:00 98.1 75 17 120/65 (83) 95 03/05/18 20:00 98.8 79 17 111/63 (79) 98 03/05/18 16:00 98.6 74 16 107/60 (76) 99 03/05/18 12:00 98.4 77 18 108/61 (77) 97 Laboratory Tests Test 03/05/18 03:33 Creatinine 0.79 MG/DL Estimat Glomerular Filtration Rate 110 ML/MIN Imaging: Chest X-Ray 02/25/18 0000 Signed Impressions: Service Date/Time: Sunday, February 25, 2018 15:55 - CONCLUSION: No acute disease. Christoph Fuller MD Abdomen/Pelvis CT 02/19/18 0000 Signed Impressions: Service Date/Time: Tuesday, February 20, 2018 00:12 - CONCLUSION: 1. Prominent soft tissue density/lymphadenopathy in the left mesentery measuring 2 cm. 2. Multiple small scattered retroperitoneal lymph nodes. Christoph Fuller MD Chest X-Ray 02/18/18 0110 Signed Impressions: Service Date/Time: Sunday, February 18, 2018 01:20 - CONCLUSION: No acute disease. Christoph Fuller MD Chest CT 02/18/18 0000 Signed Impressions: Service Date/Time: Sunday, February 18, 2018 03:18 - CONCLUSION: 1. Scattered interstitial and alveolar opacities predominantly within the upper lobes. 2. No pleural effusions. Christoph Fuller MD PHYSICAL EXAMINATION: GENERAL: No acute distress. HEENT: Diffuse rash of the face covering the entire face. Still erythematous but less flakiness. Pupils reactive to light. Pale sclerae. Oropharynx: Moist mucosa. No visible thrush. No visible lesions. NECK: Supple without adenopathy. LUNGS: Breath sounds are clear. HEART: Regular S1 and S2. No murmurs. ABDOMEN: Bowel sounds present. Soft, nontender EXTREMITIES: Diffuse, maculopapular erythematous lesions with some Being flat and ulcerated. scattered all over the extremities. Some of these have a grainy surface appearance. No clubbing, cyanosis or edema. SKIN: Diffuse round superficial ulcerative erythematous lesions scattered throughout including the trunk, abdomen, extremities and back. Erythema at the face has improved. flaking and also this involves the scalp where the skin is also exfoliating. NEUROLOGIC: No gross focal findings. PSYCHIATRIC: Calm and cooperative. IMPRESSION: 1. Bacteremia initially with staph coagulase-negative. Subsequent blood culture had staph aureus. Given the severity of his skin condition it could be that he scratched the skin so much that it led to a portal for infection since he had open skin lesions that may be the source of the gram-positive bacteremia. 2. Fever. Pneumonia. The patient had bilateral lung infiltrates, likely opportunistic infection in this patient with low CD4 count and severe immunosuppression from acquired immune deficiency syndrome. Chest x-ray cleared. He does not appear toxic. Fever could also be related to the underlying HIV disease. Since he remained stable and the chest x-ray does not of acute infiltrate, vancomycin and atovaquone has been stopped. 3. Acquired immune deficiency syndrome. CD4 count less than 20. 4. Skin lesions with biopsy showing psoriasis. and pathology results pending. 5. 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 6. Patient with poor insight. RECOMMENDATIONS: 1. Continue Zithromax. 2. Make arrangements for IV Ancef to be given until March 10. Discussed with case management about setting up outpatient IV antibiotics. 3. Make arrangements for the patient to go to the health department directly after release from the hospital if his discharge is to home, so he can be evaluated for HIV medication and have arrangements for [facility] funding for his HIV meds also and referral to dermatology from there. Send copy of HIV genotype, viral load and CD4 count along with patient when he goes to the health department. 4. Follow the blood AFB culture still finalized. PICC line has been ordered. Patient expresses reluctance to go back to his grandmother's home. He states that the home is clean. He thinks that nobody cared about him the and that is why he became sick and not come to the hospital. His thinking appears clear. I emphasized to him that he should follow-up with medical appointments in order to get the care that he needs after discharge from the hospital. Syed Will MD Mar 06, 2018 11:38
--- NOTE | 2018-03-06 11:47 | HHI.FF ---
Infusion Therapy Location of Infusion Therapy: Ambulatory Infusion Therapy Order Patient Information Patient Weight 65 kg Diagnosis: (1) Sepsis Coded Allergies: sulfamethoxazole (Verified Allergy, Severe, throat closing, 08/31/17) pt is poor historian. States his throat closed with use of IV bactrim for pcp treatment prior. However, po bactrim was given in ER and has had no reaction or allergic rxns to it at all. trimethoprim (Verified Allergy, Severe, throat closing, 08/31/17) pt is poor historian. States his throat closed with use of IV bactrim for pcp treatment prior. However, po bactrim was given in ER and has had no reaction or allergic rxns to it at all. sucralose (Verified Allergy, Unknown, 02/19/18) Administer Medication Cefazolin 2 grams IV q 8 hours Stop Treatment: Mar 10, 2018 Additional Information Venous access: PICC Line Additional Instructions [x] Peripheral flush and dressing changes per protocol [x] Implanted port and central tree trimming line technician: * Implanted port: 10 ml Normal Saline followed by 5 ml Heparin 100 units/ml Heparin flush after each use and monthly to maintain. [] May leave port accessed during therapy. [] May leave peripheral site accessed for duration of therapy. [x] If patient has SOB or respiratory distress, check oxygen saturation. If less than 90% or clinical signs of respiratory distress, administer oxygen at 2 L/min. via nasal cannula and notify physician. [x] Anaphylaxis/Reaction orders: * Stop infusion. * Keep IV line open with saline flush. * Notify physician. * Monitor vital signs every 15 minutes until symptoms resolve. * Check Oxygen saturation; Oxygen at 2 L/min. via nasal cannula if less than 90% or clinical signs of respiratory distress. * Administer diphenhydramine (Benadryl) 25 mg IV STAT, (unless patient has received as pre-med). May repeat once, if necessary. * Solu-Cortef 250 mg IVP over 30-60 seconds, use 100 mg vials for each dissolution. * Epinephrine (1mg/1 ml) 0.3 mg subcutaneously or IVP now with any signs of respiratory distress. * Check with physician for new additional pre-med orders if patient is re- challenged or re-treated. [x] May remove PICC line when treatment complete, after confirming with Physician. [x] If the patient is admitted to the hospital, the ED, or transferred via [facility] , complete transfer form including medication reconciliation order sheet. Syed Will MD Mar 06, 2018 11:47
[2018-03-06 12:00] VITALS: BP 106/63; PULSE 78; RESP 17; TEMP 98.6; O2SAT 97
--- NOTE | 2018-03-06 13:12 | HHI.PR ---
Subjective Remarks Patient says that he continues to feel weak, does not feel he can go home. requests PT continue working with him. Denies any chest pain or shortness of breath. Denies nausea or vomiting. Objective Vital Signs Date Time Temp Pulse Resp B/P (MAP) Pulse Ox O2 Delivery O2 Flow Rate FiO2 03/06/18 12:00 98.6 78 17 106/63 (77) 97 03/06/18 08:00 98.7 84 17 99/62 (74) 96 03/06/18 00:00 98.1 75 17 120/65 (83) 95 03/05/18 20:00 98.8 79 17 111/63 (79) 98 03/05/18 16:00 98.6 74 16 107/60 (76) 99 I/O 03/05/18 03/05/18 03/05/18 03/06/18 03/06/18 03/06/18 07:00 15:00 23:00 07:00 15:00 23:00 Intake Total 240 ml 360 ml 240 ml Output Total 900 ml 600 ml Balance 240 ml -540 ml -360 ml Intake Oral 240 ml 360 ml 240 ml Output Urine Total 900 ml 600 ml # Voids 2 # Bowel Movements 0 0 0 Result Diagram: 03/04/18 0430 03/05/18 0333 Objective Remarks GENERAL: Patient lying in bed. Appears comfortable. SKIN: Warm and dry. Extensive psoriasis HEAD: Normocephalic. EYES: No scleral icterus. No injection or drainage. NECK: Supple, trachea midline. No JVD. CARDIOVASCULAR: Regular rate and rhythm without murmurs, gallops, or rubs. RESPIRATORY: Breath sounds equal bilaterally. No accessory muscle use. GASTROINTESTINAL: Abdomen soft, non-tender, nondistended. MUSCULOSKELETAL: No cyanosis, or edema. BACK: Nontender without obvious deformity. No CVA tenderness. A/P Assessment and Plan 03/06/18: No fevers overnight. Continue IV antibiotics at least until 03/10.. HIV lab results available. Awaiting further infectious disease recommendations. Reconsult PT due to weakness. Start Ensure supplement // Sepsis: Presented with fever, tachycardia. Source is pneumonia, bacteremia. Patient is immunocompromised. Initial blood cultures growing coag negative staph. Repeat blood cultures from 02/20/18 are negative. Appreciate infectious disease recommendations. Vancomycin discontinued. Continues to have low-grade fever. Repeat blood cultures from 02/27/18 are growing Staph aureus x 1 bottle. Continue Ancef. Blood cultures from 03/02/18 are negative so far. = Continue IV antibiotics until 03/10 as per ID. //Pneumonia: Chest CT shows scattered interstitial and alveolar opacities. DuoNeb as needed. Symbicort. Supplemental oxygen as needed. Vancomycin and atovaquone discontinued by infectious disease. = Continue antibiotics as per ID //AIDS: CD4 count less than 20. Patient has been noncompliant with medications. Continue azithromycin weekly. Appreciate infectious disease recommendations. // Skin lesions: Biopsies are consistent with psoriatic lesions. No evidence of Kaposi's sarcoma on pathology. Oncology signed off and has recommended outpatient evaluation by dermatology. //Generalized weakness. Likely secondary to malnutrition. Start Ensure supplement. //DVT prophylaxis: Jovon, MARK perales. Discharge Planning Continue IV antibiotics until 03/10 PT recommends possible rehab. Reconsult PT. Arash Denny MD Mar 06, 2018 13:12
[2018-03-06 16:00] VITALS: BP 110/59; PULSE 81; RESP 17; TEMP 100.1; O2SAT 98
[2018-03-06 20:02] VITALS: BP 108/59; PULSE 87; RESP 16; TEMP 100.4; O2SAT 97
[2018-03-07] VITALS: BP 119/60; PULSE 75; RESP 20; TEMP 99.6; O2SAT 98
[2018-03-07] MEDS: HYDROCORTISONE 1% CREAM 30 GM TOPICAL SCH ×3 (01:34→21:03)
[2018-03-07] MEDS: ONDANSETRON HCL 4 MG/2 ML VIAL IVP PRN ×3 (01:34→16:33)
[2018-03-07] MEDS: ceFAZolin 2 GM PREMIX 50 ML IV SCH ×3 (01:34→16:30)
[2018-03-07] MEDS: DOCUSATE SODIUM 50 MG/SENNA 8.6 MG TAB PO SCH ×2 (07:59→21:00)
[2018-03-07] MEDS: busPIRone HCL 5 MG TAB PO SCH ×2 (07:59→21:00)
[2018-03-07 08:00] VITALS: BP 109/63; PULSE 73; RESP 16; TEMP 98.2; O2SAT 98
[2018-03-07] MEDS: SODIUM CHLORIDE 0.9% FLUSH 10 ML FLUSH IV FLUSH SCH ×2 (08:00→21:01)
[2018-03-07] MEDS: NYSTATIN 100,000 UNIT/GM CREAM 15 GM TOPICAL SCH ×2 (08:00→21:03)
[2018-03-07] MEDS: NYSTATIN SUSP 500,000 U/5 ML CUP SWISH-SWAL SCH ×4 (08:00→21:00)
[2018-03-07 12:00] VITALS: BP 108/71; PULSE 84; RESP 17; TEMP 99; O2SAT 98
[2018-03-07 16:00] VITALS: BP 114/60; PULSE 88; RESP 16; TEMP 99.2; O2SAT 98
--- NOTE | 2018-03-07 18:34 | HHI.PR ---
Subjective Remarks Patient seen today around 10 AM. He denies any chest pain or shortness of breath. Objective Vital Signs Date Time Temp Pulse Resp B/P (MAP) Pulse Ox O2 Delivery O2 Flow Rate FiO2 03/07/18 16:00 99.2 88 16 114/60 (78) 98 03/07/18 12:00 99.0 84 17 108/71 (83) 98 03/07/18 08:00 98.2 73 16 109/63 (78) 98 03/07/18 00:00 99.6 75 20 119/60 (79) 98 03/06/18 20:02 100.4 87 16 108/59 (75) 97 I/O 03/06/18 03/06/18 03/06/18 03/07/18 03/07/18 03/07/18 07:00 15:00 23:00 07:00 15:00 23:00 Intake Total 240 ml 50 ml 450 ml 50 ml 950 ml Output Total 600 ml 1450 ml 400 ml 800 ml Balance -360 ml 50 ml -1000 ml -350 ml 150 ml Intake Oral 240 ml 450 ml 900 ml IV Total 50 ml 50 ml 50 ml Output Urine Total 600 ml 1450 ml 400 ml 800 ml # Bowel Movements 0 0 1 Result Diagram: 03/04/18 0430 03/05/18 0333 Objective Remarks GENERAL: Patient lying in bed. Appears comfortable.. Exam unchanged. SKIN: Warm and dry. Extensive psoriasis HEAD: Normocephalic. EYES: No scleral icterus. No injection or drainage. NECK: Supple, trachea midline. No JVD. CARDIOVASCULAR: Regular rate and rhythm without murmurs, gallops, or rubs. RESPIRATORY: Breath sounds equal bilaterally. No accessory muscle use. GASTROINTESTINAL: Abdomen soft, non-tender, nondistended. MUSCULOSKELETAL: No cyanosis, or edema. BACK: Nontender without obvious deformity. No CVA tenderness. A/P Assessment and Plan 03/07. Patient seen and examined. Discussed with nursing MDR. Continue antibiotics through 03/10. As per ID.encouraged patient to work with PT 03/06/18: No fevers overnight. Continue IV antibiotics at least until 03/10.. HIV lab results available. Awaiting further infectious disease recommendations. Reconsult PT due to weakness. Start Ensure supplement // Sepsis: Presented with fever, tachycardia. Source is pneumonia, bacteremia. Patient is immunocompromised. Initial blood cultures growing coag negative staph. Repeat blood cultures from 02/20/18 are negative. Appreciate infectious disease recommendations. Vancomycin discontinued. Continues to have low-grade fever. Repeat blood cultures from 02/27/18 are growing Staph aureus x 1 bottle. Continue Ancef. Blood cultures from 03/02/18 are negative so far. = Continue IV antibiotics until 03/10 as per ID. //Pneumonia: Chest CT shows scattered interstitial and alveolar opacities. DuoNeb as needed. Symbicort. Supplemental oxygen as needed. Vancomycin and atovaquone discontinued by infectious disease. = Continue antibiotics as per ID //AIDS: CD4 count less than 20. Patient has been noncompliant with medications. Continue azithromycin weekly. Appreciate infectious disease recommendations. // Skin lesions: Biopsies are consistent with psoriatic lesions. No evidence of Kaposi's sarcoma on pathology. Oncology signed off and has recommended outpatient evaluation by dermatology. //Generalized weakness. Likely secondary to malnutrition. Start Ensure supplement. //DVT prophylaxis: SCDs, MARK perales. Discharge Planning Continue IV antibiotics until 03/10 PT recommends possible rehab. Reconsult PT. Arash Denny MD Mar 07, 2018 18:34
[2018-03-07 20:00] VITALS: BP 111/57; PULSE 87; RESP 17; TEMP 100.7; O2SAT 97
[2018-03-08] VITALS: BP 101/58; PULSE 92; RESP 17; TEMP 99.4; O2SAT 96
[2018-03-08] MEDS: SODIUM CHLORIDE 0.9% FLUSH 10 ML FLUSH IV FLUSH PRN ×2 (00:15→23:47)
[2018-03-08] MEDS: ceFAZolin 2 GM PREMIX 50 ML IV SCH ×4 (00:16→23:47)
[2018-03-08] MEDS: ONDANSETRON HCL 4 MG/2 ML VIAL IVP PRN ×4 (00:16→23:48)
[2018-03-08] MEDS: HYDROCORTISONE 1% CREAM 30 GM TOPICAL SCH ×3 (04:22→21:28)
[2018-03-08 08:00] VITALS: BP 108/68; PULSE 84; RESP 16; TEMP 98.6; O2SAT 97
[2018-03-08] MEDS: DOCUSATE SODIUM 50 MG/SENNA 8.6 MG TAB PO SCH ×2 (08:08→21:27)
[2018-03-08] MEDS: busPIRone HCL 5 MG TAB PO SCH ×2 (08:08→21:00)
[2018-03-08] MEDS: NYSTATIN SUSP 500,000 U/5 ML CUP SWISH-SWAL SCH ×4 (08:08→21:00)
[2018-03-08] MEDS: SODIUM CHLORIDE 0.9% FLUSH 10 ML FLUSH IV FLUSH SCH ×2 (08:08→21:28)
[2018-03-08] MEDS: NYSTATIN 100,000 UNIT/GM CREAM 15 GM TOPICAL SCH ×2 (08:08→21:28)
[2018-03-08 12:00] VITALS: BP 106/61; PULSE 77; RESP 16; TEMP 98.3; O2SAT 97
[2018-03-08 16:00] VITALS: BP 115/58; PULSE 97; RESP 16; TEMP 98.9; O2SAT 93
--- NOTE | 2018-03-08 17:34 | HHI.PR ---
Subjective Remarks He says he is feeling all right. Denies any chest pain or shortness of breath. He is up chair today.Patient says that rash on palms, as well as feet is new over the past several months and has never been seen with his psoriasis before Objective Vital Signs Date Time Temp Pulse Resp B/P (MAP) Pulse Ox O2 Delivery O2 Flow Rate FiO2 03/08/18 16:00 98.9 97 16 115/58 (77) 93 03/08/18 12:00 98.3 77 16 106/61 (76) 97 03/08/18 08:00 98.6 84 16 108/68 (81) 97 03/08/18 00:00 99.4 92 17 101/58 (72) 96 03/07/18 20:00 100.7 87 17 111/57 (75) 97 I/O 03/07/18 03/07/18 03/07/18 03/08/18 03/08/18 03/08/18 07:00 15:00 23:00 07:00 15:00 23:00 Intake Total 50 ml 950 ml 290 ml Output Total 400 ml 800 ml 600 ml Balance -350 ml 150 ml -310 ml Intake Oral 900 ml 240 ml IV Total 50 ml 50 ml 50 ml Output Urine Total 400 ml 800 ml 600 ml # Bowel Movements 1 Result Diagram: 03/04/18 0430 03/05/18 0333 Objective Remarks GENERAL: Patient lying in bed. Appears comfortable.. Exam unchanged. SKIN: Warm and dry. Extensive psoriasispapules on palms of hands, and between fingers HEAD: Normocephalic. EYES: No scleral icterus. No injection or drainage. NECK: Supple, trachea midline. No JVD. CARDIOVASCULAR: Regular rate and rhythm without murmurs, gallops, or rubs. RESPIRATORY: Breath sounds equal bilaterally. No accessory muscle use. GASTROINTESTINAL: Abdomen soft, non-tender, nondistended. MUSCULOSKELETAL: No cyanosis, or edema. BACK: Nontender without obvious deformity. No CVA tenderness. A/P Assessment and Plan 03/08 Discussed with infectious disease. Patient may have scabies. Rash on palms, feet, and between fingers and toes has never been seen before with his psoriasis He lives with many cats and dogs apparently. We'll start on Permethrin shampoo and creams on hands and feet. Patient seen and examined. Discussed with nursing MDR. Continue antibiotics through 03/10. As per ID.encouraged patient to work with PT 03/06/18: No fevers overnight. Continue IV antibiotics at least until 03/10.. HIV lab results available. Awaiting further infectious disease recommendations. Reconsult PT due to weakness. Start Ensure supplement // Sepsis: Presented with fever, tachycardia. Source is pneumonia, bacteremia. Patient is immunocompromised. Initial blood cultures growing coag negative staph. Repeat blood cultures from 02/20/18 are negative. Appreciate infectious disease recommendations. Vancomycin discontinued. Continues to have low-grade fever. Repeat blood cultures from 02/27/18 are growing Staph aureus x 1 bottle. Continue Ancef. Blood cultures from 03/02/18 are negative so far. = Continue IV antibiotics until 03/10 as per ID. //Pneumonia: Chest CT shows scattered interstitial and alveolar opacities. DuoNeb as needed. Symbicort. Supplemental oxygen as needed. Vancomycin and atovaquone discontinued by infectious disease. = Continue antibiotics as per ID //AIDS: CD4 count less than 20. Patient has been noncompliant with medications. Continue azithromycin weekly. Appreciate infectious disease recommendations. // Skin lesions: Biopsies are consistent with psoriatic lesions. No evidence of Kaposi's sarcoma on pathology. Oncology signed off and has recommended outpatient evaluation by dermatology. //Generalized weakness. Likely secondary to malnutrition. Start Ensure supplement. //DVT prophylaxis: SCDs, MARK perales. Discharge Planning Continue IV antibiotics until 03/10 PT recommends possible rehab. Reconsult PT. Arash Denny MD Mar 08, 2018 17:34
[2018-03-08] MEDS ORDERED: PERMETHRIN 1% LOTION 60 ML BTL TOPICAL ONE (17:45)
[2018-03-08] MEDS ORDERED: PERMETHRIN 5% CREAM 60 GM TOPICAL ONE (17:45)
[2018-03-08 20:00] VITALS: BP 117/64; PULSE 96; RESP 17; TEMP 101.2; O2SAT 97
[2018-03-08] MEDS: ACETAMINOPHEN 325 MG TAB PO PRN (21:27)
[2018-03-08] MEDS: LORazepam 0.5 MG TAB PO PRN (23:47)
[2018-03-09] VITALS: BP 104/56; PULSE 87; RESP 17; TEMP 99; O2SAT 99
[2018-03-09] MEDS: HYDROCORTISONE 1% CREAM 30 GM TOPICAL SCH ×3 (06:00→20:46)
[2018-03-09 08:00] VITALS: BP 122/56; PULSE 88; RESP 20; TEMP 98.8; O2SAT 98
[2018-03-09] MEDS: ceFAZolin 2 GM PREMIX 50 ML IV SCH ×3 (08:57→23:51)
[2018-03-09] MEDS: busPIRone HCL 5 MG TAB PO SCH ×2 (08:57→20:45)
[2018-03-09] MEDS: SODIUM CHLORIDE 0.9% FLUSH 10 ML FLUSH IV FLUSH SCH ×2 (08:57→20:45)
[2018-03-09] MEDS: NYSTATIN SUSP 500,000 U/5 ML CUP SWISH-SWAL SCH ×4 (08:58→20:45)
[2018-03-09] MEDS: NYSTATIN 100,000 UNIT/GM CREAM 15 GM TOPICAL SCH ×2 (08:58→20:45)
[2018-03-09] MEDS: DOCUSATE SODIUM 50 MG/SENNA 8.6 MG TAB PO SCH ×2 (08:58→20:45)
[2018-03-09] MEDS: ONDANSETRON HCL 4 MG/2 ML VIAL IVP PRN ×3 (08:59→23:51)
[2018-03-09] MEDS: LORazepam 0.5 MG TAB PO PRN ×2 (09:00→15:10)
[2018-03-09 12:00] VITALS: BP 101/61; PULSE 79; RESP 17; TEMP 99; O2SAT 99
[2018-03-09] MEDS: ACETAMINOPHEN 325 MG TAB PO PRN (12:56)
[2018-03-09 16:00] VITALS: BP 108/61; PULSE 80; RESP 20; TEMP 99; O2SAT 98
--- NOTE | 2018-03-09 16:02 | HHI.PR ---
Subjective Remarks Patient seen this morning around 9 AM. Apparently refused last. Denies any chest pain or shortness of breath. Patient says he would like to get the permethrin cream on his hands to treat what appears to be scabies. Objective Vital Signs Date Time Temp Pulse Resp B/P (MAP) Pulse Ox O2 Delivery O2 Flow Rate FiO2 03/09/18 12:00 99.0 79 17 101/61 (74) 99 03/09/18 08:00 98.8 88 20 122/56 (78) 98 03/09/18 00:00 99.0 87 17 104/56 (72) 99 03/08/18 20:00 101.2 96 17 117/64 (81) 97 I/O 03/08/18 03/08/18 03/08/18 03/09/18 03/09/18 03/09/18 06:59 14:59 22:59 06:59 14:59 22:59 Intake Total 290 ml 50 ml 800 ml 290 ml 50 ml Output Total 600 ml 800 ml 400 ml Balance -310 ml 50 ml 0 ml -110 ml 50 ml Intake Oral 240 ml 750 ml 240 ml IV Total 50 ml 50 ml 50 ml 50 ml 50 ml Output Urine Total 600 ml 800 ml 400 ml # Bowel Movements 1 Result Diagram: 03/05/18 0333 Objective Remarks GENERAL: Patient lying in bed. Appears comfortable.. Exam unchanged. SKIN: Warm and dry. Extensive erythematous papules on palms of hands, and between fingers HEAD: Normocephalic. EYES: No scleral icterus. No injection or drainage. NECK: Supple, trachea midline. No JVD. CARDIOVASCULAR: Regular rate and rhythm without murmurs, gallops, or rubs. RESPIRATORY: Breath sounds equal bilaterally. No accessory muscle use. GASTROINTESTINAL: Abdomen soft, non-tender, nondistended. MUSCULOSKELETAL: No cyanosis, or edema. BACK: Nontender without obvious deformity. No CVA tenderness. A/P Assessment and Plan 03/09 Patient will except treatment for scabies Patient still with fevers 101.7 overnight. Patient has refused labs. Continue antibiotics as per ID. Patient seen and examined. Discussed with nursing MDR. Continue antibiotics through 03/10. As per ID.encouraged patient to work with PT 03/06/18: No fevers overnight. Continue IV antibiotics at least until 03/10.. HIV lab results available. Awaiting further infectious disease recommendations. Reconsult PT due to weakness. Start Ensure supplement // Sepsis: Presented with fever, tachycardia. Source is pneumonia, bacteremia. Patient is immunocompromised. Initial blood cultures growing coag negative staph. Repeat blood cultures from 02/20/18 are negative. Appreciate infectious disease recommendations. Vancomycin discontinued. Continues to have low-grade fever. Repeat blood cultures from 02/27/18 are growing Staph aureus x 1 bottle. Continue Ancef. Blood cultures from 03/02/18 are negative so far. = Continue IV antibiotics until 03/10 as per ID. = 03/09. Sepsis continues. Fever 101.7 overnight. Patient has refused labs. Continue antibiotics as per ID. Appreciate ID assistance. //Pneumonia: Chest CT shows scattered interstitial and alveolar opacities. DuoNeb as needed. Symbicort. Supplemental oxygen as needed. Vancomycin and atovaquone discontinued by infectious disease. = Continue antibiotics as per ID //AIDS: CD4 count less than 20. Patient has been noncompliant with medications. Continue azithromycin weekly. Appreciate infectious disease recommendations. // Skin lesions: Biopsies are consistent with psoriatic lesions. No evidence of Kaposi's sarcoma on pathology. Oncology signed off and has recommended outpatient evaluation by dermatology. //Generalized weakness. Likely secondary to malnutrition. Start Ensure supplement. //DVT prophylaxis: SCDs, MARK perales. Discharge Planning Continue IV antibiotics until 03/10. Will need ID clearance. PT recommends possible rehab. Reconsult PT. Arash Denny MD Mar 09, 2018 16:02
[2018-03-09 18:28] LABS: AUTOMATED NEUTROPHIL # 2.8 TH/MM3 (1.8-7.7); BASOPHIL % 0.7 % (0.0-2.0); EOSINOPHIL % 0.5 % (0.0-4.0); HEMATOCRIT 24.6 % (39.0-51.0); HEMOGLOBIN 8.5 GM/DL (13.0-17.0); LYMPH % 18.1 % (9.0-44.0); LYMPHOCYTE # 0.8 TH/MM3 (1.0-4.8); MEAN CELL VOLUME 84.1 FL (80.0-100.0); MEAN CORPUSCULAR HEMOGLOBIN 29.1 PG (27.0-34.0); MEAN CORPUSCULAR HGB CONC 34.6 % (32.0-36.0); MEAN PLATELET VOLUME 7.4 FL (7.0-11.0); MONO % 18.2 % (0.0-8.0); MONOCYTE # 0.8 TH/MM3 (0-0.9); NEUT % 62.5 % (16.0-70.0); PLATELET COUNT 187 TH/MM3 (150-450); RED BLOOD COUNT 2.93 MIL/MM3 (4.50-5.90); WHITE BLOOD COUNT 4.4 TH/MM3 (4.0-11.0)
[2018-03-09 19:03] LABS: ALBUMIN 2.7 GM/DL (3.4-5.0); BICARBONATE 27.3 MEQ/L (21.0-32.0); CALCIUM 8.4 MG/DL (8.5-10.1); CREATININE 0.88 MG/DL (0.60-1.30); DIRECT BILIRUBIN ADULT 0.1 MG/DL (0.0-0.2); MAGNESIUM 2.1 MG/DL (1.5-2.5)
[2018-03-09 19:06] LABS: INDIRECT BILIRUBIN 0.1 MG/DL (0.0-0.8); TOTAL BILIRUBIN ADULT 0.2 MG/DL (0.2-1.0); TOTAL PROTEIN 6.8 GM/DL (6.4-8.2)
[2018-03-09 20:00] VITALS: BP 113/60; PULSE 95; RESP 18; TEMP 102.2; O2SAT 97
[2018-03-10] VITALS: BP 122/59; PULSE 102; RESP 18; TEMP 102.3; O2SAT 93
[2018-03-10] MEDS: HYDROCORTISONE 1% CREAM 30 GM TOPICAL SCH ×3 (04:55→22:00)
[2018-03-10 08:00] VITALS: BP 103/58; PULSE 92; RESP 17; TEMP 100.2; O2SAT 96
[2018-03-10] MEDS: SODIUM CHLORIDE 0.9% FLUSH 10 ML FLUSH IV FLUSH SCH ×2 (08:04→23:11)
[2018-03-10] MEDS: NYSTATIN SUSP 500,000 U/5 ML CUP SWISH-SWAL SCH ×4 (08:04→21:00)
[2018-03-10] MEDS: NYSTATIN 100,000 UNIT/GM CREAM 15 GM TOPICAL SCH ×2 (08:04→21:00)
[2018-03-10] MEDS: ceFAZolin 2 GM PREMIX 50 ML IV SCH ×3 (08:04→23:04)
[2018-03-10] MEDS: DOCUSATE SODIUM 50 MG/SENNA 8.6 MG TAB PO SCH ×2 (08:05→21:00)
[2018-03-10] MEDS: busPIRone HCL 5 MG TAB PO SCH ×2 (08:05→21:00)
[2018-03-10] MEDS: ONDANSETRON HCL 4 MG/2 ML VIAL IVP PRN ×3 (08:15→23:11)
[2018-03-10] MEDS: LORazepam 0.5 MG TAB PO PRN (10:46)
--- NOTE | 2018-03-10 10:53 | RADRPT ---
EXAM DATE/TIME: 03/10/2018 10:26 [facility] COMPARISON: No previous studies available for comparison. INDICATIONS : Evaluate diaphragm. Shortness of breath. MEDICAL HISTORY : None. SURGICAL HISTORY : None. ENCOUNTER: Subsequent ACUITY: 1 day PAIN SCORE: 0/10 LOCATION: Bilateral chest FINDINGS: A single view of the chest demonstrates the lungs to be symmetrically aerated without evidence of mas s, infiltrate or effusion. The cardiomediastinal contours are unremarkable. Osseous structures are intact. CONCLUSION: No acute disease. Esa Mederos MD on March 10, 2018 at 10:50 Board Certified Radiologist. This report was verified electronically.
[2018-03-10 12:00] VITALS: BP 109/59; PULSE 95; RESP 19; TEMP 97.7; O2SAT 96
[2018-03-10 16:00] VITALS: BP 113/58; PULSE 89; RESP 17; TEMP 101.4; O2SAT 97
[2018-03-10 20:00] VITALS: BP 109/57; PULSE 104; RESP 18; TEMP 102.8; O2SAT 98
--- NOTE | 2018-03-10 22:34 | HHI.PR ---
Subjective Remarks Patient seen today around 11 AM. This he is feeling all right. He did agree to receive the permethrin treatment yesterday. He is refuses morning labs, however upon talking has accepted to do blood cultures. Objective Vital Signs Date Time Temp Pulse Resp B/P (MAP) Pulse Ox O2 Delivery O2 Flow Rate FiO2 03/10/18 20:00 102.8 104 18 109/57 (74) 98 03/10/18 16:00 101.4 89 17 113/58 (76) 97 03/10/18 12:00 97.7 95 19 109/59 (76) 96 03/10/18 08:00 100.2 92 17 103/58 (73) 96 03/10/18 00:00 102.3 102 18 122/59 (80) 93 I/O 03/09/18 03/09/18 03/09/18 03/10/18 03/10/18 03/10/18 07:00 15:00 23:00 07:00 15:00 23:00 Intake Total 290 ml 50 ml 575 ml 50 ml 50 ml 525 ml Output Total 400 ml 625 ml 300 ml Balance -110 ml 50 ml -50 ml 50 ml 50 ml 225 ml Intake Oral 240 ml 525 ml 475 ml IV Total 50 ml 50 ml 50 ml 50 ml 50 ml 50 ml Output Urine Total 400 ml 625 ml 300 ml # Bowel Movements 0 0 Result Diagram: 03/09/18180903/09/181809 Objective Remarks GENERAL: Patient lying in bed. Appears comfortable.. Exam again unchanged. SKIN: Warm and dry. Extensive erythematous papules on palms of hands, and between fingers HEAD: Normocephalic. EYES: No scleral icterus. No injection or drainage. NECK: Supple, trachea midline. No JVD. CARDIOVASCULAR: Regular rate and rhythm without murmurs, gallops, or rubs. RESPIRATORY: Breath sounds equal bilaterally. No accessory muscle use. GASTROINTESTINAL: Abdomen soft, non-tender, nondistended. MUSCULOSKELETAL: No cyanosis, or edema. BACK: Nontender without obvious deformity. No CVA tenderness. A/P Assessment and Plan 03/09 03/10. Fevers continue. Blood cultures reordered. Chest x-ray with no acute findings. No new surges of infection. Continue treatment per bacteremia. Appreciate ID assistance. Patient seen and examined. Discussed with nursing MDR. Continue antibiotics through 03/10. As per ID.encouraged patient to work with PT 03/06/18: No fevers overnight. Continue IV antibiotics at least until 03/10.. HIV lab results available. Awaiting further infectious disease recommendations. Reconsult PT due to weakness. Start Ensure supplement // Sepsis: Presented with fever, tachycardia. Source is pneumonia, bacteremia. Patient is immunocompromised. Initial blood cultures growing coag negative staph. Repeat blood cultures from 02/20/18 are negative. Appreciate infectious disease recommendations. Vancomycin discontinued. Continues to have low-grade fever. Repeat blood cultures from 02/27/18 are growing Staph aureus x 1 bottle. Continue Ancef. Blood cultures from 03/02/18 are negative so far. = Continue IV antibiotics until 03/10 as per ID. = 03/09. Sepsis continues. Fever 101.7 overnight. Patient has refused labs. Continue antibiotics as per ID. Appreciate ID assistance. //Pneumonia: Chest CT shows scattered interstitial and alveolar opacities. DuoNeb as needed. Symbicort. Supplemental oxygen as needed. Vancomycin and atovaquone discontinued by infectious disease. = Continue antibiotics as per ID //AIDS: CD4 count less than 20. Patient has been noncompliant with medications. Continue azithromycin weekly. Appreciate infectious disease recommendations. // Skin lesions: Biopsies are consistent with psoriatic lesions. No evidence of Kaposi's sarcoma on pathology. Oncology signed off and has recommended outpatient evaluation by dermatology. //suspected scabies. Lesions on hands are relatively new over the past 2 months , despite long history of psoriasis. Patient lives with cats and dogs. Received permethrin treatment 03/10. Should consider repeat treatment in one week. //Generalized weakness. Likely secondary to malnutrition. Start Ensure supplement. //DVT prophylaxis: SCDs, MARK perales. Discharge Planning patient was to have finished IV antibiotics on 03/10. He is having continued fevers however. Will need ID clearance. PT recommends possible rehab. Arash Denny MD Mar 10, 2018 22:34
[2018-03-11] VITALS (7 sets, daily range): BP systolic 99–113; BP diastolic 52–59; PULSE 78–102; RESP 16–18; TEMP 97.7–102.8; O2SAT 91–96
[2018-03-11] MEDS: HYDROCORTISONE 1% CREAM 30 GM TOPICAL SCH (05:09)
[2018-03-11] MEDS: AZITHROMYCIN 600 MG TAB PO SCH (05:09)
[2018-03-11] MEDS: DOCUSATE SODIUM 50 MG/SENNA 8.6 MG TAB PO SCH ×2 (08:12→20:26)
[2018-03-11] MEDS: ceFAZolin 2 GM PREMIX 50 ML IV SCH (08:12)
[2018-03-11] MEDS: NYSTATIN SUSP 500,000 U/5 ML CUP SWISH-SWAL SCH ×4 (08:13→20:26)
[2018-03-11] MEDS: NYSTATIN 100,000 UNIT/GM CREAM 15 GM TOPICAL SCH ×2 (08:14→20:28)
[2018-03-11] MEDS: ONDANSETRON HCL 4 MG/2 ML VIAL IVP PRN (08:19)
[2018-03-11] MEDS: SODIUM CHLORIDE 0.9% FLUSH 10 ML FLUSH IV FLUSH SCH ×2 (09:00→20:25)
--- NOTE | 2018-03-11 11:32 | HHI.IDPN ---
Note Infectious Disease Note Patient is awake, alert. Developed fever last 24 hours. T-max is as 102. Says he does not feel like he has fever. He is rubbing his hands and picking at his skin He denies itching of the skin. He was treated for scabies. He denies headache, nausea, vomiting, chills. No shortness of breath. Occasional cough with no sputum production. Notes drainage from the groin area. Blood cultures have been obtained. Last blood cultures were negative. Has been on Ancef. White blood cell count is normal. The CD4 count is less than 20. 38-year-old white male who has HIV disease. The patient was brought to the emergency department because of shortness of breath. He also noted having pain from skin lesions. He states that approximately 1-2 months ago, he broke out in a skin rash and multiple skin lesions all over his body. He has not seen a physician for that problem. The patient is a very poor historian. He also has memory problems. He was evaluated and treated for pneumonia in September 2017 and was discharged on oral antibiotics and requested to make an appointment to followup with the [facility] for HIV management. He never did so. He states that he was having difficulty getting through on the telephone. He also states that he lives with his grandmother and does not have transportation because his grandmother does not drive. His CD4 count in September was 249. PAST MEDICAL HISTORY: Inguinal hernia, pneumonia, HIV disease. ALLERGIES: SULFAMETHOXAZOLE, TRIMETHOPRIM. MEDICATIONS: Current Medications Medications (Trade) Dose Ordered Sig/Frank Route PRN Reason Start Time Stop Time Status Last Admin Dose Admin Albuterol/ Ipratropium (Duoneb Neb) 1 ampule Q4HR NEB PRN NEB SOB/WHEEZING 02/18/18 04:45 Sodium Chloride (NS Flush) 2 ml UNSCH PRN IV FLUSH FLUSH AFTER USING IV ACCESS 02/18/18 04:45 03/08/18 23:47 Sodium Chloride (NS Flush) 2 ml BID IV FLUSH 02/18/18 09:00 03/10/18 23:11 Ondansetron HCl (Zofran Inj) 4 mg Q6H PRN IVP NAUSEA OR VOMITING 02/18/18 04:45 03/11/18 08:19 Acetaminophen (Tylenol) 650 mg Q6H PRN PO FEVER/PAIN SCALE 1 TO 2 02/18/18 04:45 03/08/18 21:27 Acetaminophen/ Hydrocodone Bitart (Hale 5-325 Mg) 1 tab Q4H PRN PO PAIN SCALE 3 TO 5 02/18/18 04:45 Senna/Docusate Sodium (Edilia-Colace) 1 tab BID PO 02/18/18 09:00 03/11/18 08:12 Magnesium Hydroxide (Milk Of Magnesia Liq) 30 ml Q12H PRN PO Mild constipation 02/18/18 04:45 Sennosides (Senokot) 17.2 mg Q12H PRN PO Moderate constipation 02/18/18 04:45 Bisacodyl (Dulcolax Supp) 10 mg DAILY PRN RECTAL SEVERE CONSITIPATION 02/18/18 04:45 Lactulose (Lactulose Liq) 30 ml DAILY PRN PO SEVERE CONSITIPATION 02/18/18 04:45 Azithromycin (Zithromax) 1,200 mg Q7D PO 02/18/18 06:00 03/11/18 05:09 Buspirone HCl (Buspar) 5 mg Q12HR PO 02/18/18 09:00 03/10/18 08:05 Nystatin (Mycostatin Liq) 5 ml QID SWISH-SWAL 02/18/18 09:00 03/01/18 08:38 Lorazepam (Ativan) 0.5 mg Q6H PRN PO anxiety 02/19/18 10:00 03/10/18 10:46 Oxycodone HCl (Roxicodone) 15 mg Q4H PRN PO pain 6-10 02/22/18 15:45 03/10/18 11:15 Nystatin (Mycostatin Cream) 1 applic Q12HR TOPICAL 02/23/18 12:30 03/11/18 08:14 Hydrocortisone (Hydrocortisone 1% Cream) 1 applic Q8HR TOPICAL 03/01/18 17:00 03/10/18 12:25 Cefazolin Sodium/ Dextrose 50 ml @ 100 mls/hr Q8H IV 03/07/18 16:00 03/11/18 08:12 OBJECTIVE: Current Medications Medications (Trade) Dose Ordered Sig/Frank Route PRN Reason Start Time Stop Time Status Last Admin Dose Admin Albuterol/ Ipratropium (Duoneb Neb) 1 ampule Q4HR NEB PRN NEB SOB/WHEEZING 02/18/18 04:45 Sodium Chloride (NS Flush) 2 ml UNSCH PRN IV FLUSH FLUSH AFTER USING IV ACCESS 02/18/18 04:45 Sodium Chloride (NS Flush) 2 ml BID IV FLUSH 02/18/18 09:00 03/06/18 08:16 Ondansetron HCl (Zofran Inj) 4 mg Q6H PRN IVP NAUSEA OR VOMITING 02/18/18 04:45 03/06/18 08:19 Acetaminophen (Tylenol) 650 mg Q6H PRN PO FEVER/PAIN SCALE 1 TO 2 02/18/18 04:45 03/02/18 20:27 Acetaminophen/ Hydrocodone Bitart (Hale 5-325 Mg) 1 tab Q4H PRN PO PAIN SCALE 3 TO 5 02/18/18 04:45 Senna/Docusate Sodium (Edilia-Colace) 1 tab BID PO 02/18/18 09:00 03/01/18 08:38 Magnesium Hydroxide (Milk Of Magnesia Liq) 30 ml Q12H PRN PO Mild constipation 02/18/18 04:45 Sennosides (Senokot) 17.2 mg Q12H PRN PO Moderate constipation 02/18/18 04:45 Bisacodyl (Dulcolax Supp) 10 mg DAILY PRN RECTAL SEVERE CONSITIPATION 02/18/18 04:45 Lactulose (Lactulose Liq) 30 ml DAILY PRN PO SEVERE CONSITIPATION 02/18/18 04:45 Azithromycin (Zithromax) 1,200 mg Q7D PO 02/18/18 06:00 03/04/18 05:52 Buspirone HCl (Buspar) 5 mg Q12HR PO 02/18/18 09:00 03/06/18 08:15 Nystatin (Mycostatin Liq) 5 ml QID SWISH-SWAL 02/18/18 09:00 03/01/18 08:38 Lorazepam (Ativan) 0.5 mg Q6H PRN PO anxiety 02/19/18 10:00 03/04/18 21:41 Oxycodone HCl (Roxicodone) 15 mg Q4H PRN PO pain 6-10 02/22/18 15:45 03/05/18 11:28 Nystatin (Mycostatin Cream) 1 applic Q12HR TOPICAL 02/23/18 12:30 03/06/18 08:16 Hydrocortisone (Hydrocortisone 1% Cream) 1 applic Q8HR TOPICAL 03/01/18 17:00 03/06/18 05:36 Cefazolin Sodium/ Dextrose 50 ml @ 100 mls/hr Q8H IV 03/01/18 17:15 03/06/18 08:15 Objective: Vital Signs Date Time Temp Pulse Resp B/P (MAP) Pulse Ox O2 Delivery O2 Flow Rate FiO2 03/11/18 08:00 102.6 101 16 113/59 (77) 96 03/11/18 04:00 102.7 101 18 112/54 (73) 96 03/11/18 00:00 102.8 102 18 103/52 (69) 95 03/10/18 20:00 102.8 104 18 109/57 (74) 98 03/10/18 16:00 101.4 89 17 113/58 (76) 97 03/10/18 12:00 97.7 95 19 109/59 (76) 96 Laboratory Tests Test 03/09/18 18:10 White Blood Count 4.4 TH/MM3 Red Blood Count 2.93 MIL/MM3 Hemoglobin 8.5 GM/DL Hematocrit 24.6 % Mean Corpuscular Volume 84.1 FL Mean Corpuscular Hemoglobin 29.1 PG Mean Corpuscular Hemoglobin Concent 34.6 % Red Cell Distribution Width 16.0 % Platelet Count 187 TH/MM3 Mean Platelet Volume 7.4 FL Neutrophils (%) (Auto) 62.5 % Lymphocytes (%) (Auto) 18.1 % Monocytes (%) (Auto) 18.2 % Eosinophils (%) (Auto) 0.5 % Basophils (%) (Auto) 0.7 % Neutrophils # (Auto) 2.8 TH/MM3 Lymphocytes # (Auto) 0.8 TH/MM3 Monocytes # (Auto) 0.8 TH/MM3 Eosinophils # (Auto) 0.0 TH/MM3 Basophils # (Auto) 0.0 TH/MM3 CBC Comment DIFF FINAL Differential Comment Laboratory Tests Test 03/09/18 18:10 Blood Urea Nitrogen 19 MG/DL Creatinine 0.88 MG/DL Random Glucose 85 MG/DL Total Protein 6.8 GM/DL Albumin 2.7 GM/DL Calcium Level 8.4 MG/DL Phosphorus Level 3.0 MG/DL Magnesium Level 2.1 MG/DL Alkaline Phosphatase 79 U/L Aspartate Amino Transf (AST/SGOT) 17 U/L Alanine Aminotransferase (ALT/SGPT) 13 U/L Total Bilirubin 0.2 MG/DL Direct Bilirubin 0.1 MG/DL Sodium Level 139 MEQ/L Potassium Level 4.4 MEQ/L Chloride Level 104 MEQ/L Carbon Dioxide Level 27.3 MEQ/L Anion Gap 8 MEQ/L Estimat Glomerular Filtration Rate 97 ML/MIN Indirect Bilirubin 0.1 MG/DL Microbiology Date/Time Source Procedure Growth Status 03/10/18 11:30 Blood Peripheral Aerobic Blood Culture - Preliminary NO GROWTH IN 1 DAY Resulted 03/10/18 11:30 Blood Peripheral Anaerobic Blood Culture - Preliminary NO GROWTH IN 1 DAY Resulted 03/10/18 11:15 Blood Peripheral Aerobic Blood Culture - Preliminary NO GROWTH IN 1 DAY Resulted 03/10/18 11:15 Blood Peripheral Anaerobic Blood Culture - Preliminary NO GROWTH IN 1 DAY Resulted Imaging: Chest X-Ray 03/10/18 0000 Signed Impressions: Service Date/Time: Saturday, March 10, 2018 10:26 - CONCLUSION: No acute disease. Esa Mederos MD Abdomen/Pelvis CT 02/19/18 0000 Signed Impressions: Service Date/Time: Tuesday, February 20, 2018 00:12 - CONCLUSION: 1. Prominent soft tissue density/lymphadenopathy in the left mesentery measuring 2 cm. 2. Multiple small scattered retroperitoneal lymph nodes. Christoph Fuller MD Chest X-Ray 02/18/18 0110 Signed Impressions: Service Date/Time: Sunday, February 18, 2018 01:20 - CONCLUSION: No acute disease. Christoph Fuller MD Chest CT 02/18/18 0000 Signed Impressions: Service Date/Time: Sunday, February 18, 2018 03:18 - CONCLUSION: 1. Scattered interstitial and alveolar opacities predominantly within the upper lobes. 2. No pleural effusions. Christoph Fuller MD PHYSICAL EXAMINATION: GENERAL: No acute distress. Awake and alert. HEENT: Diffuse rash of the face covering the entire face. This has faded. Still erythematous. Extraocular movements grossly intact. Pupils reactive to light. Pale sclerae. Oropharynx: Moist mucosa. No visible thrush. No visible lesions. NECK: Supple without adenopathy. LUNGS: Clear breath sounds HEART: Regular S1 and S2. No murmurs or rubs or gallops. ABDOMEN: Bowel sounds present. Soft, nontender EXTREMITIES: Diffuse nondraining erythematous punctate lesions covering the entire palm of the hands. Soles of the feet has erythema and dried scab. No clubbing, cyanosis or edema. GROIN: Flat erythematous rash at the grooves of the groin with weeping from the site. SKIN: Diffuse, maculopapular erythematous grainy lesions scattered all over the extremities, back, trunk, arms, legs. less exfoliation. NEUROLOGIC: No gross focal findings. PSYCHIATRIC: Calm and cooperative. IMPRESSION: 1. Bacteremia initially with staph coagulase-negative. Subsequent blood culture had staph aureus. Patient has been receiving Ancef. Now with new fever. Given the severity of his skin condition it could be that he scratched the skin so much that it led to a portal for infection since he had open skin lesions that may be the source of the initial gram-positive bacteremia. 2. Fever. Pneumonia. The patient had bilateral lung infiltrates, likely opportunistic infection in this patient with low CD4 count and severe immunosuppression from acquired immune deficiency syndrome. Chest x-ray cleared. He does not appear toxic. The current fever could be drug-induced. Potentially antibiotic induced. The white blood cell count is normal. 3. Acquired immune deficiency syndrome. CD4 count less than 20. Elevated viral load. 4. Skin lesions with biopsy showing psoriasis. 5. 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 6. Patient with poor insight. RECOMMENDATIONS: 1. Continue Zithromax. 2. Stop Ancef. 3. Add dapsone for PJP prophylaxis because he is allergic to Bactrim. 4. Add nystatin powder to the groin rash. 5. Make arrangements for the patient to go to the health department directly after release from the hospital for evaluation for HIV medication initiation. He has had issues with throwing for appointments and is likely to get lost to follow-up if he is not sensitive to the health department from the hospital. I have spoken to the distance learning coordinator at the health department and they will try to accommodate And set up appointment and try to get him into the right and right program to be able to start on HIV medication soon. executive sales manager has been notified and will try to get information to the health department to facilitate Outpatient evaluation. Eventually the patient will need to be seen by dermatology for treatment for psoriasis. Syed Will MD Mar 11, 2018 11:32
[2018-03-11] MEDS: NYSTATIN 100,000 U/GM PWD 15 GM BTL TOPICAL SCH ×2 (12:07→20:28)
[2018-03-11] MEDS: busPIRone HCL 5 MG TAB PO SCH ×2 (12:07→20:25)
[2018-03-11] MEDS: DAPSONE 100 MG TAB PO SCH (13:20)
--- NOTE | 2018-03-11 15:51 | HHI.PR ---
Subjective Remarks Patient seen this morning around noon. Says he is feeling all right. Denies any chest pain or shortness of breath. Continued fevers Objective Vital Signs Date Time Temp Pulse Resp B/P (MAP) Pulse Ox O2 Delivery O2 Flow Rate FiO2 03/11/18 08:00 102.6 101 16 113/59 (77) 96 03/11/18 04:00 102.7 101 18 112/54 (73) 96 03/11/18 00:00 102.8 102 18 103/52 (69) 95 03/10/18 20:00 102.8 104 18 109/57 (74) 98 03/10/18 16:00 101.4 89 17 113/58 (76) 97 I/O 03/10/18 03/10/18 03/10/18 03/11/18 03/11/18 03/11/18 07:00 15:00 23:00 07:00 15:00 23:00 Intake Total 50 ml 50 ml 525 ml 240 ml Output Total 300 ml 600 ml Balance 50 ml 50 ml 225 ml -360 ml Intake Oral 475 ml 240 ml IV Total 50 ml 50 ml 50 ml Output Urine Total 300 ml 600 ml # Bowel Movements 0 0 Result Diagram: 03/09/18180903/09/181809 Objective Remarks GENERAL: Patient lying in bed. Appears comfortable.. Exam again unchanged. SKIN: Warm and dry. Extensive erythematous papules on palms of hands, and between fingers continue. HEAD: Normocephalic. EYES: No scleral icterus. No injection or drainage. NECK: Supple, trachea midline. No JVD. CARDIOVASCULAR: Regular rate and rhythm without murmurs, gallops, or rubs. RESPIRATORY: Breath sounds equal bilaterally. No accessory muscle use. GASTROINTESTINAL: Abdomen soft, non-tender, nondistended. MUSCULOSKELETAL: No cyanosis, or edema. BACK: Nontender without obvious deformity. No CVA tenderness. A/P Assessment and Plan 03/11 03/11. Fevers again continue. Blood cultures reordered. Chest x-ray with no acute findings. No new source of infection. Discussed again with infectious disease. ID will switch antibiotics. Appreciate assistance. Repeat blood cultures negative today // Sepsis: Presented with fever, tachycardia. Source is pneumonia, bacteremia. Patient is immunocompromised. Initial blood cultures growing coag negative staph. Repeat blood cultures from 02/20/18 are negative. Appreciate infectious disease recommendations. Vancomycin discontinued. Continues to have low-grade fever. Repeat blood cultures from 02/27/18 are growing Staph aureus x 1 bottle. Continue Ancef. Blood cultures from 03/02/18 are negative so far. = Continue IV antibiotics until 03/10 as per ID. = 03/09. Sepsis continues. Fever 101.7 overnight. Patient has refused labs. Continue antibiotics as per ID. Appreciate ID assistance. //Pneumonia: Chest CT shows scattered interstitial and alveolar opacities. DuoNeb as needed. Symbicort. Supplemental oxygen as needed. Vancomycin and atovaquone discontinued by infectious disease. = Continue antibiotics as per ID //AIDS: CD4 count less than 20. Patient has been noncompliant with medications. Continue azithromycin weekly. Appreciate infectious disease recommendations. // Skin lesions: Biopsies are consistent with psoriatic lesions. No evidence of Kaposi's sarcoma on pathology. Oncology signed off and has recommended outpatient evaluation by dermatology. //suspected scabies. Lesions on hands are relatively new over the past 2 months , despite long history of psoriasis. Patient lives with cats and dogs. Received permethrin treatment 03/10. Should consider repeat treatment in one week. //Generalized weakness. Likely secondary to malnutrition. Start Ensure supplement. //DVT prophylaxis: SCDs, MARK perales. Discharge Planning patient was to have finished IV antibiotics on 03/10. He is having continued fevers however. Will need ID clearance. PT recommends possible rehab. Arash Dneny MD Mar 11, 2018 15:51
[2018-03-11] MEDS: LORazepam 0.5 MG TAB PO PRN (21:11)
[2018-03-12] MEDS: ONDANSETRON HCL 4 MG/2 ML VIAL IVP PRN ×2 (00:38→18:12)
[2018-03-12] MEDS: SODIUM CHLORIDE 0.9% FLUSH 10 ML FLUSH IV FLUSH PRN (00:39)
[2018-03-12 08:00] VITALS: BP 108/64; PULSE 80; RESP 16; TEMP 98.2; O2SAT 96
[2018-03-12] MEDS: NYSTATIN SUSP 500,000 U/5 ML CUP SWISH-SWAL SCH ×4 (08:48→20:37)
[2018-03-12] MEDS: DAPSONE 100 MG TAB PO SCH (08:49)
[2018-03-12] MEDS: DOCUSATE SODIUM 50 MG/SENNA 8.6 MG TAB PO SCH ×2 (08:49→20:36)
[2018-03-12] MEDS: busPIRone HCL 5 MG TAB PO SCH ×2 (08:49→20:36)
[2018-03-12] MEDS: SODIUM CHLORIDE 0.9% FLUSH 10 ML FLUSH IV FLUSH SCH ×2 (08:49→21:00)
[2018-03-12] MEDS: NYSTATIN 100,000 U/GM PWD 15 GM BTL TOPICAL SCH ×2 (08:50→20:37)
[2018-03-12] MEDS: NYSTATIN 100,000 UNIT/GM CREAM 15 GM TOPICAL SCH ×2 (08:50→20:38)
[2018-03-12 12:00] VITALS: BP 99/59; PULSE 88; RESP 16; TEMP 99.2; O2SAT 97
[2018-03-12 13:33] LABS: AUTOMATED NEUTROPHIL # 2.9 TH/MM3 (1.8-7.7); BASOPHIL % 0.3 % (0.0-2.0); EOSINOPHIL % 0.6 % (0.0-4.0); HEMATOCRIT 24.1 % (39.0-51.0); HEMOGLOBIN 8.3 GM/DL (13.0-17.0); LYMPH % 14.4 % (9.0-44.0); LYMPHOCYTE # 0.6 TH/MM3 (1.0-4.8); MEAN CELL VOLUME 84.3 FL (80.0-100.0); MEAN CORPUSCULAR HEMOGLOBIN 29.2 PG (27.0-34.0); MEAN CORPUSCULAR HGB CONC 34.6 % (32.0-36.0); MEAN PLATELET VOLUME 7.5 FL (7.0-11.0); MONO % 9.1 % (0.0-8.0); MONOCYTE # 0.4 TH/MM3 (0-0.9); NEUT % 75.6 % (16.0-70.0); PLATELET COUNT 145 TH/MM3 (150-450); RED BLOOD COUNT 2.86 MIL/MM3 (4.50-5.90); RED CELL DISTRIBUTION WIDTH 15.4 % (11.6-17.2); WHITE BLOOD COUNT 3.9 TH/MM3 (4.0-11.0)
[2018-03-12 14:42] LABS: ALBUMIN 2.5 GM/DL (3.4-5.0); BICARBONATE 27.6 MEQ/L (21.0-32.0); CALCIUM 8.3 MG/DL (8.5-10.1); CREATININE 0.87 MG/DL (0.60-1.30); MAGNESIUM 2.4 MG/DL (1.5-2.5); PHOSPHORUS 2.9 MG/DL (2.5-4.9)
--- NOTE | 2018-03-12 15:53 | HHI.IDPN ---
Note Infectious Disease Note Patient says that he feels okay. His temperature has remained normal so far today. Instantly picking at his skin. Denies itching. Denies aches or pains. Admitted because of shortness of breath. He also had painful skin lesions. PAST MEDICAL HISTORY: HIV disease. Inguinal hernia. pneumonia. ALLERGIES: SULFAMETHOXAZOLE, TRIMETHOPRIM. MEDICATIONS: Current Medications Medications (Trade) Dose Ordered Sig/Frank Route PRN Reason Start Time Stop Time Status Last Admin Dose Admin Albuterol/ Ipratropium (Duoneb Neb) 1 ampule Q4HR NEB PRN NEB SOB/WHEEZING 02/18/18 04:45 03/11/18 20:38 Sodium Chloride (NS Flush) 2 ml UNSCH PRN IV FLUSH FLUSH AFTER USING IV ACCESS 02/18/18 04:45 03/12/18 00:39 Sodium Chloride (NS Flush) 2 ml BID IV FLUSH 02/18/18 09:00 03/12/18 08:49 Ondansetron HCl (Zofran Inj) 4 mg Q6H PRN IVP NAUSEA OR VOMITING 02/18/18 04:45 03/12/18 00:38 Acetaminophen (Tylenol) 650 mg Q6H PRN PO FEVER/PAIN SCALE 1 TO 2 02/18/18 04:45 03/08/18 21:27 Acetaminophen/ Hydrocodone Bitart ([place] 5-325 Mg) 1 tab Q4H PRN PO PAIN SCALE 3 TO 5 02/18/18 04:45 03/12/18 12:27 Senna/Docusate Sodium (Edilia-Colace) 1 tab BID PO 02/18/18 09:00 03/12/18 08:49 Magnesium Hydroxide (Milk Of Magnesia Liq) 30 ml Q12H PRN PO Mild constipation 02/18/18 04:45 Sennosides (Senokot) 17.2 mg Q12H PRN PO Moderate constipation 02/18/18 04:45 Bisacodyl (Dulcolax Supp) 10 mg DAILY PRN RECTAL SEVERE CONSITIPATION 02/18/18 04:45 Lactulose (Lactulose Liq) 30 ml DAILY PRN PO SEVERE CONSITIPATION 02/18/18 04:45 Azithromycin (Zithromax) 1,200 mg Q7D PO 02/18/18 06:00 03/11/18 05:09 Buspirone HCl (Buspar) 5 mg Q12HR PO 02/18/18 09:00 03/12/18 08:49 Nystatin (Mycostatin Liq) 5 ml QID SWISH-SWAL 02/18/18 09:00 03/01/18 08:38 Lorazepam (Ativan) 0.5 mg Q6H PRN PO anxiety 02/19/18 10:00 03/11/18 21:11 Oxycodone HCl (Roxicodone) 15 mg Q4H PRN PO pain 6-10 02/22/18 15:45 03/11/18 21:12 Nystatin (Mycostatin Cream) 1 applic Q12HR TOPICAL 02/23/18 12:30 03/12/18 08:50 Nystatin (Mycostatin Powder) 1 applic Q12HR TOPICAL 03/11/18 12:00 03/12/18 08:50 Dapsone (Dapsone) 100 mg DAILY PO 03/11/18 13:00 03/12/18 08:49 OBJECTIVE: Vital Signs Date Time Temp Pulse Resp B/P (MAP) Pulse Ox O2 Delivery O2 Flow Rate FiO2 03/12/18 12:00 99.2 88 16 99/59 (72) 97 03/12/18 08:00 98.2 80 16 108/64 (79) 96 03/11/18 20:41 96 21 03/11/18 18:48 101.3 88 16 113/54 (73) 96 03/11/18 16:00 101.6 78 16 108/57 (74) 91 Laboratory Tests Test 03/12/18 13:16 White Blood Count 3.9 TH/MM3 Red Blood Count 2.86 MIL/MM3 Hemoglobin 8.3 GM/DL Hematocrit 24.1 % Mean Corpuscular Volume 84.3 FL Mean Corpuscular Hemoglobin 29.2 PG Mean Corpuscular Hemoglobin Concent 34.6 % Red Cell Distribution Width 15.4 % Platelet Count 145 TH/MM3 Mean Platelet Volume 7.5 FL Neutrophils (%) (Auto) 75.6 % Lymphocytes (%) (Auto) 14.4 % Monocytes (%) (Auto) 9.1 % Eosinophils (%) (Auto) 0.6 % Basophils (%) (Auto) 0.3 % Neutrophils # (Auto) 2.9 TH/MM3 Lymphocytes # (Auto) 0.6 TH/MM3 Monocytes # (Auto) 0.4 TH/MM3 Eosinophils # (Auto) 0.0 TH/MM3 Basophils # (Auto) 0.0 TH/MM3 CBC Comment DIFF FINAL Differential Comment Laboratory Tests Test 03/12/18 13:16 Blood Urea Nitrogen 19 MG/DL Creatinine 0.87 MG/DL Random Glucose 112 MG/DL Albumin 2.5 GM/DL Calcium Level 8.3 MG/DL Phosphorus Level 2.9 MG/DL Magnesium Level 2.4 MG/DL Sodium Level 139 MEQ/L Potassium Level 3.6 MEQ/L Chloride Level 103 MEQ/L Carbon Dioxide Level 27.6 MEQ/L Anion Gap 8 MEQ/L Estimat Glomerular Filtration Rate 99 ML/MIN Microbiology Date/Time Source Procedure Growth Status 03/10/18 11:30 Blood Peripheral Aerobic Blood Culture - Preliminary NO GROWTH IN 2 DAYS Resulted 03/10/18 11:30 Blood Peripheral Anaerobic Blood Culture - Preliminary NO GROWTH IN 2 DAYS Resulted 03/10/18 11:15 Blood Peripheral Aerobic Blood Culture - Preliminary NO GROWTH IN 2 DAYS Resulted 03/10/18 11:15 Blood Peripheral Anaerobic Blood Culture - Preliminary NO GROWTH IN 2 DAYS Resulted Imaging: Chest X-Ray 03/10/18 0000 Signed Impressions: Service Date/Time: Saturday, March 10, 2018 10:26 - CONCLUSION: No acute disease. Esa Mederos MD Abdomen/Pelvis CT 02/19/18 0000 Signed Impressions: Service Date/Time: Tuesday, February 20, 2018 00:12 - CONCLUSION: 1. Prominent soft tissue density/lymphadenopathy in the left mesentery measuring 2 cm. 2. Multiple small scattered retroperitoneal lymph nodes. Christoph Fuller MD Chest X-Ray 02/18/18 0110 Signed Impressions: Service Date/Time: Sunday, February 18, 2018 01:20 - CONCLUSION: No acute disease. Christoph Fuller MD Chest CT 02/18/18 0000 Signed Impressions: Service Date/Time: Sunday, February 18, 2018 03:18 - CONCLUSION: 1. Scattered interstitial and alveolar opacities predominantly within the upper lobes. 2. No pleural effusions. Christoph Fuller MD PHYSICAL EXAMINATION: GENERAL: No acute distress. Awake and alert. HEENT: Diffuse erythema of the face. Extraocular movements grossly intact. Pupils reactive to light. Pale sclerae. Oropharynx: Moist mucosa. No visible thrush. No visible lesions. NECK: Supple without adenopathy. LUNGS: Clear breath sounds bilateral. HEART: Regular S1 and S2. No murmurs or rubs or gallops. ABDOMEN: Bowel sounds present. Soft, nontender EXTREMITIES: Diffuse dry erythematous punctate lesions covering the entire palm of the hands. Soles of the feet has erythematous scabbed surface. No clubbing, cyanosis or edema. GROIN: Flat erythematous rash at the grooves of the groin which is weeping less. SKIN: Diffuse, maculopapular erythematous grainy lesions scattered all over the extremities, back, trunk, arms, legs with some superficial layer of skin peeled off. . NEUROLOGIC: No gross focal findings. PSYCHIATRIC: Calm and cooperative. IMPRESSION: 1. Bacteremia initially with staph coagulase-negative. Subsequent blood culture had staph aureus. Patient has been receiving Ancef. Now with new fever. Given the severity of his skin condition it could be that he scratched the skin so much that it led to a portal for infection since he had open skin lesions that may be the source of the initial gram-positive bacteremia. 2. Fever. Pneumonia. The patient had bilateral lung infiltrates, likely opportunistic infection in this patient with low CD4 count and severe immunosuppression from acquired immune deficiency syndrome. Chest x-ray clear. He does not appear toxic. The current fever could be drug-induced. Potentially antibiotic induced. The white blood cell count is normal. Fever appear to be subsiding. 3. Acquired immune deficiency syndrome. CD4 count less than 20. Elevated viral load. 4. Skin lesions with biopsy showing psoriasis. 5. 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 6. Patient with poor insight. RECOMMENDATIONS: 1. Continue Zithromax. 2. Continue Dapsone for PJP prophylaxis because he is allergic to Bactrim. 3. Continue Nystatin powder to the groin rash. 4. Check RPR. (Ordered). 5. Make arrangements for the patient to go to the health department directly after release from the hospital for evaluation for HIV medication initiation. He has had issues with throwing for appointments and is likely to get lost to follow-up if he is not sensitive to the health department from the hospital. I have spoken to the incident response coordinator at the health department and they will try to accommodate And set up appointment and try to get him into the right and right program to be able to start on HIV medication soon. restaurant kitchen manager has been notified and will try to get information to the health department to facilitate Outpatient evaluation. Eventually the patient will need to be seen by dermatology for treatment for psoriasis. If Temp stays down to normal x 48 hours can consider discharge. Syed Will MD March 12, 2018 15:53
[2018-03-12 16:00] VITALS: BP 102/60; PULSE 80; RESP 16; TEMP 98.3; O2SAT 98
[2018-03-12 20:00] VITALS: BP 102/59; PULSE 70; RESP 18; TEMP 97.6; O2SAT 99
[2018-03-12] MEDS: LORazepam 0.5 MG TAB PO PRN (20:36)
--- NOTE | 2018-03-12 23:05 | HHI.PR ---
Subjective Remarks Patient says he is feeling all right. Denies any chest pain or shortness of breath. Denies any nausea or vomiting. Objective Vital Signs Date Time Temp Pulse Resp B/P (MAP) Pulse Ox O2 Delivery O2 Flow Rate FiO2 03/12/18 20:00 97.6 70 18 102/59 (73) 99 03/12/18 16:00 98.3 80 16 102/60 (74) 98 03/12/18 12:00 99.2 88 16 99/59 (72) 97 03/12/18 08:00 98.2 80 16 108/64 (79) 96 I/O 03/12/18 03/12/18 03/12/18 03/13/18 03/13/18 03/13/18 07:00 15:00 23:00 07:00 15:00 23:00 Intake Total 800 ml Output Total 600 ml Balance 200 ml Intake Oral 800 ml Output Urine Total 600 ml # Bowel Movements 0 Result Diagram: 03/12/18 1316 03/12/18 1316 Objective Remarks GENERAL: Patient lying in bed. Appears comfortable.. Examunchanged. SKIN: Warm and dry. Extensive erythematous papules on palms of hands, and between fingers continue without significant change. HEAD: Normocephalic. EYES: No scleral icterus. No injection or drainage. NECK: Supple, trachea midline. No JVD. CARDIOVASCULAR: Regular rate and rhythm without murmurs, gallops, or rubs. RESPIRATORY: Breath sounds equal bilaterally. No accessory muscle use. GASTROINTESTINAL: Abdomen soft, non-tender, nondistended. MUSCULOSKELETAL: No cyanosis, or edema. BACK: Nontender without obvious deformity. No CVA tenderness. A/P Assessment and Plan 03/12 still with fevers yesterday evening. Leukopenia under 4.0 today. Continue antibiotics as per ID. Syphilis serology pending. // Sepsis: Presented with fever, tachycardia. Source is pneumonia, bacteremia. Patient is immunocompromised. Initial blood cultures growing coag negative staph. Repeat blood cultures from 02/20/18 are negative. Appreciate infectious disease recommendations. Vancomycin discontinued. Continues to have low-grade fever. Repeat blood cultures from 02/27/18 are growing Staph aureus x 1 bottle. Continue Ancef. Blood cultures from 03/02/18 are negative so far. = Continue IV antibiotics until 03/10 as per ID. = 03/09. Sepsis continues. Fever 101.7 overnight. Patient has refused labs. Continue antibiotics as per ID. Appreciate ID assistance. //Pneumonia: Chest CT shows scattered interstitial and alveolar opacities. DuoNeb as needed. Symbicort. Supplemental oxygen as needed. Vancomycin and atovaquone discontinued by infectious disease. = Continue antibiotics as per ID //AIDS: CD4 count less than 20. Patient has been noncompliant with medications. Continue azithromycin weekly. Appreciate infectious disease recommendations. // Skin lesions: Biopsies are consistent with psoriatic lesions. No evidence of Kaposi's sarcoma on pathology. Oncology signed off and has recommended outpatient evaluation by dermatology. //suspected scabies. Lesions on hands are relatively new over the past 2 months , despite long history of psoriasis. Patient lives with cats and dogs. Received permethrin treatment 03/10. Should consider repeat treatment in one week. //Generalized weakness. Likely secondary to malnutrition. Start Ensure supplement. //DVT prophylaxis: SCDs, MARK perales. Discharge Planning patient was to have finished IV antibiotics on 03/10. He is having continued fevers however. Will need ID clearance. PT recommends possible rehab. Arash Denny MD March 12, 2018 23:05
[2018-03-13 08:00] VITALS: BP 110/62; PULSE 86; RESP 16; TEMP 98.6; O2SAT 98
[2018-03-13] MEDS: NYSTATIN 100,000 UNIT/GM CREAM 15 GM TOPICAL SCH ×2 (09:00→22:14)
[2018-03-13 09:16] LABS: CREATININE 0.87 MG/DL (0.60-1.30)
[2018-03-13] MEDS: DOCUSATE SODIUM 50 MG/SENNA 8.6 MG TAB PO SCH ×2 (09:33→22:12)
[2018-03-13] MEDS: busPIRone HCL 5 MG TAB PO SCH ×2 (09:33→22:11)
[2018-03-13] MEDS: NYSTATIN SUSP 500,000 U/5 ML CUP SWISH-SWAL SCH ×4 (09:33→22:30)
[2018-03-13] MEDS: DAPSONE 100 MG TAB PO SCH (09:33)
[2018-03-13] MEDS: SODIUM CHLORIDE 0.9% FLUSH 10 ML FLUSH IV FLUSH SCH ×2 (09:33→22:30)
[2018-03-13] MEDS: NYSTATIN 100,000 U/GM PWD 15 GM BTL TOPICAL SCH ×2 (09:34→22:14)
[2018-03-13 12:00] VITALS: BP 103/59; PULSE 96; RESP 16; TEMP 101.9; O2SAT 99
--- NOTE | 2018-03-13 15:35 | RADRPT ---
EXAM DATE/TIME: 03/13/2018 14:36 [facility] COMPARISON: CHEST SINGLE AP, March 10, 2018, 10:26. INDICATIONS : Evaluate for pneumonia. MEDICAL HISTORY : Hernia, inguinal. HIV. Kaposis sarcoma. SURGICAL HISTORY : None. ENCOUNTER: Initial ACUITY: 4 - 6 days PAIN SCORE: 0/10 LOCATION: Bilateral chest FINDINGS: A single view of the chest demonstrates the lungs to be symmetrically aerated without evidence of mas s, infiltrate or effusion. The cardiomediastinal contours are unremarkable. Osseous structures are intact. CONCLUSION: No acute disease. No significant change has occurred. Dale Gar MD on March 13, 2018 at 15:33 Board Certified Radiologist. This report was verified electronically.
--- NOTE | 2018-03-13 15:40 | HHI.IDPN ---
Note Infectious Disease Note Patient had a temperature spike to 101.9. He denies new symptoms. He complains of pain in the knees. He denies shortness of breath, cough, chills, abdominal pain or dysuria. He states that one of the medicines give him a sour taste in the mouth. He relates that it may be the Roxycodone. Says that he feels well otherwise. Admitted because of shortness of breath. He also had painful skin lesions. RPR negative. Hepatitis serologies negative. PAST MEDICAL HISTORY: HIV disease. Inguinal hernia. pneumonia. ALLERGIES: SULFAMETHOXAZOLE, TRIMETHOPRIM. MEDICATIONS: Current Medications Medications (Trade) Dose Ordered Sig/Frank Route PRN Reason Start Time Stop Time Status Last Admin Dose Admin Albuterol/ Ipratropium (Duoneb Neb) 1 ampule Q4HR NEB PRN NEB SOB/WHEEZING 02/18/18 04:45 03/11/18 20:38 Sodium Chloride (NS Flush) 2 ml UNSCH PRN IV FLUSH FLUSH AFTER USING IV ACCESS 02/18/18 04:45 03/12/18 00:39 Sodium Chloride (NS Flush) 2 ml BID IV FLUSH 02/18/18 09:00 03/13/18 09:33 Ondansetron HCl (Zofran Inj) 4 mg Q6H PRN IVP NAUSEA OR VOMITING 02/18/18 04:45 03/12/18 18:12 Acetaminophen (Tylenol) 650 mg Q6H PRN PO FEVER/PAIN SCALE 1 TO 2 02/18/18 04:45 03/08/18 21:27 Acetaminophen/ Hydrocodone Bitart ([place] 5-325 Mg) 1 tab Q4H PRN PO PAIN SCALE 3 TO 5 02/18/18 04:45 03/12/18 12:27 Senna/Docusate Sodium (Edilia-Colace) 1 tab BID PO 02/18/18 09:00 03/13/18 09:33 Magnesium Hydroxide (Milk Of Magnesia Liq) 30 ml Q12H PRN PO Mild constipation 02/18/18 04:45 Sennosides (Senokot) 17.2 mg Q12H PRN PO Moderate constipation 02/18/18 04:45 Bisacodyl (Dulcolax Supp) 10 mg DAILY PRN RECTAL SEVERE CONSITIPATION 02/18/18 04:45 Lactulose (Lactulose Liq) 30 ml DAILY PRN PO SEVERE CONSITIPATION 02/18/18 04:45 Azithromycin (Zithromax) 1,200 mg Q7D PO 02/18/18 06:00 03/11/18 05:09 Buspirone HCl (Buspar) 5 mg Q12HR PO 02/18/18 09:00 03/13/18 09:33 Nystatin (Mycostatin Liq) 5 ml QID SWISH-SWAL 02/18/18 09:00 03/13/18 09:33 Lorazepam (Ativan) 0.5 mg Q6H PRN PO anxiety 02/19/18 10:00 03/12/18 20:36 Oxycodone HCl (Roxicodone) 15 mg Q4H PRN PO pain 6-02/22/18 15:45 03/13/18 11:54 Nystatin (Mycostatin Cream) 1 applic Q12HR TOPICAL 02/23/18 12:30 03/13/18 09:00 Nystatin (Mycostatin Powder) 1 applic Q12HR TOPICAL 03/11/18 12:00 03/13/18 09:34 Dapsone (Dapsone) 100 mg DAILY PO 03/11/18 13:00 03/13/18 09:33 OBJECTIVE: Vital Signs Date Time Temp Pulse Resp B/P (MAP) Pulse Ox O2 Delivery O2 Flow Rate FiO2 03/13/18 12:00 101.9 96 16 103/59 (74) 99 03/13/18 08:00 98.6 86 16 110/62 (78) 98 03/12/18 20:00 97.6 70 18 102/59 (73) 99 03/12/18 16:00 98.3 80 16 102/60 (74) 98 Laboratory Tests Test 03/12/18 13:16 White Blood Count 3.9 TH/MM3 Red Blood Count 2.86 MIL/MM3 Hemoglobin 8.3 GM/DL Hematocrit 24.1 % Mean Corpuscular Volume 84.3 FL Mean Corpuscular Hemoglobin 29.2 PG Mean Corpuscular Hemoglobin Concent 34.6 % Red Cell Distribution Width 15.4 % Platelet Count 145 TH/MM3 Mean Platelet Volume 7.5 FL Neutrophils (%) (Auto) 75.6 % Lymphocytes (%) (Auto) 14.4 % Monocytes (%) (Auto) 9.1 % Eosinophils (%) (Auto) 0.6 % Basophils (%) (Auto) 0.3 % Neutrophils # (Auto) 2.9 TH/MM3 Lymphocytes # (Auto) 0.6 TH/MM3 Monocytes # (Auto) 0.4 TH/MM3 Eosinophils # (Auto) 0.0 TH/MM3 Basophils # (Auto) 0.0 TH/MM3 CBC Comment DIFF FINAL Differential Comment Laboratory Tests Test 03/12/18 13:16 03/13/18 08:21 Blood Urea Nitrogen 19 MG/DL Creatinine 0.87 MG/DL 0.87 MG/DL Random Glucose 112 MG/DL Albumin 2.5 GM/DL Calcium Level 8.3 MG/DL Phosphorus Level 2.9 MG/DL Magnesium Level 2.4 MG/DL Sodium Level 139 MEQ/L Potassium Level 3.6 MEQ/L Chloride Level 103 MEQ/L Carbon Dioxide Level 27.6 MEQ/L Anion Gap 8 MEQ/L Estimat Glomerular Filtration Rate 99 ML/MIN 99 ML/MIN Imaging: Chest X-Ray 03/10/18 0000 Signed Impressions: Service Date/Time: Saturday, March 10, 2018 10:26 - CONCLUSION: No acute disease. Esa Mederos MD Abdomen/Pelvis CT 02/19/18 0000 Signed Impressions: Service Date/Time: Tuesday, February 20, 2018 00:12 - CONCLUSION: 1. Prominent soft tissue density/lymphadenopathy in the left mesentery measuring 2 cm. 2. Multiple small scattered retroperitoneal lymph nodes. Christoph Fuller MD Chest X-Ray 02/18/18 0110 Signed Impressions: Service Date/Time: Sunday, February 18, 2018 01:20 - CONCLUSION: No acute disease. Christoph Fuller MD Chest CT 02/18/18 0000 Signed Impressions: Service Date/Time: Sunday, February 18, 2018 03:18 - CONCLUSION: 1. Scattered interstitial and alveolar opacities predominantly within the upper lobes. 2. No pleural effusions. Christoph Fuller MD PHYSICAL EXAMINATION: GENERAL: No acute distress. Awake and alert. HEENT: Diffuse erythema of the face. Extraocular movements grossly intact. Pupils reactive to light. Pale sclerae. Oropharynx: Moist mucosa. No visible thrush. No visible lesions. NECK: Supple without adenopathy. LUNGS: Breath sounds clear. HEART: Regular S1 and S2. No murmurs or rubs or gallops. ABDOMEN: Bowel sounds present. Soft, nontender. No masses palpable. EXTREMITIES: Diffuse dry erythematous punctate lesions covering the entire palm of the hands. Soles of the feet has erythematous scabbed surface. No clubbing, cyanosis or edema. GROIN: Flat erythematous rash at the grooves of the groin which is weeping less. SKIN: Diffuse, maculopapular erythematous plaque lesions scattered all over the extremities, trunk, arms, legs. Lesions are confluent back. PSYCHIATRIC: Calm and cooperative. IMPRESSION: 1. Bacteremia initially with staph coagulase-negative. Subsequent blood culture had staph aureus. Patient has been receiving Ancef. Now with new fever. Given the severity of his skin condition it could be that he scratched the skin so much that it led to a portal for infection since he had open skin lesions that may be the source of the initial gram-positive bacteremia. 2. Fever. Pneumonia. The patient had bilateral lung infiltrates, likely opportunistic infection in this patient with low CD4 count and severe immunosuppression from acquired immune deficiency syndrome. Chest x-ray clear. He does not appear toxic. The current fever could be drug-induced. Potentially antibiotic induced. The white blood cell count is normal. Patient having intermittent fevers. The fevers are likely related to the severe lack psoriasis. He also has pain in the knees which could be related to psoriasis. 3. Acquired immune deficiency syndrome. CD4 count less than 20. Elevated viral load. 4. Skin lesions with biopsy showing psoriasis. 5. 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 6. Patient with poor insight. RECOMMENDATIONS: 1. Continue Zithromax. 2. Continue Dapsone for PJP prophylaxis because he is allergic to Bactrim. 3. Continue Nystatin powder to the groin rash. 4. Add betamethasone ointment to the skin for the psoriatic lesions 5. Continue Roxicodone. 6. Ibuprofen for fever. 7. Follow the chest x-ray which has been ordered because of the recurrent fever. 8. Orders urinalysis with culture if indicated. Make arrangements for the patient to go to the health department directly after release from the hospital for evaluation for HIV medication initiation. He has had issues with throwing for appointments and is likely to get lost to follow-up if he is not sensitive to the health department from the hospital. I have spoken to the marketing outreach coordinator at the health department and they will try to accommodate And set up appointment and try to get him into the right and right program to be able to start on HIV medication soon. audio visual manager has been notified and will try to get information to the health department to facilitate Outpatient evaluation. Eventually the patient will need to be seen by dermatology for treatment for psoriasis. Anticipate discharge to the health department for initiation of HIV medications and for them to arrange access to additional care for HIV, within the next day or 2 unless he develops additional evidence of sepsis or other infection. Syed Will MD March 13, 2018 15:40
[2018-03-13 16:00] VITALS: BP 114/59; PULSE 100; RESP 16; TEMP 100.1; O2SAT 94
[2018-03-13] MEDS: IBUPROFEN 400 MG TAB PO SCH (17:09)
[2018-03-13] MEDS: LORazepam 0.5 MG TAB PO PRN (17:41)
[2018-03-13 18:48] LABS: BILIRUBIN, URINE NEG (NEG); BLOOD, URINE NEG (NEG); GLUCOSE,URINE NEG (NEG); KETONE, URINE NEG (NEG); MUCUS URINE FEW /lpf (OCC); NITRITE,URINE NEG (NEG); SQUAMOUS EPITHELIAL CELL URINE 1 /hpf (0-5); URINE COLOR YELLOW (YELLW/STRAW); URINE LEUKOCYTE ESTERASE TRACE (NEG)
[2018-03-13 20:00] VITALS: BP 96/52; PULSE 91; RESP 16; TEMP 100.4; O2SAT 96
[2018-03-13] MEDS ORDERED: IBUPROFEN 600 MG TAB PO ONE (22:00)
[2018-03-13] MEDS: BETAMETHASONE DIPROPIONATE 0.05% OINT 15 GM TUBE TOPICAL SCH (22:30)
--- NOTE | 2018-03-13 23:45 | HHI.PR ---
Subjective Remarks Patient seen this morning. Reports pain in all of his joints. Denies any chest pain or shortness breath. Objective Vital Signs Date Time Temp Pulse Resp B/P (MAP) Pulse Ox O2 Delivery O2 Flow Rate FiO2 03/13/18 20:00 100.4 91 16 96/52 (67) 96 03/13/18 16:00 100.1 100 16 114/59 (77) 94 03/13/18 12:00 101.9 96 16 103/59 (74) 99 03/13/18 08:00 98.6 86 16 110/62 (78) 98 I/O 03/13/18 03/13/18 03/13/18 03/14/18 03/14/18 03/14/18 07:00 15:00 23:00 07:00 15:00 23:00 Intake Total 1200 ml Output Total 600 ml Balance 600 ml Intake Oral 1200 ml Output Urine Total 600 ml # Bowel Movements 1 Result Diagram: 03/12/18 1316 03/13/18 0821 Objective Remarks GENERAL: Patient lying in bed. Appears comfortable.. patient lying on the left side playing game on phone. SKIN: Warm and dry. Extensive erythematous papules on palms of hands, and between fingers continue without significant change. HEAD: Normocephalic. EYES: No scleral icterus. No injection or drainage. NECK: Supple, trachea midline. No JVD. CARDIOVASCULAR: Regular rate and rhythm without murmurs, gallops, or rubs. RESPIRATORY: Breath sounds equal bilaterally. No accessory muscle use. GASTROINTESTINAL: Abdomen soft, non-tender, nondistended. MUSCULOSKELETAL: No cyanosis, or edema. BACK: Nontender without obvious deformity. No CVA tenderness. A/P Assessment and Plan 03/13 still with fevers today. Continue antibiotics as per ID. repeat blood cultures.Syphilis serology negative // Sepsis: Presented with fever, tachycardia. Source is pneumonia, bacteremia. Patient is immunocompromised. Initial blood cultures growing coag negative staph. Repeat blood cultures from 02/20/18 are negative. Appreciate infectious disease recommendations. Vancomycin discontinued. Continues to have low-grade fever. Repeat blood cultures from 02/27/18 are growing Staph aureus x 1 bottle. Continue Ancef. Blood cultures from 03/02/18 are negative so far. = Continue IV antibiotics until 03/10 as per ID. = 03/09. Sepsis continues. Fever 101.7 overnight. Patient has refused labs. Continue antibiotics as per ID. Appreciate ID assistance. //Pneumonia: Chest CT shows scattered interstitial and alveolar opacities. DuoNeb as needed. Symbicort. Supplemental oxygen as needed. Vancomycin and atovaquone discontinued by infectious disease. = Continue antibiotics as per ID //AIDS: CD4 count less than 20. Patient has been noncompliant with medications. Continue azithromycin weekly. Appreciate infectious disease recommendations. // Skin lesions: Biopsies are consistent with psoriatic lesions. No evidence of Kaposi's sarcoma on pathology. Oncology signed off and has recommended outpatient evaluation by dermatology. //suspected scabies. Lesions on hands are relatively new over the past 2 months , despite long history of psoriasis. Patient lives with cats and dogs. Received permethrin treatment 03/10. Should consider repeat treatment in one week. //Generalized weakness. Likely secondary to malnutrition. Start Ensure supplement. //DVT prophylaxis: SCDs, MARK perales. Discharge Planning patient was to have finished IV antibiotics on 03/10. He is having continued fevers however. Will need ID clearance. PT recommends possible rehab. Arash Denny MD March 13, 2018 23:45
[2018-03-14] VITALS: BP 102/56; PULSE 80; RESP 15; TEMP 97.6; O2SAT 97
[2018-03-14 03:38] VITALS: BP 100/56; PULSE 80; TEMP 98.5; O2SAT 97
[2018-03-14 08:00] VITALS: BP 103/55; PULSE 74; RESP 16; TEMP 97.7; O2SAT 95
[2018-03-14] MEDS: IBUPROFEN 400 MG TAB PO SCH ×4 (08:00→23:13)
[2018-03-14] MEDS: NYSTATIN SUSP 500,000 U/5 ML CUP SWISH-SWAL SCH ×4 (09:00→22:16)
[2018-03-14] MEDS: NYSTATIN 100,000 UNIT/GM CREAM 15 GM TOPICAL SCH ×2 (09:00→22:22)
[2018-03-14] MEDS: DOCUSATE SODIUM 50 MG/SENNA 8.6 MG TAB PO SCH ×2 (09:00→22:17)
[2018-03-14] MEDS: busPIRone HCL 5 MG TAB PO SCH ×2 (09:12→22:17)
[2018-03-14] MEDS: BETAMETHASONE DIPROPIONATE 0.05% OINT 15 GM TUBE TOPICAL SCH ×2 (09:12→22:22)
[2018-03-14] MEDS: DAPSONE 100 MG TAB PO SCH (09:13)
[2018-03-14] MEDS: SODIUM CHLORIDE 0.9% FLUSH 10 ML FLUSH IV FLUSH SCH ×2 (09:14→22:17)
[2018-03-14] MEDS: NYSTATIN 100,000 U/GM PWD 15 GM BTL TOPICAL SCH ×2 (09:15→22:21)
[2018-03-14 09:37] LABS: HEMATOCRIT 22.1 % (39.0-51.0); HEMOGLOBIN 7.6 GM/DL (13.0-17.0); MEAN CELL VOLUME 83.8 FL (80.0-100.0); MEAN CORPUSCULAR HEMOGLOBIN 28.9 PG (27.0-34.0); MEAN CORPUSCULAR HGB CONC 34.4 % (32.0-36.0); MEAN PLATELET VOLUME 7.7 FL (7.0-11.0); PLATELET COUNT 139 TH/MM3 (150-450); RED BLOOD COUNT 2.64 MIL/MM3 (4.50-5.90); RED CELL DISTRIBUTION WIDTH 15.8 % (11.6-17.2); WHITE BLOOD COUNT 3.6 TH/MM3 (4.0-11.0)
[2018-03-14 10:04] LABS: ALBUMIN 2.5 GM/DL (3.4-5.0); BICARBONATE 25.7 MEQ/L (21.0-32.0); CALCIUM 8.5 MG/DL (8.5-10.1); CREATININE 0.78 MG/DL (0.60-1.30); MAGNESIUM 2.3 MG/DL (1.5-2.5); PHOSPHORUS 4.4 MG/DL (2.5-4.9)
[2018-03-14 10:41] LABS: BANDS 7 % (0-6); LYMPHOCYTES 12 % (9-44); MONOCYTES 11 % (0-8); NEUTROPHIL # MANUAL DIFF 2.8 TH/MM3 (1.8-7.7); POLYS (SEG NEUTROPHILS) 70 % (16-70)
[2018-03-14 11:51] VITALS: BP 110/56; PULSE 78; RESP 15; TEMP 98.4; O2SAT 96
--- NOTE | 2018-03-14 12:05 | HHI.IDPN ---
Note Infectious Disease Note Patient feels hot. Afebrile this a.m. Blood cultures were obtained. Denies any symptoms. States that he cannot walk. He has a walker in the room but tells me that he is not able to walk with a walker. Admitted because of shortness of breath. He also had painful skin lesions. RPR negative. Hepatitis serologies negative. PAST MEDICAL HISTORY: HIV disease. Inguinal hernia. pneumonia. ALLERGIES: SULFAMETHOXAZOLE, TRIMETHOPRIM. Sucralose. MEDICATIONS: Current Medications Medications (Trade) Dose Ordered Sig/Frank Route PRN Reason Start Time Stop Time Status Last Admin Dose Admin Albuterol/ Ipratropium (Duoneb Neb) 1 ampule Q4HR NEB PRN NEB SOB/WHEEZING 02/18/18 04:45 03/11/18 20:38 Sodium Chloride (NS Flush) 2 ml UNSCH PRN IV FLUSH FLUSH AFTER USING IV ACCESS 02/18/18 04:45 03/12/18 00:39 Sodium Chloride (NS Flush) 2 ml BID IV FLUSH 02/18/18 09:00 03/14/18 09:14 Ondansetron HCl (Zofran Inj) 4 mg Q6H PRN IVP NAUSEA OR VOMITING 02/18/18 04:45 03/12/18 18:12 Acetaminophen (Tylenol) 650 mg Q6H PRN PO FEVER/PAIN SCALE 1 TO 2 02/18/18 04:45 Future Hold 03/08/18 21:27 Acetaminophen/ Hydrocodone Bitart ([place] 5-325 Mg) 1 tab Q4H PRN PO PAIN SCALE 3 TO 5 02/18/18 04:45 Future Hold 03/12/18 12:27 Senna/Docusate Sodium (Edilia-Colace) 1 tab BID PO 02/18/18 09:00 03/13/18 22:12 Magnesium Hydroxide (Milk Of Magnesia Liq) 30 ml Q12H PRN PO Mild constipation 02/18/18 04:45 Sennosides (Senokot) 17.2 mg Q12H PRN PO Moderate constipation 02/18/18 04:45 Bisacodyl (Dulcolax Supp) 10 mg DAILY PRN RECTAL SEVERE CONSITIPATION 02/18/18 04:45 Lactulose (Lactulose Liq) 30 ml DAILY PRN PO SEVERE CONSITIPATION 02/18/18 04:45 Azithromycin (Zithromax) 1,200 mg Q7D PO 02/18/18 06:00 03/11/18 05:09 Buspirone HCl (Buspar) 5 mg Q12HR PO 02/18/18 09:00 03/14/18 09:12 Nystatin (Mycostatin Liq) 5 ml QID SWISH-SWAL 02/18/18 09:00 03/13/18 09:33 Lorazepam (Ativan) 0.5 mg Q6H PRN PO anxiety 02/19/18 10:00 03/13/18 17:41 Oxycodone HCl (Roxicodone) 15 mg Q4H PRN PO pain 6-10 02/22/18 15:45 03/13/18 11:54 Nystatin (Mycostatin Cream) 1 applic Q12HR TOPICAL 02/23/18 12:30 03/14/18 09:00 Nystatin (Mycostatin Powder) 1 applic Q12HR TOPICAL 03/11/18 12:00 03/14/18 09:15 Dapsone (Dapsone) 100 mg DAILY PO 03/11/18 13:00 03/14/18 09:13 Betamethasone Dipropionate (Diprosone 0.05% Ointment) 1 applic BID TOPICAL 03/13/18 21:00 03/14/18 09:12 Ibuprofen (Motrin) 400 mg Q8H PO 03/13/18 16:00 03/13/18 17:09 Emtricitabine/ Tenofovir (Truvada 200-300 Mg) 1 tab DAILY PO 03/14/18 12:00 UNV Darunavir (Prezista) 800 mg DAILY PO 03/14/18 12:00 UNV Ritonavir (Norvir) 100 mg DAILY PO 03/14/18 12:00 UNV OBJECTIVE: Vital Signs Date Time Temp Pulse Resp B/P (MAP) Pulse Ox O2 Delivery O2 Flow Rate FiO2 03/14/18 08:00 97.7 74 16 103/55 (71) 95 03/14/18 03:38 98.5 80 100/56 (71) 97 03/14/18 00:00 97.6 80 15 102/56 (71) 97 03/13/18 20:00 100.4 91 16 96/52 (67) 96 03/13/18 16:00 100.1 100 16 114/59 (77) 94 03/13/18 12:00 101.9 96 16 103/59 (74) 99 Laboratory Tests Test 03/12/18 13:16 03/14/18 08:10 White Blood Count 3.9 TH/MM3 3.6 TH/MM3 Red Blood Count 2.86 MIL/MM3 2.64 MIL/MM3 Hemoglobin 8.3 GM/DL 7.6 GM/DL Hematocrit 24.1 % 22.1 % Mean Corpuscular Volume 84.3 FL 83.8 FL Mean Corpuscular Hemoglobin 29.2 PG 28.9 PG Mean Corpuscular Hemoglobin Concent 34.6 % 34.4 % Red Cell Distribution Width 15.4 % 15.8 % Platelet Count 145 TH/MM3 139 TH/MM3 Mean Platelet Volume 7.5 FL 7.7 FL Neutrophils (%) (Auto) 75.6 % Lymphocytes (%) (Auto) 14.4 % Monocytes (%) (Auto) 9.1 % Eosinophils (%) (Auto) 0.6 % Basophils (%) (Auto) 0.3 % Neutrophils # (Auto) 2.9 TH/MM3 Lymphocytes # (Auto) 0.6 TH/MM3 Monocytes # (Auto) 0.4 TH/MM3 Eosinophils # (Auto) 0.0 TH/MM3 Basophils # (Auto) 0.0 TH/MM3 CBC Comment DIFF FINAL AUTO DIFF Differential Comment FINAL DIFF MANUAL Differential Total Cells Counted 100 Neutrophils % (Manual) 70 % Band Neutrophils % 7 % Lymphocytes % 12 % Monocytes % 11 % Neutrophils # (Manual) 2.8 TH/MM3 Platelet Estimate LOW Platelet Morphology Comment NORMAL Red Cell Morphology Comment NORMAL Laboratory Tests Test 03/12/18 13:16 03/13/18 08:21 03/14/18 08:10 Blood Urea Nitrogen 19 MG/DL 19 MG/DL Creatinine 0.87 MG/DL 0.87 MG/DL 0.78 MG/DL Random Glucose 112 MG/DL 80 MG/DL Albumin 2.5 GM/DL 2.5 GM/DL Calcium Level 8.3 MG/DL 8.5 MG/DL Phosphorus Level 2.9 MG/DL 4.4 MG/DL Magnesium Level 2.4 MG/DL 2.3 MG/DL Sodium Level 139 MEQ/L 138 MEQ/L Potassium Level 3.6 MEQ/L 4.0 MEQ/L Chloride Level 103 MEQ/L 104 MEQ/L Carbon Dioxide Level 27.6 MEQ/L 25.7 MEQ/L Anion Gap 8 MEQ/L 8 MEQ/L Estimat Glomerular Filtration Rate 99 ML/MIN 99 ML/MIN 112 ML/MIN Microbiology Date/Time Source Procedure Growth Status 03/14/18 08:10 Blood Peripheral Aerobic Blood Culture Pending Received 03/14/18 08:10 Blood Peripheral Anaerobic Blood Culture Pending Received 03/14/18 08:05 Blood Peripheral Aerobic Blood Culture Pending Received 03/14/18 08:05 Blood Peripheral Anaerobic Blood Culture Pending Received Imaging: Chest X-Ray 03/13/18 0000 Signed Impressions: Service Date/Time: Tuesday, March 13, 2018 14:36 - CONCLUSION: No acute disease. No significant change has occurred. Dale Gar MD Chest X-Ray 03/10/18 0000 Signed Impressions: Service Date/Time: Saturday, March 10, 2018 10:26 - CONCLUSION: No acute disease. Esa Mederos MD Abdomen/Pelvis CT 02/19/18 0000 Signed Impressions: Service Date/Time: Tuesday, February 20, 2018 00:12 - CONCLUSION: 1. Prominent soft tissue density/lymphadenopathy in the left mesentery measuring 2 cm. 2. Multiple small scattered retroperitoneal lymph nodes. Christoph Fuller MD Chest X-Ray 02/18/18 0110 Signed Impressions: Service Date/Time: Sunday, February 18, 2018 01:20 - CONCLUSION: No acute disease. Christoph Fuller MD Chest CT 02/18/18 0000 Signed Impressions: Service Date/Time: Sunday, February 18, 2018 03:18 - CONCLUSION: 1. Scattered interstitial and alveolar opacities predominantly within the upper lobes. 2. No pleural effusions. Christoph Fuller MD PHYSICAL EXAMINATION: GENERAL: No acute distress. Awake and alert. Looks tired. HEENT: Diffuse erythema of the face. Extraocular movements grossly intact. Pupils reactive to light. Pale sclerae. Oropharynx: Moist mucosa. No visible thrush. No visible lesions. NECK: Supple. No adenopathy. LUNGS: Breath sounds. HEART: Regular S1 and S2. No murmurs or rubs or gallops. ABDOMEN: Bowel sounds present. Soft, nontender. No masses palpable. EXTREMITIES: Diffuse dry erythematous punctate lesions covering the palm of the hands are unchanged. Soles of the feet has erythematous scabbed surface. No clubbing, cyanosis or edema. GROIN: Flat erythematous rash at the grooves of the groin which is weeping less. SKIN: Diffuse, maculopapular erythematous plaque lesions scattered all over the extremities, trunk, arms, legs. Lesions are confluent back. PSYCHIATRIC: Calm and cooperative. IMPRESSION: 1. Bacteremia initially with staph coagulase-negative. Subsequent blood culture had staph aureus. Treated with Ancef. Now off antibiotics and blood cultures are pending. 2. Fever. Pneumonia. The patient had bilateral lung infiltrates, likely opportunistic infection in this patient with low CD4 count and severe immunosuppression from acquired immune deficiency syndrome. Chest x-ray clear. He does not appear toxic. The current fever could be drug-induced. Potentially antibiotic induced. The white blood cell count is normal. Patient having intermittent fevers. The fevers are likely related to the severe lack psoriasis. He also has pain in the knees which could be related to psoriasis or potentially. The fever could also be related to the underlying HIV disease. 3. Acquired immune deficiency syndrome. CD4 count less than 20. Elevated viral load. 4. Plaque psoriasis. 5. 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 6. Patient with poor insight. RECOMMENDATIONS: 1. Continue Zithromax. 2. Continue Dapsone for PJP prophylaxis because he is allergic to Bactrim. 3. Continue Nystatin powder to the groin rash. 4. Continue betamethasone ointment to the skin for the psoriatic lesions 5. Stop Roxicodone. 6. Continue ibuprofen for fever. 7. Initiate HAART with Tenofovir/emtricitabine and Darunavir/Ritonavir Combination. 8. Follow the new blood cultures to completion. 9. Monitor temperatures. Patient not yet ready for discharge because he is having fever and we need to follow the blood cultures since he has had some bacteremia. The requiring reinstatement of IV antibiotics if the blood cultures are positive. Eventually the patient will need to be seen by dermatology for treatment for psoriasis. Will need appointment with the Health department for HIV follow-up and management. Syed Will MD March 14, 2018 12:05
[2018-03-14] MEDS: EMTRICITABINE/TENOFOVIR 200 MG/300 MG TAB PO SCH (13:10)
[2018-03-14] MEDS: RITONAVIR 100 MG TAB PO SCH (13:10)
[2018-03-14] MEDS: DARUNAVIR 800 MG TAB PO SCH (13:10)
[2018-03-14 16:00] VITALS: BP 109/64; PULSE 94; RESP 16; TEMP 98.2; O2SAT 100
--- NOTE | 2018-03-14 17:45 | HHI.PR ---
Subjective Remarks Patient seen this morning. Says he is feeling all right. Reports continued weakness. Denies any chest pain or shortness of breath. Nursing reports the patient was able to transfer from bed to chair Objective Vital Signs Date Time Temp Pulse Resp B/P (MAP) Pulse Ox O2 Delivery O2 Flow Rate FiO2 03/14/18 11:51 98.4 78 15 110/56 (74) 96 03/14/18 08:00 97.7 74 16 103/55 (71) 95 03/14/18 03:38 98.5 80 100/56 (71) 97 03/14/18 00:00 97.6 80 15 102/56 (71) 97 03/13/18 20:00 100.4 91 16 96/52 (67) 96 I/O 03/13/18 03/13/18 03/13/18 03/14/18 03/14/18 03/14/18 07:00 15:00 23:00 07:00 15:00 23:00 Intake Total 1200 ml 240 ml Output Total 600 ml 1200 ml 350 ml Balance 600 ml -960 ml -350 ml Intake Oral 1200 ml 240 ml Output Urine Total 600 ml 1200 ml 350 ml # Bowel Movements 1 0 Result Diagram: 03/14/18 0810 03/14/18 0810 Objective Remarks GENERAL: Patient sitting up in recliner. Appears comfortable. SKIN: Warm and dry. Extensive erythematous papules on palms of hands, and between fingers continue again without significant change. HEAD: Normocephalic. EYES: No scleral icterus. No injection or drainage. NECK: Supple, trachea midline. No JVD. CARDIOVASCULAR: Regular rate and rhythm without murmurs, gallops, or rubs. RESPIRATORY: Breath sounds equal bilaterally. No accessory muscle use. GASTROINTESTINAL: Abdomen soft, non-tender, nondistended. MUSCULOSKELETAL: No cyanosis, or edema. BACK: Nontender without obvious deformity. No CVA tenderness. A/P Assessment and Plan 03/14 Fevers up to 101.9 yesterday. Blood cultures ordered on 03/13 pending. Discussed with infectious disease. Infectious disease has discussed with [facility], and patient will be started on antiretrovirals. Appreciate infectious disease assistance. // Sepsis: Presented with fever, tachycardia. Source is pneumonia, bacteremia. Patient is immunocompromised. Initial blood cultures growing coag negative staph. Repeat blood cultures from 02/20/18 are negative. Appreciate infectious disease recommendations. Vancomycin discontinued. Continues to have low-grade fever. Repeat blood cultures from 02/27/18 are growing Staph aureus x 1 bottle. Continue Ancef. Blood cultures from 03/02/18 are negative so far. = Continue IV antibiotics until 03/10 as per ID. = 03/09. Sepsis continues. Fever 101.7 overnight. Patient has refused labs. Continue antibiotics as per ID. Appreciate ID assistance. //Pneumonia: Chest CT shows scattered interstitial and alveolar opacities. DuoNeb as needed. Symbicort. Supplemental oxygen as needed. Vancomycin and atovaquone discontinued by infectious disease. = Continue antibiotics as per ID //AIDS: CD4 count less than 20. Patient has been noncompliant with medications. Continue azithromycin weekly. Appreciate infectious disease recommendations. // Skin lesions: Biopsies are consistent with psoriatic lesions. No evidence of Kaposi's sarcoma on pathology. Oncology signed off and has recommended outpatient evaluation by dermatology. //suspected scabies. Lesions on hands are relatively new over the past 2 months , despite long history of psoriasis. Patient lives with cats and dogs. Received permethrin treatment 03/10. Should consider repeat treatment in one week. //Generalized weakness. Likely secondary to malnutrition. Start Ensure supplement. //DVT prophylaxis: SCDs, MARK perales. Discharge Planning patient was to have finished IV antibiotics on 03/10. He is having continued fevers however. Will need ID clearance. PT recommends possible rehab. Arash Denny MD March 14, 2018 17:45
[2018-03-14 20:00] VITALS: BP 105/59; PULSE 92; RESP 22; TEMP 100.6; O2SAT 95
[2018-03-15] VITALS: BP 114/63; PULSE 82; RESP 21; TEMP 101.3; O2SAT 93
[2018-03-15 04:00] VITALS: BP 108/59; PULSE 89; RESP 22; TEMP 99.7; O2SAT 93
[2018-03-15 08:00] VITALS: BP 137/67; PULSE 90; RESP 22; TEMP 99.1; O2SAT 94
[2018-03-15] MEDS: IBUPROFEN 400 MG TAB PO SCH ×3 (08:00→23:50)
[2018-03-15] MEDS: BETAMETHASONE DIPROPIONATE 0.05% OINT 15 GM TUBE TOPICAL SCH ×2 (08:18→20:02)
[2018-03-15] MEDS: DARUNAVIR 800 MG TAB PO SCH (08:19)
[2018-03-15] MEDS: NYSTATIN SUSP 500,000 U/5 ML CUP SWISH-SWAL SCH ×4 (08:19→19:58)
[2018-03-15] MEDS: EMTRICITABINE/TENOFOVIR 200 MG/300 MG TAB PO SCH (08:19)
[2018-03-15] MEDS: RITONAVIR 100 MG TAB PO SCH (08:19)
[2018-03-15] MEDS: DOCUSATE SODIUM 50 MG/SENNA 8.6 MG TAB PO SCH ×2 (08:20→19:58)
[2018-03-15] MEDS: DAPSONE 100 MG TAB PO SCH (08:20)
[2018-03-15] MEDS: SODIUM CHLORIDE 0.9% FLUSH 10 ML FLUSH IV FLUSH SCH ×2 (08:20→19:59)
[2018-03-15] MEDS: busPIRone HCL 5 MG TAB PO SCH ×2 (08:20→19:58)
[2018-03-15] MEDS: NYSTATIN 100,000 UNIT/GM CREAM 15 GM TOPICAL SCH ×2 (08:22→20:02)
[2018-03-15] MEDS: NYSTATIN 100,000 U/GM PWD 15 GM BTL TOPICAL SCH ×2 (08:23→20:01)
[2018-03-15 12:00] VITALS: BP 112/65; PULSE 88; RESP 20; TEMP 98.4; O2SAT 95
--- NOTE | 2018-03-15 15:56 | HHI.IDPN ---
Note Infectious Disease Note Patient feels okay. Notes that it still gets some hot spells Episode of fever yesterday evening. Continues to have difficulty ambulating because he says the back of his knee hurts. Blood cultures have no growth. No other complaints. Started on HIV medicines yesterday. Notes that all of the medicines gives him a bad taste in the mouth. Lotion ordered for the patient's skin. This has not been applied yet. Admitted because of shortness of breath. He also had painful skin lesions. RPR negative. Hepatitis serologies negative. PAST MEDICAL HISTORY: HIV disease. Inguinal hernia. pneumonia. ALLERGIES: SULFAMETHOXAZOLE, TRIMETHOPRIM. Sucralose. MEDICATIONS: Current Medications Medications (Trade) Dose Ordered Sig/Frank Route PRN Reason Start Time Stop Time Status Last Admin Dose Admin Albuterol/ Ipratropium (Duoneb Neb) 1 ampule Q4HR NEB PRN NEB SOB/WHEEZING 02/18/18 04:45 03/11/18 20:38 Sodium Chloride (NS Flush) 2 ml UNSCH PRN IV FLUSH FLUSH AFTER USING IV ACCESS 02/18/18 04:45 03/12/18 00:39 Sodium Chloride (NS Flush) 2 ml BID IV FLUSH 02/18/18 09:00 03/15/18 08:20 Ondansetron HCl (Zofran Inj) 4 mg Q6H PRN IVP NAUSEA OR VOMITING 02/18/18 04:45 03/12/18 18:12 Acetaminophen (Tylenol) 650 mg Q6H PRN PO FEVER/PAIN SCALE 1 TO 2 02/18/18 04:45 Future Hold 03/08/18 21:27 Acetaminophen/ Hydrocodone Bitart ([place] 5-325 Mg) 1 tab Q4H PRN PO PAIN SCALE 3 TO 5 02/18/18 04:45 Future Hold 03/12/18 12:27 Senna/Docusate Sodium (Edilia-Colace) 1 tab BID PO 02/18/18 09:00 03/15/18 08:20 Magnesium Hydroxide (Milk Of Magnesia Liq) 30 ml Q12H PRN PO Mild constipation 02/18/18 04:45 Sennosides (Senokot) 17.2 mg Q12H PRN PO Moderate constipation 02/18/18 04:45 Bisacodyl (Dulcolax Supp) 10 mg DAILY PRN RECTAL SEVERE CONSITIPATION 02/18/18 04:45 Lactulose (Lactulose Liq) 30 ml DAILY PRN PO SEVERE CONSITIPATION 02/18/18 04:45 Azithromycin (Zithromax) 1,200 mg Q7D PO 02/18/18 06:00 03/11/18 05:09 Buspirone HCl (Buspar) 5 mg Q12HR PO 02/18/18 09:00 03/15/18 08:20 Nystatin (Mycostatin Liq) 5 ml QID SWISH-SWAL 02/18/18 09:00 03/15/18 08:19 Lorazepam (Ativan) 0.5 mg Q6H PRN PO anxiety 02/19/18 10:00 03/13/18 17:41 Oxycodone HCl (Roxicodone) 15 mg Q4H PRN PO pain 6-10 02/22/18 15:45 03/13/18 11:54 Nystatin (Mycostatin Cream) 1 applic Q12HR TOPICAL 02/23/18 12:30 03/15/18 08:22 Nystatin (Mycostatin Powder) 1 applic Q12HR TOPICAL 03/11/18 12:00 03/15/18 08:23 Dapsone (Dapsone) 100 mg DAILY PO 03/11/18 13:00 03/15/18 08:20 Betamethasone Dipropionate (Diprosone 0.05% Ointment) 1 applic BID TOPICAL 03/13/18 21:00 03/15/18 08:18 Ibuprofen (Motrin) 400 mg Q8H PO 03/13/18 16:00 03/13/18 17:09 Emtricitabine/ Tenofovir ([place] 200-300 Mg) 1 tab DAILY PO 03/14/18 13:00 03/15/18 08:19 Darunavir (Prezista) 800 mg DAILY PO 03/14/18 13:00 03/15/18 08:19 Ritonavir (Norvir) 100 mg DAILY PO 03/14/18 14:00 03/15/18 08:19 OBJECTIVE: Vital Signs Date Time Temp Pulse Resp B/P (MAP) Pulse Ox O2 Delivery O2 Flow Rate FiO2 03/15/18 12:00 98.4 88 20 112/65 (81) 95 03/15/18 08:00 99.1 90 22 137/67 (90) 94 03/15/18 04:00 99.7 89 22 108/59 (75) 93 03/15/18 00:00 101.3 82 21 114/63 (80) 93 03/14/18 20:00 100.6 92 22 105/59 (74) 95 03/14/18 16:00 98.2 94 16 109/64 (79) 100 Laboratory Tests Test 03/14/18 08:10 White Blood Count 3.6 TH/MM3 Red Blood Count 2.64 MIL/MM3 Hemoglobin 7.6 GM/DL Hematocrit 22.1 % Mean Corpuscular Volume 83.8 FL Mean Corpuscular Hemoglobin 28.9 PG Mean Corpuscular Hemoglobin Concent 34.4 % Red Cell Distribution Width 15.8 % Platelet Count 139 TH/MM3 Mean Platelet Volume 7.7 FL CBC Comment AUTO DIFF Differential Total Cells Counted 100 Neutrophils % (Manual) 70 % Band Neutrophils % 7 % Lymphocytes % 12 % Monocytes % 11 % Neutrophils # (Manual) 2.8 TH/MM3 Differential Comment FINAL DIFF MANUAL Platelet Estimate LOW Platelet Morphology Comment NORMAL Red Cell Morphology Comment NORMAL Laboratory Tests Test 03/14/18 08:10 Blood Urea Nitrogen 19 MG/DL Creatinine 0.78 MG/DL Random Glucose 80 MG/DL Albumin 2.5 GM/DL Calcium Level 8.5 MG/DL Phosphorus Level 4.4 MG/DL Magnesium Level 2.3 MG/DL Sodium Level 138 MEQ/L Potassium Level 4.0 MEQ/L Chloride Level 104 MEQ/L Carbon Dioxide Level 25.7 MEQ/L Anion Gap 8 MEQ/L Estimat Glomerular Filtration Rate 112 ML/MIN Microbiology Date/Time Source Procedure Growth Status 03/15/18 00:40 Blood Peripheral Aerobic Blood Culture Pending Received 03/15/18 00:40 Blood Peripheral Anaerobic Blood Culture Pending Received 03/15/18 00:35 Blood Peripheral Aerobic Blood Culture Pending Received 03/15/18 00:35 Blood Peripheral Anaerobic Blood Culture Pending Received 03/14/18 08:10 Blood Peripheral Aerobic Blood Culture - Preliminary NO GROWTH IN 1 DAY Resulted 03/14/18 08:10 Blood Peripheral Anaerobic Blood Culture - Preliminary NO GROWTH IN 1 DAY Resulted 03/14/18 08:05 Blood Peripheral Aerobic Blood Culture - Preliminary NO GROWTH IN 1 DAY Resulted 03/14/18 08:05 Blood Peripheral Anaerobic Blood Culture - Preliminary NO GROWTH IN 1 DAY Resulted Imaging: Chest X-Ray 03/13/18 0000 Signed Impressions: Service Date/Time: Tuesday, March 13, 2018 14:36 - CONCLUSION: No acute disease. No significant change has occurred. Dale Gar MD Chest X-Ray 03/10/18 0000 Signed Impressions: Service Date/Time: Saturday, March 10, 2018 10:26 - CONCLUSION: No acute disease. Esa Mederos MD Abdomen/Pelvis CT 02/19/18 0000 Signed Impressions: Service Date/Time: Tuesday, February 20, 2018 00:12 - CONCLUSION: 1. Prominent soft tissue density/lymphadenopathy in the left mesentery measuring 2 cm. 2. Multiple small scattered retroperitoneal lymph nodes. Christoph Fuller MD Chest X-Ray 02/18/18 0110 Signed Impressions: Service Date/Time: Sunday, February 18, 2018 01:20 - CONCLUSION: No acute disease. Christoph Fuller MD Chest CT 02/18/18 0000 Signed Impressions: Service Date/Time: Sunday, February 18, 2018 03:18 - CONCLUSION: 1. Scattered interstitial and alveolar opacities predominantly within the upper lobes. 2. No pleural effusions. Christoph Fuller MD PHYSICAL EXAMINATION: GENERAL: No acute distress. Awake and alert. HEENT: Diffuse erythema of the face. Extraocular movements grossly intact. Pupils reactive to light. Pale sclerae. Oropharynx: Moist mucosa. No visible thrush. No visible lesions. NECK: Supple. No adenopathy. LUNGS: Clear breath sounds HEART: Regular S1 and S2. No murmurs or rubs or gallops. ABDOMEN: Bowel sounds present. Soft, nontender. No masses palpable. EXTREMITIES: Diffuse dry erythematous punctate lesions covering the palm of the hands are unchanged. Soles of the feet has erythematous scabbed surface. No clubbing, cyanosis or edema. GROIN: Flat erythematous rash at the grooves of the groin which is weeping less. SKIN: Diffuse, maculopapular erythematous plaque lesions scattered all over the extremities, trunk, arms, legs. Lesions are confluent back. PSYCHIATRIC: Calm and cooperative. IMPRESSION: 1. Bacteremia initially with staph coagulase-negative. Subsequent blood culture had staph aureus. Treated with Ancef. Now off antibiotics and blood cultures are pending. 2. Fever. Persistent and appears cyclic. Possibly related to HIV disease. Chest x-ray clear. He does not appear toxic. Blood cultures continue to be negative. Patient having intermittent fevers. The fevers are likely related to the severe plaque psoriasis. He also has pain in the knees which could be related to psoriasis or potentially. The fever could also be related to the underlying HIV disease. 3. Acquired immune deficiency syndrome. CD4 count less than 20. Elevated viral load. 4. Plaque psoriasis. 5. 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 6. Patient with poor insight. RECOMMENDATIONS: 1. Continue Zithromax. 2. Continue Dapsone for PJP prophylaxis because he is allergic to Bactrim. 3. Continue Nystatin powder to the groin rash. 4. Continue betamethasone ointment to the skin for the psoriatic lesions. Patient had a vial of medicine in the room but it was not applied. Applied heat to his back, palms of the hands, back of the calves. He will need additional supply to be ordered and I have requested the nurse to call pharmacy. 5. Stop Roxicodone. 6. Continue ibuprofen for fever. 7. Continue HAART with Tenofovir/emtricitabine and Darunavir/Ritonavir Combination. Observe for immune reconstitution syndrome now that he has been started on HIV medications. 8. Follow the new blood cultures to completion. 9. Monitor temperatures. 10. Monitor clinical status. Patient not yet ready for discharge because he is having fever and we need to follow the blood cultures to completion. I do not think it is necessary to repeat blood cultures again if he has temperature since we have several blood cultures pending. Eventually the patient will need to be seen by dermatology for treatment for psoriasis. Will need appointment with the Health department for HIV follow-up and management. Please call ID component assembler on the weekend if input is needed. Syed Will MD March 15, 2018 15:56
[2018-03-15 16:00] VITALS: BP 103/62; PULSE 79; RESP 18; TEMP 98.8; O2SAT 97
[2018-03-15] MEDS: LORazepam 0.5 MG TAB PO PRN (19:59)
[2018-03-15 20:00] VITALS: BP 124/81; PULSE 120; RESP 18; TEMP 98.7; O2SAT 95
--- NOTE | 2018-03-15 23:34 | HHI.PR ---
Subjective Remarks patient seen this morning around 11:30 AM. Says he is feeling all right. Says that strength is improving. Denies any chest pain or shortness of breath. Denies nausea or vomiting. Objective Vital Signs Date Time Temp Pulse Resp B/P (MAP) Pulse Ox O2 Delivery O2 Flow Rate FiO2 03/15/18 20:00 98.7 120 18 124/81 (95) 95 03/15/18 16:00 98.8 79 18 103/62 (76) 97 03/15/18 12:00 98.4 88 20 112/65 (81) 95 03/15/18 08:00 99.1 90 22 137/67 (90) 94 03/15/18 04:00 99.7 89 22 108/59 (75) 93 03/15/18 00:00 101.3 82 21 114/63 (80) 93 I/O 03/15/18 03/15/18 03/15/18 03/16/18 03/16/18 03/16/18 07:00 15:00 23:00 07:00 15:00 23:00 Intake Total 600 ml 1200 ml Output Total 500 ml 1300 ml Balance 100 ml -100 ml Intake Oral 600 ml 1200 ml Output Urine Total 500 ml 1300 ml # Bowel Movements 4 Result Diagram: 03/14/18 0810 03/14/18 0810 Objective Remarks GENERAL: Patient sitting up in bed. Appears comfortable. SKIN: Warm and dry. Extensive erythematous papules on palms of hands, and between fingers continue without significant change. HEAD: Normocephalic. EYES: No scleral icterus. No injection or drainage. NECK: Supple, trachea midline. No JVD. CARDIOVASCULAR: Regular rate and rhythm without murmurs, gallops, or rubs. RESPIRATORY: Breath sounds equal bilaterally. No accessory muscle use. GASTROINTESTINAL: Abdomen soft, non-tender, nondistended. MUSCULOSKELETAL: No cyanosis, or edema. BACK: Nontender without obvious deformity. No CVA tenderness. A/P Assessment and Plan 03/15 -Still with fevers.blood cultures recently negative. Started on HAART on 03/14. Appreciate ID assistance.PT working on strengthening. 03/14 Fevers up to 101.9 yesterday. Blood cultures ordered on 03/13 pending. Discussed with infectious disease. Infectious disease has discussed with [facility], and patient will be started on antiretrovirals. Appreciate infectious disease assistance. // Sepsis: Presented with fever, tachycardia. Source is pneumonia, bacteremia. Patient is immunocompromised. Initial blood cultures growing coag negative staph. Repeat blood cultures from 02/20/18 are negative. Appreciate infectious disease recommendations. Vancomycin discontinued. Continues to have low-grade fever. Repeat blood cultures from 02/27/18 are growing Staph aureus x 1 bottle. Continue Ancef. Blood cultures from 03/02/18 are negative so far. = Continue IV antibiotics until 03/10 as per ID. = 03/09. Sepsis continues. Fever 101.7 overnight. Patient has refused labs. Continue antibiotics as per ID. Appreciate ID assistance. //Pneumonia: Chest CT shows scattered interstitial and alveolar opacities. DuoNeb as needed. Symbicort. Supplemental oxygen as needed. Vancomycin and atovaquone discontinued by infectious disease. = Continue antibiotics as per ID //AIDS: CD4 count less than 20. Patient has been noncompliant with medications. Continue azithromycin weekly. Appreciate infectious disease recommendations. // Skin lesions: Biopsies are consistent with psoriatic lesions. No evidence of Kaposi's sarcoma on pathology. Oncology signed off and has recommended outpatient evaluation by dermatology. //suspected scabies. Lesions on hands are relatively new over the past 2 months , despite long history of psoriasis. Patient lives with cats and dogs. Received permethrin treatment 03/10. Should consider repeat treatment in one week. //Generalized weakness. Likely secondary to malnutrition. Start Ensure supplement. //DVT prophylaxis: SCDs, MARK perales. Discharge Planning patient was to have finished IV antibiotics on 03/10. He is having continued fevers however. Will need ID clearance. PT recommends possible rehab, however continues to work on strengthening.. Arash Denny MD March 15, 2018 23:34
[2018-03-16] VITALS: BP 111/59; PULSE 78; RESP 18; TEMP 98.5; O2SAT 94
--- NOTE | 2018-03-16 07:53 | HHI.PR ---
Subjective Remarks Patient seen and examined this morning. T-max 99.7. Saturating 94% on room air. No complaints or concerns. Feels like he is getting weak by staying in bed. Denies chest pain or shortness of breath. Tolerating diet. Objective Vital Signs Date Time Temp Pulse Resp B/P (MAP) Pulse Ox O2 Delivery O2 Flow Rate FiO2 03/16/18 00:00 98.5 78 18 111/59 (76) 94 03/15/18 20:00 98.7 120 18 124/81 (95) 95 03/15/18 16:00 98.8 79 18 103/62 (76) 97 03/15/18 12:00 98.4 88 20 112/65 (81) 95 03/15/18 08:00 99.1 90 22 137/67 (90) 94 I/O 03/15/18 03/15/18 03/15/18 03/16/18 03/16/18 03/16/18 07:00 15:00 23:00 07:00 15:00 23:00 Intake Total 600 ml 1200 ml 760 ml Output Total 500 ml 1300 ml 1000 ml Balance 100 ml -100 ml -240 ml Intake Oral 600 ml 1200 ml 760 ml Output Urine Total 500 ml 1300 ml 1000 ml # Bowel Movements 4 1 Result Diagram: 03/14/18 0810 03/14/18 0810 Imaging Last Impressions Chest X-Ray 03/13/18 0000 Signed Impressions: Service Date/Time: Tuesday, March 13, 2018 14:36 - CONCLUSION: No acute disease. No significant change has occurred. Dale Gar MD Abdomen/Pelvis CT 02/19/18 0000 Signed Impressions: Service Date/Time: Tuesday, February 20, 2018 00:12 - CONCLUSION: 1. Prominent soft tissue density/lymphadenopathy in the left mesentery measuring 2 cm. 2. Multiple small scattered retroperitoneal lymph nodes. Christoph Fuller MD Chest CT 02/18/18 0000 Signed Impressions: Service Date/Time: Sunday, February 18, 2018 03:18 - CONCLUSION: 1. Scattered interstitial and alveolar opacities predominantly within the upper lobes. 2. No pleural effusions. Christoph Fuller MD Objective Remarks GENERAL: Well-appearing, no acute distress SKIN: Psoriatic skin papules and plaques diffusely of upper and lower extremities face and scalp. Scabies lesions are present on hands and in between digits. HEAD: Normocephalic. EYES: No scleral icterus. No injection or drainage. NECK: Supple, trachea midline. No JVD or lymphadenopathy. CARDIOVASCULAR: Regular rate and rhythm without murmurs, gallops, or rubs. RESPIRATORY: Breath sounds equal bilaterally. No accessory muscle use. GASTROINTESTINAL: Abdomen soft, non-tender, nondistended. MUSCULOSKELETAL: No cyanosis, or edema. A/P Problem List: (1) AIDS (acquired immunodeficiency syndrome), CD4 <=200 ICD Code: B20 - Human immunodeficiency virus [HIV] disease (2) PNA (pneumonia) ICD Code: J18.9 - Pneumonia, unspecified organism (3) Rash ICD Code: R21 - Rash and other nonspecific skin eruption Status: Resolved (4) Sepsis ICD Code: A41.9 - Sepsis, unspecified organism Assessment and Plan 38-year-old male with Sepsis on admission, source pneumonia. -Initially with staph coagulase-negative, subsequent blood culture had staph aureus. Was treated with Ancef. -Currently off of antibiotics -Patient continues to have cyclic fevers. Chest x-ray is clear. Blood cultures continue to be negative. This could be related to his HIV disease. Could also be related to severe plaque psoriasis. -Repeat blood cultures from 03/15 pending AIDS -CD4 count less than 20. -Patient apparently has been noncompliant with medications. -He is on azithromycin weekly. -Continue dapsone for PEJ P prophylaxis since he is allergic to Bactrim -Patient was started on HAART on 03/14 Scabies -Status post permethrin treatment on 03/10 -May consider repeating the treatment in 1 week Skin lesions -Status post skin biopsy which showed psoriatic lesions. No evidence of Kaposi' s sarcoma. Oncology has signed off. Recommended outpatient evaluation by dermatology. Discharge Planning Due to patient's intermittent fevers, ID has not cleared him for discharge. Problem Qualifiers (1) PNA (pneumonia): Qualified Codes: J18.1 - Lobar pneumonia, unspecified organism Gauri Welch MD March 16, 2018 07:53
[2018-03-16 08:00] VITALS: BP 105/61; PULSE 73; RESP 20; TEMP 98.2; O2SAT 96
[2018-03-16] MEDS: IBUPROFEN 400 MG TAB PO SCH ×3 (08:00→22:29)
[2018-03-16] MEDS: DOCUSATE SODIUM 50 MG/SENNA 8.6 MG TAB PO SCH ×2 (08:12→20:34)
[2018-03-16] MEDS: busPIRone HCL 5 MG TAB PO SCH ×2 (08:12→20:34)
[2018-03-16] MEDS: EMTRICITABINE/TENOFOVIR 200 MG/300 MG TAB PO SCH (08:12)
[2018-03-16] MEDS: DAPSONE 100 MG TAB PO SCH (08:12)
[2018-03-16] MEDS: NYSTATIN SUSP 500,000 U/5 ML CUP SWISH-SWAL SCH ×4 (08:12→20:34)
[2018-03-16] MEDS: DARUNAVIR 800 MG TAB PO SCH (08:12)
[2018-03-16] MEDS: RITONAVIR 100 MG TAB PO SCH (08:12)
[2018-03-16] MEDS: NYSTATIN 100,000 U/GM PWD 15 GM BTL TOPICAL SCH ×2 (08:13→20:36)
[2018-03-16] MEDS: BETAMETHASONE DIPROPIONATE 0.05% OINT 15 GM TUBE TOPICAL SCH ×2 (08:14→22:29)
[2018-03-16] MEDS: NYSTATIN 100,000 UNIT/GM CREAM 15 GM TOPICAL SCH ×2 (08:15→22:28)
[2018-03-16] MEDS: SODIUM CHLORIDE 0.9% FLUSH 10 ML FLUSH IV FLUSH SCH ×2 (08:17→20:34)
[2018-03-16 10:23] LABS: AUTOMATED NEUTROPHIL # 3.5 TH/MM3 (1.8-7.7); BASOPHIL % 0.5 % (0.0-2.0); EOSINOPHIL % 0.5 % (0.0-4.0); HEMATOCRIT 23.4 % (39.0-51.0); HEMOGLOBIN 7.9 GM/DL (13.0-17.0); LYMPH % 12.8 % (9.0-44.0); LYMPHOCYTE # 0.6 TH/MM3 (1.0-4.8); MEAN CELL VOLUME 84.5 FL (80.0-100.0); MEAN CORPUSCULAR HEMOGLOBIN 28.5 PG (27.0-34.0); MEAN CORPUSCULAR HGB CONC 33.8 % (32.0-36.0); MEAN PLATELET VOLUME 7.7 FL (7.0-11.0); MONO % 10.7 % (0.0-8.0); MONOCYTE # 0.5 TH/MM3 (0-0.9); NEUT % 75.5 % (16.0-70.0); PLATELET COUNT 163 TH/MM3 (150-450); RED BLOOD COUNT 2.77 MIL/MM3 (4.50-5.90); RED CELL DISTRIBUTION WIDTH 16.2 % (11.6-17.2); WHITE BLOOD COUNT 4.6 TH/MM3 (4.0-11.0)
[2018-03-16 10:43] LABS: ALBUMIN 2.6 GM/DL (3.4-5.0); BICARBONATE 23.1 MEQ/L (21.0-32.0); CALCIUM 8.6 MG/DL (8.5-10.1); CREATININE 0.9 MG/DL (0.60-1.30); CREATININE 0.93 MG/DL (0.60-1.30); MAGNESIUM 2.3 MG/DL (1.5-2.5)
[2018-03-16 10:44] LABS: PHOSPHORUS 2.8 MG/DL (2.5-4.9)
[2018-03-16 12:00] VITALS: BP 100/66; PULSE 73; RESP 18; TEMP 97.9; O2SAT 94
[2018-03-16 16:00] VITALS: BP 119/68; PULSE 79; RESP 22; TEMP 98.5; O2SAT 98
[2018-03-16 20:00] VITALS: BP 115/60; PULSE 79; RESP 17; TEMP 98.7; O2SAT 96
[2018-03-17 00:50] VITALS: BP 112/62; PULSE 79; RESP 20; TEMP 98.9; O2SAT 95
[2018-03-17] MEDS: NYSTATIN SUSP 500,000 U/5 ML CUP SWISH-SWAL SCH ×4 (07:07→21:10)
[2018-03-17] MEDS: IBUPROFEN 400 MG TAB PO SCH ×2 (07:07→11:52)
--- NOTE | 2018-03-17 07:19 | HHI.PR ---
Subjective Remarks Patient seen and examined this morning. T-max 99.7. Saturating 95% on room air. No complaints or concerns. Feels like he is getting weak by staying in bed. Denies chest pain or shortness of breath. Tolerating diet. Patient has not had a fever since February 13. States his rash in his hands is worse makes it hard to hold things, has had this rash off and on for several years. Got up in chair yesterday, reports still having difficulty walking. Objective Vital Signs Date Time Temp Pulse Resp B/P (MAP) Pulse Ox O2 Delivery O2 Flow Rate FiO2 03/17/18 00:50 98.9 79 20 112/62 (79) 95 03/16/18 20:00 98.7 79 17 115/60 (78) 96 03/16/18 16:00 98.5 79 22 119/68 (85) 98 03/16/18 12:00 97.9 73 18 100/66 (77) 94 03/16/18 08:00 98.2 73 20 105/61 (76) 96 I/O 03/16/18 03/16/18 03/16/18 03/17/18 03/17/18 03/17/18 07:00 15:00 23:00 07:00 15:00 23:00 Intake Total 760 ml 2200 ml 240 ml Output Total 1000 ml 800 ml Balance -240 ml 1400 ml 240 ml Intake Oral 760 ml 2200 ml 240 ml Output Urine Total 1000 ml 800 ml # Voids 2 # Bowel Movements 1 0 1 Result Diagram: 03/16/18 1007 03/16/18 1007 Imaging Last Impressions Chest X-Ray 03/13/18 0000 Signed Impressions: Service Date/Time: Tuesday, March 13, 2018 14:36 - CONCLUSION: No acute disease. No significant change has occurred. Dale Gar MD Abdomen/Pelvis CT 02/19/18 0000 Signed Impressions: Service Date/Time: Tuesday, February 20, 2018 00:12 - CONCLUSION: 1. Prominent soft tissue density/lymphadenopathy in the left mesentery measuring 2 cm. 2. Multiple small scattered retroperitoneal lymph nodes. Christoph Fuller MD Chest CT 02/18/18 0000 Signed Impressions: Service Date/Time: Sunday, February 18, 2018 03:18 - CONCLUSION: 1. Scattered interstitial and alveolar opacities predominantly within the upper lobes. 2. No pleural effusions. Christoph Fuller MD Objective Remarks GENERAL: Well-appearing, no acute distress SKIN: Psoriatic skin papules and plaques diffusely of upper and lower extremities face and scalp. Scabies lesions are present on hands and in between digits. HEAD: Normocephalic. EYES: No scleral icterus. No injection or drainage. NECK: Supple, trachea midline. No JVD or lymphadenopathy. CARDIOVASCULAR: Regular rate and rhythm without murmurs, gallops, or rubs. RESPIRATORY: Breath sounds equal bilaterally. No accessory muscle use. GASTROINTESTINAL: Abdomen soft, non-tender, nondistended. MUSCULOSKELETAL: No cyanosis, or edema. A/P Problem List: (1) AIDS (acquired immunodeficiency syndrome), CD4 <=200 ICD Code: B20 - Human immunodeficiency virus [HIV] disease (2) PNA (pneumonia) ICD Code: J18.9 - Pneumonia, unspecified organism (3) Rash ICD Code: R21 - Rash and other nonspecific skin eruption Status: Resolved (4) Sepsis ICD Code: A41.9 - Sepsis, unspecified organism Assessment and Plan 38-year-old male with Sepsis on admission, source pneumonia. -Initially with staph coagulase-negative, subsequent blood culture had staph aureus. Was treated with Ancef. -Currently off of antibiotics -Patient continues to have cyclic fevers. Chest x-ray is clear. Blood cultures continue to be negative. This could be related to his HIV disease. Could also be related to severe plaque psoriasis. -Repeat blood cultures from 03/15 show no growth AIDS -CD4 count less than 20. -Patient apparently has been noncompliant with medications. -He is on azithromycin weekly. -Continue dapsone for PEJ P prophylaxis since he is allergic to Bactrim -Patient was started on HAART on 03/14 Scabies -Status post permethrin treatment on 03/10 -May consider repeating the treatment in 1 week Skin lesions -Status post skin biopsy which showed psoriatic lesions. No evidence of Kaposi' s sarcoma. Oncology has signed off. Recommended outpatient evaluation by dermatology. Discharge Planning Patient has been afebrile. Needs clearance from infectious disease. Patient also needs to increase ambulation in order to have safe discharge. Case management is assisting with discharge needs. Problem Qualifiers (1) PNA (pneumonia): Qualified Codes: J18.1 - Lobar pneumonia, unspecified organism Gauri Welch MD March 17, 2018 07:19
[2018-03-17] MEDS: DAPSONE 100 MG TAB PO SCH (07:51)
[2018-03-17] MEDS: busPIRone HCL 5 MG TAB PO SCH ×2 (07:51→21:10)
[2018-03-17] MEDS: DOCUSATE SODIUM 50 MG/SENNA 8.6 MG TAB PO SCH ×2 (07:51→21:10)
[2018-03-17] MEDS: NYSTATIN 100,000 U/GM PWD 15 GM BTL TOPICAL SCH ×2 (07:52→21:11)
[2018-03-17] MEDS: DARUNAVIR 800 MG TAB PO SCH (07:52)
[2018-03-17] MEDS: RITONAVIR 100 MG TAB PO SCH (07:52)
[2018-03-17] MEDS: BETAMETHASONE DIPROPIONATE 0.05% OINT 15 GM TUBE TOPICAL SCH ×2 (07:52→21:10)
[2018-03-17] MEDS: SODIUM CHLORIDE 0.9% FLUSH 10 ML FLUSH IV FLUSH SCH ×2 (07:52→21:10)
[2018-03-17] MEDS: EMTRICITABINE/TENOFOVIR 200 MG/300 MG TAB PO SCH (07:52)
[2018-03-17] MEDS: NYSTATIN 100,000 UNIT/GM CREAM 15 GM TOPICAL SCH ×2 (07:52→21:11)
[2018-03-17 08:00] VITALS: BP 112/69; PULSE 80; RESP 20; TEMP 97.9; O2SAT 95
[2018-03-17 08:04] LABS: AUTOMATED NEUTROPHIL # 5.7 TH/MM3 (1.8-7.7); BASOPHIL % 0.2 % (0.0-2.0); EOSINOPHIL % 0.3 % (0.0-4.0); HEMATOCRIT 23.9 % (39.0-51.0); HEMOGLOBIN 8.1 GM/DL (13.0-17.0); LYMPH % 10.8 % (9.0-44.0); LYMPHOCYTE # 0.9 TH/MM3 (1.0-4.8); MEAN CELL VOLUME 85.4 FL (80.0-100.0); MEAN CORPUSCULAR HGB CONC 33.9 % (32.0-36.0); MEAN PLATELET VOLUME 7.5 FL (7.0-11.0); MONO % 16.6 % (0.0-8.0); MONOCYTE # 1.3 TH/MM3 (0-0.9); NEUT % 72.1 % (16.0-70.0); PLATELET COUNT 170 TH/MM3 (150-450); WHITE BLOOD COUNT 7.9 TH/MM3 (4.0-11.0)
[2018-03-17 08:27] LABS: BICARBONATE 25.5 MEQ/L (21.0-32.0); CALCIUM 8.5 MG/DL (8.5-10.1); CREATININE 0.82 MG/DL (0.60-1.30)
[2018-03-17] MEDS: ONDANSETRON HCL 4 MG/2 ML VIAL IVP PRN (11:53)
[2018-03-17 12:00] VITALS: BP 118/64; PULSE 78; RESP 20; TEMP 98.6; O2SAT 96
[2018-03-17 15:56] VITALS: BP 106/69; PULSE 73; RESP 18; TEMP 97.9; O2SAT 96
[2018-03-18] VITALS: BP 107/65; PULSE 69; RESP 17; TEMP 98; O2SAT 97
[2018-03-18] MEDS: IBUPROFEN 400 MG TAB PO SCH ×3 (00:15→16:00)
[2018-03-18] MEDS: AZITHROMYCIN 600 MG TAB PO SCH (04:49)
[2018-03-18 08:00] VITALS: BP 115/67; PULSE 100; RESP 24; TEMP 97.2; O2SAT 94
--- NOTE | 2018-03-18 08:21 | HHI.PR ---
Subjective Remarks no fever or chills no complains of difficulty or painful swallowing or oral pain "slight knee pain- right" states he is going to sit on chair for meals or sit at the side of the bed good po, no dysuria or diarrhea Objective Vitals Vital Signs Date Time Temp Pulse Resp B/P (MAP) Pulse Ox O2 Delivery O2 Flow Rate FiO2 03/18/18 00:00 98.0 69 17 107/65 (79) 97 03/17/18 15:56 97.9 73 18 106/69 (81) 96 03/17/18 12:00 98.6 78 20 118/64 (82) 96 I/O 03/17/18 03/17/18 03/17/18 03/18/18 03/18/18 03/18/18 07:00 15:00 23:00 07:00 15:00 23:00 Intake Total 240 ml 2200 ml 240 ml Output Total 750 ml 350 ml Balance 240 ml 1450 ml -110 ml Intake Oral 240 ml 2200 ml 240 ml Output Urine Total 750 ml 350 ml # Voids 2 2 # Bowel Movements 1 0 Result Diagram: 03/17/18 0735 03/17/18 0735 Imaging Last Impressions Chest X-Ray 03/13/18 0000 Signed Impressions: Service Date/Time: Tuesday, March 13, 2018 14:36 - CONCLUSION: No acute disease. No significant change has occurred. Dale Gar MD Abdomen/Pelvis CT 02/19/18 0000 Signed Impressions: Service Date/Time: Tuesday, February 20, 2018 00:12 - CONCLUSION: 1. Prominent soft tissue density/lymphadenopathy in the left mesentery measuring 2 cm. 2. Multiple small scattered retroperitoneal lymph nodes. Christoph Fuller MD Chest CT 02/18/18 0000 Signed Impressions: Service Date/Time: Sunday, February 18, 2018 03:18 - CONCLUSION: 1. Scattered interstitial and alveolar opacities predominantly within the upper lobes. 2. No pleural effusions. Christoph Fuller MD Objective Remarks awake and alert , oriented x 3 anicteric + tongue thrush, gingival-with lungs- no rales regular rhythm abdomen soft, nontender extremities no edema, knees- with limitation in flexion=patient states pain, no effusion noted, good peripheral pulses skin- with multiple plaques Procedures Punch biopsy 02/21. Punch biopsy 02/28 A/P Problem List: (1) Sepsis ICD Code: A41.9 - Sepsis, unspecified organism (2) PNA (pneumonia) ICD Code: J18.9 - Pneumonia, unspecified organism (3) AIDS (acquired immunodeficiency syndrome), CD4 <=200 ICD Code: B20 - Human immunodeficiency virus [HIV] disease Assessment and Plan 38-year-old male with Sepsis on admission, source pneumonia. -Initially with staph coagulase-negative, subsequent blood culture had staph aureus. Was treated with Ancef. -Currently off of antibiotics -afebrile for last 48 hours Chest x-ray is clear. Blood cultures continue to be negative. This could be related to his HIV disease. Could also be related to severe plaque psoriasis. -Repeat blood cultures from 03/15 show no growth AIDS -CD4 count less than 20. -Patient apparently has been noncompliant with medications. -He is on azithromycin weekly. -Continue dapsone for PEJ P prophylaxis since he is allergic to Bactrim -Patient was started on HAART on 03/14 Scabies -Status post permethrin treatment on 03/10 -May consider repeating the treatment in 1 week Psoriasis -Status post skin biopsy which showed psoriatic lesions. No evidence of Kaposi' s sarcoma. Oncology has signed off. Need outpatient evaluation by dermatology. Mucositis - d/w- states he does not like the taste - advise to try Nystatin - swish and spit - to help with mucosal lesion Deconditioning Possible psoriatic arthritis -PT daily - Out of bed to chair for all meals- discuss with patient, at least sit on sit of the bed- for all meals Discharge Planning Patient has been afebrile. home if arranged. CM assisting us with DC meds Problem Qualifiers (1) PNA (pneumonia): Qualified Codes: J18.1 - Lobar pneumonia, unspecified organism Jerome Del Toro MD March 18, 2018 08:21
[2018-03-18] MEDS: EMTRICITABINE/TENOFOVIR 200 MG/300 MG TAB PO SCH (08:37)
[2018-03-18] MEDS: RITONAVIR 100 MG TAB PO SCH (08:38)
[2018-03-18] MEDS: NYSTATIN SUSP 500,000 U/5 ML CUP SWISH-SWAL SCH ×2 (08:38→12:57)
[2018-03-18] MEDS: busPIRone HCL 5 MG TAB PO SCH (08:38)
[2018-03-18] MEDS: SODIUM CHLORIDE 0.9% FLUSH 10 ML FLUSH IV FLUSH SCH (08:38)
[2018-03-18] MEDS: NYSTATIN 100,000 UNIT/GM CREAM 15 GM TOPICAL SCH (08:38)
[2018-03-18] MEDS: DOCUSATE SODIUM 50 MG/SENNA 8.6 MG TAB PO SCH (08:38)
[2018-03-18] MEDS: BETAMETHASONE DIPROPIONATE 0.05% OINT 15 GM TUBE TOPICAL SCH (08:38)
[2018-03-18] MEDS: DAPSONE 100 MG TAB PO SCH (08:38)
[2018-03-18] MEDS: DARUNAVIR 800 MG TAB PO SCH (08:38)
[2018-03-18] MEDS: NYSTATIN 100,000 U/GM PWD 15 GM BTL TOPICAL SCH (08:39)
--- NOTE | 2018-03-18 11:48 | HHI.IDPN ---
Note Infectious Disease Note Patient feels okay. Awake and alert. Complains of upset stomach when he tries to eat. States that his appetite is decreased. No fever. Blood cultures have been negative. Admitted because of shortness of breath. He also had painful skin lesions. RPR negative. Hepatitis serologies negative. PAST MEDICAL HISTORY: HIV disease. Inguinal hernia. pneumonia. ALLERGIES: SULFAMETHOXAZOLE, TRIMETHOPRIM. Sucralose. MEDICATIONS: Current Medications Medications (Trade) Dose Ordered Sig/Frank Route PRN Reason Start Time Stop Time Status Last Admin Dose Admin Albuterol/ Ipratropium (Duoneb Neb) 1 ampule Q4HR NEB PRN NEB SOB/WHEEZING 02/18/18 04:45 03/11/18 20:38 Sodium Chloride (NS Flush) 2 ml UNSCH PRN IV FLUSH FLUSH AFTER USING IV ACCESS 02/18/18 04:45 03/12/18 00:39 Sodium Chloride (NS Flush) 2 ml BID IV FLUSH 02/18/18 09:00 03/17/18 21:10 Ondansetron HCl (Zofran Inj) 4 mg Q6H PRN IVP NAUSEA OR VOMITING 02/18/18 04:45 03/17/18 11:53 Acetaminophen (Tylenol) 650 mg Q6H PRN PO FEVER/PAIN SCALE 1 TO 2 02/18/18 04:45 Future Hold 03/08/18 21:27 Acetaminophen/ Hydrocodone Bitart (Williamson 5-325 Mg) 1 tab Q4H PRN PO PAIN SCALE 3 TO 5 02/18/18 04:45 Future Hold 03/12/18 12:27 Senna/Docusate Sodium (Edilia-Colace) 1 tab BID PO 02/18/18 09:00 03/18/18 08:38 Magnesium Hydroxide (Milk Of Magnesia Liq) 30 ml Q12H PRN PO Mild constipation 02/18/18 04:45 Sennosides (Senokot) 17.2 mg Q12H PRN PO Moderate constipation 02/18/18 04:45 Bisacodyl (Dulcolax Supp) 10 mg DAILY PRN RECTAL SEVERE CONSITIPATION 02/18/18 04:45 Lactulose (Lactulose Liq) 30 ml DAILY PRN PO SEVERE CONSITIPATION 02/18/18 04:45 Azithromycin (Zithromax) 1,200 mg Q7D PO 02/18/18 06:00 03/18/18 04:49 Buspirone HCl (Buspar) 5 mg Q12HR PO 02/18/18 09:00 03/18/18 08:38 Nystatin (Mycostatin Liq) 5 ml QID SWISH-SWAL 02/18/18 09:00 03/18/18 08:38 Lorazepam (Ativan) 0.5 mg Q6H PRN PO anxiety 02/19/18 10:00 03/15/18 19:59 Oxycodone HCl (Roxicodone) 15 mg Q4H PRN PO pain 6-10 02/22/18 15:45 03/17/18 06:35 Nystatin (Mycostatin Cream) 1 applic Q12HR TOPICAL 02/23/18 12:30 03/18/18 08:38 Nystatin (Mycostatin Powder) 1 applic Q12HR TOPICAL 03/11/18 12:00 03/18/18 08:39 Dapsone (Dapsone) 100 mg DAILY PO 03/11/18 13:00 03/18/18 08:38 Betamethasone Dipropionate (Diprosone 0.05% Ointment) 1 applic BID TOPICAL 03/13/18 21:00 03/18/18 08:38 Ibuprofen (Motrin) 400 mg Q8H PO 03/13/18 16:00 03/18/18 08:38 Emtricitabine/ Tenofovir (Truvada 200-300 Mg) 1 tab DAILY PO 03/14/18 13:00 03/18/18 08:37 Darunavir (Prezista) 800 mg DAILY PO 03/14/18 13:00 03/18/18 08:38 Ritonavir (Norvir) 100 mg DAILY PO 03/14/18 14:00 03/18/18 08:38 OBJECTIVE: Vital Signs Date Time Temp Pulse Resp B/P (MAP) Pulse Ox O2 Delivery O2 Flow Rate FiO2 03/18/18 08:00 97.2 100 24 115/67 (83) 94 03/18/18 00:00 98.0 69 17 107/65 (79) 97 03/17/18 15:56 97.9 73 18 106/69 (81) 96 03/17/18 12:00 98.6 78 20 118/64 (82) 96 Laboratory Tests Test 03/17/18 07:35 White Blood Count 7.9 TH/MM3 Red Blood Count 2.80 MIL/MM3 Hemoglobin 8.1 GM/DL Hematocrit 23.9 % Mean Corpuscular Volume 85.4 FL Mean Corpuscular Hemoglobin 29.0 PG Mean Corpuscular Hemoglobin Concent 33.9 % Red Cell Distribution Width 16.0 % Platelet Count 170 TH/MM3 Mean Platelet Volume 7.5 FL Neutrophils (%) (Auto) 72.1 % Lymphocytes (%) (Auto) 10.8 % Monocytes (%) (Auto) 16.6 % Eosinophils (%) (Auto) 0.3 % Basophils (%) (Auto) 0.2 % Neutrophils # (Auto) 5.7 TH/MM3 Lymphocytes # (Auto) 0.9 TH/MM3 Monocytes # (Auto) 1.3 TH/MM3 Eosinophils # (Auto) 0.0 TH/MM3 Basophils # (Auto) 0.0 TH/MM3 CBC Comment DIFF FINAL Differential Comment Laboratory Tests Test 03/17/18 07:35 Blood Urea Nitrogen 15 MG/DL Creatinine 0.82 MG/DL Random Glucose 96 MG/DL Calcium Level 8.5 MG/DL Sodium Level 142 MEQ/L Potassium Level 4.1 MEQ/L Chloride Level 108 MEQ/L Carbon Dioxide Level 25.5 MEQ/L Anion Gap 9 MEQ/L Estimat Glomerular Filtration Rate 106 ML/MIN Imaging: Chest X-Ray 03/13/18 0000 Signed Impressions: Service Date/Time: Tuesday, March 13, 2018 14:36 - CONCLUSION: No acute disease. No significant change has occurred. Dale Gar MD PHYSICAL EXAMINATION: GENERAL: No acute distress. Awake and alert. HEENT: Mild redness at the face. Extraocular movements grossly intact. Pupils reactive to light. Pale sclerae. Oropharynx: Moist mucosa. No visible thrush. NECK: Supple. No adenopathy. LUNGS: Breath sounds are clear. HEART: Regular S1 and S2. No murmurs or rubs or gallops. ABDOMEN: Bowel sounds present. Soft, nontender. No masses palpable. EXTREMITIES: Diffuse dry erythematous punctate lesions covering the palm of the hands are Slightly faded. Soles of the feet has erythematous scabbed surface. No clubbing , cyanosis or edema. GROIN: Flat erythematous rash at the grooves of the groin which is dried. SKIN: Diffuse, maculopapular erythematous plaque lesions scattered all over the extremities, trunk, arms, legs. Lesions are confluent back. PSYCHIATRIC: Calm and cooperative. IMPRESSION: 1. Bacteremia initially with staph coagulase-negative. Subsequent blood culture had staph aureus. Treated with Ancef. Now off antibiotics and blood cultures are negative. 2. Fever. Persistent and appears cyclic. Possibly related to HIV disease. Chest x-ray clear. Temperature improved after starting HIV medicines. He does not appear toxic. Fevers likely related to the severe plaque psoriasis versus HIV. 3. Acquired immune deficiency syndrome. CD4 count less than 20. Elevated viral load. 4. Plaque psoriasis. 5. 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 6. Patient with poor insight. RECOMMENDATIONS: 1. Continue Zithromax. 2. Continue Dapsone for PJP prophylaxis because he is allergic to Bactrim. 3. Continue Nystatin powder to the groin rash. 4. Continue betamethasone ointment to the skin for the psoriatic lesions. 5. Continue ibuprofen for fever as needed. 6. Continue HAART with Tenofovir/emtricitabine and Darunavir/Ritonavir Combination. Observe for immune reconstitution syndrome now that he has been started on HIV medications. Eventually the patient will need to be seen by dermatology for treatment for psoriasis. Will need to keep appointment appointment with the [facility] for HIV follow-up and management. Has appointment for March 22, 2018. Okay to discharge from ID standpoint. He can be given p.o. Megace for appetite. Also Diflucan for oral thrush. Discussed with Dr. smith. I will sign off now. Syed Will MD March 18, 2018 11:48
[2018-03-18 12:00] VITALS: BP 110/64; PULSE 78; RESP 20; TEMP 98.4; O2SAT 98
[2018-03-18] MEDS ORDERED: WHEEMIS3 (12:12)
[2018-03-18] MEDS ORDERED: FLUCONAZOLE 100 MG TAB PO SCH (12:15)
[2018-03-18] MEDS ORDERED: MEGESTROL ACETATE 40 MG TAB PO SCH (12:15)
[2018-03-18] MEDS ORDERED: DARU800T2 PO (14:57)
[2018-03-18] MEDS ORDERED: TRUV200300 PO (14:57)
[2018-03-18] MEDS ORDERED: NORV100T PO (14:57)
[2018-03-18] MEDS ORDERED: AZIT600T PO (14:57)
[2018-03-18] MEDS ORDERED: DAPS1TAB2 PO (14:57)
[2018-03-18] MEDS ORDERED: NYST1000 SWISH-SWAL (14:57)
[2018-03-18] MEDS ORDERED: DIFL100T PO (14:58)
[2018-03-18] MEDS ORDERED: MEGE40TA PO (15:10)
[2018-03-18] MEDS ORDERED: HYDR-3516 PO (15:18)
== END 2018-03-18 18:03 | disposition home or self-care (01) | DRG 975 ==
LOC: NEPC 01:07 → NEDA 04:47 → N07A 12:46
PROVIDERS: ADMIT Internal Medicine; ATTEND Internal Medicine
PROC: 0HBJXZX Excision of Left Upper Leg Skin, External Approach, Diagnostic (ICD-10-PCS; principal; 2018-02-21)
PROC: 0HB6XZX Excision of Back Skin, External Approach, Diagnostic (ICD-10-PCS; 2018-02-28)
DX: B20 Human immunodeficiency virus [HIV] disease (principal); J18.1 Lobar pneumonia, unspecified organism; E46 Unspecified protein-calorie malnutrition; A41.9 Sepsis, unspecified organism; F03.90 Unspecified dementia, unspecified severity, without behavioral disturbance, psychotic disturbance, mood disturbance, and anxiety; D63.8 Anemia in other chronic diseases classified elsewhere; B86 Scabies; Z85.89 Personal history of malignant neoplasm of other organs and systems; F41.9 Anxiety disorder, unspecified; Z91.14 Patient's other noncompliance with medication regimen; Z88.2 Allergy status to sulfonamides; F17.210 Nicotine dependence, cigarettes, uncomplicated; L40.0 Psoriasis vulgaris; K12.30 Oral mucositis (ulcerative), unspecified; M25.569 Pain in unspecified knee; Z87.01 Personal history of pneumonia (recurrent); R50.2 Drug induced fever; T36.95XA Adverse effect of unspecified systemic antibiotic, initial encounter; Y92.239 Unspecified place in hospital as the place of occurrence of the external cause; L40.50 Arthropathic psoriasis, unspecified
CPT/HCPCS: 71045; 71250; 74176; 76937; 80048; 80053; 80069; 80074; 80076; 80202; 81001; 82565; 82607; 82728; 82746; 82955; 83540; 83550; 83605; 83615; 83690; 83735; 85007; 85025; 85027; 85044; 85610; 85730; 86355; 86357; 86359; 86360; 86403; 86592; 87040; 87116; 87147; 87186; 87205; 87536; 87901; 88305; 94664; 96365; 96368; 96375; J0456; J0690; J0692; J0696; J2060; J2270; J2405; J3370; J3420; J7030; J7040; J7050; Q9963